=== PATIENT | female | born 1965 | race Caucasian/White ===

== ENCOUNTER 2019-08-02 10:41 | Emergency (ER) | payer SELFPAY ==
[2019-08-02 10:44] VITALS: BP 102/70; PULSE 103; TEMP 36.6; O2SAT 93; BMI 18.3
--- NOTE | 2019-08-02 10:54 | ED_ITS ---
Entered by Nurys Faye, acting as scribe for Alexandra Carmichael DO HPI - Weakness General: Chief complaint: Weakness Stated complaint: HYPOTENSION Time Seen by Provider: 08/02/19 10:54 Source: patient Mode of arrival: EMS Limitations: no limitations History of Present Illness: HPI Narrative: 54 yo Female presents to ED with complaint of weakness and hypotension. Pt states that she hasn't been feeling well for about 3 days. Pt states that when she went to get into the car to go to a meeting a work, her legs started shaking and her weakness increased. Pt states that when she worked last night she felt weak and off balance. Pt states that she has had chills and nausea. Pt states that she is diabetic but hasn't taken her Metformin and glipizide in about a month or so. Pt states that she fell today going into work because of her weakness. MD Complaint: generalized weakness Onset (ago): day(s) Duration: progressively worsening Location: LLE and RLE Migration: none Severity scale (1-10): 8 Quality: aching and other (chronic) Relieving factors: none Exacerbating factors: movement Context: recent illness Associated symptoms: Reports chills and nausea; Denies chest pain, fever(s), headache(s) or vomiting Review of Systems General: Reports: 10 or more systems reviewed and unremarkable except in HPI and below Const: Reports: chills; Denies: fever or fatigue ENMT: Denies: throat pain Card: Denies: chest pain or swelling of feet/ankles Resp: Denies: shortness of breath or productive cough GI: Reports: nausea; Denies: abdominal pain, vomiting, diarrhea, constipation or blood in stool : Denies: difficulty urinating Musc: Denies: back pain or extremity swelling Skin/Breast: Denies: rash Neuro: Reports: weakness in extremities and dizziness; Denies: headache or numbness in extremities PFS ED PFSH: Medical History Diabetes Social History Smoking and tobacco status: current every day smoker cigarettes Packs smoked per day: 1 Physical Exam Const: COMMON NORMALS: no apparent distress and oriented x3 GENERAL APPEARANCE: cooperative; not in distress HENMT: COMMON NORMALS: normocephalic HEAD & SCALP: normal to inspection and normocephalic MOUTH: oral and palatal mucosa normal and lip normal THROAT: posterior oropharynx normal and tonsils normal Neck/C-Spine: COMMON NORMALS: full ROM, no lymphadenopathy, supple and no meningeal signs GENERAL: Yes normal visual inspection and Yes trachea midline Chest: COMMONS NORMALS: inspection of chest normal Resp: COMMON NORMALS: normal respiratory effort and clear to auscultation bilaterally EFFORT & INSPECTION: Yes able to speak in complete sentences and No respiratory distress AUSCULTATION: clear to auscultation bilaterally, no rales, no rhonchi, no wheezes and diminished lung sounds bilateral Cardio: COMMON NORMALS: regular rate, regular rhythm, S1 normal heart sound, S2 normal heart sound and no murmurs RATE: regular rate RHYTHM: regular rhythm HEART SOUNDS: S1 normal and S2 normal PERIPHERAL PULSES: radial pulses present and dorsalis pedis pulses present GI: COMMON NORMALS: normal to inspection, nondistended, normoactive bowel sounds, soft to palpation and non-tender INSPECTION: Yes normal to inspection AUSCULTATION: Yes normoactive bowel sounds PALPATION: Yes soft, No tender, No guarding and No rigid RECTAL EXAM: deferred : COMMON NORMALS: Yes no CVA tenderness BLADDER/KIDNEY EXAM: Yes no CVA tenderness Back/Pelvis: COMMON NORMALS: no CVA tenderness Extremity: COMMON NORMALS: normal to inspection, full ROM, normal capillary refill, no calf tenderness and no pedal edema Neuro: COMMON NORMALS: oriented x3, CN's II-XII intact bilaterally, moves all extremities and no focal motor deficits MENINGEAL SIGNS: Yes no meningeal signs Skin: COMMON NORMALS: no rashes or lesions noted GENERAL SKIN EXAM: no rashes or lesions noted Course ED course: Pt has had hypotension and multiple falls, this may be from uti as she is positive for nitrates and has 0-4 wbc in urine, I will treat her with rocephin. Vital Signs: Vital signs: Vital Signs Temperature 97.9 F 08/02/19 10:44 Pulse Rate 75 08/02/19 14:19 Respiratory Rate 16 08/02/19 14:19 Blood Pressure 122/76 08/02/19 14:19 Pulse Oximetry 97 08/02/19 14:19 MDM - Weakness MDM Narrative: Medical decision making narrative: Pt has a UTI which may be the ause of her hypotension and falling with weakness, I am waiting for her serum ketones and her 2 hour troponin as her 1st was elevated to 16, will reassess glucose and bp after fluids. 12:40PM, pts serum ketones negative, waiting for trop. Ct head is negative 1353, pts trop is 11 and she has a flat delta with no chest pain so I will send her home with no further eval of her heart, her bp is now 122/70 after 2 Liters iv fluids. Her accu check is better at 186, I will send her home with diabetic diet instructions and abx for her uti. She will need to drink plenty of fluids and monitor her sugars carefully. I will refill her diabetic meds if needed 1407: pt states she is on metformin and glipizide or glyburide and doesnt know dosages, she gets them from the [facility], we have the pills with no labels so will try to identify them and I will prescribe them, she will need to monitor sugars carefully. Lab Data: Attestation: I reviewed the patient's lab results. Labs: Lab Results 08/02/19 08/02/19 08/02/19 Range/Units 10:29 10:29 10:29 WBC 8.0 (4.0-10.0) 10^3/ uL RBC 5.54 H (4.1-5.3) 10^6/u L Hgb 16.9 H (11.5-15.3) g/dL Hct 50.4 H (37.0-47.0) % MCV 91.0 (81-99) fL MCH 30.5 (28.0-34.0) pg MCHC 33.5 (30.0-36.0) g/dL RDW 11.7 L (12.1-15.1) % Plt Count 309 (130-400) 10^3/c mm MPV 11.0 H (7.4-10.4) fL Neut % (Auto) 61.5 % Lymph % (Auto) 25.4 % Avery % (Auto) 12.2 % Eos % (Auto) 0.0 % Baso % (Auto) 0.6 % Neut # (Auto) 4.9 (1.8-7.7) 10^3/u L Lymph # (Auto) 2.0 (0.8-4.8) 10^3/u L Avery # (Auto) 1.0 H (0.2-0.9) 10^3/u L Eos # (Auto) 0.0 (0.0-0.8) 10^3/u L Baso # (Auto) 0.1 (0.0-0.1) 10^3/u L Nucleated RBC % (a uto) 0 % Nucleated RBCs # 0.0 /100WBC Sodium 135 L (136-145) mmol/L Potassium 3.7 (3.5-5.1) mmol/L Chloride 93 L (98-107) mmol/L Carbon Dioxide 28 (22-29) mmol/L Anion Gap 17.7 (5-19) BUN 14 (6-20) mg/dL Creatinine 0.7 (0.5-0.9) mg/dL GFR Calculation 86.9 L (90-130) mL/min Glucose 307 H (65-115) mg/dL POC Glucose (70-110) mg/dL Calcium 9.8 (8.5-10.5) mg/dL Total Bilirubin 0.5 (0.15-1.2) mg/dL AST 15 (0-32) U/L ALT 11 (0-33) U/L Alkaline Phosphata se 118 H (35-105) IU/L Troponin T Baselin e 16 H (0-10) ng/mL Troponin T 120 Min [place] (0-10) ng/mL Delta Troponin T (0-10) ABS# Total Protein 8.3 (6.6-8.7) g/dL Albumin 4.3 (3.5-5.2) g/dL Globulin 4.0 (1.3-4.6) g/dL Urine Color (Yellow) Urine Appearance (CLEAR) Urine pH (5-7) Ur Specific Gravit y (1.005-1.030) Urine Protein (Negative) Urine Glucose (UA) (Normal) Urine Ketones (Negative) Urine Blood (Negative) Urine Nitrate (Negative) Urine Bilirubin (NEGATIVE) Urine Urobilinogen (Negative) mg/dL Ur Leukocyte Jody ase (Negative) Urine RBC (0-2) /hpf Urine WBC (0-5) /hpf Ur Squamous Epith Cells (0-5) Urine Bacteria (NONE) Urine Yeast Ethyl Alcohol < 10 (0-10) mg/dL Serum Ketones (Negative) 08/02/19 08/02/19 08/02/19 Range/Units 10:29 11:40 12:28 WBC (4.0-10.0) 10^3/ uL RBC (4.1-5.3) 10^6/u L Hgb (11.5-15.3) g/dL Hct (37.0-47.0) % MCV (81-99) fL MCH (28.0-34.0) pg MCHC (30.0-36.0) g/dL RDW (12.1-15.1) % Plt Count (130-400) 10^3/c mm MPV (7.4-10.4) fL Neut % (Auto) % Lymph % (Auto) % Avery % (Auto) % Eos % (Auto) % Baso % (Auto) % Neut # (Auto) (1.8-7.7) 10^3/u L Lymph # (Auto) (0.8-4.8) 10^3/u L Avery # (Auto) (0.2-0.9) 10^3/u L Eos # (Auto) (0.0-0.8) 10^3/u L Baso # (Auto) (0.0-0.1) 10^3/u L Nucleated RBC % (a uto) % Nucleated RBCs # /100WBC Sodium (136-145) mmol/L Potassium (3.5-5.1) mmol/L Chloride (98-107) mmol/L Carbon Dioxide (22-29) mmol/L Anion Gap (5-19) BUN (6-20) mg/dL Creatinine (0.5-0.9) mg/dL GFR Calculation (90-130) mL/min Glucose (65-115) mg/dL POC Glucose 335 (70-110) mg/dL Calcium (8.5-10.5) mg/dL Total Bilirubin (0.15-1.2) mg/dL AST (0-32) U/L ALT (0-33) U/L Alkaline Phosphata se (35-105) IU/L Troponin T Baselin e (0-10) ng/mL Troponin T 120 Min [place]oux (0-10) ng/mL Delta Troponin T (0-10) ABS# Total Protein (6.6-8.7) g/dL Albumin (3.5-5.2) g/dL Globulin (1.3-4.6) g/dL Urine Color Yellow (Yellow) Urine Appearance Sl hazy (CLEAR) Urine pH 5 (5-7) Ur Specific Gravit y 1.015 (1.005-1.030) Urine Protein Trace (Negative) Urine Glucose (UA) 4+ H (Normal) Urine Ketones Negative (Negative) Urine Blood Neg (Negative) Urine Nitrate Positive H (Negative) Urine Bilirubin Neg (NEGATIVE) Urine Urobilinogen Norm (Negative) mg/dL Ur Leukocyte Jody ase Negative (Negative) Urine RBC None (0-2) /hpf Urine WBC 0-4 H (0-5) /hpf Ur Squamous Epith Cells 5-10 H (0-5) Urine Bacteria 4+ H (NONE) Urine Yeast 1+ H Ethyl Alcohol (0-10) mg/dL Serum Ketones Negative (Negative) 08/02/19 08/02/19 Range/Units 13:22 13:53 WBC (4.0-10.0) 10^3/ uL RBC (4.1-5.3) 10^6/u L Hgb (11.5-15.3) g/dL Hct (37.0-47.0) % MCV (81-99) fL MCH (28.0-34.0) pg MCHC (30.0-36.0) g/dL RDW (12.1-15.1) % Plt Count (130-400) 10^3/c mm MPV (7.4-10.4) fL Neut % (Auto) % Lymph % (Auto) % Avery % (Auto) % Eos % (Auto) % Baso % (Auto) % Neut # (Auto) (1.8-7.7) 10^3/u L Lymph # (Auto) (0.8-4.8) 10^3/u L Avery # (Auto) (0.2-0.9) 10^3/u L Eos # (Auto) (0.0-0.8) 10^3/u L Baso # (Auto) (0.0-0.1) 10^3/u L Nucleated RBC % (a uto) % Nucleated RBCs # /100WBC Sodium (136-145) mmol/L Potassium (3.5-5.1) mmol/L Chloride (98-107) mmol/L Carbon Dioxide (22-29) mmol/L Anion Gap (5-19) BUN (6-20) mg/dL Creatinine (0.5-0.9) mg/dL GFR Calculation (90-130) mL/min Glucose (65-115) mg/dL POC Glucose 186 (70-110) mg/dL Calcium (8.5-10.5) mg/dL Total Bilirubin (0.15-1.2) mg/dL AST (0-32) U/L ALT (0-33) U/L Alkaline Phosphata se (35-105) IU/L Troponin T Baselin e (0-10) ng/mL Troponin T 120 Min [place] 11.79 H (0-10) ng/mL Delta Troponin T -4.21 L (0-10) ABS# Total Protein (6.6-8.7) g/dL Albumin (3.5-5.2) g/dL Globulin (1.3-4.6) g/dL Urine Color (Yellow) Urine Appearance (CLEAR) Urine pH (5-7) Ur Specific Gravit y (1.005-1.030) Urine Protein (Negative) Urine Glucose (UA) (Normal) Urine Ketones (Negative) Urine Blood (Negative) Urine Nitrate (Negative) Urine Bilirubin (NEGATIVE) Urine Urobilinogen (Negative) mg/dL Ur Leukocyte Jody ase (Negative) Urine RBC (0-2) /hpf Urine WBC (0-5) /hpf Ur Squamous Epith Cells (0-5) Urine Bacteria (NONE) Urine Yeast Ethyl Alcohol (0-10) mg/dL Serum Ketones (Negative) Imaging Data^: CXR: Attestation: I personally reviewed and interpreted this imaging study as follows: Radiologist's impression: [address] [address] XRay Report Signed Patient: Brittney Lozano #: [id number] : 1965Acct#:[id number] Age/Sex: 54 / FADM Date: 08/02/19 Loc: ERRoom/Bed: Attending Dr: Ordering Provider/Ordering MD: Alexandra Carmichael DO Date of Service: 08/02/19 Procedure(s): XR chest 1V portable 64580 Accession Number(s): [id number] Report Number: [id number] WS: [id number] XR chest 1V portable 75218 REASON FOR EXAM: pneumonia FINDINGS: Comparisons were made to July 12, 2014. The lung ivy are well aerated. No pneumonia, pleural effusion, pulmonary edema, or mass effect. The hilum and apices are normal. No osseous abnormalities. There is arteriosclerotic changes seen in the arch of the aorta. XR/XR chest 1V portable 55061 IMPRESSION: Arteriosclerotic changes of the arch of the aorta. No evidence of active cardiopulmonary disease. Dictated By:Ozzie Kirkpatrick DO Signed By:Ozzie Kirkpatrick DOSigned Date/Time:08/02/19 1136 DD/ 1135 CT Head: Radiologist's impression: [address] [address] [address] Scan Report Signed Patient: Brittney Lozano #: [id number] : 1965Acct#:[id number] Age/Sex: 54 / FADM Date: 08/02/19 Loc: ERRoom/Bed: Attending Dr: Ordering Provider/Ordering MD: Alexandra Carmichael DO Date of Service: 08/02/19 Procedure(s): CT head wo con* [id number] Accession Number(s): [id number] Report Number: [id number] WS: [id number] CT HEAD NONCONTRAST HISTORY: dizziness TECHNIQUE: Contiguous axial imaging performed through the brain in 2.5 mm imaging. Bone and soft tissue windows. Sagittal and coronal reformats reviewed. All CT scans at [facility] use at least one of these dose optimization techniques: automated exposure control; mA and/or kV adjustment per patient size (includes targeted exams where dose is matched to clinical indication); or iterative reconstruction. DLP: 797.14 mGy.cm COMPARISON: None available. No acute intracranial hemorrhage, midline shift or mass effect. Mild atrophy and mild chronic microvascular ischemic disease. No prior infarcts. No inferior displacement of the cerebellar tonsils. Ventricles: Normal size with no hydrocephalus. Visualize clivus and pituitary gland are negative. Paranasal sinuses: Mild ethmoid air cell disease. No air-fluid levels. Mastoid air cells: Well pneumatized. Calvarium and scalp: Skull is intact with no soft tissue edema or swelling. CT/CT head wo con* [id number] IMPRESSION: 1. No acute intracranial hemorrhage or edema. 2. Mild atrophy and chronic small vessel ischemic disease. Dictated By:Mirtha Whiting DO Signed By:Mirtha Whiting DOSigned Date/Time:08/02/19 1232 DD/ 1230 EKG Data^: EKG 1: Attestation: I personally reviewed and interpreted this EKG as follows: EKG interpretation time: 11:34 Prior EKG tracings: not available for review Computer generated interpretation: nsr rate 87, normal st segments' Discharge Plan Discharge Patient Disposition: Home, Self-Care Clinical Impression: Dehydration, Weakness UTI (urinary tract infection) Qualifiers: Urinary tract infection type: acute pyelonephritis Qualified Code(s): N10 - Acute pyelonephritis Diabetes Qualifiers: Diabetes mellitus complication detail: with other kidney complication Condition: Stable Prescriptions: New metformin 500 mg tablet 500 mg PO BID Qty: 60 RF: 0 glipizide 10 mg tablet extended release 24hr 10 mg PO DAILY Qty: 30 RF: 0 simvastatin 20 mg tablet 20 mg PO DAILY Qty: 30 RF: 0 cefdinir 300 mg capsule 300 mg PO BID 5 Days Qty: 10 RF: 0 No Action glipizide 10 mg Tablet Extended Release 24hr See Rx Instructions .ROUTE .COMPLEX RF: 0 simvastatin 20 mg Tablet See Rx Instructions .ROUTE .COMPLEX RF: 0 metformin 500 mg Tablet Extended Release 24hr See Rx Instructions .ROUTE .COMPLEX RF: 0 Discharge Orders: Discharge Order (Routine); Ordered 08/02/19 Ordered By: Alexandra Carmichael Referrals: Leonard Perez MD [Family Provider] - 1-3 days (in the next 1-2 days) Discharge Diet: Diabetic Discharge Activity: Resume usual activity Patient Instructions: Diabetes and Diet, Urinary Tract Infection in Women (ED) Activity Restrictions/Additional Instructions: You are to check your sugars carefully 3 times daily and take all meds as prescribed. Drink plenty of water. You are to return if anything worsens, not better or any problems. Discharge Date/Time: 08/02/19 14:25 Coding Level of Care Code ED Labor Expediter for Chg Fwd Exam Comprehensive The documentation recorded by the Yunier grossman Carmen, accurately reflects th e service I personally performed and the decisions made by , Alexandra Carmichael, Aug 02, 2019 10:41
--- NOTE | 2019-08-02 10:54 | PC.NURSE ---
Per EMS pts blood glucose 354
--- NOTE | 2019-08-02 11:04 | XR_ITS ---
WS: [id number] XR chest 1V portable [id number] REASON FOR EXAM: pneumonia FINDINGS: Comparisons were made to July 12, 2014. The lung ivy are well aerated. No pneumonia, pleural effusion, pulmonary edema, or mass effect. The hilum and apices are normal. No osseous abnormalities. There is arteriosclerotic changes seen in the arch of the aorta. XR/XR chest 1V portable [id number] IMPRESSION: Arteriosclerotic changes of the arch of the aorta. No evidence of active cardiopulmonary disease.
--- NOTE | 2019-08-02 11:05 | ECG_ITS ---
Measurements Intervals [place] Rate: 87 P: 78 [place]: 149 QRS: 75 QRSD: 102 T: 81 QT: 371 QTc: 447 SINUS RHYTHM Compared to ECG 05/30/2014 23:12:56 Sinus tachycardia no longer present Electronically Signed On 08-02-2019 13:18:14 [employer] by Meri Kidd M.D. [id number]
[2019-08-02 11:07] VITALS: O2SAT 96
--- NOTE | 2019-08-02 11:08 | CT_ITS ---
WS: [id number] CT HEAD NONCONTRAST HISTORY: dizziness TECHNIQUE: Contiguous axial imaging performed through the brain in 2.5 mm imaging. Bone and soft tiss ue windows. Sagittal and coronal reformats reviewed. All CT scans at [facility] use at ast one of these dose optimization techniques: automated exposure control; mA and/or kV adjustment pe r patient size (includes targeted exams where dose is matched to clinical indication); or iterative r econstruction. DLP: 797.14 mGy.cm COMPARISON: None available. No acute intracranial hemorrhage, midline shift or mass effect. Mild atrophy and mild chronic microvascular ischemic disease. No prior infarcts. No inferior displace ment of the cerebellar tonsils. Ventricles: Normal size with no hydrocephalus. Visualize clivus and pituitary gland are negative. Paranasal sinuses: Mild ethmoid air cell disease. No air-fluid levels. Mastoid air cells: Well pneumatized. Calvarium and scalp: Skull is intact with no soft tissue edema or swelling. CT/CT head wo con* [id number] IMPRESSION: 1. No acute intracranial hemorrhage or edema. 2. Mild atrophy and chronic small vessel ischemic disease.
[2019-08-02] MEDS: sodium chloride 0.9% 1,000 ML 999 ML IV ×2 (11:11→12:57)
[2019-08-02 11:25] LABS: Basophils # 0.1 10^3/uL (0.0-0.1); Basophils % 0.6 %; Hematocrit 50.4 % (37.0-47.0); Hemoglobin 16.9 g/dL (11.5-15.3); Lymphocytes % 25.4 %; Mean Corpuscular HGB Conc 33.5 g/dL (30.0-36.0); Mean Corpuscular Hemoglobin 30.5 pg (28.0-34.0); Monocytes % 12.2 %; Neutrophils # 4.9 10^3/uL (1.8-7.7); Neutrophils % 61.5 %; Nucleated Red Blood Cells % 0 %; Platelet Count 309 10^3/cmm (130-400); Red Blood Count 5.54 10^6/uL (4.1-5.3); Red Cell Distribution Width 11.7 % (12.1-15.1)
[2019-08-02 11:32] LABS: Alanine Aminotransferase 11 U/L (0-33); Albumin Level 4.3 g/dL (3.5-5.2); Alkaline Phosphatase 118 IU/L (35-105); Anion Gap 17.7 (5-19); Aspartate Amino Transferase 15 U/L (0-32); Blood Urea Nitrogen 14 mg/dL (6-20); Calcium 9.8 mg/dL (8.5-10.5); Carbon Dioxide 28 mmol/L (22-29); Chloride 93 mmol/L (98-107); Creatinine Clr Calc Pharmacy 69.1014; Glomerular Filtration Rate 86.9 mL/min (90-130); Glucose 307 mg/dL (65-115); Potassium 3.7 mmol/L (3.5-5.1); Sodium 135 mmol/L (136-145); Total Bilirubin 0.5 mg/dL (0.15-1.2); Total Protein 8.3 g/dL (6.6-8.7)
[2019-08-02 11:34] LABS: Troponin(5th) Baseline 16 ng/mL (0-10)
[2019-08-02] MEDS: ipratropium-albuterol 3 mL Neb INHALATION (11:35)
[2019-08-02 11:36] LABS: Alcohol Level < 10 mg/dL (0-10)
[2019-08-02 11:38] VITALS: PULSE 95; RESP 20; O2SAT 95
[2019-08-02 11:40] VITALS: PULSE 97
[2019-08-02 11:55] LABS: Add Urine Microscopic? YES; Bilirubin Urine Neg (NEGATIVE); Blood Urine Neg (Negative); Glucose Urine UA 4+ (Normal); Ketones Urine Negative (Negative); Leukocyte Esterase Urine Negative (Negative); Nitrate Urine Positive (Negative); Protein Urine Trace (Negative); Specific Gravity, Urine 1.015 (1.005-1.030); Urine Appearance SL Hazy (CLEAR); Urine Color Yellow (Yellow); Urobilinogen Urine Norm (Negative); pH Urine 5 (5-7)
[2019-08-02 11:58] LABS: Add Urine Culture? Yes; Bacteria Urine 4+; WBC Urine 0-4 /hpf (0-5)
[2019-08-02 12:13] LABS: Ketone (Acetest) Serum Negative (Negative)
[2019-08-02] MEDS: cefTRIAXone 1,000 MG in sodium chloride 0.9% (plus) 50 ML 100 MG IV (12:28)
[2019-08-02 12:31] LABS: Glucose Point of Care 335 mg/dL (70-110)
[2019-08-02] MEDS: insulin regular-human 100 units/1 mL 10 UNIT IVP (13:17)
[2019-08-02 13:42] LABS: Troponin 5 2HR 11.79 ng/mL (0-10)
[2019-08-02 13:50] LABS: Troponin 5 2HR Delta -4.21 ABS# (0-10)
[2019-08-02 13:55] LABS: Glucose Point of Care 186 mg/dL (70-110)
[2019-08-02 14:19] VITALS: BP 122/76; PULSE 75; RESP 16; O2SAT 97
== END 2019-08-02 14:25 | disposition home or self-care (01) ==
PROVIDERS: Emergency Provider Emergency Medicine; Family Provider Family Medicine
DX: N39.0 Urinary tract infection, site not specified (principal); E86.0 Dehydration; R53.1 Weakness; E11.9 Type 2 diabetes mellitus without complications; F17.210 Nicotine dependence, cigarettes, uncomplicated; Z79.84 Long term (current) use of oral hypoglycemic drugs
CPT/HCPCS: 36415; 36416; 70450; 71045; 80053; 80307; 81001; 82009; 82962; 84484; 85025; 87040; 87077; 87086; 87186; 93005; 94640; 96361; 96365; 96374; 96375; 99283; 99284; J0696; J1815; J7030

== ENCOUNTER 2019-09-13 12:09 | Emergency (ER) | payer SELFPAY ==
[2019-09-13] VITALS (32 sets, daily range): BP systolic 122–167; BP diastolic 76–92; PULSE 106–121; RESP 16–20; TEMP 36.7; O2SAT 95–98; BMI 19.2
--- NOTE | 2019-09-13 12:23 | W.ED.SOB ---
HPI - SOB/Dyspnea General: Chief Complaint: General Medical Stated Complaint: sob Time Seen by Provider: 09/13/19 12:23 History of Present Illness: HPI Narrative: Pt states her sister came to see her and she has a lesion that is similar. Pt states she has a lesion on her right middle finger and her whole hand is now swollen. She cant bend finger. there is foul smelling drainage and distal finger is turning purpple. She states she has been doctoring it herself but putting it in epsom salts and putting a salve on it and it is getting worse, She states she also feels short of breath. She is a diabetic MD elicited complaint: shortness of breath and cough Onset (ago): week(s) Context: recent illness Timing: constant Severity: severe Known history of: diabetes (noncompliant with meds) Associated symptoms: Reports fever(s), lightheadedness, myalgias and rash (streakig up right arm to axilla); Deny abdominal pain, nausea or vomiting Treatment prior to arrival: other (epsom salts) Review of Systems General: Reports: 10 or more systems reviewed and unremarkable except in HPI and below Const: Reports: fever ENMT: Denies: throat pain Card: Reports: lightheadedness Resp: Reports: shortness of breath; Denies: productive cough GI: Denies: abdominal pain, nausea, vomiting, diarrhea, constipation or blood in stool : Denies: difficulty urinating Musc: Denies: back pain Skin/Breast: Reports: rash, redness, skin tenderness, skin swelling, sores, new lesion and non-healing lesion Neuro: Denies: headache, numbness in extremities or weakness in extremities Psych: Reports: anxiety PFSH ED PFSH: Social History Smoking and tobacco status: current every day smoker cigarettes Packs smoked per day: 1 Physical Exam Const: COMMON NORMALS: no apparent distress and oriented x3; negative for well nourished GENERAL APPEARANCE: disheveled NUTRITIONAL APPEARANCE: underweight ORIENTATION/CONSCIOUSNESS: Yes awake HENMT: MOUTH: other (slightly dry mucus mem) Neck/C-Spine: COMMON NORMALS: full ROM, no lymphadenopathy and no meningeal signs Resp: COMMON NORMALS: clear to auscultation bilaterally EFFORT & INSPECTION: Yes able to speak in complete sentences, Yes symmetric chest movement, No respiratory distress and No audible wheezes AUSCULTATION: clear to auscultation bilaterally, no rales, no rhonchi and no wheezes Cardio: COMMON NORMALS: regular rate, no murmurs and peripheral pulses 2+ throughout RATE: regular rate PERIPHERAL PULSES: pulses 2+ throughout GI: COMMON NORMALS: normal to inspection, nondistended, normoactive bowel sounds INSPECTION: Yes normal to inspection AUSCULTATION: Yes normoactive bowel sounds Extremity: RIGHT UPPER EXTREMITY: Yes hand & digits (3rd finger wound with signs of gangrene surrounding and distal, fluctuance,) Right hand and digits: Yes inspection (tedner with erythema of dorsal hand and swelling), Yes ROM exam (decreased rom of finger) and Yes other (lymphangitis up to axilla) Neuro: COMMON NORMALS: oriented x3 MENINGEAL SIGNS: Yes no meningeal signs Course Vital Signs: Vital signs: Vital Signs Temperature 98.0 F 09/13/19 12:28 Pulse Rate 117 H 09/13/19 12:28 Respiratory Rate 18 09/13/19 13:56 Blood Pressure 122/76 09/13/19 12:28 Pulse Oximetry 98 09/13/19 12:28 MDM - SOB/Dyspnea MDM Narrative: Medical decision making narrative: Pt will need surgical debridement and possible amputation. Dr Banerjee is out of town, Dr Garcia is unavailable, I am calling ortho Dr Vega now. She is not in DKA however her sugars are out of control over 400. ph is 7.39. 1450 Dr Vega states the pt needs to be transferred to a hand surgeon and she requests [facility]. Pt cannot bend her finger. it has foul odor . Dr Hurst hand surgery at [facility] states he will be happy to consult on the pt, she is to stay npo. Transfer line is seeing if they can get a hospitalist to admit. Lab Data: Attestation: I reviewed the patient's lab results. Labs: Lab Results 09/13/19 09/13/19 09/13/19 Range/Units 04:07 12:50 12:50 WBC 27.1 H (4.0-10.0) 10^3/ uL RBC 4.71 (4.1-5.3) 10^6/u L Hgb 14.5 (11.5-15.3) g/dL Hct 45.1 (37.0-47.0) % MCV 95.8 (81-99) fL MCH 30.8 (28.0-34.0) pg MCHC 32.2 (30.0-36.0) g/dL RDW 11.5 L (12.1-15.1) % Plt Count 445 H (130-400) 10^3/c mm MPV 10.0 (7.4-10.4) fL Neut % (Auto) 84.9 % Lymph % (Auto) 7.5 % Bonner % (Auto) 5.9 % Eos % (Auto) 0.0 % Baso % (Auto) 0.4 % Neut # (Auto) 23.0 H (1.8-7.7) 10^3/u L Lymph # (Auto) 2.0 (0.8-4.8) 10^3/u L Bonner # (Auto) 1.6 H (0.2-0.9) 10^3/u L Eos # (Auto) 0.0 (0.0-0.8) 10^3/u L Baso # (Auto) 0.1 (0.0-0.1) 10^3/u L Nucleated RBC % (a uto) 0 % Nucleated RBCs # 0.0 /100WBC Specimen Type Arterial Sample Site Radial, left ABG pH 7.40 (7.35-7.45) ABG pCO2 42.8 (35-45) mmHg ABG pO2 65.3 L (80.0-100.0) mmH g ABG HCO3 26.2 H (22-26) mmol/L ABG Base Excess 1.0 (-2.0-2.0) mmol/ L Awais Test Pos Hematocrit 40.1 (37-47) % O2 Delivery Device Room air International Guest Coordinator ID broma Sodium 131 L (136-145) mmol/L Potassium 3.8 (3.5-5.1) mmol/L Chloride 89 L (98-107) mmol/L Carbon Dioxide 25 (22-29) mmol/L Anion Gap 20.8 H (5-19) BUN 20 (6-20) mg/dL Creatinine 0.6 (0.5-0.9) mg/dL GFR Calculation 103.8 (90-130) mL/min Glucose 502 H* (65-115) mg/dL POC Glucose (70-110) mg/dL Calculated Osmolal ity 291 (285-295) mOsm/k g Lactate (0.5-2.2) mmol/L Calcium 9.2 (8.5-10.5) mg/dL Total Bilirubin 0.4 (0.15-1.2) mg/dL AST 12 (0-32) U/L ALT 11 (0-33) U/L Alkaline Phosphata se 129 H (35-105) IU/L Total Protein 7.5 (6.6-8.7) g/dL Albumin 3.1 L (3.5-5.2) g/dL Globulin 4.4 (1.3-4.6) g/dL Serum Ketones (Negative) 09/13/19 09/13/19 09/13/19 Range/Units 12:50 12:50 14:10 WBC (4.0-10.0) 10^3/ uL RBC (4.1-5.3) 10^6/u L Hgb (11.5-15.3) g/dL Hct (37.0-47.0) % MCV (81-99) fL MCH (28.0-34.0) pg MCHC (30.0-36.0) g/dL RDW (12.1-15.1) % Plt Count (130-400) 10^3/c mm MPV (7.4-10.4) fL Neut % (Auto) % Lymph % (Auto) % Bonner % (Auto) % Eos % (Auto) % Baso % (Auto) % Neut # (Auto) (1.8-7.7) 10^3/u L Lymph # (Auto) (0.8-4.8) 10^3/u L Bonner # (Auto) (0.2-0.9) 10^3/u L Eos # (Auto) (0.0-0.8) 10^3/u L Baso # (Auto) (0.0-0.1) 10^3/u L Nucleated RBC % (a uto) % Nucleated RBCs # /100WBC Specimen Type Sample Site ABG pH (7.35-7.45) ABG pCO2 (35-45) mmHg ABG pO2 (80.0-100.0) mmH g ABG HCO3 (22-26) mmol/L ABG Base Excess (-2.0-2.0) mmol/ L Awais Test Hematocrit (37-47) % O2 Delivery Device International Guest Coordinator ID Sodium (136-145) mmol/L Potassium (3.5-5.1) mmol/L Chloride (98-107) mmol/L Carbon Dioxide (22-29) mmol/L Anion Gap (5-19) BUN (6-20) mg/dL Creatinine (0.5-0.9) mg/dL GFR Calculation (90-130) mL/min Glucose (65-115) mg/dL POC Glucose 443 (70-110) mg/dL Calculated Osmolal ity (285-295) mOsm/k g Lactate 2.5 H (0.5-2.2) mmol/L Calcium (8.5-10.5) mg/dL Total Bilirubin (0.15-1.2) mg/dL AST (0-32) U/L ALT (0-33) U/L Alkaline Phosphata se (35-105) IU/L Total Protein (6.6-8.7) g/dL Albumin (3.5-5.2) g/dL Globulin (1.3-4.6) g/dL Serum Ketones Negative (Negative) Imaging Data^: CXR: Radiologist's impression: XRay Report Signed Patient: Brittney Lozano #: [id number] : 1965Acct#:[id number] Age/Sex: 54 / FADM Date: 09/13/19 Loc: ERRoom/Bed: Attending Dr: Ordering Provider/Ordering MD: Alexandra Carmichael DO Date of Service: 09/13/19 Procedure(s): XR chest 1V portable [id number] Accession Number(s): [id number] Report Number: [id number] WS: [id number] PORTABLE CHEST HISTORY: pneumonia COMPARISON: 08/02/2019 Lungs are clear and well expanded. No pleural effusion or pneumothorax. Cardiac size: Normal. Mediastinum/Aorta: Normal mediastinum. No osseous abnormality seen. XR/XR chest 1V portable [id number] IMPRESSION: Unremarkable portable chest. Other Imaging: Radiologist's impression: CT Scan Report Signed Patient: Brittney Lozano #: [id number] : 1965Acct#:[id number] Age/Sex: 54 / FADM Date: 09/13/19 Loc: ERRoom/Bed: Attending Dr: Ordering Provider/Ordering MD: Alexandra Carmichael DO Date of Service: 09/13/19 Procedure(s): CT hand RT w con [id number] Accession Number(s): [id number] Report Number: [id number] WS: [id number] CT RIGHT HAND WITH CONTRAST HISTORY: infection/gangrene Technique: All CT scans at [facility] use at least one of these dose optimization techniques: automated exposure control; mA and/or kV adjustment per patient size (includes targeted exams where dose is matched to clinical indication); or iterative reconstruction. DLP: 604.17 mGy.cm COMPARISON: None available. Contrast: Omnipaque 300; 95 mL IV. No destructive bone process or fracture. There is artifact from the patient's jewelry that she was unable to remove. There is mild diffuse soft tissue edema. No focal collection. No air in the soft tissues. CT/CT hand RT w con [id number] IMPRESSION: Mild diffuse soft tissue edema over the hand. No osteomyelitis or focal collection. Dictated By:Mirtha Whiting DO Signed By:Mirtha Whiting DOSigned Date/Time:09/13/19 1335 Discharge Plan Discharge Patient Disposition: Xfer Short-Term Hosp Clinical Impression: Wound infection, Diabetes, Cellulitis, Acute lymphangitis Condition: Stable Prescriptions: No Action metformin 500 mg tablet 500 mg PO BID Qty: 60 RF: 0 glipizide 10 mg tablet extended release 24hr 10 mg PO DAILY Qty: 30 RF: 0 simvastatin 20 mg tablet 20 mg PO DAILY Qty: 30 RF: 0 Referrals: Leonard Perez MD [Primary Care Provider] - Coding Level of Care Code ED Bin Tripper Operator for Chg Fwd Exam Detailed
--- NOTE | 2019-09-13 12:34 | CT_ITS ---
WS: [id number] CT RIGHT HAND WITH CONTRAST HISTORY: infection/gangrene Technique: All CT scans at [facility] use at least one of these dose optimization techniq ues: automated exposure control; mA and/or kV adjustment per patient size (includes targeted exams wh ere dose is matched to clinical indication); or iterative reconstruction. DLP: 604.17 mGy.cm COMPARISON: None available. Contrast: Omnipaque 300; 95 mL IV. No destructive bone process or fracture. There is artifact from the patient's jewelry that she was un able to remove. There is mild diffuse soft tissue edema. No focal collection. No air in the soft tiss ues. CT/CT hand RT w con [id number] IMPRESSION: Mild diffuse soft tissue edema over the hand. No osteomyelitis or focal collection.
--- NOTE | 2019-09-13 12:47 | XR_ITS ---
WS: [id number] PORTABLE CHEST HISTORY: pneumonia COMPARISON: 08/02/2019 Lungs are clear and well expanded. No pleural effusion or pneumothorax. Cardiac size: Normal. Mediastinum/Aorta: Normal mediastinum. No osseous abnormality seen. XR/XR chest 1V portable [id number] IMPRESSION: Unremarkable portable chest.
[2019-09-13 13:05] LABS: Basophils # 0.1 10^3/uL (0.0-0.1); Basophils % 0.4 %; Hematocrit 45.1 % (37.0-47.0); Hemoglobin 14.5 g/dL (11.5-15.3); Lymphocytes % 7.5 %; Mean Corpuscular HGB Conc 32.2 g/dL (30.0-36.0); Mean Corpuscular Hemoglobin 30.8 pg (28.0-34.0); Mean Corpuscular Volume 95.8 fL (81-99); Monocytes # 1.6 10^3/uL (0.2-0.9); Monocytes % 5.9 %; Neutrophils % 84.9 %; Nucleated Red Blood Cells % 0 %; Platelet Count 445 10^3/cmm (130-400); Red Blood Count 4.71 10^6/uL (4.1-5.3); Red Cell Distribution Width 11.5 % (12.1-15.1); White Blood Count 27.1 10^3/uL (4.0-10.0)
[2019-09-13] MEDS: iohexol 300 mg/mL 100 mL Btl IV (13:17)
[2019-09-13 13:20] LABS: Lactate (Lactic Acid level) 2.5 mmol/L (0.5-2.2)
[2019-09-13] MEDS: piperacillin-tazobactam 3.375 GM in sodium chloride 0.9% (plus) 50 ML IV (13:52)
[2019-09-13 13:54] LABS: Alanine Aminotransferase 11 U/L (0-33); Albumin Level 3.1 g/dL (3.5-5.2); Alkaline Phosphatase 129 IU/L (35-105); Anion Gap 20.8 (5-19); Aspartate Amino Transferase 12 U/L (0-32); Blood Urea Nitrogen 20 mg/dL (6-20); Calcium 9.2 mg/dL (8.5-10.5); Carbon Dioxide 25 mmol/L (22-29); Chloride 89 mmol/L (98-107); Globulin 4.4 g/dL (1.3-4.6); Glomerular Filtration Rate 103.8 mL/min (90-130); Osmolality Calculated 291 mOsm/kg (285-295); Potassium 3.8 mmol/L (3.5-5.1); Sodium 131 mmol/L (136-145); Total Bilirubin 0.4 mg/dL (0.15-1.2); Total Protein 7.5 g/dL (6.6-8.7)
[2019-09-13 13:55] LABS: Glucose 502 mg/dL (65-115)
[2019-09-13] MEDS: morphine 4 mg/mL SDV 1 mL IVP (13:56)
[2019-09-13] MEDS: ondansetron 2 mg/ML SDV 2 mL 4 MG IVP (13:57)
[2019-09-13] MEDS: sodium chloride 0.9% 1,000 ML 999 ML IV ×2 (13:57→15:37)
[2019-09-13] MEDS: tetanus-dipt-pertussis 0.5 mL SDV IM (13:58)
[2019-09-13] MEDS: insulin regular-human 100 units/1 mL 10 UNIT IVP (14:15)
[2019-09-13 14:19] LABS: Glucose Point of Care 443 mg/dL (70-110)
[2019-09-13 14:20] LABS: ABG PCO2 42.8 mmHg (35-45); Arterial Blood Gas Hematocrit 40.1 % (37-47); Blood Gas Allen Test Pos; Blood Gas Sample Site Radial, left; Blood Gas Sample Type Arterial; HCO3 ABG 26.2 mmol/L (22-26); Oxygen Device ROOM AIR; PO2 ABG 65.3 mmHg (80.0-100.0)
[2019-09-13 14:42] LABS: Ketone (Acetest) Serum Negative (Negative)
[2019-09-13] MEDS: vancomycin 1,000 MG in sodium chloride 0.9% 250 ML 250 MG IV (15:34)
--- NOTE | 2019-09-13 16:46 | PC.NURSE ---
Report called to Winsome ETIENNE at [facility]
--- NOTE | 2019-09-13 17:08 | PC.NURSE ---
Pt. to be transfered to [facility]. Verbalizes understanding of plan of care. Pt. without complaint. Without distress.
== END 2019-09-13 21:30 | disposition short-term general hospital (02) ==
PROVIDERS: Emergency Provider Emergency Medicine; Family Provider Family Medicine; PCP Family Medicine
DX: E11.622 Type 2 diabetes mellitus with other skin ulcer (principal); L03.011 Cellulitis of right finger; L03.021 Acute lymphangitis of right finger; F17.210 Nicotine dependence, cigarettes, uncomplicated
CPT/HCPCS: 12345; 36415; 36416; 36600; 71045; 73201; 80053; 82009; 82803; 82962; 83605; 85025; 87040; 90471; 90715; 96365; 96368; 96375; 99284; J1815; J2270; J2405; J2543; J3370; J7030; J7050; Q9967

== ENCOUNTER 2019-11-24 17:47 | Outpatient (CLI) | payer SELFPAY ==
[2019-11-24 19:36] LABS: Basophils # 0.1 10^3/uL (0.0-0.1); Basophils % 0.7 %; Eosinophils # 0.1 10^3/uL (0.0-0.8); Eosinophils % 1.5 %; Hematocrit 45.5 % (37.0-47.0); Hemoglobin 15.5 g/dL (11.5-15.3); Lymphocytes # 2.9 10^3/uL (0.8-4.8); Lymphocytes % 31.8 %; Mean Corpuscular HGB Conc 34.1 g/dL (30.0-36.0); Mean Platelet Volume 11.1 fL (7.4-10.4); Monocytes # 0.4 10^3/uL (0.2-0.9); Monocytes % 4.7 %; Neutrophils # 5.6 10^3/uL (1.8-7.7); Nucleated Red Blood Cells % 0 %; Platelet Count 301 10^3/cmm (130-400); Red Blood Count 4.84 10^6/uL (4.1-5.3); Red Cell Distribution Width 12.2 % (12.1-15.1); White Blood Count 9.2 10^3/uL (4.0-10.0)
[2019-11-24 20:18] LABS: Estmated Average Glucose 186; Hemoglobin A1C 8.1 % (4.0-6.0)
[2019-11-24 20:24] LABS: Alanine Aminotransferase 12 U/L (0-33); Albumin Level 4.4 g/dL (3.5-5.2); Alkaline Phosphatase 109 IU/L (35-105); Anion Gap 17.1 (5-19); Aspartate Amino Transferase 12 U/L (0-32); Blood Urea Nitrogen 17 mg/dL (6-20); Calcium 9.7 mg/dL (8.5-10.5); Carbon Dioxide 27 mmol/L (22-29); Chloride 99 mmol/L (98-107); Chol HDL Ratio 3.96 mg/dL (0.0-4.40); Cholesterol 186 mg/dL (0-200); Globulin 2.4 g/dL (1.3-4.6); Glomerular Filtration Rate 128.1 mL/min (90-130); Glucose 223 mg/dL (65-115); HDL Cholesterol 47 mg/dL (60-100); LDL Cholesterol Calculated 112 mg/dL (50-129); LDL HDL Ratio 2.38 RATIO (0.00-3.22); Osmolality Calculated 291 mOsm/kg (285-295); Potassium 4.1 mmol/L (3.5-5.1); Sodium 139 mmol/L (136-145); Thyroid Stimulating Hormone 0.54 uIU/mL (0.27-4.20); Total Bilirubin 0.3 mg/dL (0.15-1.2); Total Protein 6.8 g/dL (6.6-8.7); Triglycerides 136 mg/dL (0-150)
== END 2019-11-24 17:48 | disposition home or self-care (01) ==
LOC: LAB 17:48
PROVIDERS: PCP Family Medicine; Visit Provider General Practice
DX: E11.9 Type 2 diabetes mellitus without complications (principal)
CPT/HCPCS: 80053; 80061; 83036; 84443; 85025

== ENCOUNTER 2021-04-30 13:11 | Inpatient (IN) | payer SELFPAY ==
[2021-04-30] VITALS (21 sets, daily range): BP systolic 104–146; BP diastolic 60–109; PULSE 86–149; RESP 17–52; TEMP 36.7–37.1; O2SAT 89–99; BMI 18.3
[2021-04-30 13:41] LABS: Glucose Point of Care 477 mg/dL (70-110)
--- NOTE | 2021-04-30 13:50 | ECG_ITS ---
[facility] Test Date: 2021-04-30 Pat Name: Skyla Lozano Department: Room: Gender: Female Research Aide: : 1965 Requested By: Brooklyn Mobley Order Number: [id number] Parth MD: Meri Kidd M.D. Measurements Intervals [place] Rate: 113 P: 75 KS: 161 QRS: 67 QRSD: 122 T: 68 QT: 365 QTc: 502 Interpretive Statements SINUS TACHYCARDIA LATERAL MYOCARDIAL INFARCTION , PROBABLY RECENT [40+ ms Q WAVE AND/OR ST/T ABNORMALITY IN I/aVL/V5/V6] PROBABLE INFERIOR MYOCARDIAL INFARCTION , OF INDETERMINATE AGE [35 ms Q WAVE IN II/aVF] Compared to ECG 08/02/2019 11:34:41 Myocardial infarct finding now present Sinus rhythm no longer present Electronically Signed On 05-01-2021 10:00:19 HIV/AIDS CARE NURSE by Meri Kidd M.D. [email or web address]
--- NOTE | 2021-04-30 13:50 | XRR_ITS ---
PROCEDURE INFORMATION: Exam: XR Chest Exam date and time: 04/30/2021 1:50 PM Age: 56 years old Clinical indication: Cough and shortness of breath; Other: Not specified; Patient HX: History--sob, chest pain, coughing today TECHNIQUE: Imaging protocol: XR of the chest. Views: 1 view. COMPARISON: CR XR chest 1V portable [id number] 09/13/2019 1:11 PM FINDINGS: Lungs: There is ill-defined airspace disease in the right upper lobe compatible with pneumonia given the history. Pleural spaces: No pleural effusion or pneumothorax. Heart/Mediastinum: The cardiac silhouette is not enlarged. The mediastinal contours are normal. Vasculature: The aorta is atherosclerotic. Bones/joints: No acute osseous abnormality. XR/XR chest 1V portable [id number] IMPRESSION: Right upper lobe pneumonia. Radiation Dose CTDIVOL = (mGy): DLP = (mGy-cm)
--- NOTE | 2021-04-30 13:51 | CT_ITS ---
WS: [id number] CT HEAD TECHNIQUE: Noncontrast CT of the head obtained from the skullbase to the vertex. CLINICAL INFORMATION: ams COMPARISON: CT August 02, 2019 DLP: 840.[address] scans at [facility] use at least one of these dose optimization techniques: automated e xposure control; mA and/or kV adjustment per patient size (includes targeted exams where dose is matc hed to clinical indication); or iterative reconstruction. FINDINGS: No evidence of intracranial hemorrhage or mass effect. Ventricular system and basal cisterns are jaramillo nt. Mild small vessel changes with mild parenchymal volume loss. No evidence of chronic ischemia left lateral basal ganglia unchanged. Cavernous carotid calcification. No extra-axial fluid collections. No evidence of mass or mass effect. Mild mucosal thickening ethmoid air cells..Normal visualized soft tissues. CT/CT head wo con* [id number] IMPRESSION: 1. No evidence of intracranial hemorrhage or mass effect. 2. Mild small vessel changes with mild parenchymal volume loss. 3. Evidence of chronic ischemia in the left lateral basal ganglia unchanged fr om previous. 4. No acute intracranial findings.
--- NOTE | 2021-04-30 13:51 | CT_ITS ---
WS: [id number] CT CERVICAL TRAUMA TECHNIQUE: Noncontrast CT of the cervical spine with coronal and sagittal reformatted images. CLINICAL INFORMATION: neck pain COMPARISON: None. DLP: 238.[address] scans at [facility] use at least one of these dose optimization techniques: automated e xposure control; mA and/or kV adjustment per patient size (includes targeted exams where dose is matc hed to clinical indication); or iterative reconstruction. FINDINGS: Straightening with slight reversal the normal cervical lordosis. Slight anterolisthesis C4 on C5. Dis c space narrowing worse at C5-C6 and C6-C7 with endplate degenerative changes. Slight. Normal cranioc ervical junction. Normal C1-C2 articulation. Dens is normal in appearance. Normal occipital condyles. No high-grade spinal canal narrowing. Normal C1 ring. No evidence of acute fracture or dislocation. Normal prevertebral soft tissues. Mastoids air cells are well aerated. Partially visualized prominent fibrosis in the lung apices with cystic change. This can be followed up with chest CT on an elective basis. No recent chest CT for com parison.. CT/CT cervical spin wo con* [id number] IMPRESSION: 1. No evidence of acute fracture or dislocation. 2. Straightening with reversal of the normal cervical lordosis with moderate s pondylitic changes. 3. Disc space narrowing worse at C5-C6 and C6-C7. 4. No high-grade central canal stenosis.
[2021-04-30] MEDS: sodium chloride 0.9% 1,000 ML 999 ML IV ×3 (14:33→18:25)
[2021-04-30 14:34] LABS: ABG PCO2 38.1 mmHg (35-45); ABG PH Result 7.31 (7.35-7.45); Alveolar-Arterial Oxygen Gradi 4.7 mmHg (5-10); Arterial Blood Gas Hematocrit 43.6 % (37-47); Base Excess ABG -6.6 mmol/L (-2.0-2.0); Blood Gas Allen Test Pos; Blood Gas Operator Identificat SH; Blood Gas Sample Site Radial, right; Blood Gas Sample Type Arterial; Carboxyhemoglobin 0.2 %THgb (0.4-20.1); HCO3 ABG 19.1 mmol/L (22-26); Ionized Calcium Level - ABG 1.2 mmol/L (1.1-1.4); Methemoglobin 0.8 % (0.4-1.5); Oxygen Device ROOM AIR; Oxygen Saturation ABG 90.9; PO2 ABG 66.5 mmHg (80.0-100.0); Potassium Level - ABG 4.1 mmol/L (3.5-5.0); Total Hemoglobin 14.2 g/dL (12-16)
[2021-04-30 15:09] LABS: Hematocrit 43.8 % (37.0-47.0); Hemoglobin 14.1 g/dL (11.5-15.3); Mean Corpuscular HGB Conc 32.2 g/dL (30.0-36.0); Mean Corpuscular Hemoglobin 30.3 pg (28.0-34.0); Mean Corpuscular Volume 94.2 fl (81-99); Platelet Count 346 10^3/cmm (130-400); Red Blood Count 4.65 10^6/uL (4.1-5.3); Red Cell Distribution Width 12.1 % (12.1-15.1); White Blood Count 24.5 10^3/uL (4.0-10.0)
--- NOTE | 2021-04-30 15:15 | ED_ITS ---
HPI - General Adult General: Chief complaint: Altered Mental Status Stated complaint: ams hyperglycemia Time Seen by Provider: 04/30/21 13:37 History of Present Illness: HPI narrative: Patient is a 56-year-old female with a history of type 2 diabetes on Metformin and glipizide presenting to the emergency room with concerns for altered mental status, and chest pain. Patient was found confused at home when EMS was called patient was found to have a glucose of over 500. Patient is AAO x2, GCS 14. Patient reports of right-sided chest pain. Patient also reports neck pain. Patient denies any associated shortness of breath, nausea/vomiting, diarrhea, and urinary symptoms. She has upper abdominal pain. Onset: unknown Duration:ongoing Location:home Severity:moderate/severe Review of Systems Narrative: Constitutional: No fever, no chills. HEENT: No vision changes CV: +chest pain, no palpitations PULM: no cough, no dyspnea. GI: No abdominal pain, no N/V/D. : No dysuria MSKEL: No muscle pain SKIN: No new rashes, no lesions. NEURO: No headache, no focal weakness. +ams/confusion HEME: No visible bruises PSYCH: Normal mood PFSH ED PFSH: Medical History (Updated 04/30/21 @ 18:06 by Ry Harris MD) Diabetes Insulin dependent type 2 diabetes mellitus Surgical History (Updated 04/30/21 @ 18:04 by Ry Harris MD) No pertinent past surgical history Family History (Updated 04/30/21 @ 18:04 by Ry Harris MD) Mother Cancer Father CAD (coronary artery disease) Social History (Updated 04/30/21 @ 18:05 by Ry Harris MD) Smoking and tobacco status: current every day smoker cigarettes Packs smoked per day: 1 Alcohol intake: current Alcohol intake frequency: few times a month Substance/Drug Use: never Physical Exam Narrative: EXAM NARRATIVE: Head: Atraumatic Eyes: PERRL, conjunctiva without injection ENT: Mucous membrane Dry NECK: Supple, ROM intact, +posterior midline tenderness to palpation, no meningismus LUNGS: +coarse breath sounds b/l CV: Sinus tachycardia ABDOMEN: Soft, nontender in all quadrants EXTREMITY: Normal ROM SKIN: No rash or erythema NEURO: Awake and alert x 2, no focal motor deficits, +GCS of 13-14 (confusion), moving extremities PSYCH: Normal mood and affect Course Vital Signs: Vital signs: Vital Signs Temperature 98.1 F 04/30/21 20:29 Pulse Rate 86 04/30/21 20:29 Respiratory Rate 20 H 04/30/21 20:29 Blood Pressure 126/60 04/30/21 20:29 Pulse Oximetry 98 04/30/21 20:29 MDM - General Adult MDM Narrative: Medical decision making narrative: Patient is a 56-year-old female with a history of type 2 diabetes presenting to the emergency room in altered mental status with concerns of hypoglycemia. On arrival, patient is AO x2, GCS 13-14. Patient peers to be dry exam and mildly tachycardic. Patient has a pH of 7.31, serum ketone positive, anion gap of 24. Patient is noted to have right-sided pneumonia on chest x-ray. CT brain and CT neck negative for any acute fractures or brain bleed. Patient is given ceftriaxone azithromycin in the emergency room. S/p 2L of NS. Currently on insulin drip. Initial lactic acid of 3, pending repeat. She will be admitted to the hospital for management altered status, hyperglycemia, possible early DKA, and pneumonia. Lab Data: Labs: Lab Results 04/30/21 04/30/21 04/30/21 13:38 14:21 14:48 WBC 24.5 10^3/uL H 10 ^3/uL (4.0-10.0) RBC 4.65 10^6/uL 10^6 /uL (4.1-5.3) Hgb 14.1 g/dL g/dL (11.5-15.3) Hct 43.8 % % (37.0-47.0) MCV 94.2 fl fl (81-99) MCH 30.3 pg pg (28.0-34.0) MCHC 32.2 g/dL g/dL (30.0-36.0) RDW 12.1 % % (12.1-15.1) Plt Count 346 10^3/cmm 10^3 /cmm (130-400) MPV 11.0 fL H fL (7.4-10.4) Lymph % (Auto) Not Reportable [place] % (Auto) Not Reportable Lymph # (Auto) Not Reportable [place] # (Auto) Not Reportable Total Counted 100 (0-100) Atypical Lymphs % 0.0 % % (0-5) Absolute Neutrophi ls 21.3 10^3/cmm H 1 0^3/cmm (1.4-6.5) Segmented Neutroph ils 69 % % Abs Segm Neuts (Ma n) 16.9 10/cmm H 10/ cmm (1.6-7.1) Band Neutrophils 18.0 % % Abs Band Neuts (Ma n) 4.4 10^3/cmm H 10 ^3/cmm (0.0-1.2) Absolute Lymphocyt es 0.7 10^3/cmm L 10 ^3/cmm (1.2-3.4) Lymphocytes (Manua l) 3 % % Monocytes (Manual) 4.0 % % Absolute Monocytes 1.0 10^3/cmm H 10 ^3/cmm (0.1-0.6) Eosinophils (Manua l) 0 % % Absolute Eosinophi ls 0.0 10^3/cmm 10^3 /cmm (0.0-0.7) Basophils (Manual) 0.0 % % Absolute Basophils 0.0 10^3/cmm 10^3 /cmm (0.0-0.2) Metamyelocytes 6.0 % % Platelet Estimate Normal (Normal) PT INR APTT Specimen Type Arterial Sample Site Radial, right ABG pH 7.31 L (7.35-7.45) ABG pCO2 38.1 mmHg mmHg (35-45) ABG pO2 66.5 mmHg L mmHg (80.0-100.0) ABG HCO3 19.1 mmol/L L mmo l/L (22-26) ABG O2 Saturation 90.9 ABG Base Excess -6.6 mmol/L L mmo l/L (-2.0-2.0) Awais Test Pos A-a O2 Gradient 4.7 mmHg L mmHg (5-10) Hematocrit 43.6 % % (37-47) Hgb O2 Saturation 90.0 % L % (95-100) Carboxyhemoglobin 0.2 %THgb L %THgb (0.4-20.1) Methemoglobin 0.8 % % (0.4-1.5) Total Hemoglobin 14.2 g/dL g/dL (12-16) Sodium 134.0 mmol/L mmol /L (131-143) Potassium 4.1 mmol/L mmol/L (3.5-5.0) Glucose 517.0 mg/dL H mg/ dL (70-115) Ionized Calcium 1.2 mmol/L mmol/L (1.1-1.4) O2 Delivery Device Room air FiO2 21.0 % % Nurse Practitioner Physicians Assistant ID Sh Chloride Carbon Dioxide Anion Gap BUN Creatinine GFR Calculation POC Glucose 477 mg/dL H mg/dL (70-110) Estimat Average Gl ucose Hemoglobin A1c Calculated Osmolal ity Lactate Calcium Total Bilirubin AST ALT Alkaline Phosphata se Troponin T Baselin e Troponin T 120 Min [place] Troponin T Total Protein Albumin Globulin Lipase Urine Color Urine Appearance Urine pH Ur Specific Gravit y Urine Protein Urine Glucose (UA) Urine Ketones Urine Blood Urine Nitrate Urine Bilirubin Urine Urobilinogen Ur Leukocyte Jody ase Urine RBC Urine WBC Ur Squamous Epith Cells Amorphous Sediment Urine Bacteria Urine Mucus Serum Ketones 04/30/21 04/30/21 04/30/21 14:48 14:48 14:48 WBC RBC Hgb Hct MCV MCH MCHC RDW Plt Count MPV Lymph % (Auto) [place] % (Auto) Lymph # (Auto) [place] # (Auto) Total Counted Atypical Lymphs % Absolute Neutrophi ls Segmented Neutroph ils Abs Segm Neuts (Ma n) Band Neutrophils Abs Band Neuts (Ma n) Absolute Lymphocyt es Lymphocytes (Manua l) Monocytes (Manual) Absolute Monocytes Eosinophils (Manua l) Absolute Eosinophi ls Basophils (Manual) Absolute Basophils Metamyelocytes Platelet Estimate PT 16.90 SECONDS H S ECONDS (12.1-14.9) INR 1.33 H (0.8-1.2) APTT 34.1 SECONDS SECO NDS (23.9-36.7) Specimen Type Sample Site ABG pH ABG pCO2 ABG pO2 ABG HCO3 ABG O2 Saturation ABG Base Excess Awais Test A-a O2 Gradient Hematocrit Hgb O2 Saturation Carboxyhemoglobin Methemoglobin Total Hemoglobin Sodium 136 mmol/L mmol/L (136-145) Potassium 4.5 mmol/L mmol/L (3.5-5.1) Glucose 470 mg/dL H mg/dL (65-115) Ionized Calcium O2 Delivery Device FiO2 Nurse Practitioner Physicians Assistant ID Chloride 98 mmol/L mmol/L (98-107) Carbon Dioxide 18 mmol/L L mmol/ L (22-29) Anion Gap 24.5 H (5-19) BUN 43 mg/dL H mg/dL (6-20) Creatinine 1.0 mg/dL H mg/dL (0.5-0.9) GFR Calculation 57.1 mL/min L mL/ min (90-130) POC Glucose Estimat Average Gl ucose Hemoglobin A1c Calculated Osmolal ity 313 mOsm/kg H mOs m/kg (285-295) Lactate Calcium 8.5 mg/dL mg/dL (8.5-10.5) Total Bilirubin 1.0 mg/dL mg/dL (0.15-1.2) AST 14 U/L U/L (0-32) ALT 8 U/L U/L (0-33) Alkaline Phosphata se 131 IU/L H IU/L (35-105) Troponin T Baselin e 17 ng/L H ng/L (0-10) Troponin T 120 Min [place] Troponin T Total Protein 6.8 g/dL g/dL (6.6-8.7) Albumin 3.3 g/dL L g/dL (3.5-5.2) Globulin 3.5 g/dL g/dL (1.3-4.6) Lipase 6 U/L L U/L (13-60) Urine Color Urine Appearance Urine pH Ur Specific Gravit y Urine Protein Urine Glucose (UA) Urine Ketones Urine Blood Urine Nitrate Urine Bilirubin Urine Urobilinogen Ur Leukocyte Jody ase Urine RBC Urine WBC Ur Squamous Epith Cells Amorphous Sediment Urine Bacteria Urine Mucus Serum Ketones 04/30/21 04/30/21 04/30/21 14:48 14:48 14:52 WBC RBC Hgb Hct MCV MCH MCHC RDW Plt Count MPV Lymph % (Auto) [place] % (Auto) Lymph # (Auto) [place] # (Auto) Total Counted Atypical Lymphs % Absolute Neutrophi ls Segmented Neutroph ils Abs Segm Neuts (Ma n) Band Neutrophils Abs Band Neuts (Ma n) Absolute Lymphocyt es Lymphocytes (Manua l) Monocytes (Manual) Absolute Monocytes Eosinophils (Manua l) Absolute Eosinophi ls Basophils (Manual) Absolute Basophils Metamyelocytes Platelet Estimate PT INR APTT Specimen Type Sample Site ABG pH ABG pCO2 ABG pO2 ABG HCO3 ABG O2 Saturation ABG Base Excess Awais Test A-a O2 Gradient Hematocrit Hgb O2 Saturation Carboxyhemoglobin Methemoglobin Total Hemoglobin Sodium Potassium Glucose Ionized Calcium O2 Delivery Device FiO2 Nurse Practitioner Physicians Assistant ID Chloride Carbon Dioxide Anion Gap BUN Creatinine GFR Calculation POC Glucose Estimat Average Gl ucose 229 Hemoglobin A1c 9.6 % H % (4.0-6.0) Calculated Osmolal ity Lactate 3.0 mmol/L H mmol /L (0.5-2.2) Calcium Total Bilirubin AST ALT Alkaline Phosphata se Troponin T Baselin e Troponin T 120 Min [place] Troponin T Total Protein Albumin Globulin Lipase Urine Color Urine Appearance Urine pH Ur Specific Gravit y Urine Protein Urine Glucose (UA) Urine Ketones Urine Blood Urine Nitrate Urine Bilirubin Urine Urobilinogen Ur Leukocyte Jody ase Urine RBC Urine WBC Ur Squamous Epith Cells Amorphous Sediment Urine Bacteria Urine Mucus Serum Ketones Positive H (Negative) 04/30/21 04/30/21 04/30/21 15:20 16:30 16:44 WBC RBC Hgb Hct MCV MCH MCHC RDW Plt Count MPV Lymph % (Auto) [place] % (Auto) Lymph # (Auto) [place] # (Auto) Total Counted Atypical Lymphs % Absolute Neutrophi ls Segmented Neutroph ils Abs Segm Neuts (Ma n) Band Neutrophils Abs Band Neuts (Ma n) Absolute Lymphocyt es Lymphocytes (Manua l) Monocytes (Manual) Absolute Monocytes Eosinophils (Manua l) Absolute Eosinophi ls Basophils (Manual) Absolute Basophils Metamyelocytes Platelet Estimate PT INR APTT Specimen Type Sample Site ABG pH ABG pCO2 ABG pO2 ABG HCO3 ABG O2 Saturation ABG Base Excess Awais Test A-a O2 Gradient Hematocrit Hgb O2 Saturation Carboxyhemoglobin Methemoglobin Total Hemoglobin Sodium Potassium Glucose Ionized Calcium O2 Delivery Device FiO2 Nurse Practitioner Physicians Assistant ID Chloride Carbon Dioxide Anion Gap BUN Creatinine GFR Calculation POC Glucose 474 mg/dL H mg/dL (70-110) Estimat Average Gl ucose Hemoglobin A1c Calculated Osmolal ity Lactate Calcium Total Bilirubin AST ALT Alkaline Phosphata se Troponin T Baselin e Troponin T 120 Min [place] 14.15 ng/L H ng/L (0-10) [place] Troponin T -2.85 ABS# L ABS# (0-10) Total Protein Albumin Globulin Lipase Urine Color Yellow (Yellow) Urine Appearance Hazy A (CLEAR) Urine pH 5 (5-7) Ur Specific Gravit y 1.020 (1.005-1.030) Urine Protein 1+ H (Negative) Urine Glucose (UA) 4+ H (Normal) Urine Ketones 2+ H (Negative) Urine Blood 2+ H (Negative) Urine Nitrate Negative (Negative) Urine Bilirubin 1+ H (Negative) Urine Urobilinogen 1 mg/dL H mg/dL (Negative) Ur Leukocyte Jody ase Negative (Negative) Urine RBC 0-4 /hpf H /hpf (0-2) Urine WBC None /hpf /hpf (0-5) Ur Squamous Epith Cells 0-4 /hpf H /hpf (0-5) Amorphous Sediment Not Reportable Urine Bacteria 2+ /hpf H /hpf (NONE) Urine Mucus Trace /hpf /hpf Serum Ketones Imaging Data^: Other Imaging: Radiologist's impression: [facility] [address] [id number] Scan ReportSigned Patient: Brittney Lozano #: [id number]: 1965Acct#:[id number]/Sex: 56 / FADM Date: 04/30/21Loc: ERRoom/Bed:Attending Dr: Ordering Provider/Ordering MD: Brooklyn Mobley MD Date of Service: 04/30/21 Procedure(s): CT head wo con* [id number] Accession Number(s): [id number] Report Number: [id number] WS: [id number] CT HEAD TECHNIQUE: Noncontrast CT of the head obtained from the skullbase to the vertex. CLINICAL INFORMATION: ams COMPARISON: CT August 02, 2019 DLP: 840.[address] [facility] use at least one of these dose optimization techniques: automated exposure control; mA and/or kV adjustment per patient size (includes targeted exams where dose is matched to clinical indication); or iterative reconstruction. FINDINGS: No evidence of intracranial hemorrhage or mass effect. Ventricular system and basal cisterns are patent. Mild small vessel changes with mild parenchymal volume loss. No evidence of chronic ischemia left lateral basal ganglia unchanged. Cavernous carotid calcification. No extra-axial fluid collections. No evidence of mass or mass effect. Mild mucosal thickening ethmoid air cells..Normal visualized soft tissues. CT/CT head wo con* [id number] IMPRESSION: 1. No evidence of intracranial hemorrhage or mass effect. 2. Mild small vessel changes with mild parenchymal volume loss. 3. Evidence of chronic ischemia in the left lateral basal ganglia unchanged from previous. 4. No acute intracranial findings. Dictated By:Andrei Root MDSigned By:Andrei Root MDSigned Date/Time:04/30/21 1440 [facility] [place], [place] [address] Scan ReportSigned Patient: Alexys Lozanoit #: [id number]: 1965Acct#:[id number]/Sex: 56 / FADM Date: 04/30/21Loc: ERRoom/Bed:Attending Dr: Ordering Provider/Ordering MD: Brooklyn Mobley MD Date of Service: 04/30/21 Procedure(s): CT cervical spin wo con* [id number] Accession Number(s): [id number] Report Number: [id number] WS: [id number] CT CERVICAL TRAUMA TECHNIQUE: Noncontrast CT of the cervical spine with coronal and sagittal ref ormatted images. CLINICAL INFORMATION: neck pain COMPARISON: None. DLP: 238.[address] [facility] use at least one of these dose optimization techniques: automated exposure control; mA and/or kV adjustment per patient size (includes targeted exams where dose is matched to clinical indication); or iterative reconstruction. FINDINGS: Straightening with slight reversal the normal cervical lordosis. Slight anterolisthesis C4 on C5. Disc space narrowing worse at C5-C6 and C6-C7 with endplate degenerative changes. Slight. Normal craniocervical junction. Normal C1-C2 articulation. Dens is normal in appearance. Normal occipital condyles. No high-grade spinal canal narrowing. Normal C1 ring. No evidence of acute fracture or dislocation. Normal prevertebral soft tissues. Mastoids air cells are well aerated. Partially visualized prominent fibrosis in the lung apices with cystic change. This can be followed up with chest CT on an elective basis. No recent chest CT for comparison.. CT/CT cervical spin wo con* [id number] IMPRESSION: 1. No evidence of acute fracture or dislocation. 2. Straightening with reversal of the normal cervical lordosis with moderate spondylitic changes. 3. Disc space narrowing worse at C5-C6 and C6-C7. 4. No high-grade central canal stenosis. Dictated By:Andrei Root MDSigned By:Andrei Root MDSigned Date/Time:04/30/21 1449DD/ [address] [address]ANuv ReportSigned Patient: Brittney Lozano #: [id number]: 1965Acct#:[id number] Age/Sex: 56 / FADM Date: 04/30/21Loc: ERRoom/Bed:Attending Dr: Ordering Provider/Ordering MD: Brooklyn Mobley MD Date of Service: 04/30/21 Procedure(s): XR chest 1V portable [id number] Accession Number(s): [id number] Report Number: [id number] PROCEDURE INFORMATION: Exam: XR Chest Exam date and time: 04/30/2021 1:50 PM Age: 56 years old Clinical indication: Cough and shortness of breath; Other: Not specified; Patient HX: History--sob, chest pain, coughing today TECHNIQUE: Imaging protocol: XR of the chest. Views: 1 view. COMPARISON: CR XR chest 1V portable [id number] 09/13/2019 1:11 PM FINDINGS: Lungs: There is ill-defined airspace disease in the right upper lobe compatible with pneumonia given the history. Pleural spaces: No pleural effusion or pneumothorax. Heart/Mediastinum: The cardiac silhouette is not enlarged. The mediastinal contours are normal. Vasculature: The aorta is atherosclerotic. Bones/joints: No acute osseous abnormality. XR/XR chest 1V portable [id number] IMPRESSION: Right upper lobe pneumonia. Radiation Dose CTDIVOL = (mGy): DLP = (mGy-cm) Dictated By:Gladys Edmondson By:Gladys Edmondson Date/Time:04/30/21 1454DD/ 1350 Discharge Plan Discharge Patient Disposition: Admitted As Inpatient Admit Provider: Ry Harris Clinical Impression: DKA (diabetic ketoacidosis), Altered mental status, Pneumonia Condition: Stable Coding Level of Care Code ED Document Control Associate for Eric Jama
[2021-04-30 15:19] LABS: INR 1.33 (0.8-1.2)
[2021-04-30 15:20] LABS: Partial Thromboplastin Time 34.1 SECONDS (23.9-36.7)
[2021-04-30] MEDS: cefTRIAXone 1,000 MG in sodium chloride 0.9% (plus) 50 ML 100 MG IV (15:40)
[2021-04-30 15:43] LABS: Urine Appearance Hazy (CLEAR); Urine Color Yellow (Yellow)
[2021-04-30 15:44] LABS: Glucose Urine UA 4+ (Normal); Ketones Urine 2+ (Negative); Protein Urine 1+ (Negative); pH Urine 5 (5-7)
[2021-04-30 15:45] LABS: Add Urine Microscopic? YES; Bilirubin Urine 1+ (Negative); Blood Urine 2+ (Negative); Leukocyte Esterase Urine Negative (Negative); Nitrate Urine Negative (Negative); Urobilinogen Urine 1 mg/dL (Negative)
[2021-04-30 15:48] LABS: Ketone (Acetest) Serum Positive (Negative)
[2021-04-30 15:50] LABS: Alanine Aminotransferase 8 U/L (0-33); Albumin Level 3.3 g/dL (3.5-5.2); Alkaline Phosphatase 131 IU/L (35-105); Anion Gap 24.5 (5-19); Aspartate Amino Transferase 14 U/L (0-32); Blood Urea Nitrogen 43 mg/dL (6-20); Calcium 8.5 mg/dL (8.5-10.5); Carbon Dioxide 18 mmol/L (22-29); Chloride 98 mmol/L (98-107); Globulin 3.5 g/dL (1.3-4.6); Glomerular Filtration Rate 57.1 mL/min (90-130); Glucose 470 mg/dL (65-115); Lipase 6 U/L (13-60); Osmolality Calculated 313 mOsm/kg (285-295); Potassium 4.5 mmol/L (3.5-5.1); Sodium 136 mmol/L (136-145); Total Protein 6.8 g/dL (6.6-8.7)
--- NOTE | 2021-04-30 15:50 | ECG_ITS ---
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 Measurements Intervals [place] Rate: 106 P: 78 WI: 153 QRS: 81 QRSD: 98 T: 75 QT: 334 QTc: 445 Interpretive Statements SINUS TACHYCARDIA POSSIBLE LEFT ATRIAL ENLARGEMENT [-0.1mV P-WAVE IN V1/V2] Compared to ECG 04/30/2021 14:47:26 Myocardial infarct finding no longer present Electronically Signed On 04-30-2021 17:59:18 OFFICE REP by Meri Kidd M.D. [id number]
[2021-04-30 15:51] LABS: Troponin(5th) Baseline 17 ng/L (0-10)
[2021-04-30 15:55] LABS: Add Urine Culture? Yes; Bacteria Urine 2+ /hpf; Mucus Urine TRACE /hpf; RBC Urine 0-4 /hpf (0-2); Squamous Epithelial Cell Urine 0-4 /hpf (0-5)
[2021-04-30 16:12] LABS: Absolute Neutrophil 21.3 10^3/cmm (1.4-6.5); Absolute Segmented Neutrophil 16.9 10/cmm (1.6-7.1); Band Neutrophils Absolute 4.4 10^3/cmm (0.0-1.2); Eosinophils 0 %; Lymphocytes 3 %; Lymphocytes Absolute 0.7 10^3/cmm (1.2-3.4); Platelet Estimate Normal (Normal); Segmented Neutrophils 69 %; Slide Review Slide Review Perform; Total Cells Counted 100 (0-100)
[2021-04-30] MEDS: azithromycin 500 MG in sodium chloride 0.9% 250 ML 250 MG IV (16:25)
--- NOTE | 2021-04-30 16:42 | PC.PHAR ---
pt states her daughter helps her with her meds-called pts daughter [phone] number not in service-pt states she uses [facility] they state they dont fill medication for the pt-antoni wp and tio daniels filled meds for the pt-graciela wp states they last filled in 2017 for glyburide-ozh last filled 07/2019 glipizide 10mg,metformin 500mg bid and simvastatin 20mg daily-no meds pull up on ext med history
--- NOTE | 2021-04-30 16:45 | PC.NURSE ---
Pt blood glucose 474
[2021-04-30 16:49] LABS: Glucose Point of Care 474 mg/dL (70-110)
[2021-04-30] MEDS: insulin regular-human 250 UNIT in sodium chloride 0.9% 250 ML 12.4 UNIT IV (17:05)
--- NOTE | 2021-04-30 17:58 | PM.HP ---
Providers/Chief Complaint Primary Care Provider: Leonard Perez MD Chief Complaint: ams hyperglycemia History of Present Illness Skyla Lozano is a 56 year old female with a past medical history of type 2 diabetes mellitus, on insulin, who has not been taking the medication for the last 2 weeks as she could not afford the medication, she not sure how much insulin she takes at home, she is not sure if she takes a insulin sliding scale versus long-acting, who presents [facility] due to increased confusion, fatigue, weakness, nausea, and she was worried she had elevated blood sugars. She is also complaining of chest pain, right-sided, with epigastric pain, chest pain was nonradiating, no lightheadedness, dizziness, no nausea, no vomiting, no diaphoresis. No CAD history. No history of strokes. Denies a history of pancreatitis, denies alcohol use, denies drug use. No history of COVID-19 pneumonia, has received 1 Covid shot, has not received flu shot. EMS arrival blood sugar greater than 500, here in the emergency room her blood sugar was 470, pH 7.31, anion gap 24.5, ketones positive, she was placed on insulin drip, white blood cell count over 24,000, chest x-ray showing right upper lobe pneumonia, hospitalist team was called for admission. During my examination, patient was alert to person, to place, to time, she gets most questions appropriate, but her responses are delayed, she does become forgetful, but with reorientation daily she gets most questions appropriately. Denies a history of dementia, no fevers, no headache, no facial droop, slurring of her words, no focal neurologic deficits, CT head was negative for acute stroke. She is able to unlock her phone, and I was able to speak to her son over the phone, her son is not sure why she was not taking her insulin, but patient lives with her son. Review of Systems Const: Reports: fatigue; Denies: fever(s), chills or malaise Eyes: Denies: change in vision or blurry vision ENMT: Denies: nasal congestion Card: Reports: chest pain; Denies: palpitations, irregular heart rhythm, edema, lightheadedness or dyspnea on exertion Resp: Denies: dyspnea, productive cough, non-productive cough or wheezing GI: Reports: abdominal pain and nausea; Denies: vomiting, hematemesis, diarrhea, constipation, hematochezia or melena : Denies: flank pain, dysuria or urinary frequency Musc: Denies: neck pain or back pain Skin/Breast: Denies: rash Neuro: Reports: dizziness; Denies: headache(s) or vertigo Psych: Denies: anxiety or depression Endo: Denies: polyuria or polydipsia Medications/Allergies Home Medications Medication Instructions Recorded Confirmed Last Taken Type Unable to Assess 04/30/21 04/30/21 Unknown History Allergies Allergy/AdvReac Type Severity Reaction Status Date / Time No Known Allergies Allergy Verified 09/13/19 12:32 PFSH Acute PFSH: Medical History (Updated 04/30/21 @ 18:06 by Ry Harris MD) Diabetes Insulin dependent type 2 diabetes mellitus Surgical History (Updated 04/30/21 @ 18:04 by Ry Harris MD) No pertinent past surgical history Family History (Updated 04/30/21 @ 18:04 by Ry Harris MD) Mother Cancer Father CAD (coronary artery disease) Social History (Updated 04/30/21 @ 18:05 by Ry Harris MD) Smoking and tobacco status: current every day smoker cigarettes Packs smoked per day: 1 Alcohol intake: current Alcohol intake frequency: few times a month Substance/Drug Use: never Vitals/I&O/Wt Last Vital Signs Temp 98.5 F 04/30/21 14:19 Pulse 108 H 04/30/21 16:26 Resp 29 H 04/30/21 16:26 BP 134/74 04/30/21 16:26 Pulse Ox 93 04/30/21 16:26 04/30/21 04/30/21 04/30/21 06:59 14:59 22:59 Intake Total 1050 / 1050 Balance 1050 / 1050 Weight last 48 hrs Weight 45.359 kg Physical Exam Const: COMMON NORMALS: no acute distress and patient oriented x3 HENMT: COMMON NORMALS: normocephalic HEAD & SCALP: normocephalic Eye: COMMON NORMALS: Equal, round and reactive pupils present GENERAL EYE: appearance normal, both eyes and all related structures PUPIL: Yes Equal, round and reactive pupils present Neck/C-Spine: COMMON NORMALS: full ROM and no lymphadenopathy THYROID: Thyroid normal Lymph: LYMPHATIC: no lymphadenopathy noted Resp: COMMON NORMALS: normal respiratory effort, No retractions, No use of accessory muscles and clear to auscultation bilaterally AUSCULTATION: clear to auscultation bilaterally Cardio: COMMON NORMALS: regular rate, regular rhythm, S1 normal heart sound present and S2 normal heart sound present RATE: regular rate RHYTHM: regular rhythm HEART SOUNDS: S1 normal heart sound present and S2 normal heart sound present GI: COMMON NORMALS: Normal to inspection, nondistended, normoactive bowel sounds present, Soft to palpation, non-tender and No hepatosplenomegaly present Extremity: COMMON NORMALS: normal to inspection, full ROM and no pedal edema Neuro: COMMON NORMALS: patient oriented x3, CN's II-XII intact bilaterally, moves all extremities and no focal motor deficits Psych: COMMON NORMALS: mental status grossly normal, Normal thought process present and cooperative THOUGHT PROCESS: Normal thought process present Data : 04/30/21 14:48 04/30/21 14:48 Micro: Microbiology 04/30/21 14:52 Blood Culture - Preliminary Blood SPECIMEN COLLECTED 04/30/21 14:48 Blood Culture - Preliminary Blood SPECIMEN COLLECTED A&P Assessment and plan (1) DKA (diabetic ketoacidosis): -Continue insulin drip -Normal saline with 40 KCl -BMP, mag, Phos every 4 hours -Stop insulin drip if potassium less than 3.5, replace potassium -Monitor blood sugars as per protocol -If blood sugar less than 200, will change IV fluids to D5 normal saline with 40 KCl -Once gap is closed, will switch over to subcu and long-acting insulin, and start on a clear liquid diet Status: Acute (2) Altered mental status: Secondary to diabetic ketoacidosis, pneumonia, however she does get most questions appropriately with redirection and Status: Acute (3) Pneumonia: Likely right upper lobe pneumonia, likely aspiration, will do Covid PCR, urine bacterial antigens, blood cultures, rapid flu, started on vancomycin, Zosyn Status: Acute (4) Dehydration: IV fluids as above Status: Acute (5) Chest pain: -Initial troponin I 7, EKG no acute ST-T wave changes -Serial EKGs, serial troponins, telemetry monitoring -Continue aspirin, statin, monitor for chest pain -Cardiac echocardiogram Status: Acute Attestations Medical Necessity Statement*: Patient requires hospitalization, inpatient, greater than 2 midnights, for diabetic ketoacidosis, chest pain, pneumonia, altered mental status Coding Level of Care Code Acute Budget Assistant for [facility] Fwd Diagnoses DKA (diabetic ketoacidosis) E11.10 Altered mental status R41.82 Pneumonia J18.9 Dehydration E86.0 Chest pain R07.9
[2021-04-30 18:05] LABS: Troponin 5 2HR 14.15 ng/L (0-10); Troponin 5 2HR Delta -2.85 ABS# (0-10)
[2021-04-30 18:39] LABS: Glucose Point of Care 341 mg/dL (70-110)
--- NOTE | 2021-04-30 18:48 | PC.NURSE ---
Pt blood glucose is 341. Provider said to titrate down to 6.4 units/hour.
--- NOTE | 2021-04-30 19:50 | ECG_ITS ---
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 Measurements Intervals [place] Rate: 148 P: 81 WV: 136 QRS: 79 QRSD: 89 T: 79 QT: 260 QTc: 409 Interpretive Statements SINUS TACHYCARDIA, POSSIBLE ATRIAL FLUTTER ABNORMAL RHYTHM ECG Compared to ECG 04/30/2021 16:05:01 No significant changes Electronically Signed On 05-01-2021 23:50:24 CRM ADMINISTRATOR by Neo Patel M.D. [id number]
[2021-04-30 20:14] LABS: Glucose Point of Care 245 mg/dL (70-110)
--- NOTE | 2021-04-30 21:00 | PC.NURSE ---
PO medication PO medications not administered due to patient's lack of responsiveness and inability to swallow medications.
[2021-04-30 21:25] LABS: Glucose Point of Care 127 mg/dL (70-110)
[2021-04-30] MEDS: enoxaparin 40 mg/0.4 mL Syringe SUBCUT (21:32)
[2021-04-30] MEDS: famotidine 20 mg/2 mL INJ IVP (21:32)
[2021-04-30 21:56] LABS: Blood Urea Nitrogen 33 mg/dL (6-20); Carbon Dioxide 13 mmol/L (22-29); Chloride 104 mmol/L (98-107); Glucose 139 mg/dL (65-115); Magnesium 1.8 mg/dL (1.7-2.3); Osmolality Calculated 284 mOsm/kg (285-295); Phosphorus 1.7 mg/dL (2.5-4.5); Sodium 132 mmol/L (136-145)
[2021-04-30 22:01] LABS: Anion Gap 19.5 (5-19); Potassium 4.5 mmol/L (3.5-5.1)
[2021-04-30 22:03] LABS: Procalcitonin 54.56 ng/mL (0-0.5)
[2021-04-30 22:07] LABS: Troponin 5 6HR 13.74 ng/L (0-10); Troponin 5 6HR Delta -3.26 ng/L (0-12)
[2021-04-30 22:18] LABS: C Reactive Protein 446.5 mg/L (0.0-4.9)
--- NOTE | 2021-04-30 22:28 | PC.PHAR ---
Pharmacokinetic dosing service Date: 04/30/21 Time: 2229 Objective: Patient: Skyla Lozano Floor: ICU-12 Age: 56 yo Serum creatinine: 0.6 mg/dL Height: 62.0 Inches Weight (kg): 45.359 Diagnosis: Relevant medical/social history: Cultures and sensitivities: Other labs: Assessment: IBW (kg): 50.10 Dosing wt(kg): 45.359 Estimated Creatinine clearance (ml/min): 74.1 CRCL method: Cockcroft and Gault using ibw(default). Drug selected: Vancomycin Loading dose (mg): 0 Vd (liters): 40.8 (factor used: 0.9 L/kg) Efrain (hr-1): 0.066 Half life (hrs): 10.50 Recommended dose: 750 mg Interval: 12 hrs Infusion time (hrs): 1.5 Predicted peak (mcg/mL): 32.0 Predicted trough (mcg/mL): 16.00 Total body weight is being used for vancomycin dosing. Renal function is stable [ ] /unstable [ ] Recommendations: Give Vancomycin 750 mg q 12 hrs with an expected Cpeak of 32.0 mcg/ml and an expected Ctrough of 16.00 mcg/ml Renal dosing of other antibiotics (review renal dosing of other medications and list guidelines here): Thank you for the consult, will continue to follow. Signature: Charleen Salguero [facility]
[2021-04-30 22:32] LABS: Glucose Point of Care 139 mg/dL (70-110)
[2021-04-30 22:37] LABS: Chol HDL Ratio 3.14 mg/dL (0.0-4.40); Cholesterol 132 mg/dL (0-200); HDL Cholesterol 42 mg/dL (60-100); LDL Cholesterol Calculated 71 mg/dL (50-129); LDL HDL Ratio 1.69 RATIO (0.00-3.22); Thyroid Stimulating Hormone 0.22 uIU/mL (0.27-4.20); Triglycerides 96 mg/dL (0-150)
[2021-04-30 22:40] LABS: Estmated Average Glucose 229; Hemoglobin A1C 9.6 % (4.0-6.0)
[2021-04-30] MEDS: vancomycin 750 MG in sodium chloride 0.9% 250 ML 250 MG IV (23:09)
[2021-04-30] MEDS: dextrose 5%-ns + KCl 20 20 MEQ/1,000 ML BAG 125 MEQ IV (23:10)
--- NOTE | 2021-04-30 23:15 | PC.NURSE ---
Physician Communication Order received from Dr. Montgomery to run D5 NS with 20 mEq KCL @ 125 ml/hr and to cancel the order for NS with 40 meq KCL. Orders carried out per JUL.
[2021-04-30 23:42] LABS: Glucose Point of Care 123 mg/dL (70-110)
[2021-05-01] VITALS (50 sets, daily range): BP systolic 85–141; BP diastolic 56–87; PULSE 68–140; RESP 8–29; TEMP 36.1–38.9; O2SAT 90–99; BMI 17.2
[2021-05-01 00:36] LABS: Glucose Point of Care 156 mg/dL (70-110)
[2021-05-01] MEDS: piperacillin-tazobactam 3.375 GM in sodium chloride 0.9% (plus) 50 ML IV ×3 (01:30→17:14)
[2021-05-01 01:56] LABS: Glucose Point of Care 145 mg/dL (70-110)
[2021-05-01 02:38] LABS: Glucose Point of Care 138 mg/dL (70-110)
[2021-05-01 02:47] LABS: Hematocrit 40.9 % (37.0-47.0); Hemoglobin 13.5 g/dL (11.5-15.3); Mean Corpuscular Hemoglobin 30.4 pg (28.0-34.0); Mean Corpuscular Volume 92.1 fl (81-99); Mean Platelet Volume 11.9 fL (7.4-10.4); Platelet Count 184 10^3/cmm (130-400); Red Blood Count 4.44 10^6/uL (4.1-5.3); Red Cell Distribution Width 11.9 % (12.1-15.1); White Blood Count 9.4 10^3/uL (4.0-10.0)
[2021-05-01 03:13] LABS: Alanine Aminotransferase 10 U/L (0-33); Albumin Level 2.3 g/dL (3.5-5.2); Alkaline Phosphatase 75 IU/L (35-105); Aspartate Amino Transferase 34 U/L (0-32); Blood Urea Nitrogen 24 mg/dL (6-20); Calcium 7.5 mg/dL (8.5-10.5); Carbon Dioxide 18 mmol/L (22-29); Chloride 106 mmol/L (98-107); Creatinine Clr Calc Pharmacy 94.4657; Globulin 2.8 g/dL (1.3-4.6); Glomerular Filtration Rate 127.2 mL/min (90-130); Glucose 133 mg/dL (65-115); Magnesium 1.7 mg/dL (1.7-2.3); Osmolality Calculated 286 mOsm/kg (285-295); Phosphorus 1.4 mg/dL (2.5-4.5); Sodium 135 mmol/L (136-145); Total Bilirubin 0.4 mg/dL (0.15-1.2); Total Protein 5.1 g/dL (6.6-8.7)
[2021-05-01 03:14] LABS: Anion Gap 14.8 (5-19); Potassium 3.8 mmol/L (3.5-5.1)
[2021-05-01 03:37] LABS: Slide Review Slide Review Perform
--- NOTE | 2021-05-01 04:00 | PC.NURSE ---
Temperature Patient axillary temperature 102.1F. Ice packs placed on patient's groin and underarms. Dr. Montgomery notified, order received for one time IV acetaminophen. Order carried out per JUL. temperature taken a couple hours later 97F.
[2021-05-01] MEDS: acetaminophen 1,000 MG/100 ML PIGGYBACK 400 MG IV (04:06)
[2021-05-01 04:51] LABS: Glucose Point of Care 156 mg/dL (70-110)
[2021-05-01 04:51] LABS: Glucose Point of Care 185 mg/dL (70-110)
[2021-05-01 06:53] LABS: Glucose Point of Care 220 mg/dL (70-110)
[2021-05-01 08:17] LABS: Glucose Point of Care 125 mg/dL (70-110)
--- NOTE | 2021-05-01 08:30 | PC.NURSE ---
Patient is A&Ox4 this morning. She has requested pain medication for generalized body aches and pains.
[2021-05-01] MEDS: famotidine 20 mg/2 mL INJ IVP ×2 (09:18→20:12)
[2021-05-01] MEDS: aspirin 81 mg EC Tablet PO (09:18)
[2021-05-01] MEDS: dextrose 5%-ns + KCl 20 20 MEQ/1,000 ML BAG 125 MEQ IV ×2 (09:19→19:28)
[2021-05-01] MEDS: insulin glargine 100 units/1 mL 15 UNIT SUBCUT (09:19)
[2021-05-01 09:46] LABS: Glucose Point of Care 119 mg/dL (70-110)
[2021-05-01 09:46] LABS: Glucose Point of Care 175 mg/dL (70-110)
--- NOTE | 2021-05-01 10:27 | PC.NURSE ---
Lantus given and insulin drip shut off shortly after.
--- NOTE | 2021-05-01 10:31 | PC.CHAP ---
Pastoral Care Encounter/Spiritual Assessment Type of Contact [] Declined clay preparation supervisor visit [] Patient/Family/Request visit [] Outpatient visit [] Follow-up visit [] Physician referral [] Code/Alert [x] Routine visit [] Staff referral [] Actively dying [] Patient sleeping [] Family support [] [] Out of room [] Palliative care [] [] Receiving care in room [] Pre-surgical visit [] Trauma [] Long length of stay [x] ICU visit [] Other: Relational/Emotional Strength [] Patient feels connected with others/family/visitors/staff [] Distress [] Loneliness/isolation [] Abandonment Spirituality of Patient [] Person of Adrienne [] Attends Gnosticist of their Adrienne [] Believes in Prayer [] Reads Bible or Samaritan materials [] There are Spiritual issues to be addressed Supervisor Education Interventions [x] Prayer [] Active listening [] Non-anxious presence [] Spiritual/emotional support [] Crisis/trauma care [] Spiritual counseling [] Bereavement support [] Provided bereavement packet [] Provided Bible/devotional materials [] Provided toy/stuffed animal, coloring book to patient or family member [] Provided Communion [] Anointing/[place] [] Salvation [x] Completed spiritual assessment [] Other: Impact on Illness or Injury [] Angry [] Fearful [] Anxious [] Often cries [] Exhaustion [] Unable to work [] Unable to attend anglican [] Unable to walk/stand [] Unable to read [] Unable to drive [] Unable to eat/drink [] Unable to sleep [] Unable to be with family [] Patient intubated [] Other: Summary Time spent with patient
[2021-05-01 11:28] LABS: Glucose Point of Care 136 mg/dL (70-110)
[2021-05-01 11:51] LABS: Magnesium 1.9 mg/dL (1.7-2.3)
[2021-05-01 12:16] LABS: Influenza A by IFA Negative (Negative); Influenza B by IFA Negative (Negative)
[2021-05-01] MEDS: vancomycin 750 MG in sodium chloride 0.9% 250 ML 250 MG IV ×2 (12:29→22:17)
[2021-05-01 14:18] LABS: Coronavirus Test Green County Not Detected
--- NOTE | 2021-05-01 14:36 | CTR_ITS ---
PROCEDURE INFORMATION: Exam: CTA Chest With Contrast Exam date and time: 05/01/2021 2:36 PM Age: 56 years old Clinical indication: Other: UTI; Shortness of breath; Additional info: SOB, UTI, AMS TECHNIQUE: Imaging protocol: Computed tomographic angiography of the chest with contrast. 3D rendering (Not supervised by radiologist): MIP and/or 3D reconstructed images were created by the technologist. Radiation optimization: All CT scans at this facility use at least one of these dose optimization techniques: automated exposure control; mA and/or kV adjustment per patient size (includes targeted exams where dose is matched to clinical indication); or iterative reconstruction. Contrast material: OMNI 350; Contrast volume: 75 ml; Contrast route: INTRAVENOUS (IV); COMPARISON: CTA Chest-Pulmonary Emb [id number] 05/31/2014 2:01 AM RADIATION DOSE METRICS: Total DLP (mGy-cm): 1022.85 FINDINGS: Pulmonary arteries: Normal. No pulmonary emboli. Aorta: Unremarkable. No aortic aneurysm. No aortic dissection. Lungs: Emphysema. Patchy dense airspace opacities in both upper lobes and superior segment of the right lower lobe. Multiple peripheral nodular consolidations are scattered throughout both lungs, the largest in the superior segment of the left lower lobe measuring 2.2 cm. Passive atelectasis in both lower lobes. Pleural spaces: Medium right and small left simple layering pleural effusions. Heart: Small pericardial effusion. Lymph nodes: Prominent mediastinal and hilar lymph nodes are most likely reactive. Bones/joints: Unremarkable. No acute fracture. Soft tissues: Unremarkable. IMPRESSION: 1. No evidence for pulmonary embolus. 2. Numerous peripheral nodular consolidations in both lungs most likely represent septic emboli. Close CT follow-up to document resolution recommended. A neoplastic process such as metastatic disease is considered much less likely but not entirely excluded. 3. Bilateral upper lobe and right lower lobe pneumonia. 4. Bilateral simple appearing pleural effusions. PROCEDURE INFORMATION: Exam: CT Abdomen And Pelvis With Contrast Exam date and time: 05/01/2021 2:36 PM Age: 56 years old Clinical indication: Other: UTI; Shortness of breath; Additional info: SOB, UTI, AMS TECHNIQUE: Imaging protocol: Computed tomography of the abdomen and pelvis with contrast. Radiation optimization: All CT scans at this facility use at least one of these dose optimization techniques: automated exposure control; mA and/or kV adjustment per patient size (includes targeted exams where dose is matched to clinical indication); or iterative reconstruction. Contrast material: OMNI 350; Contrast volume: 75 ml; Contrast route: INTRAVENOUS (IV); COMPARISON: CTA Chest-Pulmonary Emb [id number] 05/31/2014 2:01 AM RADIATION DOSE METRICS: Total DLP (mGy-cm): 1022.85 FINDINGS: Liver: Focal fatty infiltration in the left liver lobe. Liver is otherwise unremarkable. Gallbladder and bile ducts: Calcified stones in the gallbladder. Mild wall enhancement of the gallbladder without definite wall thickening. Mild dilatation of the extrahepatic bile ducts, with the common bile duct measuring up to 9 mm. Possible 4 mm filling defect in the distal common bile duct near the ampulla. Pancreas: Normal. No ductal dilation. Spleen: Normal. No splenomegaly. Adrenal glands: Normal. No mass. Kidneys and ureters: Mild bilateral perinephric stranding. The renal enhancement pattern appears normal. No calculus or hydronephrosis. Stomach and bowel: Unremarkable. No obstruction. No mucosal thickening. Appendix: The appendix is visualized and is normal. Intraperitoneal space: Mild pelvic ascites. No free air. Vasculature: Atherosclerotic calcifications. No aneurysm. Lymph nodes: Unremarkable. No enlarged lymph nodes. Urinary bladder: Main catheter in a decompressed urinary bladder. Reproductive: The uterus and ovaries are unremarkable. Bones/joints: Unremarkable. No acute fracture. Soft tissues: Small amount of soft tissue gas in the mid right abdominus rectus muscle. CT/CT angio chest w abd pel w con IMPRESSION: 1. Mild dilatation of the bile ducts with a possible 4 mm filling defect in the distal common bile duct. Follow-up with MRCP is recommended. 2. Cholelithiasis. 3. Small amount of gas in the right abdominus rectus muscle. This may relate to recent medication injection or procedure. Soft tissue infection, including necrotizing infection cannot be entirely excluded. Clinical correlation recommended. Radiation Dose CTDIVOL = (mGy): DLP = 1022.85~1022.85 (mGy-cm)
[2021-05-01 15:57] LABS: Magnesium 1.9 mg/dL (1.7-2.3); Phosphorus 1.8 mg/dL (2.5-4.5)
[2021-05-01 16:46] LABS: Glucose Point of Care 219 mg/dL (70-110)
[2021-05-01] MEDS: insulin lispro 100 unit/1 mL SUBCUT ×2 (17:14→20:26)
--- NOTE | 2021-05-01 17:18 | PM.PN ---
Subjective Subjective: Interval history: Patient was seen this morning, she is alert to person to place, not to time, she knows that she is in the hospital because of pneumonia, she tells me, she does follow commands, continues to be confused, was febrile overnight, tachycardic, her anion gap has closed, she remains on room air, Vitals/I&O/Wt Last Vital Signs Temp 100.5 F H 05/01/21 10:30 Pulse 115 H 05/01/21 16:30 Resp 24 H 05/01/21 16:30 BP 122/74 05/01/21 16:30 Pulse Ox 95 05/01/21 16:30 05/01/21 05/01/21 05/01/21 06:59 14:59 22:59 Intake Total 408.703 / 2762.782 1005.90 / 1005.90 Output Total 100 / 100 Balance 308.703 / 2662.782 1005.90 / 1005.90 Weight last 48 hrs Weight 42.592 kg Weight 45.359 kg Physical Exam Const: EXAM LIMITATIONS: altered mental status ORIENTATION/CONSCIOUSNESS: Yes awake, Yes oriented to person and Yes oriented to place; not oriented to time Resp: COMMON NORMALS: normal respiratory effort, No retractions, No use of accessory muscles and clear to auscultation bilaterally AUSCULTATION: clear to auscultation bilaterally Cardio: COMMON NORMALS: regular rate, regular rhythm, S1 normal heart sound present and S2 normal heart sound present RATE: regular rate RHYTHM: regular rhythm HEART SOUNDS: S1 normal heart sound present and S2 normal heart sound present GI: COMMON NORMALS: Normal to inspection, nondistended, normoactive bowel sounds present, Soft to palpation and non-tender PALPATION: Yes Soft to palpation Extremity: COMMON NORMALS: no pedal edema Neuro: SENSORIUM/ORIENTATION: Yes oriented to person, Yes oriented to place and No oriented to time Urinary Catheter Management^: Main: Cath Placed During This Visit: yes Reason for Continuing Indwelling Catheter: Accurate Measurement of Urinary Output in Critically Ill Patients Urinary Catheter Date of Insertion: 05/01/21 Urinary Catheter Time of Insertion: 02:45 Data : 05/01/21 02:27 05/01/21 02:27 Micro: Microbiology 04/30/21 14:48 Blood Culture - Preliminary Blood 04/30/21 14:52 Blood Culture - Preliminary Blood 04/30/21 19:43 MRSA Culture - Final Nose 05/01/21 03:10 Bacterial Antigens - Final Urine,Clean Catch 05/01/21 05:50 Blood Culture - Preliminary Blood SPECIMEN COLLECTED 05/01/21 05:50 Blood Culture - Preliminary Blood SPECIMEN COLLECTED A&P Assessment and plan (1) DKA (diabetic ketoacidosis): -Anion gap has closed -A1c 9.6 -Continue Lantus, high-dose sliding scale -Recheck CMP -Could continue IV fluids as she has poor oral intake -Monitor blood sugars as per protocol t Status: Acute (2) Altered mental status: Secondary to diabetic ketoacidosis, pneumonia, Status: Acute (3) Pneumonia: Likely right upper lobe pneumonia, pro-Kali 54.56, CRP 446.5, likely aspiration, Covid PCR pending, urine bacterial antigens, blood cultures, rapid flu negative, started on vancomycin, Zosyn, as she continues to be confused will do CT chest abdomen pelvis Status: Acute (4) Dehydration: IV fluids as above Status: Acute (5) Chest pain: -Initial troponin I 7, EKG no acute ST-T wave changes -Serial EKGs, serial troponins, telemetry monitoring -Continue aspirin, statin, monitor for chest pain -Cardiac echocardiogram Status: Acute Attestations Medical Necessity Statement*: Patient requires hospitalization for DKA, altered mental status, pneumonia, Coding Level of Care Code 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
[2021-05-01] MEDS: iohexol 350 mg/mL 100 mL Btl IV (17:56)
[2021-05-01 18:08] LABS: Alanine Aminotransferase 15 U/L (0-33); Alkaline Phosphatase 70 IU/L (35-105); Anion Gap 16.2 (5-19); Aspartate Amino Transferase 31 U/L (0-32); Blood Urea Nitrogen 15 mg/dL (6-20); Calcium 7.6 mg/dL (8.5-10.5); Carbon Dioxide 19 mmol/L (22-29); Chloride 110 mmol/L (98-107); Globulin 3.3 g/dL (1.3-4.6); Glomerular Filtration Rate 164.5 mL/min (90-130); Glucose 220 mg/dL (65-115); Osmolality Calculated 300 mOsm/kg (285-295); Potassium 4.2 mmol/L (3.5-5.1); Sodium 141 mmol/L (136-145); Total Bilirubin 0.4 mg/dL (0.15-1.2); Total Protein 5.3 g/dL (6.6-8.7)
[2021-05-01 18:20] LABS: Ferritin 1108 ng/mL (15-150)
--- NOTE | 2021-05-01 18:50 | CTR_ITS ---
PROCEDURE INFORMATION: Exam: CT Head Without Contrast Exam date and time: 05/01/2021 6:50 PM Age: 56 years old Clinical indication: Altered mental status/memory loss; Additional info: Septic emboli to lung, AMS TECHNIQUE: Imaging protocol: Computed tomography of the head without contrast. Radiation optimization: All CT scans at this facility use at least one of these dose optimization techniques: automated exposure control; mA and/or kV adjustment per patient size (includes targeted exams where dose is matched to clinical indication); or iterative reconstruction. COMPARISON: CT head wo con* [id number] 04/30/2021 2:07 PM RADIATION DOSE METRICS: Total DLP (mGy-cm): 632.64 FINDINGS: Brain: There is moderate cerebral atrophy. There is mild diffuse heterogeneity of the white matter attenuation, consistent with chronic white matter ischemic changes. No intracranial mass. No intracranial hemorrhage. No mass effect on the brain. No midline shift of the brain. Gould matter and white matter interfaces are preserved. Cerebral ventricles: No ventriculomegaly. Paranasal sinuses: Visualized sinuses are unremarkable. No fluid levels. Mastoid air cells: Visualized mastoid air cells are well aerated. Bones/joints: Unremarkable. No acute fracture. Soft tissues: Unremarkable. CT/CT head wo con* [id number] IMPRESSION: Negative for acute intracranial abnormality. Radiation Dose CTDIVOL = (mGy): DLP = 632.64 (mGy-cm)
--- NOTE | 2021-05-01 19:35 | PC.NURSE ---
Visitor Upon assessment of patient, visitor at bedside. Visitor states he is patient's son. Visitor states intent to visit patient in future.
[2021-05-01] MEDS: atorvastatin 40 mg Tablet PO (20:13)
[2021-05-01] MEDS: enoxaparin 40 mg/0.4 mL Syringe SUBCUT (20:13)
[2021-05-01 20:24] LABS: Glucose Point of Care 186 mg/dL (70-110)
--- NOTE | 2021-05-01 21:09 | USCV_ITS ---
Skyla Lozano Age: 56 Gender: F : 1965 Exam Date: 05/01/2021 08:49 Ordering Phys: Ry Harris MD Technologist: TORSTEN [place] [facility] [place]ication: CHEST PAIN BP: 108 / 80 HR: 107 Rhythm: Sinus Technical Quality: Adequate MEASUREMENTS (Male / Female) Normal Values 2D ECHO LV Diastolic Diameter PLAX 3.6 cm 4.2 - 5.9 / 3.9 - 5.3 cm LV Systolic Diameter PLAX 2.6 cm IVS Diastolic Thickness 0.9 cm 0.6 - 1.0 / 0.6 - 0.9 cm IVS Systolic Thickness 0.9 cm LVPW Diastolic Thickness 0.8 cm 0.6 - 1.0 / 0.6 - 0.9 cm LVPW Systolic Thickness 1.0 cm LVOT Diameter 2.0 cm LV Ejection Fraction 2D Teich 51.3 % LV Ejection Fraction MOD 2C 61.4 % LV Ejection Fraction 2C AL 60.8 % LA Diameter 3.1 cm LA Width 3.4 cm LA Height 3.0 cm RA Width 3.5 cm RA Height 3.7 cm Aorta at Sinotubular Diameter 2.6 cm M-MODE RV Diastolic Diameter MM 2.0 cm Aortic Annulus Diameter 3.6 cm LA Ao Ratio MM 1.0 MV E Point Septal Separation 0.4 cm DOPPLER AV Peak Velocity 152.0 cm/s LVOT Peak Velocity 101.0 cm/s AV Area Cont Eq vti 2.3 cm squared AV Area Cont Eq pk 2.2 cm squared MV Area PHT 5.0 cm squared Mitral E to A Ratio 0.7 MV E' Velocity 31.5 cm/s Mitral E to MV E' Ratio 6.5 Mitral E to LV E' Lateral Ratio 7.0 Mitral E to LV E' Septal Ratio 6.2 TR Peak Velocity 255.7 cm/s TR Peak Gradient 26.1 mmHg TV Peak E Velocity 88.0 cm/s Right Atrial Pressure 3.0 mmHg Pulmonary Artery Systolic Pressu 29.1 mmHg FINDINGS Left Ventricle Normal left ventricular size, systolic function and wall thickness, with no regional wall motion abnormalities. Left ventricular ejection fraction is estimated at 65 %. Normal diastolic function. Right Ventricle Normal right ventricular size and systolic function. Right ventricular systolic pressure 32 mmHg. Right Atrium Normal right atrial size. Right atrial pressure estimated at 3 mmHg. Left Atrium Mildly increased left atrial size. Mitral Valve Mildly thickened mitral valve. No mitral valve stenosis. Trace mitral valve regurgitation. Aortic Valve No aortic valve stenosis. No aortic valve regurgitation. Tricuspid Valve Structurally normal tricuspid valve. Trace to mild tricuspid valve regurgitation. Pulmonic Valve Pulmonic valve not well visualized. No pulmonary valve stenosis. No significant pulmonary valve regurgitation. Pericardium No pericardial effusion. Aorta Aorta not well visualized. Normal-sized inferior vena cava with greater than 50% respiratory variation. CONCLUSIONS 1. Normal left ventricular size, systolic function and wall thickness, with no regional wall motion abnormalities. Left ventricular ejection fraction is estimated at 65 %. Normal diastolic function. 2. Normal right ventricular size and systolic function. 3. Pulmonary artery pressure estimated at 32 mmHg. 4. Trace to mild tricuspid valve regurgitation. 5. No prior similar studies to compare. Meri Kidd MD (Electronically Signed) Final Date: 01 May 2021 13:09 S
[2021-05-01 21:46] LABS: Magnesium 1.7 mg/dL (1.7-2.3); Phosphorus 1.1 mg/dL (2.5-4.5)
[2021-05-01 21:56] LABS: Vancomycin Trough 5.4 ug/mL (10-15)
--- NOTE | 2021-05-01 22:31 | PC.NURSE ---
Vanc Trough Patient vancomycin trough 5.4. Pharmacist notified and affirmation received to administer vancomycin dose per JUL.
--- NOTE | 2021-05-01 23:07 | PC.NURSE ---
Rapid COVID test cancelled Sendout COVID test resulted negative. Dr. Montgomery notified and order received to cancel the rapid COVID test already ordered.
[2021-05-02] VITALS (38 sets, daily range): BP systolic 77–129; BP diastolic 46–72; PULSE 75–120; RESP 14–30; TEMP 36.6–37.1; O2SAT 90–100; BMI 18.5
--- NOTE | 2021-05-02 00:40 | PC.NURSE ---
CT Patient transferred to/from bed to wheelchair and CT table with moderate assistance. Patient tolerated activity well, monitoring of vitals to, from, and during CT scan. All vitals stable.
[2021-05-02] MEDS: piperacillin-tazobactam 3.375 GM in sodium chloride 0.9% (plus) 50 ML IV ×3 (01:14→17:55)
[2021-05-02 01:23] LABS: Glucose Point of Care 143 mg/dL (70-110)
[2021-05-02 02:45] LABS: Anion Gap 13.7 (5-19); Blood Urea Nitrogen 11 mg/dL (6-20); Calcium 7.4 mg/dL (8.5-10.5); Carbon Dioxide 19 mmol/L (22-29); Chloride 109 mmol/L (98-107); Glomerular Filtration Rate 164.5 mL/min (90-130); Glucose 132 mg/dL (65-115); Magnesium 1.6 mg/dL (1.7-2.3); Osmolality Calculated 287 mOsm/kg (285-295); Phosphorus 1.3 mg/dL (2.5-4.5); Potassium 3.7 mmol/L (3.5-5.1); Sodium 138 mmol/L (136-145)
[2021-05-02 03:48] LABS: Glucose Point of Care 166 mg/dL (70-110)
--- NOTE | 2021-05-02 03:52 | PC.NURSE ---
Physician Communication Dr. Montgomery contacted to ensure maintenance fluid to remain D5 NS with 20 meq KCL @ 125 ml/hr while on insulin sliding scale and NPO for KT; Order received to continue with fluid. Order also received for phosphorous lab draw to be drawn with morning labs and not at 0600 due to difficulty of drawing blood from patient. Orders carried out as indicated.
[2021-05-02 05:12] LABS: Blood Gas Allen Test Pos; Blood Gas Operator Identificat JB; Blood Gas Sample Site Radial, right; Blood Gas Sample Type Arterial; Oxygen Device ROOM AIR
[2021-05-02 05:13] LABS: ABG PCO2 31.5 mmHg (35-45); ABG PH Result 7.46 (7.35-7.45); Base Excess ABG -0.4 mmol/L (-2.0-2.0); HCO3 ABG 22.5 mmol/L (22-26); PO2 ABG 55.4 mmHg (80.0-100.0)
[2021-05-02 06:02] LABS: INR 1.15 (0.8-1.2)
[2021-05-02 06:13] LABS: D Dimer 4.56 ug/mIFEU (0-0.59)
[2021-05-02] MEDS: vancomycin 750 MG in sodium chloride 0.9% 250 ML 250 MG IV ×3 (06:15→23:26)
[2021-05-02] MEDS: dextrose 5%-ns + KCl 20 20 MEQ/1,000 ML BAG 125 MEQ IV ×3 (06:16→22:46)
[2021-05-02 06:55] LABS: Alanine Aminotransferase 15 U/L (0-33); Albumin Level 2.1 g/dL (3.5-5.2); Alkaline Phosphatase 168 IU/L (35-105); Anion Gap 11.6 (5-19); Aspartate Amino Transferase 26 U/L (0-32); Blood Urea Nitrogen 10 mg/dL (6-20); Calcium 7.5 mg/dL (8.5-10.5); Carbon Dioxide 22 mmol/L (22-29); Chloride 109 mmol/L (98-107); Globulin 3.3 g/dL (1.3-4.6); Glomerular Filtration Rate 164.5 mL/min (90-130); Glucose 179 mg/dL (65-115); Magnesium 1.8 mg/dL (1.7-2.3); Osmolality Calculated 292 mOsm/kg (285-295); Phosphorus 1.6 mg/dL (2.5-4.5); Potassium 3.6 mmol/L (3.5-5.1); Sodium 139 mmol/L (136-145); Total Bilirubin 0.4 mg/dL (0.15-1.2); Total Protein 5.4 g/dL (6.6-8.7)
--- NOTE | 2021-05-02 07:00 | XR_ITS ---
WS: [id number] Portable AP semiupright chest, 05/02/2021 Clinical Data: sob Comparison: Portable chest, 04/30/2021. Findings: Diffuse bilateral pulmonary opacities have increased dramatically compared to the prior [facility] x-ray. The densest opacity is in the left upper lobe. The heart is normal. No nodules, masses or e ffusions are seen. There are monitor leads on the chest wall. XR/XR chest 1V portable [id number] Impression: Marked increase in bilateral pulmonary opacities which may represent worsening pneumonia.
[2021-05-02 07:07] LABS: NT Pro B Type Natriuretic Pept 1191 pg/mL (0-125); Procalcitonin 52.11 ng/mL (0-0.5)
[2021-05-02 07:18] LABS: Creatine Phosphokinase 268 U/L (26-192); Magnesium 1.8 mg/dL (1.7-2.3)
[2021-05-02 07:19] LABS: C Reactive Protein 396.9 mg/L (0.0-4.9)
[2021-05-02 07:23] LABS: Lactate (Lactic Acid level) 1.4 mmol/L (0.5-2.2)
[2021-05-02 07:33] LABS: Ferritin 1117 ng/mL (15-150)
[2021-05-02 07:35] LABS: Hematocrit 38.4 % (37.0-47.0); Hemoglobin 12.5 g/dL (11.5-15.3); Mean Corpuscular HGB Conc 32.6 g/dL (30.0-36.0); Mean Corpuscular Hemoglobin 30.4 pg (28.0-34.0); Mean Corpuscular Volume 93.4 fl (81-99); Mean Platelet Volume 11.2 fL (7.4-10.4); Platelet Count 283 10^3/cmm (130-400); Red Blood Count 4.11 10^6/uL (4.1-5.3); Red Cell Distribution Width 12.2 % (12.1-15.1); White Blood Count 13.5 10^3/uL (4.0-10.0)
[2021-05-02 07:44] LABS: Slide Review Slide Review Perform
[2021-05-02 07:45] LABS: Absolute Segmented Neutrophil 6.9 10/cmm (1.6-7.1); Lymphocytes 9 %; Monocytes Absolute 0.4 10^3/cmm (0.1-0.6); Segmented Neutrophils 51 %; Total Cells Counted 100 (0-100)
[2021-05-02 07:46] LABS: Absolute Neutrophil 11.9 10^3/cmm (1.4-6.5); Burr Cells 1+; Eosinophils 0 %; Lymphocytes Absolute 1.2 10^3/cmm (1.2-3.4); Platelet Estimate Normal (Normal); Poikilocytosis 1+
[2021-05-02 07:59] LABS: Glucose Point of Care 214 mg/dL (70-110)
[2021-05-02] MEDS: aspirin 81 mg EC Tablet PO (08:10)
[2021-05-02] MEDS: insulin lispro 100 unit/1 mL SUBCUT ×2 (08:10→11:51)
[2021-05-02] MEDS: famotidine 20 mg/2 mL INJ IVP ×2 (08:12→21:20)
[2021-05-02] MEDS: insulin glargine 100 units/1 mL 15 UNIT SUBCUT (08:14)
[2021-05-02] MEDS: magnesium sulfate premix 2 GM/50 ML PIGGYBACK IV (08:56)
--- NOTE | 2021-05-02 09:25 | P.CONIM_ITS ---
Providers/Reason For Consult Consulting Physician/Specialty*: Dr. Kidd, cardiology Reason for Consult*: KT to rule out infective endocarditis with Gram-positive cocci bacteremia, concern for septic emboli in both lungs Attending Physician: Ry Harris MD Primary Care Provider: Leonard Perez MD History of Present Illness History of Present Illness Skyla Lozano is a 56 year old female with past medical history of insulin- dependent type 2 diabetes mellitus, noncompliance to insulin due to affordability was admitted on 30 April with complaints of chest pain and back pain, tiredness, fatigue, nausea and confusion. She is not a great historian and at the time of evaluation she is she mentions that she does not feel well overall. She was admitted for DKA and started on insulin drip. She was also diagnosed with bilateral pneumonia and was started on broad-spectrum a ntibiotics. She is +5 L since admission. WBC on admission of 24.5 which is 13.5 today. Hemoglobin A1c 9.6. Phosphorus 1.7. COVID-19 PCR and influenza A and B antigen negative. Negative. Baseline troponin T 17 at 2 hours 14 and at 6-hour 14. NT proBNP today 1191. CT chest showing numerous peripheral nodules consolidation in both lungs most likely represent septic emboli along with bilateral upper lobe and right lower lobe pneumonia and bilateral pleural effusion. Blood cultures from April 03 gram-positive cocci in clusters. I have been asked to evaluate the patient for KT to rule out endocarditis. Review of Systems Const: Reports: fatigue; Denies: fever(s), chills or malaise Eyes: Denies: change in vision or blurry vision ENMT: Denies: nasal congestion Card: Reports: chest pain; Denies: palpitations, irregular heart rhythm, edema, lightheadedness or dyspnea on exertion Resp: Denies: dyspnea, productive cough, non-productive cough or wheezing GI: Reports: abdominal pain and nausea; Denies: vomiting, hematemesis, diarrhea, constipation, hematochezia or melena : Denies: flank pain, dysuria or urinary frequency Musc: Denies: neck pain or back pain Skin/Breast: Denies: rash Neuro: Reports: dizziness; Denies: headache(s) or vertigo Psych: Denies: anxiety or depression Endo: Denies: polyuria or polydipsia Meds/Allergies Home Medications and Allergies Home Medications Medication Instructions Recorded Confirmed Last Taken Type Unable to Assess 04/30/21 04/30/21 Unknown History Allergies Allergy/AdvReac Type Severity Reaction Status Date / Time No Known Allergies Allergy Verified 09/13/19 12:32 Current Medications Current Medications Generic Name Dose Route Start Last Admin Trade Name Mandoq PRN Reason Stop Dose Admin Aspirin 81 mg 04/30/21 21:09 05/02/21 08:10 Aspirin 81 Mg Ec Tablet PO 81 mg DAILY STEPHANIE Administration Atorvastatin Calcium 40 mg 04/30/21 21:09 05/01/21 20:13 Atorvastatin 40 Mg Tablet PO 40 mg BEDTIME STEPHANIE Administration Enoxaparin Sodium 40 mg 04/30/21 21:09 05/01/21 20:13 Enoxaparin 40 Mg/0.4 Ml Syringe SUBCUT 40 mg Q24H STEPHANIE Administration Famotidine 20 mg 04/30/21 21:09 05/02/21 08:12 Famotidine 20 Mg/2 Ml Inj IVP 20 mg Q12H STEPHANIE Administration Insulin Human Regular 250 unit 252.5 mls @ 0 mls/hr 04/30/21 16:15 05/01/21 10:00 / Sodium Chloride IV 0 mls/hr .Q0M STEPHANIE Titration Protocol Per Protocol Piperacillin Sod/Tazobactam 50 mls @ 12.5 mls/hr 05/01/21 01:00 05/02/21 08:10 Sod 3.375 gm/ Sodium Chloride IV 12.5 mls/hr Q8H STEPHANIE Administration Protocol Potassium Chloride/Dextrose/Sod Cl 20 meq in 1,000 mls @ 125 mls/hr 04/30/21 22:30 05/02/21 06:16 Dextrose 5%-Ns + Kcl 20 IV 125 mls/hr .Q8H STEPHANIE Administration Vancomycin HCl 750 mg/ Sodium 250 mls @ 250 mls/hr 05/02/21 07:00 05/02/21 07:35 Chloride IV Infused Q8H STEPHANIE Infusion Potassium Phosphate 40 meq/ 109.0909 mls @ 27.25 mls/hr 05/02/21 07:59 05/02/21 08:55 Sodium Chloride IV 05/02/21 11:59 27.25 mls/hr ONCE ONE Administration Insulin Glargine 15 unit 05/01/21 09:00 05/02/21 08:14 Insulin Glargine 100 Units/1 Ml SUBCUT 15 unit Q24H STEPHANIE Administration Insulin Human Lispro 0 unit 05/01/21 12:00 05/02/21 08:10 Insulin Lispro 100 Unit/1 Ml SUBCUT 8 unit WM&BEDTIME STEPHANIE Administration Protocol PFSH Acute PFSH: Medical History Diabetes Insulin dependent type 2 diabetes mellitus Surgical History No pertinent past surgical history Family History Mother Cancer Father CAD (coronary artery disease) Social History Smoking and tobacco status: current every day smoker cigarettes Packs smoked per day: 1 Alcohol intake: current Alcohol intake frequency: few times a month Substance/Drug Use: never Vitals/I&O/Wt Last Vital Signs Temp 98.4 F 05/02/21 08:00 Pulse 110 H 05/02/21 08:00 Resp 25 H 05/02/21 08:00 BP 99/57 05/02/21 08:00 Pulse Ox 93 05/02/21 08:00 05/01/21 05/02/21 05/02/21 22:59 06:59 14:59 Intake Total 1470 / 2525.90 1300 / 3825.90 250 / 250 Output Total 650 / 650 650 / 1300 Balance 820 / 1875.90 650 / 2525.90 250 / 250 Weight last 48 hrs Weight 101 lb 6.4 oz Weight 93 lb 14.4 oz Weight 100 lb Physical Exam Narrative: EXAM NARRATIVE: GENERAL: Frail appearing woman laying in bed in no acute distress , drowsy but arousable and answering all questions HEENT: No pallor or icterus. NECK: No JVD, No carotid bruit. CARDIOVASCULAR SYSTEM: S1-S2 regular. No S3 or S4 present. No murmur rubs or gallops. RESPIRATORY SYSTEM: Bilateral coarse rales+ ABDOMEN: Soft, nontender and nondistended. Normal bowel sounds present. EXTREMITIES: No cyanosis or clubbing. [No edema]. CONTROL SYSTEMS DRAFTING OFFICER: Patient is alert oriented ?3. No focal neurological deficits. Urinary Catheter Management^: Main: Cath Placed During This Visit: yes Reason for Continuing Indwelling Catheter: Accurate Measurement of Urinary Output in Critically Ill Patients Urinary Catheter Date of Insertion: 05/01/21 Urinary Catheter Time of Insertion: 02:45 Data Micro: Micro: Microbiology 05/01/21 05:50 Blood Culture - Pr eliminary Blood NEGATIVE TO MIRELA E 05/01/21 05:50 Blood Culture - Pr eliminary Blood NEGATIVE TO MIRELA E 04/30/21 14:48 Blood Culture - Pr eliminary Blood 04/30/21 14:52 Blood Culture - Pr eliminary Blood 04/30/21 19:43 MRSA Culture - Fin al Nose 05/01/21 03:10 Bacterial Antigens - Final Urine,Clean Catch Other Data: Other data: CT chest abdomen and pelvis 01 May 2021 IMPRESSION: 1. No evidence for pulmonary embolus. 2. Numerous peripheral nodular consolidations in both lungs most likely represent septic emboli. Close CT follow-up to document resolution recommended. A neoplastic process such as metastatic disease is considered much less likely but not entirely excluded. 3. Bilateral upper lobe and right lower lobe pneumonia. 4. Bilateral simple appearing pleural effusions. IMPRESSION: 1. Mild dilatation of the bile ducts with a possible 4 mm filling defect in the distal common bile duct. Follow-up with MRCP is recommended. 2. Cholelithiasis. 3. Small amount of gas in the right abdominus rectus muscle. This may relate to recent medication injection or procedure. Soft tissue infection, including necrotizing infection cannot be entirely excluded. Clinical correlation recommended. Transthoracic echocardiogram 01 May 2021 CONCLUSIONS 1. Normal left ventricular size, systolic function and wall thickness, with no regional wall motion abnormalities. Left ventricular ejection fraction is estimated at 65 %. Normal diastolic function. 2. Normal right ventricular size and systolic function. 3. Pulmonary artery pressure estimated at 32 mmHg. 4. Trace to mild tricuspid valve regurgitation. 5. No prior similar studies to compare. EKG on arrival sinus rhythm normal axis with normal EKG. A&P Assessment and plan (1) Gram positive sepsis: Gram-positive cocci bacteremia with concern of bilateral septic emboli in lungs. -Staph aureus identified -Patient will benefit from transesophageal echocardiogram. -Risks and benefits were discussed with the patients. Possible complications were reviewed with the patient as well. -Decision was made to proceed with KT later today. Status: Acute (2) Pneumonia: Bilateral -management as per primary Status: Acute Additional A&P Information DKA :off insulin drip Uncontrolled insulin-dependent diabetes mellitus Dyslipidemia Altered mental status Thank you for allowing me to participate in patient's care. Please feel free to call with questions or concerns Consult Attestations Time Spent in Patient Care: 16 - 35 minutes (>than 50% of time spent in counselling and/or direct pt care on unit) . Coding Level of Care Code Acute Phonograph Mechanic for Eric Fwd Diagnoses Gram positive sepsis A41.89 Pneumonia J18.9
--- NOTE | 2021-05-02 09:38 | PC.CHAP ---
Pastoral Care Encounter/Spiritual Assessment Type of Contact [] Declined boss dyer visit [] Patient/Family/Request visit [] Outpatient visit [] Follow-up visit [] Physician referral [] Code/Alert [x] Routine visit [] Staff referral [] Actively dying [] Patient sleeping [] Family support [] [] Out of room [] Palliative care [] [x] Receiving care in room [] Pre-surgical visit [] Trauma [] Long length of stay [x] ICU visit [] Other: Relational/Emotional Strength [] Patient feels connected with others/family/visitors/staff [] Distress [] Loneliness/isolation [] Abandonment Spirituality of Patient [] Person of Adrienne [] Attends Religion of their Adrienne [] Believes in Prayer [] Reads Bible or Buddhist materials [] There are Spiritual issues to be addressed Roofing Subcontractor Interventions [x] Prayer [x] Active listening [x] Non-anxious presence [x] Spiritual/emotional support [] Crisis/trauma care [] Spiritual counseling [] Bereavement support [] Provided bereavement packet [] Provided Bible/devotional materials [] Provided toy/stuffed animal, coloring book to patient or family member [] Provided Communion [] Anointing/[place] [] Salvation [x] Completed spiritual assessment [] Other: Impact on Illness or Injury [] Angry [] Fearful [] Anxious [] Often cries [] Exhaustion [] Unable to work [] Unable to attend latter-day [] Unable to walk/stand [] Unable to read [] Unable to drive [] Unable to eat/drink [] Unable to sleep [] Unable to be with family [] Patient intubated [] Other: Summary patient preparing for procedure .. some fear.. prayed for peace and knowledge of trusting her sergeants and staff Time spent with patient 5 min
[2021-05-02 10:01] LABS: Magnesium 2.3 mg/dL (1.7-2.3)
--- NOTE | 2021-05-02 10:16 | P.ANESASSM_ITS ---
Pre-Anesthetic Assessment Pre-Anesthetic Assessment: Height/Weight: Height 1.57 m Weight 45.994 kg Temp Pulse Resp BP Pulse Ox 98.4 F 110 H 25 H 99/57 93 05/02/21 08:00 05/02/21 08:00 05/02/21 08:00 05/02/21 08:00 05/02/21 08:00 Preop Diagnosis: Sepsis with bacteremia in setting of DKA on admissionl, ? endocarditis Familial anesthetic complications: Denies Was Beta Angelina taken within 24 hours: N/A Was Clonidine taken within 24 hours: N/A Last Intake: 00:00 Social: Social History: Tobacco Exam: Pre-Anes Outpt Exam: alert, oriented x 3, clear to auscultation bilaterally and regular rate & rhythm Airway: Submandibular: WNL Cervical ROM: WNL (Limited) MP: 2 Dentition: False History/ROS: No significant history except as noted Pulmonary: Comments: Denies hx of COPD, daily smoker. CT Report Read by Dr. Velazquez IMPRESSION: 1. No evidence for pulmonary embolus. 2. Numerous peripheral nodular consolidations in both lungs most likely represent septic emboli. Close CT follow-up to document resolution recommended. A neoplastic process such as metastatic disease is considered much less likely but not entirely excluded. 3. Bilateral upper lobe and right lower lobe pneumonia. 4. Bilateral simple appearing pleural effusions. CV/HEM: Comments: Sepsis on admission, off pressors on room air. Denies hx of cardiac disease.Elevated troponin on admission. Echo Report CONCLUSIONS 1. Normal left ventricular size, systolic function and wall thickness, with no regional wall motion abnormalities. Left ventricular ejection fraction is estimated at 65 %. Normal diastolic function. 2. Normal right ventricular size and systolic function. 3. Pulmonary artery pressure estimated at 32 mmHg. 4. Trace to mild tricuspid valve regurgitation. 5. No prior similar studies to compare. : : None reported Hepatic: Hepatic: None reported GI: Comments: Patient denies hx of liver disease Metabolic: Metabolic: DM Comments: Uncontrolled DM Musc/skel: Musc/skel: None reported Neuropsych: Neuropsych: None reported Anesthetic Plan: ASA status: 4 Anesthesia: Anesthesia Evaluation, General and MAC Risk of > 500 ml blood loss (7ml/kg in children): No Meds/Allergies Current Medications: Current Medications Generic Name Dose Route Start Last Admin Trade Name Freq PRN Reason Stop Dose Admin Aspirin 81 mg 04/30/21 21:09 05/02/21 08:10 Aspirin 81 Mg Ec Tablet PO 81 mg DAILY STEPHANIE Administration Atorvastatin Calci um 40 mg 04/30/21 21:09 05/01/21 20:13 Atorvastatin 40 Mg Tablet PO 40 mg BEDTIME STEPHANIE Administration Enoxaparin Sodium 40 mg 04/30/21 21:09 05/01/21 20:13 Enoxaparin 40 Mg /0.4 Ml Syringe SUBCUT 40 mg Q24H STEPHANIE Administration Famotidine 20 mg 04/30/21 21:09 05/02/21 08:12 Famotidine 20 Mg /2 Ml Inj IVP 20 mg Q12H STEPHANIE Administration Insulin Human Regu lar 250 unit 252.5 mls @ 0 mls /hr 04/30/21 16:15 05/01/21 10:00 / Sodium Chlorid e IV 0 mls/hr .Q0M STEPHANIE Titration Protocol Per Protocol Piperacillin Sod/T azobactam 50 mls @ 12.5 mls /hr 05/01/21 01:00 05/02/21 08:10 Sod 3.375 gm/ So dium Chloride IV 12.5 mls/hr Q8H STEPHANIE Administration Protocol Potassium Chloride /Dextrose/Sod Cl 20 meq in 1,000 m ls @ 125 mls/hr 04/30/21 22:30 05/02/21 06:16 Dextrose 5%-Ns + Kcl 20 IV 125 mls/hr .Q8H STEPHANIE Administration Vancomycin HCl 750 mg/ Sodium 250 mls @ 250 mls /hr 05/02/21 07:00 05/02/21 07:35 Chloride IV Infused Q8H STEPHANIE Infusion Potassium Phosphat e 40 meq/ 109.0909 mls @ 27 .25 mls/hr 05/02/21 07:59 05/02/21 08:55 Sodium Chloride IV 05/02/21 11:59 27.25 mls/hr ONCE ONE Administration Insulin Human Lisp ro 0 unit 05/01/21 12:00 05/02/21 08:10 Insulin Lispro 1 00 Unit/1 Ml SUBCUT 8 unit WM&BEDTIME STEPHANIE Administration Protocol PFSH Anesthesia 2 PFSH: Medical History Diabetes Insulin dependent type 2 diabetes mellitus Surgical History No pertinent past surgical history Family History Mother Cancer Father CAD (coronary artery disease) Social History Smoking and tobacco status: current every day smoker cigarettes Packs smoked per day: 1 Alcohol intake: current Alcohol intake frequency: few times a month Substance/Drug Use: never Data Anesthesia CBC & Chem 7: 05/02/21 04:36 05/02/21 04:36 Other Labs: Laboratory Results - last 48 hr 04/30/21 04/30/21 04/30/21 11:15 13:38 14:21 WBC RBC Hgb Hct MCV MCH MCHC RDW Plt Count MPV Lymph % (Auto) [place] % (Auto) Lymph # (Auto) [place] # (Auto) Total Counted Atypical Lymphs % Absolute Neutrophils Segmented Neutrophils Abs Segm Neuts (Man) Band Neutrophils Abs Band Neuts (Man) Absolute Lymphocytes Lymphocytes (Manual) Monocytes (Manual) Absolute Monocytes Eosinophils (Manual) Absolute Eosinophils Basophils (Manual) Absolute Basophils Metamyelocytes Platelet Estimate Poikilocytosis [place] Cells PT INR APTT D-Dimer Specimen Type Arterial Sample Site Radial, right ABG pH 7.31 L ABG pCO2 38.1 ABG pO2 66.5 L ABG HCO3 19.1 L ABG O2 Saturation 90.9 ABG Base Excess -6.6 L Awais Test Pos A-a O2 Gradient 4.7 L Hematocrit 43.6 Hgb O2 Saturation 90.0 L Carboxyhemoglobin 0.2 L Methemoglobin 0.8 Total Hemoglobin 14.2 Sodium 134.0 Potassium 4.1 Glucose 517.0 H Ionized Calcium 1.2 O2 Delivery Device Room air FiO2 21.0 Md Allergy Immunology ID Sh Chloride Carbon Dioxide Anion Gap BUN Creatinine GFR Calculation POC Glucose 477 H Estimat Average Glucose Hemoglobin A1c Calculated Osmolality Lactate Calcium Phosphorus Magnesium Ferritin Total Bilirubin AST ALT Alkaline Phosphatase Creatine Kinase Troponin T Baseline Troponin T 120 Minute Delta Troponin T Troponin T Hi Sens 6Hr Troponin T Hi Sens 6Hr Delta C-Reactive Protein NT-Pro-B Natriuret Pep Total Protein Albumin Globulin Triglycerides Cholesterol LDL Cholesterol, Calc HDL Cholesterol LDL/HDL Ratio Cholesterol/HDL Ratio Lipase Procalcitonin TSH Urine Color Urine Appearance Urine pH Ur Specific [place] Urine Protein Urine Glucose (UA) Urine Ketones Urine Blood Urine Nitrate Urine Bilirubin Urine Urobilinogen Ur Leukocyte Esterase Urine RBC Urine WBC Ur Squamous Epith Cells Amorphous Sediment Urine Bacteria Urine Mucus Vancomycin Trough Serum Ketones Nasal/Oral COVID-19 PCR Influenza Type A Ag Negative Influenza Type B Ag Negative 04/30/21 04/30/21 04/30/21 14:48 14:48 14:48 WBC 24.5 H RBC 4.65 Hgb 14.1 Hct 43.8 MCV 94.2 MCH 30.3 MCHC 32.2 RDW 12.1 Plt Count 346 MPV 11.0 H Lymph % (Auto) Not Reportable [place] % (Auto) Not Reportable Lymph # (Auto) Not Reportable [place] # (Auto) Not Reportable Total Counted 100 Atypical Lymphs % 0.0 Absolute Neutrophils 21.3 H Segmented Neutrophils 69 Abs Segm Neuts (Man) 16.9 H Band Neutrophils 18.0 Abs Band Neuts (Man) 4.4 H Absolute Lymphocytes 0.7 L Lymphocytes (Manual) 3 Monocytes (Manual) 4.0 Absolute Monocytes 1.0 H Eosinophils (Manual) 0 Absolute Eosinophils 0.0 Basophils (Manual) 0.0 Absolute Basophils 0.0 Metamyelocytes 6.0 Platelet Estimate Normal Poikilocytosis [place] Cells PT 16.90 H INR 1.33 H APTT 34.1 D-Dimer Specimen Type Sample Site ABG pH ABG pCO2 ABG pO2 ABG HCO3 ABG O2 Saturation ABG Base Excess [place] Test A-a O2 Gradient Hematocrit Hgb O2 Saturation Carboxyhemoglobin Methemoglobin Total Hemoglobin Sodium 136 Potassium 4.5 Glucose 470 H Ionized Calcium O2 Delivery Device FiO2 Md Allergy Immunology ID Chloride 98 Carbon Dioxide 18 L Anion Gap 24.5 H BUN 43 H Creatinine 1.0 H GFR Calculation 57.1 L POC Glucose Estimat Average Glucose Hemoglobin A1c Calculated Osmolality 313 H Lactate Calcium 8.5 Phosphorus Magnesium Ferritin Total Bilirubin 1.0 AST 14 ALT 8 Alkaline Phosphatase 131 H Creatine Kinase Troponin T Baseline Troponin T 120 Minute Delta Troponin T Troponin T Hi Sens 6Hr Troponin T Hi Sens 6Hr Delta C-Reactive Protein NT-Pro-B Natriuret Pep Total Protein 6.8 Albumin 3.3 L Globulin 3.5 Triglycerides Cholesterol LDL Cholesterol, Calc HDL Cholesterol LDL/HDL Ratio Cholesterol/HDL Ratio Lipase 6 L Procalcitonin TSH Urine Color Urine Appearance Urine pH Ur Specific [place] Urine Protein Urine Glucose (UA) Urine Ketones Urine Blood Urine Nitrate Urine Bilirubin Urine Urobilinogen Ur Leukocyte Esterase Urine RBC Urine WBC Ur Squamous Epith Cells Amorphous Sediment Urine Bacteria Urine Mucus Vancomycin Trough Serum Ketones Nasal/Oral COVID-19 PCR Influenza Type A Ag Influenza Type B Ag 04/30/21 04/30/21 04/30/21 14:48 14:48 14:48 WBC RBC Hgb Hct MCV MCH MCHC RDW Plt Count MPV Lymph % (Auto) [place] % (Auto) Lymph # (Auto) [place] # (Auto) Total Counted Atypical Lymphs % Absolute Neutrophils Segmented Neutrophils Abs Segm Neuts (Man) Band Neutrophils Abs Band Neuts (Man) Absolute Lymphocytes Lymphocytes (Manual) Monocytes (Manual) Absolute Monocytes Eosinophils (Manual) Absolute Eosinophils Basophils (Manual) Absolute Basophils Metamyelocytes Platelet Estimate Poikilocytosis Angela Cells PT INR APTT D-Dimer Specimen Type Sample Site ABG pH ABG pCO2 ABG pO2 ABG HCO3 ABG O2 Saturation ABG Base Excess [place] Test A-a O2 Gradient Hematocrit Hgb O2 Saturation Carboxyhemoglobin Methemoglobin Total Hemoglobin Sodium Potassium Glucose Ionized Calcium O2 Delivery Device FiO2 Md Allergy Immunology ID Chloride Carbon Dioxide Anion Gap BUN Creatinine GFR Calculation POC Glucose Estimat Average Glucose 229 Hemoglobin A1c 9.6 H Calculated Osmolality Lactate Calcium Phosphorus Magnesium Ferritin Total Bilirubin AST ALT Alkaline Phosphatase Creatine Kinase Troponin T Baseline 17 H Troponin T 120 Minute Delta Troponin T Troponin T Hi Sens 6Hr Troponin T Hi Sens 6Hr Delta C-Reactive Protein NT-Pro-B Natriuret Pep Total Protein Albumin Globulin Triglycerides Cholesterol LDL Cholesterol, Calc HDL Cholesterol LDL/HDL Ratio Cholesterol/HDL Ratio Lipase Procalcitonin TSH Urine Color Urine Appearance Urine pH Ur Specific [place] Urine Protein Urine Glucose (UA) Urine Ketones Urine Blood Urine Nitrate Urine Bilirubin Urine Urobilinogen Ur Leukocyte Esterase Urine RBC Urine WBC Ur Squamous Epith Cells Amorphous Sediment Urine Bacteria Urine Mucus Vancomycin Trough Serum Ketones Positive H Nasal/Oral COVID-19 PCR Influenza Type A Ag Influenza Type B Ag 04/30/21 04/30/21 04/30/21 14:52 15:20 16:30 WBC RBC Hgb Hct MCV MCH MCHC RDW Plt Count MPV Lymph % (Auto) [place] % (Auto) Lymph # (Auto) [place] # (Auto) Total Counted Atypical Lymphs % Absolute Neutrophils Segmented Neutrophils Abs Segm Neuts (Man) Band Neutrophils Abs Band Neuts (Man) Absolute Lymphocytes Lymphocytes (Manual) Monocytes (Manual) Absolute Monocytes Eosinophils (Manual) Absolute Eosinophils Basophils (Manual) Absolute Basophils Metamyelocytes Platelet Estimate Poikilocytosis [place] Cells PT INR APTT D-Dimer Specimen Type Sample Site ABG pH ABG pCO2 ABG pO2 ABG HCO3 ABG O2 Saturation ABG Base Excess [place] Test A-a O2 Gradient Hematocrit Hgb O2 Saturation Carboxyhemoglobin Methemoglobin Total Hemoglobin Sodium Potassium Glucose Ionized Calcium O2 Delivery Device FiO2 Md Allergy Immunology ID Chloride Carbon Dioxide Anion Gap BUN Creatinine GFR Calculation POC Glucose Estimat Average Glucose Hemoglobin A1c Calculated Osmolality Lactate 3.0 H Calcium Phosphorus Magnesium Ferritin Total Bilirubin AST ALT Alkaline Phosphatase Creatine Kinase Troponin T Baseline Troponin T 120 Minute 14.15 H Delta Troponin T -2.85 L Troponin T Hi Sens 6Hr Troponin T Hi Sens 6Hr Delta C-Reactive Protein NT-Pro-B Natriuret Pep Total Protein Albumin Globulin Triglycerides Cholesterol LDL Cholesterol, Calc HDL Cholesterol LDL/HDL Ratio Cholesterol/HDL Ratio Lipase Procalcitonin TSH Urine Color Yellow Urine Appearance Hazy A Urine pH 5 Ur Specific [place] 1.020 Urine Protein 1+ H Urine Glucose (UA) 4+ H Urine Ketones 2+ H Urine Blood 2+ H Urine Nitrate Negative Urine Bilirubin 1+ H Urine Urobilinogen 1 H Ur Leukocyte Esterase Negative Urine RBC 0-4 H Urine WBC None Ur Squamous Epith Cells 0-4 H Amorphous Sediment Not Reportable Urine Bacteria 2+ H Urine Mucus Trace Vancomycin Trough Serum Ketones Nasal/Oral COVID-19 PCR Influenza Type A Ag Influenza Type B Ag 04/30/21 04/30/21 04/30/21 16:44 18:33 20:11 WBC RBC Hgb Hct MCV MCH MCHC RDW Plt Count MPV Lymph % (Auto) [place] % (Auto) Lymph # (Auto) [place] # (Auto) Total Counted Atypical Lymphs % Absolute Neutrophils Segmented Neutrophils Abs Segm Neuts (Man) Band Neutrophils Abs Band Neuts (Man) Absolute Lymphocytes Lymphocytes (Manual) Monocytes (Manual) Absolute Monocytes Eosinophils (Manual) Absolute Eosinophils Basophils (Manual) Absolute Basophils Metamyelocytes Platelet Estimate Poikilocytosis [place] Cells PT INR APTT D-Dimer Specimen Type Sample Site ABG pH ABG pCO2 ABG pO2 ABG HCO3 ABG O2 Saturation ABG Base Excess [place] Test A-a O2 Gradient Hematocrit Hgb O2 Saturation Carboxyhemoglobin Methemoglobin Total Hemoglobin Sodium Potassium Glucose Ionized Calcium O2 Delivery Device FiO2 Md Allergy Immunology ID Chloride Carbon Dioxide Anion Gap BUN Creatinine GFR Calculation POC Glucose 474 H 341 H 245 H Estimat Average Glucose Hemoglobin A1c Calculated Osmolality Lactate Calcium Phosphorus Magnesium Ferritin Total Bilirubin AST ALT Alkaline Phosphatase Creatine Kinase Troponin T Baseline Troponin T 120 Minute Delta Troponin T Troponin T Hi Sens 6Hr Troponin T Hi Sens 6Hr Delta C-Reactive Protein NT-Pro-B Natriuret Pep Total Protein Albumin Globulin Triglycerides Cholesterol LDL Cholesterol, Calc HDL Cholesterol LDL/HDL Ratio Cholesterol/HDL Ratio Lipase Procalcitonin TSH Urine Color Urine Appearance Urine pH Ur Specific [place] Urine Protein Urine Glucose (UA) Urine Ketones Urine Blood Urine Nitrate Urine Bilirubin Urine Urobilinogen Ur Leukocyte Esterase Urine RBC Urine WBC Ur Squamous Epith Cells Amorphous Sediment Urine Bacteria Urine Mucus Vancomycin Trough Serum Ketones Nasal/Oral COVID-19 PCR Influenza Type A Ag Influenza Type B Ag 04/30/21 04/30/21 04/30/21 21:15 21:23 21:23 WBC RBC Hgb Hct MCV MCH MCHC RDW Plt Count MPV Lymph % (Auto) [place] % (Auto) Lymph # (Auto) [place] # (Auto) Total Counted Atypical Lymphs % Absolute Neutrophils Segmented Neutrophils Abs Segm Neuts (Man) Band Neutrophils Abs Band Neuts (Man) Absolute Lymphocytes Lymphocytes (Manual) Monocytes (Manual) Absolute Monocytes Eosinophils (Manual) Absolute Eosinophils Basophils (Manual) Absolute Basophils Metamyelocytes Platelet Estimate Poikilocytosis [place] Cells PT INR APTT D-Dimer Specimen Type Sample Site ABG pH ABG pCO2 ABG pO2 ABG HCO3 ABG O2 Saturation ABG Base Excess [place] Test A-a O2 Gradient Hematocrit Hgb O2 Saturation Carboxyhemoglobin Methemoglobin Total Hemoglobin Sodium 132 L Potassium 4.5 Glucose 139 H Ionized Calcium O2 Delivery Device FiO2 Md Allergy Immunology ID Chloride 104 Carbon Dioxide 13 L Anion Gap 19.5 H BUN 33 H Creatinine 0.6 GFR Calculation 103.0 POC Glucose 127 H Estimat Average Glucose Hemoglobin A1c Calculated Osmolality 284 L Lactate Calcium 8.0 L Phosphorus 1.7 L Magnesium 1.8 Ferritin Total Bilirubin AST ALT Alkaline Phosphatase Creatine Kinase Troponin T Baseline Troponin T 120 Minute Delta Troponin T Troponin T Hi Sens 6Hr 13.74 H Troponin T Hi Sens 6Hr Delta -3.26 L C-Reactive Protein 446.5 H NT-Pro-B Natriuret Pep Total Protein Albumin Globulin Triglycerides Cholesterol LDL Cholesterol, Calc HDL Cholesterol LDL/HDL Ratio Cholesterol/HDL Ratio Lipase Procalcitonin 54.56 H TSH Urine Color Urine Appearance Urine pH Ur Specific [place] Urine Protein Urine Glucose (UA) Urine Ketones Urine Blood Urine Nitrate Urine Bilirubin Urine Urobilinogen Ur Leukocyte Esterase Urine RBC Urine WBC Ur Squamous Epith Cells Amorphous Sediment Urine Bacteria Urine Mucus Vancomycin Trough Serum Ketones Nasal/Oral COVID-19 PCR Influenza Type A Ag Influenza Type B Ag 04/30/21 04/30/21 04/30/21 21:23 22:26 23:38 WBC RBC Hgb Hct MCV MCH MCHC RDW Plt Count MPV Lymph % (Auto) [place] % (Auto) Lymph # (Auto) [place] # (Auto) Total Counted Atypical Lymphs % Absolute Neutrophils Segmented Neutrophils Abs Segm Neuts (Man) Band Neutrophils Abs Band Neuts (Man) Absolute Lymphocytes Lymphocytes (Manual) Monocytes (Manual) Absolute Monocytes Eosinophils (Manual) Absolute Eosinophils Basophils (Manual) Absolute Basophils Metamyelocytes Platelet Estimate Poikilocytosis [place] Cells PT INR APTT D-Dimer Specimen Type Sample Site ABG pH ABG pCO2 ABG pO2 ABG HCO3 ABG O2 Saturation ABG Base Excess [place] Test A-a O2 Gradient Hematocrit Hgb O2 Saturation Carboxyhemoglobin Methemoglobin Total Hemoglobin Sodium Potassium Glucose Ionized Calcium O2 Delivery Device FiO2 Md Allergy Immunology ID Chloride Carbon Dioxide Anion Gap BUN Creatinine GFR Calculation POC Glucose 139 H 123 H Estimat Average Glucose Hemoglobin A1c Calculated Osmolality Lactate Calcium Phosphorus Magnesium Ferritin Total Bilirubin AST ALT Alkaline Phosphatase Creatine Kinase Troponin T Baseline Troponin T 120 Minute Delta Troponin T Troponin T Hi Sens 6Hr Troponin T Hi Sens 6Hr Delta C-Reactive Protein NT-Pro-B Natriuret Pep Total Protein Albumin Globulin Triglycerides 96 Cholesterol 132 LDL Cholesterol, Calc 71 HDL Cholesterol 42 L LDL/HDL Ratio 1.69 Cholesterol/HDL Ratio 3.14 Lipase Procalcitonin TSH 0.22 L Urine Color Urine Appearance Urine pH Ur Specific [place] Urine Protein Urine Glucose (UA) Urine Ketones Urine Blood Urine Nitrate Urine Bilirubin Urine Urobilinogen Ur Leukocyte Esterase Urine RBC Urine WBC Ur Squamous Epith Cells Amorphous Sediment Urine Bacteria Urine Mucus Vancomycin Trough Serum Ketones Nasal/Oral COVID-19 PCR Influenza Type A Ag Influenza Type B Ag 05/01/21 05/01/21 05/01/21 00:32 01:32 02:27 WBC RBC Hgb Hct MCV MCH MCHC RDW Plt Count MPV Lymph % (Auto) [place] % (Auto) Lymph # (Auto) [place] # (Auto) Total Counted Atypical Lymphs % Absolute Neutrophils Segmented Neutrophils Abs Segm Neuts (Man) Band Neutrophils Abs Band Neuts (Man) Absolute Lymphocytes Lymphocytes (Manual) Monocytes (Manual) Absolute Monocytes Eosinophils (Manual) Absolute Eosinophils Basophils (Manual) Absolute Basophils Metamyelocytes Platelet Estimate Poikilocytosis [place] Cells PT INR APTT D-Dimer Specimen Type Sample Site ABG pH ABG pCO2 ABG pO2 ABG HCO3 ABG O2 Saturation ABG Base Excess [place] Test A-a O2 Gradient Hematocrit Hgb O2 Saturation Carboxyhemoglobin Methemoglobin Total Hemoglobin Sodium 135 L Potassium 3.8 Glucose 133 H Ionized Calcium O2 Delivery Device FiO2 Md Allergy Immunology ID Chloride 106 Carbon Dioxide 18 L Anion Gap 14.8 BUN 24 H Creatinine 0.5 GFR Calculation 127.2 POC Glucose 156 H 145 H Estimat Average Glucose Hemoglobin A1c Calculated Osmolality 286 Lactate Calcium 7.5 L Phosphorus 1.4 L Magnesium 1.7 Ferritin Total Bilirubin 0.4 AST 34 H ALT 10 Alkaline Phosphatase 75 Creatine Kinase Troponin T Baseline Troponin T 120 Minute Delta Troponin T Troponin T Hi Sens 6Hr Troponin T Hi Sens 6Hr Delta C-Reactive Protein NT-Pro-B Natriuret Pep Total Protein 5.1 L D Albumin 2.3 L Globulin 2.8 Triglycerides Cholesterol LDL Cholesterol, Calc HDL Cholesterol LDL/HDL Ratio Cholesterol/HDL Ratio Lipase Procalcitonin TSH Urine Color Urine Appearance Urine pH Ur Specific [place] Urine Protein Urine Glucose (UA) Urine Ketones Urine Blood Urine Nitrate Urine Bilirubin Urine Urobilinogen Ur Leukocyte Esterase Urine RBC Urine WBC Ur Squamous Epith Cells Amorphous Sediment Urine Bacteria Urine Mucus Vancomycin Trough Serum Ketones Nasal/Oral COVID-19 PCR Influenza Type A Ag Influenza Type B Ag 05/01/21 05/01/21 05/01/21 02:27 02:27 02:34 WBC 9.4 RBC 4.44 Hgb 13.5 Hct 40.9 MCV 92.1 MCH 30.4 MCHC 33.0 RDW 11.9 L Plt Count 184 D MPV 11.9 H Lymph % (Auto) Not Reportable [place] % (Auto) Not Reportable Lymph # (Auto) Not Reportable [place] # (Auto) Not Reportable Total Counted Atypical Lymphs % Absolute Neutrophils Segmented Neutrophils Abs Segm Neuts (Man) Band Neutrophils Abs Band Neuts (Man) Absolute Lymphocytes Lymphocytes (Manual) Monocytes (Manual) Absolute Monocytes Eosinophils (Manual) Absolute Eosinophils Basophils (Manual) Absolute Basophils Metamyelocytes Platelet Estimate Poikilocytosis Angela Cells PT INR APTT D-Dimer Specimen Type Sample Site ABG pH ABG pCO2 ABG pO2 ABG HCO3 ABG O2 Saturation ABG Base Excess [place] Test A-a O2 Gradient Hematocrit Hgb O2 Saturation Carboxyhemoglobin Methemoglobin Total Hemoglobin Sodium Cancelled Potassium Cancelled Glucose Cancelled Ionized Calcium O2 Delivery Device FiO2 Md Allergy Immunology ID Chloride Cancelled Carbon Dioxide Cancelled Anion Gap Cancelled BUN Cancelled Creatinine Cancelled GFR Calculation Cancelled POC Glucose 138 H Estimat Average Glucose Hemoglobin A1c Calculated Osmolality Cancelled Lactate Calcium Cancelled Phosphorus Magnesium Ferritin Total Bilirubin Cancelled AST Cancelled ALT Cancelled Alkaline Phosphatase Cancelled Creatine Kinase Troponin T Baseline Troponin T 120 Minute Delta Troponin T Troponin T Hi Sens 6Hr Troponin T Hi Sens 6Hr Delta C-Reactive Protein NT-Pro-B Natriuret Pep Total Protein Cancelled Albumin Cancelled Globulin Cancelled Triglycerides Cholesterol LDL Cholesterol, Calc HDL Cholesterol LDL/HDL Ratio Cholesterol/HDL Ratio Lipase Procalcitonin TSH Urine Color Urine Appearance Urine pH Ur Specific [place] Urine Protein Urine Glucose (UA) Urine Ketones Urine Blood Urine Nitrate Urine Bilirubin Urine Urobilinogen Ur Leukocyte Esterase Urine RBC Urine WBC Ur Squamous Epith Cells Amorphous Sediment Urine Bacteria Urine Mucus Vancomycin Trough Serum Ketones Nasal/Oral COVID-19 PCR Influenza Type A Ag Influenza Type B Ag 05/01/21 05/01/21 05/01/21 03:35 04:46 05:05 WBC RBC Hgb Hct MCV MCH MCHC RDW Plt Count MPV Lymph % (Auto) [place] % (Auto) Lymph # (Auto) [place] # (Auto) Total Counted Atypical Lymphs % Absolute Neutrophils Segmented Neutrophils Abs Segm Neuts (Man) Band Neutrophils Abs Band Neuts (Man) Absolute Lymphocytes Lymphocytes (Manual) Monocytes (Manual) Absolute Monocytes Eosinophils (Manual) Absolute Eosinophils Basophils (Manual) Absolute Basophils Metamyelocytes Platelet Estimate Poikilocytosis [place] Cells PT INR APTT D-Dimer Specimen Type Sample Site ABG pH ABG pCO2 ABG pO2 ABG HCO3 ABG O2 Saturation ABG Base Excess [place] Test A-a O2 Gradient Hematocrit Hgb O2 Saturation Carboxyhemoglobin Methemoglobin Total Hemoglobin Sodium Potassium Glucose Ionized Calcium O2 Delivery Device FiO2 Md Allergy Immunology ID Chloride Carbon Dioxide Anion Gap BUN Creatinine GFR Calculation POC Glucose 156 H 185 H Estimat Average Glucose Hemoglobin A1c Calculated Osmolality Lactate Calcium Phosphorus Magnesium Ferritin Total Bilirubin AST ALT Alkaline Phosphatase Creatine Kinase Troponin T Baseline Troponin T 120 Minute Delta Troponin T Troponin T Hi Sens 6Hr Troponin T Hi Sens 6Hr Delta C-Reactive Protein NT-Pro-B Natriuret Pep Total Protein Albumin Globulin Triglycerides Cholesterol LDL Cholesterol, Calc HDL Cholesterol LDL/HDL Ratio Cholesterol/HDL Ratio Lipase Procalcitonin TSH Urine Color Urine Appearance Urine pH Ur Specific [place] Urine Protein Urine Glucose (UA) Urine Ketones Urine Blood Urine Nitrate Urine Bilirubin Urine Urobilinogen Ur Leukocyte Esterase Urine RBC Urine WBC Ur Squamous Epith Cells Amorphous Sediment Urine Bacteria Urine Mucus Vancomycin Trough Serum Ketones Nasal/Oral COVID-19 PCR Not detected Influenza Type A Ag Influenza Type B Ag 05/01/21 05/01/21 05/01/21 05:53 06:50 08:14 WBC RBC Hgb Hct MCV MCH MCHC RDW Plt Count MPV Lymph % (Auto) [place] % (Auto) Lymph # (Auto) [place] # (Auto) Total Counted Atypical Lymphs % Absolute Neutrophils Segmented Neutrophils Abs Segm Neuts (Man) Band Neutrophils Abs Band Neuts (Man) Absolute Lymphocytes Lymphocytes (Manual) Monocytes (Manual) Absolute Monocytes Eosinophils (Manual) Absolute Eosinophils Basophils (Manual) Absolute Basophils Metamyelocytes Platelet Estimate Poikilocytosis [place] Cells PT INR APTT D-Dimer Specimen Type Sample Site ABG pH ABG pCO2 ABG pO2 ABG HCO3 ABG O2 Saturation ABG Base Excess [place] Test A-a O2 Gradient Hematocrit Hgb O2 Saturation Carboxyhemoglobin Methemoglobin Total Hemoglobin Sodium Potassium Glucose Ionized Calcium O2 Delivery Device FiO2 Md Allergy Immunology ID Chloride Carbon Dioxide Anion Gap BUN Creatinine GFR Calculation POC Glucose 175 H 220 H 125 H Estimat Average Glucose Hemoglobin A1c Calculated Osmolality Lactate Calcium Phosphorus Magnesium Ferritin Total Bilirubin AST ALT Alkaline Phosphatase Creatine Kinase Troponin T Baseline Troponin T 120 Minute Delta Troponin T Troponin T Hi Sens 6Hr Troponin T Hi Sens 6Hr Delta C-Reactive Protein NT-Pro-B Natriuret Pep Total Protein Albumin Globulin Triglycerides Cholesterol LDL Cholesterol, Calc HDL Cholesterol LDL/HDL Ratio Cholesterol/HDL Ratio Lipase Procalcitonin TSH Urine Color Urine Appearance Urine pH Ur Specific [place] Urine Protein Urine Glucose (UA) Urine Ketones Urine Blood Urine Nitrate Urine Bilirubin Urine Urobilinogen Ur Leukocyte Esterase Urine RBC Urine WBC Ur Squamous Epith Cells Amorphous Sediment Urine Bacteria Urine Mucus Vancomycin Trough Serum Ketones Nasal/Oral COVID-19 PCR Influenza Type A Ag Influenza Type B Ag 05/01/21 05/01/21 05/01/21 09:33 10:48 11:24 WBC RBC Hgb Hct MCV MCH MCHC RDW Plt Count MPV Lymph % (Auto) [place] % (Auto) Lymph # (Auto) [place] # (Auto) Total Counted Atypical Lymphs % Absolute Neutrophils Segmented Neutrophils Abs Segm Neuts (Man) Band Neutrophils Abs Band Neuts (Man) Absolute Lymphocytes Lymphocytes (Manual) Monocytes (Manual) Absolute Monocytes Eosinophils (Manual) Absolute Eosinophils Basophils (Manual) Absolute Basophils Metamyelocytes Platelet Estimate Poikilocytosis [place] Cells PT INR APTT D-Dimer Specimen Type Sample Site ABG pH ABG pCO2 ABG pO2 ABG HCO3 ABG O2 Saturation ABG Base Excess Awais Test A-a O2 Gradient Hematocrit Hgb O2 Saturation Carboxyhemoglobin Methemoglobin Total Hemoglobin Sodium Potassium Glucose Ionized Calcium O2 Delivery Device FiO2 Md Allergy Immunology ID Chloride Carbon Dioxide Anion Gap BUN Creatinine GFR Calculation POC Glucose 119 H 136 H Estimat Average Glucose Hemoglobin A1c Calculated Osmolality Lactate Calcium Phosphorus 2.0 L Magnesium 1.9 Ferritin Total Bilirubin AST ALT Alkaline Phosphatase Creatine Kinase Troponin T Baseline Troponin T 120 Minute Delta Troponin T Troponin T Hi Sens 6Hr Troponin T Hi Sens 6Hr Delta C-Reactive Protein NT-Pro-B Natriuret Pep Total Protein Albumin Globulin Triglycerides Cholesterol LDL Cholesterol, Calc HDL Cholesterol LDL/HDL Ratio Cholesterol/HDL Ratio Lipase Procalcitonin TSH Urine Color Urine Appearance Urine pH Ur Specific [place] Urine Protein Urine Glucose (UA) Urine Ketones Urine Blood Urine Nitrate Urine Bilirubin Urine Urobilinogen Ur Leukocyte Esterase Urine RBC Urine WBC Ur Squamous Epith Cells Amorphous Sediment Urine Bacteria Urine Mucus Vancomycin Trough Serum Ketones Nasal/Oral COVID-19 PCR Influenza Type A Ag Influenza Type B Ag 05/01/21 05/01/21 05/01/21 15:11 16:44 17:40 WBC RBC Hgb Hct MCV MCH MCHC RDW Plt Count MPV Lymph % (Auto) [place] % (Auto) Lymph # (Auto) [place] # (Auto) Total Counted Atypical Lymphs % Absolute Neutrophils Segmented Neutrophils Abs Segm Neuts (Man) Band Neutrophils Abs Band Neuts (Man) Absolute Lymphocytes Lymphocytes (Manual) Monocytes (Manual) Absolute Monocytes Eosinophils (Manual) Absolute Eosinophils Basophils (Manual) Absolute Basophils Metamyelocytes Platelet Estimate Poikilocytosis Angela Cells PT INR APTT D-Dimer Specimen Type Sample Site ABG pH ABG pCO2 ABG pO2 ABG HCO3 ABG O2 Saturation ABG Base Excess Awais Test A-a O2 Gradient Hematocrit Hgb O2 Saturation Carboxyhemoglobin Methemoglobin Total Hemoglobin Sodium 141 Potassium 4.2 Glucose 220 H Ionized Calcium O2 Delivery Device FiO2 Md Allergy Immunology ID Chloride 110 H Carbon Dioxide 19 L Anion Gap 16.2 BUN 15 Creatinine 0.4 L GFR Calculation 164.5 H POC Glucose 219 H Estimat Average Glucose Hemoglobin A1c Calculated Osmolality 300 H Lactate Calcium 7.6 L Phosphorus 1.8 L Magnesium 1.9 Ferritin 1108 H Total Bilirubin 0.4 AST 31 ALT 15 Alkaline Phosphatase 70 Creatine Kinase Troponin T Baseline Troponin T 120 Minute Delta Troponin T Troponin T Hi Sens 6Hr Troponin T Hi Sens 6Hr Delta C-Reactive Protein NT-Pro-B Natriuret Pep Total Protein 5.3 L Albumin 2.0 L Globulin 3.3 Triglycerides Cholesterol LDL Cholesterol, Calc HDL Cholesterol LDL/HDL Ratio Cholesterol/HDL Ratio Lipase Procalcitonin TSH Urine Color Urine Appearance Urine pH Ur Specific [place] Urine Protein Urine Glucose (UA) Urine Ketones Urine Blood Urine Nitrate Urine Bilirubin Urine Urobilinogen Ur Leukocyte Esterase Urine RBC Urine WBC Ur Squamous Epith Cells Amorphous Sediment Urine Bacteria Urine Mucus Vancomycin Trough Serum Ketones Nasal/Oral COVID-19 PCR Influenza Type A Ag Influenza Type B Ag 05/01/21 05/01/21 05/01/21 20:11 21:08 21:08 WBC RBC Hgb Hct MCV MCH MCHC RDW Plt Count MPV Lymph % (Auto) [place] % (Auto) Lymph # (Auto) [place] # (Auto) Total Counted Atypical Lymphs % Absolute Neutrophils Segmented Neutrophils Abs Segm Neuts (Man) Band Neutrophils Abs Band Neuts (Man) Absolute Lymphocytes Lymphocytes (Manual) Monocytes (Manual) Absolute Monocytes Eosinophils (Manual) Absolute Eosinophils Basophils (Manual) Absolute Basophils Metamyelocytes Platelet Estimate Poikilocytosis Angela Cells PT INR APTT D-Dimer Specimen Type Sample Site ABG pH ABG pCO2 ABG pO2 ABG HCO3 ABG O2 Saturation ABG Base Excess Awais Test A-a O2 Gradient Hematocrit Hgb O2 Saturation Carboxyhemoglobin Methemoglobin Total Hemoglobin Sodium Potassium Glucose Ionized Calcium O2 Delivery Device FiO2 Md Allergy Immunology ID Chloride Carbon Dioxide Anion Gap BUN Creatinine GFR Calculation POC Glucose 186 H Estimat Average Glucose Hemoglobin A1c Calculated Osmolality Lactate Calcium Phosphorus 1.1 L Magnesium 1.7 Ferritin Total Bilirubin AST ALT Alkaline Phosphatase Creatine Kinase Troponin T Baseline Troponin T 120 Minute Delta Troponin T Troponin T Hi Sens 6Hr Troponin T Hi Sens 6Hr Delta C-Reactive Protein NT-Pro-B Natriuret Pep Total Protein Albumin Globulin Triglycerides Cholesterol LDL Cholesterol, Calc HDL Cholesterol LDL/HDL Ratio Cholesterol/HDL Ratio Lipase Procalcitonin TSH Urine Color Urine Appearance Urine pH Ur Specific [place] Urine Protein Urine Glucose (UA) Urine Ketones Urine Blood Urine Nitrate Urine Bilirubin Urine Urobilinogen Ur Leukocyte Esterase Urine RBC Urine WBC Ur Squamous Epith Cells Amorphous Sediment Urine Bacteria Urine Mucus Vancomycin Trough 5.4 L Serum Ketones Nasal/Oral COVID-19 PCR Influenza Type A Ag Influenza Type B Ag 05/02/21 05/02/21 05/02/21 01:12 02:15 03:45 WBC RBC Hgb Hct MCV MCH MCHC RDW Plt Count MPV Lymph % (Auto) [place] % (Auto) Lymph # (Auto) [place] # (Auto) Total Counted Atypical Lymphs % Absolute Neutrophils Segmented Neutrophils Abs Segm Neuts (Man) Band Neutrophils Abs Band Neuts (Man) Absolute Lymphocytes Lymphocytes (Manual) Monocytes (Manual) Absolute Monocytes Eosinophils (Manual) Absolute Eosinophils Basophils (Manual) Absolute Basophils Metamyelocytes Platelet Estimate Poikilocytosis Angela Cells PT INR APTT D-Dimer Specimen Type Sample Site ABG pH ABG pCO2 ABG pO2 ABG HCO3 ABG O2 Saturation ABG Base Excess [place]ais Test A-a O2 Gradient Hematocrit Hgb O2 Saturation Carboxyhemoglobin Methemoglobin Total Hemoglobin Sodium 138 Potassium 3.7 Glucose 132 H Ionized Calcium O2 Delivery Device FiO2 Md Allergy Immunology ID Chloride 109 H Carbon Dioxide 19 L Anion Gap 13.7 BUN 11 Creatinine 0.4 L GFR Calculation 164.5 H POC Glucose 143 H 166 H Estimat Average Glucose Hemoglobin A1c Calculated Osmolality 287 Lactate Calcium 7.4 L Phosphorus 1.3 L Magnesium 1.6 L Ferritin Total Bilirubin AST ALT Alkaline Phosphatase Creatine Kinase Troponin T Baseline Troponin T 120 Minute Delta Troponin T Troponin T Hi Sens 6Hr Troponin T Hi Sens 6Hr Delta C-Reactive Protein NT-Pro-B Natriuret Pep Total Protein Albumin Globulin Triglycerides Cholesterol LDL Cholesterol, Calc HDL Cholesterol LDL/HDL Ratio Cholesterol/HDL Ratio Lipase Procalcitonin TSH Urine Color Urine Appearance Urine pH Ur Specific [place] Urine Protein Urine Glucose (UA) Urine Ketones Urine Blood Urine Nitrate Urine Bilirubin Urine Urobilinogen Ur Leukocyte Esterase Urine RBC Urine WBC Ur Squamous Epith Cells Amorphous Sediment Urine Bacteria Urine Mucus Vancomycin Trough Serum Ketones Nasal/Oral COVID-19 PCR Influenza Type A Ag Influenza Type B Ag 05/02/21 05/02/21 05/02/21 04:36 04:36 04:36 WBC 13.5 H RBC 4.11 Hgb 12.5 Hct 38.4 MCV 93.4 MCH 30.4 MCHC 32.6 RDW 12.2 Plt Count 283 D MPV 11.2 H Lymph % (Auto) [place] % (Auto) Lymph # (Auto) [place] # (Auto) Total Counted 100 Atypical Lymphs % 0.0 Absolute Neutrophils 11.9 H Segmented Neutrophils 51 Abs Segm Neuts (Man) 6.9 Band Neutrophils 37.0 Abs Band Neuts (Man) 5.0 H Absolute Lymphocytes 1.2 Lymphocytes (Manual) 9 Monocytes (Manual) 3.0 Absolute Monocytes 0.4 Eosinophils (Manual) 0 Absolute Eosinophils 0.0 Basophils (Manual) 0.0 Absolute Basophils 0.0 Metamyelocytes Platelet Estimate Normal Poikilocytosis 1+ H Angela Cells 1+ H PT INR APTT D-Dimer Specimen Type Sample Site ABG pH ABG pCO2 ABG pO2 ABG HCO3 ABG O2 Saturation ABG Base Excess [place] Test A-a O2 Gradient Hematocrit Hgb O2 Saturation Carboxyhemoglobin Methemoglobin Total Hemoglobin Sodium 139 Potassium 3.6 Glucose 179 H Ionized Calcium O2 Delivery Device FiO2 Md Allergy Immunology ID Chloride 109 H Carbon Dioxide 22 Anion Gap 11.6 BUN 10 Creatinine 0.4 L GFR Calculation 164.5 H POC Glucose Estimat Average Glucose Hemoglobin A1c Calculated Osmolality 292 Lactate Calcium 7.5 L Phosphorus 1.6 L Magnesium 1.8 1.8 Ferritin 1117 H Total Bilirubin 0.4 AST 26 ALT 15 Alkaline Phosphatase 168 H Creatine Kinase 268 H Troponin T Baseline Troponin T 120 Minute Delta Troponin T Troponin T Hi Sens 6Hr Troponin T Hi Sens 6Hr Delta C-Reactive Protein 396.9 H NT-Pro-B Natriuret Pep 1191 H Total Protein 5.4 L Albumin 2.1 L Globulin 3.3 Triglycerides Cholesterol LDL Cholesterol, Calc HDL Cholesterol LDL/HDL Ratio Cholesterol/HDL Ratio Lipase Procalcitonin 52.11 H TSH Urine Color Urine Appearance Urine pH Ur Specific [place] Urine Protein Urine Glucose (UA) Urine Ketones Urine Blood Urine Nitrate Urine Bilirubin Urine Urobilinogen Ur Leukocyte Esterase Urine RBC Urine WBC Ur Squamous Epith Cells Amorphous Sediment Urine Bacteria Urine Mucus Vancomycin Trough Serum Ketones Nasal/Oral COVID-19 PCR Influenza Type A Ag Influenza Type B Ag 05/02/21 05/02/21 05/02/21 04:36 04:36 04:45 WBC RBC Hgb Hct MCV MCH MCHC RDW Plt Count MPV Lymph % (Auto) [place] % (Auto) Lymph # (Auto) [place] # (Auto) Total Counted Atypical Lymphs % Absolute Neutrophils Segmented Neutrophils Abs Segm Neuts (Man) Band Neutrophils Abs Band Neuts (Man) Absolute Lymphocytes Lymphocytes (Manual) Monocytes (Manual) Absolute Monocytes Eosinophils (Manual) Absolute Eosinophils Basophils (Manual) Absolute Basophils Metamyelocytes Platelet Estimate Poikilocytosis Angela Cells PT 15.00 H INR 1.15 APTT D-Dimer 4.56 H Specimen Type Arterial Sample Site Radial, right ABG pH 7.46 H ABG pCO2 31.5 L ABG pO2 55.4 L ABG HCO3 22.5 ABG O2 Saturation ABG Base Excess -0.4 Awais Test Pos A-a O2 Gradient Hematocrit 43.0 Hgb O2 Saturation Carboxyhemoglobin Methemoglobin Total Hemoglobin Sodium Potassium Glucose Ionized Calcium O2 Delivery Device Room air FiO2 21.0 Md Allergy Immunology ID Jadiel Chloride Carbon Dioxide Anion Gap BUN Creatinine GFR Calculation POC Glucose Estimat Average Glucose Hemoglobin A1c Calculated Osmolality Lactate 1.4 Calcium Phosphorus Magnesium Ferritin Total Bilirubin AST ALT Alkaline Phosphatase Creatine Kinase Troponin T Baseline Troponin T 120 Minute Delta Troponin T Troponin T Hi Sens 6Hr Troponin T Hi Sens 6Hr Delta C-Reactive Protein NT-Pro-B Natriuret Pep Total Protein Albumin Globulin Triglycerides Cholesterol LDL Cholesterol, Calc HDL Cholesterol LDL/HDL Ratio Cholesterol/HDL Ratio Lipase Procalcitonin TSH Urine Color Urine Appearance Urine pH Ur Specific [place] Urine Protein Urine Glucose (UA) Urine Ketones Urine Blood Urine Nitrate Urine Bilirubin Urine Urobilinogen Ur Leukocyte Esterase Urine RBC Urine WBC Ur Squamous Epith Cells Amorphous Sediment Urine Bacteria Urine Mucus Vancomycin Trough Serum Ketones Nasal/Oral COVID-19 PCR Influenza Type A Ag Influenza Type B Ag 05/02/21 05/02/21 07:54 09:30 WBC RBC Hgb Hct MCV MCH MCHC RDW Plt Count MPV Lymph % (Auto) [place] % (Auto) Lymph # (Auto) [place] # (Auto) Total Counted Atypical Lymphs % Absolute Neutrophils Segmented Neutrophils Abs Segm Neuts (Man) Band Neutrophils Abs Band Neuts (Man) Absolute Lymphocytes Lymphocytes (Manual) Monocytes (Manual) Absolute Monocytes Eosinophils (Manual) Absolute Eosinophils Basophils (Manual) Absolute Basophils Metamyelocytes Platelet Estimate Poikilocytosis Angela Cells PT INR APTT D-Dimer Specimen Type Sample Site ABG pH ABG pCO2 ABG pO2 ABG HCO3 ABG O2 Saturation ABG Base Excess [place]ais Test A-a O2 Gradient Hematocrit Hgb O2 Saturation Carboxyhemoglobin Methemoglobin Total Hemoglobin Sodium Potassium Glucose Ionized Calcium O2 Delivery Device FiO2 Md Allergy Immunology ID Chloride Carbon Dioxide Anion Gap BUN Creatinine GFR Calculation POC Glucose 214 H Estimat Average Glucose Hemoglobin A1c Calculated Osmolality Lactate Calcium Phosphorus Magnesium 2.3 Ferritin Total Bilirubin AST ALT Alkaline Phosphatase Creatine Kinase Troponin T Baseline Troponin T 120 Minute Delta Troponin T Troponin T Hi Sens 6Hr Troponin T Hi Sens 6Hr Delta C-Reactive Protein NT-Pro-B Natriuret Pep Total Protein Albumin Globulin Triglycerides Cholesterol LDL Cholesterol, Calc HDL Cholesterol LDL/HDL Ratio Cholesterol/HDL Ratio Lipase Procalcitonin TSH Urine Color Urine Appearance Urine pH Ur Specific [place] Urine Protein Urine Glucose (UA) Urine Ketones Urine Blood Urine Nitrate Urine Bilirubin Urine Urobilinogen Ur Leukocyte Esterase Urine RBC Urine WBC Ur Squamous Epith Cells Amorphous Sediment Urine Bacteria Urine Mucus Vancomycin Trough Serum Ketones Nasal/Oral COVID-19 PCR Influenza Type A Ag Influenza Type B Ag Micro: Microbiology 05/01/21 05:50 Blood Culture - Preliminary Blood NEGATIVE TO DATE 05/01/21 05:50 Blood Culture - Preliminary Blood NEGATIVE TO DATE 04/30/21 14:48 Blood Culture - Preliminary Blood 04/30/21 14:52 Blood Culture - Preliminary Blood 04/30/21 19:43 MRSA Culture - Final Nose 05/01/21 03:10 Bacterial Antigens - Final Urine,Clean Catch Cardiac Studies: Echocardiogram 05/01/21
[2021-05-02 11:47] LABS: Glucose Point of Care 277 mg/dL (70-110)
[2021-05-02] MEDS: FUROsemide 10 mg/mL SDV 4mL 40 MG IVP (11:51)
[2021-05-02] MEDS: levofloxacin-dextrose 5 % 750 MG/150 ML PREMIX 100 MG IV (11:52)
--- NOTE | 2021-05-02 12:00 | USCV_ITS ---
Skyla Lozano Age: 56 Gender: F : 1965 Exam Date: 05/02/2021 11:44 Ordering Phys: Meri Kidd MD ([email or web address]) Technologist: Exam [place] [facility] [place]: Staph aureus bacteremia, possible pulmonary septic emboli, rule out infective endocarditis BP: 100 / 64 HR: 98 Rhythm: Sinus Technical Quality: Good MEASUREMENTS (Male / Female) Normal Values Medications Patient given IV sedation by anesthesia service, for details please refer to the anesthesia report. Complications Intubation easy, attempts x1. No blood in proposed procedure. Patient tolerated procedure well. Proc. Components The patient was brought to the KT examination room in a fasting state after obtaining an informed consent. The patient tolerated the procedure well and there were no complications. FINDINGS Left Ventricle Normal left ventricular size, systolic function and mildly increased wall thickness, with no regional wall motion abnormalities. Left ventricular ejection fraction is estimated at 65 %. Right Ventricle Normal right ventricular size and systolic function. Right Atrium Normal right atrial size. Left Atrium Normal left atrial size. LA Appendage Normal left atrial appendage. Normal flow velocities in the left atrial appendage. No thrombus visualized in the left atrial appendage. IA Septum Normal interatrial septum. No patent foramen ovale or atrial septal defect. Mitral Valve Structurally normal mitral valve. No mitral valve stenosis. Trace-mild mitral valve regurgitation. Aortic Valve Structurally normal trileaflet aortic valve. No aortic valve stenosis. No aortic valve regurgitation. Tricuspid Valve Structurally normal tricuspid valve. Trace to mild tricuspid valve regurgitation. Pulmonic Valve Structurally normal pulmonic valve. Trace pulmonary valve regurgitation. Pericardium No pericardial effusion. Aorta Normal size aortic root and proximal ascending aorta. Grade 3 atheroma noted in proximal descending aorta. No evidence of aortic dilation aneurysm or dissection. CONCLUSIONS 1. Normal left ventricular size, systolic function and mildly increased wall thickness, with no regional wall motion abnormalities. Left ventricular ejection fraction is estimated at 65 %. 2. Trace to mild mitral and tricuspid valve regurgitation. 3. No evidence of infective endocarditis based on the study. Meri Kidd MD (Electronically Signed) Final Date: 03 May 2021 14:04 S
--- NOTE | 2021-05-02 12:25 | PC.NURSE ---
dr torres at beside with anesthesia and ultrasound for KT
--- NOTE | 2021-05-02 12:55 | P.PCN_ITS ---
Procedure Note: Date of procedure: 05/02/21 Pre-procedure diagnosis: Staph aureus sepsis, concern for septic emboli to lungs Post-procedure diagnosis: same Other Information: KT Procedure note Indication: R/o infective endocarditis Sedation: Propofol by anesthesia Procedure was explained to the patient in detail and informed consent was obtained. Timeout was called. After achieving adequate sedation, the probe was inserted on first attempt. No blood on the probe post procedure. Prelim report: Normal left ventricle size and systolic function. No left atrial or left atrial appendage mass or thrombus visualized. No ASD or PFO identified. No evidence of vegetation. full report to follow. Patient tolerated the procedure well and will continued to be monitored in ICU. 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
[2021-05-02 14:33] LABS: HIV 1 & 2 Antibody Non-Reactive (Non-Reactiv); HIV 1 & 2 Antigen Non-Reactive (Non-Reactiv)
[2021-05-02 14:36] LABS: Hepatitis A Antibody IgM Non-Reactive (Nonreactive); Hepatitis B Core IgM Non-Reactive (Nonreactive); Hepatitis B Surface Antigen Non-Reactive (Nonreactive); Hepatitis C Virus Antibody Non-Reactive (Nonreactive)
[2021-05-02 14:39] LABS: Rapid Plasma Reagin Syphilis Nonreactive (Nonreactive)
[2021-05-02] MEDS: morphine 4 mg/mL SDV 1 mL 1 MG IVP ×2 (15:08→19:50)
--- NOTE | 2021-05-02 17:03 | P.PN_ITS ---
Vitals/I&O/Wt Last Vital Signs Temp 97.8 F 05/02/21 14:00 Pulse 100 05/02/21 16:00 Resp 14 05/02/21 16:00 BP 97/60 05/02/21 16:00 Pulse Ox 96 05/02/21 16:00 05/02/21 05/02/21 05/02/21 06:59 14:59 22:59 Intake Total 1300 / 3825.90 1609.0909 / 1609.0909 Output Total 650 / 1300 Balance 650 / 2525.90 1609.0909 / 1609.0909 Weight last 48 hrs Weight 45.994 kg Weight 42.592 kg Physical Exam Const: COMMON NORMALS: no acute distress and patient oriented x3 Neck/C-Spine: COMMON NORMALS: no JVD Resp: COMMON NORMALS: normal respiratory effort, No retractions and No use of accessory muscles AUSCULTATION: crackles Cardio: COMMON NORMALS: no JVD, regular rate, regular rhythm, S1 normal heart sound present and S2 normal heart sound present RATE: regular rate RHYTHM: regular rhythm HEART SOUNDS: S1 normal heart sound present and S2 normal heart sound present GI: COMMON NORMALS: Normal to inspection, nondistended, normoactive bowel sounds present, Soft to palpation and non-tender PALPATION: Yes Soft to palpation Extremity: COMMON NORMALS: no pedal edema Neuro: COMMON NORMALS: patient oriented x3 Psych: COMMON NORMALS: mental status grossly normal Urinary Catheter Management^: Main: Cath Placed During This Visit: yes Reason for Continuing Indwelling Catheter: Accurate Measurement of Urinary Output in Critically Ill Patients Urinary Catheter Date of Insertion: 05/01/21 Urinary Catheter Time of Insertion: 02:45 Data : 05/02/21 04:36 05/02/21 04:36 Micro: Microbiology 04/30/21 14:52 Blood Culture - Preliminary Blood Staphylococcus aureus 04/30/21 14:48 Blood Culture - Preliminary Blood Staphylococcus aureus 04/30/21 15:20 Urine Culture - Preliminary Urine,Clean Catch Staphylococcus aureus 05/01/21 05:50 Blood Culture - Preliminary Blood NEGATIVE TO DATE 05/01/21 05:50 Blood Culture - Preliminary Blood NEGATIVE TO DATE 04/30/21 19:43 MRSA Culture - Final Nose A&P Assessment and plan (1) DKA (diabetic ketoacidosis): -Anion gap has closed -A1c 9.6 -Increase Lantus to 15 units twice daily, high-dose sliding scale -Recheck CMP -Stop IV fluids normal -Monitor blood sugars as per protocol t Status: Acute (2) Altered mental status: Secondary to diabetic ketoacidosis, pneumonia, Status: Acute (3) Pneumonia: Bilateral upper lobe pneumonia, right lower lobe pneumonia, pro-Kali 54.56, CRP 446.5, likely aspiration, Covid PCR negative urine bacterial antigens, blood cultures, rapid flu negative, continue vancomycin and Zosyn, follow respiratory status Status: Acute (4) Dehydration: IV fluids as above Status: Acute (5) Chest pain: -Initial troponin I 7, EKG no acute ST-T wave changes -Serial EKGs, serial troponins, telemetry monitoring -Continue aspirin, statin, monitor for chest pain -Cardiac echocardiogram 1. Normal left ventricular size, systolic function and wall thickness, with no regional wall motion abnormalities. Left ventricular ejection fraction is estimated at 65 %. Normal diastolic function. 2. Normal right ventricular size and systolic function. 3. Pulmonary artery pressure estimated at 32 mmHg. 4. Trace to mild tricuspid valve regurgitation. 5. No prior similar studies to compare. 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
[2021-05-02 17:41] LABS: Glucose Point of Care 64 mg/dL (70-110)
[2021-05-02] MEDS: enoxaparin 40 mg/0.4 mL Syringe SUBCUT (21:20)
[2021-05-02] MEDS: atorvastatin 40 mg Tablet PO (21:20)
[2021-05-02 21:32] LABS: Glucose Point of Care 113 mg/dL (70-110)
[2021-05-02] MEDS: insulin glargine 100 units/1 mL 12 UNIT SUBCUT (22:02)
[2021-05-03] VITALS (43 sets, daily range): BP systolic 85–119; BP diastolic 52–78; PULSE 87–117; RESP 15–27; TEMP 36.4–37.9; O2SAT 70–96; BMI 18.9
[2021-05-03] MEDS: morphine 4 mg/mL SDV 1 mL 1 MG IVP ×4 (00:27→15:00)
[2021-05-03] MEDS: piperacillin-tazobactam 3.375 GM in sodium chloride 0.9% (plus) 50 ML IV ×3 (01:03→16:14)
--- NOTE | 2021-05-03 02:30 | PC.NURSE ---
Temperature Patient's temperature 100.3F at 0230. Blankets removed and fan turned on. At 0400 patient's temperature 99.3F. All other vitals stable.
[2021-05-03 04:45] LABS: Blood Gas Allen Test Pos; Blood Gas Sample Site Brachial, right; Blood Gas Sample Type Arterial
[2021-05-03 04:47] LABS: ABG PCO2 36.9 mmHg (35-45); ABG PH Result 7.46 (7.35-7.45); Arterial Blood Gas Hematocrit 24.8 % (37-47); Base Excess ABG 2.1 mmol/L (-2.0-2.0); Blood Gas Operator Identificat Anonymous; PO2 ABG 44.8 mmHg (80.0-100.0)
[2021-05-03 05:06] LABS: Basophils # 0.1 10^3/uL (0.0-0.1); Basophils % 0.7 %; Eosinophils % 0.1 %; Hematocrit 34.8 % (37.0-47.0); Hemoglobin 11.3 g/dL (11.5-15.3); Lymphocytes # 0.9 10^3/uL (0.8-4.8); Mean Corpuscular HGB Conc 32.5 g/dL (30.0-36.0); Mean Corpuscular Hemoglobin 30.4 pg (28.0-34.0); Mean Corpuscular Volume 93.5 fl (81-99); Mean Platelet Volume 10.9 fL (7.4-10.4); Monocytes # 0.4 10^3/uL (0.2-0.9); Monocytes % 3.2 %; Neutrophils # 9.64 10^3/uL (1.8-7.7); Neutrophils % 87.1 %; Nucleated Red Blood Cells % 0 %; Platelet Count 276 10^3/cmm (130-400); Red Blood Count 3.72 10^6/uL (4.1-5.3); Red Cell Distribution Width 12.7 % (12.1-15.1); White Blood Count 11.1 10^3/uL (4.0-10.0)
[2021-05-03 05:19] LABS: INR 1.04 (0.8-1.2)
[2021-05-03 05:24] LABS: Alanine Aminotransferase 196 U/L (0-33); Albumin Level 1.8 g/dL (3.5-5.2); Alkaline Phosphatase 419 IU/L (35-105); Anion Gap 9.5 (5-19); Aspartate Amino Transferase 585 U/L (0-32); Blood Urea Nitrogen 7 mg/dL (6-20); C Reactive Protein 203.3 mg/L (0.0-4.9); Calcium 7.1 mg/dL (8.5-10.5); Carbon Dioxide 27 mmol/L (22-29); Chloride 106 mmol/L (98-107); Globulin 3.1 g/dL (1.3-4.6); Glomerular Filtration Rate 164.5 mL/min (90-130); Glucose 110 mg/dL (65-115); Magnesium 1.7 mg/dL (1.7-2.3); Osmolality Calculated 287 mOsm/kg (285-295); Phosphorus 1.9 mg/dL (2.5-4.5); Potassium 3.5 mmol/L (3.5-5.1); Sodium 139 mmol/L (136-145); Total Bilirubin 0.6 mg/dL (0.15-1.2); Total Protein 4.9 g/dL (6.6-8.7)
[2021-05-03 05:27] LABS: Lactate (Lactic Acid level) 1.5 mmol/L (0.5-2.2)
[2021-05-03 05:29] LABS: D Dimer 4.82 ug/mIFEU (0-0.59)
[2021-05-03 05:32] LABS: NT Pro B Type Natriuretic Pept 487 pg/mL (0-125); Procalcitonin 19.07 ng/mL (0-0.5)
[2021-05-03 05:43] LABS: Creatine Phosphokinase 213 U/L (26-192)
[2021-05-03 06:33] LABS: Vancomycin Trough 10.4 ug/mL (10-15)
[2021-05-03 06:47] LABS: Ferritin 9402 ng/mL (15-150)
[2021-05-03] MEDS: vancomycin 750 MG in sodium chloride 0.9% 250 ML 250 MG IV ×3 (06:56→23:06)
[2021-05-03] MEDS: dextrose 5%-ns + KCl 20 20 MEQ/1,000 ML BAG 125 MEQ IV (06:57)
--- NOTE | 2021-05-03 06:59 | PC.NURSE ---
O2 2LNC applied to patient after patient saturation was 84%. O2 sats now mid 90s. All vs stable.
[2021-05-03 07:00] LABS: Glucose Point of Care 117 mg/dL (70-110)
--- NOTE | 2021-05-03 07:14 | PC.NURSE ---
Report received, assessment completed. VSS. Pt AAOx4. Makes all needs known. O2@2LNC in use, crackles noted B bases. Main cath in place draining freely to BSD. Blood sugar WNL this AM. No other needs noted. Will monitor.
[2021-05-03 07:26] LABS: Slide Review Slide Review Perform
[2021-05-03] MEDS: famotidine 20 mg/2 mL INJ IVP ×2 (07:59→20:33)
[2021-05-03] MEDS: aspirin 81 mg EC Tablet PO (07:59)
[2021-05-03] MEDS: insulin glargine 100 units/1 mL 12 UNIT SUBCUT (07:59)
--- NOTE | 2021-05-03 07:59 | US_ITS ---
WS: [id number] ULTRASOUND ABDOMEN LIMITED CLINICAL INFORMATION: ruq pain COMPARISON: CT May 01, 2021 FINDINGS: Liver Size: Normal. Craniocaudal length: 14.4 cm. Echogenicity: Coarse Surface nodularity: None. Mass (size and location): None. Bile ducts Intrahepatic ducts: Normal. Common bile duct diameter: 0.8 cm. Gallbladder Cholelithiasis Gallstones: Present Gallbladder sludge: None. Gallbladder wall thickening: Present Pericholecystic fluid: Present Pancreas Normal as visualized. Right kidney: Normal. Hydronephrosis: None. Size: 11.4 cm x 5.6 cm x 4.8 cm. Abdominal aorta and IVC Visualized portions are normal. Small right pleural effusion. Trace perihepatic ascites. US/US abdomen limited [id number] IMPRESSION: 1. Diffuse fatty infiltration liver. 2. No hydronephrosis in right kidney. 3. Cholelithiasis. Small amount of pericholecystic fluid. Mild gallbladder wal l thickening. Findings suspicious for cholecystitis. 4. Dilated common bile duct measuring 8.3 mm. This could be further evaluated with MRCP to assess for choledocholithiasis.
[2021-05-03] MEDS: magnesium sulfate premix 4 GM/100 ML PREMIX IV (09:03)
[2021-05-03] MEDS: FUROsemide 10 mg/mL SDV 4mL 40 MG IVP (09:04)
--- NOTE | 2021-05-03 10:15 | MR_ITS ---
WS: [id number] MRI/MRCP OF THE ABDOMEN WITHOUT GADOLINIUM ENHANCEMENT TECHNIQUE: Thin and thick slab MRCP, Axial T2, Coronal MRCP, Axial Dual Echo, and Axial 2-D Fiesta imaging was obtained. Coronal 2-D Fiesta imaging. CLINICAL INFORMATION: elevated lft COMPARISON: Recent CT abdomen pelvis and ultrasound. FINDINGS: Images moderately degraded by patient motion. Diffuse fatty infiltration the liver. Cholelithiasis with surrounding pericholecystic fluid and gallb ladder wall thickening suspicious for cholecystitis. Gallbladder is contracted today. Tiny calculus i n the distal common bile duct near the major duodenal papilla. Calculus measures approximately 3.2 mm . No other visualized bile duct calculi. Dilatation common bile duct measuring 11 mm. Mild intrahepat ic biliary ductal dilatation. Bilateral pleural effusions with bibasilar atelectasis. Small pericardial effusion. Normal pancreatic duct. MR/MR MRCP [id number] Impression: 1. Cholelithiasis with gallbladder wall thickening and pericholecystic fluid s uspicious for acute cholecystitis. Gallbladder is contracted. 2. Small calculus in the distal common bile duct near the major papilla via me asuring 3.2 mm. 3. Dilated common bile measuring 11 mm. 4. Small bilateral pleural effusions.
--- NOTE | 2021-05-03 11:36 | PC.NURSE ---
1015 Pt to MRI with this nurse and EMS. Tolerated well. 1125 Pt back to unit. connected to monitors, O2@4LNC. Main bag changed due to leak in bag. Pt using shower cap and wipes to clean self. No issues noted.
[2021-05-03] MEDS: levofloxacin-dextrose 5 % 750 MG/150 ML PREMIX 100 MG IV (11:44)
[2021-05-03 11:57] LABS: Glucose Point of Care 137 mg/dL (70-110)
[2021-05-03 16:26] LABS: Glucose Point of Care 123 mg/dL (70-110)
--- NOTE | 2021-05-03 17:58 | PC.NURSE ---
Shift Note Frequent safety and comfort rounds continue. Orders and/or nursing care completed as indicated. Patient monitored for response to intervention and treatment(s). Education provided includes treatment plan, medications, transfer to [facility], and possible need for outpatient IV abt. Pt verbalizes understanding. VSS. O2@4LNC. Main draining freely. No other issues noted. Awaiting clean room on [facility] for tx. Will continue to monitor.
--- NOTE | 2021-05-03 18:02 | PM.PN ---
Subjective Subjective: Interval history: Patient was seen this morning, she denies any abdominal pain, no nausea, no vomiting, no dizziness, no chest pain, no palpitations Vitals/I&O/Wt Last Vital Signs Temp 99.1 F 05/03/21 16:00 Pulse 90 05/03/21 17:30 Resp 23 H 05/03/21 17:30 BP 111/60 05/03/21 17:30 Pulse Ox 91 05/03/21 17:30 05/03/21 05/03/21 05/03/21 06:59 14:59 22:59 Intake Total 1300 / 5059.0909 1491.1739 / 1491.1739 970 / 2461.1739 Output Total 1050 / 4160 1400 / 1400 600 / 2000 Balance 250 / 899.0909 91.1739 / 91.1739 370 / 461.1739 Weight last 48 hrs Weight 46.992 kg Weight 46.992 kg Weight 45.994 kg Physical Exam Const: COMMON NORMALS: no acute distress and patient oriented x3 Resp: COMMON NORMALS: normal respiratory effort, No retractions, No use of accessory muscles and clear to auscultation bilaterally AUSCULTATION: clear to auscultation bilaterally Cardio: COMMON NORMALS: regular rate, regular rhythm, S1 normal heart sound present and S2 normal heart sound present RATE: regular rate RHYTHM: regular rhythm HEART SOUNDS: S1 normal heart sound present and S2 normal heart sound present GI: COMMON NORMALS: Normal to inspection, nondistended, normoactive bowel sounds present, Soft to palpation and non-tender PALPATION: Yes Soft to palpation Extremity: COMMON NORMALS: no pedal edema Neuro: COMMON NORMALS: patient oriented x3 Psych: COMMON NORMALS: mental status grossly normal Urinary Catheter Management^: Main: Cath Placed During This Visit: yes Reason for Continuing Indwelling Catheter: Accurate Measurement of Urinary Output in Critically Ill Patients Urinary Catheter Date of Insertion: 05/01/21 Urinary Catheter Time of Insertion: 02:45 Data : 05/03/21 04:24 05/03/21 04:24 Micro: Microbiology 04/30/21 14:48 Blood Culture - Preliminary Blood Methicillin Resis Staph Aureus 04/30/21 15:20 Urine Culture - Final Urine,Clean Catch Methicillin Resis Staph Aureus 04/30/21 14:52 Blood Culture - Preliminary Blood Methicillin Resis Staph Aureus A&P Assessment and plan (1) DKA (diabetic ketoacidosis): -Anion gap has closed -A1c 9.6 -Increase Lantus to 12 units twice daily, high-dose sliding scale -Stop IV fluids normal -Monitor blood sugars as per protocol -We will moved to general medical floors t Status: Acute (2) Altered mental status: Resolved Secondary to diabetic ketoacidosis, pneumonia, Status: Acute (3) Pneumonia: Bilateral upper lobe pneumonia, right lower lobe pneumonia likely a component of aspiration, with MRSA bacteremia, MRSA UTI Covid PCR negative urine bacterial antigens, blood cultures, rapid flu negative, continue vancomycin and Zosyn, follow respiratory status Status: Acute (4) Dehydration: Resolved Status: Acute (5) Chest pain: -Initial troponin I 7, EKG no acute ST-T wave changes -Serial EKGs, serial troponins, telemetry monitoring -Continue aspirin, statin, monitor for chest pain -Cardiac echocardiogram 1. Normal left ventricular size, systolic function and wall thickness, with no regional wall motion abnormalities. Left ventricular ejection fraction is estimated at 65 %. Normal diastolic function. 2. Normal right ventricular size and systolic function. 3. Pulmonary artery pressure estimated at 32 mmHg. 4. Trace to mild tricuspid valve regurgitation. 5. No prior similar studies to compare. Status: Acute (6) Septic pulmonary embolism: -On broad-spectrum antibiotic therapy, transesophageal echocardiogram negative for endocarditis, likely associated with pneumoniw Status: Acute (7) MRSA bacteremia: -MRSA bacteremia, MRSA UTI -Repeat blood culture so far -Likely secondary to pneumonia, septic emboli -Repeat blood cultures negative so far -Remains afebrile -Monitor white blood cell count, monitor inflammatory markers -Continue vancomycin, likely will require vancomycin for 2 weeks -We will discuss with infectious disease -We will moved to general medical floors Status: Acute Additional A&P Information -Elevated LFTs, elevated alk phos, CT angio showed mild dilatation of bile ducts, with 4 mm filling defect, cholelithiasis. For now we will do an MRCP, continue Zosyn as above Attestations Medical Necessity Statement*: Patient requires hospitalization for septic emboli, pneumonia, MRSA bacteremia, critical care time spent over 1 hour Coding Level of Care Code Acute Professor Of Religion for [facility] Diagnoses DKA (diabetic ketoacidosis) E11.10 Altered mental status R41.82 Pneumonia J18.9 Dehydration E86.0 Chest pain R07.9 Septic pulmonary embolism I26.90 MRSA bacteremia R78.81; B95.62
[2021-05-03] MEDS: enoxaparin 40 mg/0.4 mL Syringe SUBCUT (20:33)
[2021-05-03] MEDS: atorvastatin 40 mg Tablet PO (20:34)
[2021-05-03 20:44] LABS: Glucose Point of Care 58 mg/dL (70-110)
[2021-05-03 21:06] LABS: Glucose Point of Care 66 mg/dL (70-110)
[2021-05-04] VITALS: BP 94/56; PULSE 94; RESP 18; TEMP 36.6; O2SAT 91
[2021-05-04] MEDS: piperacillin-tazobactam 3.375 GM in sodium chloride 0.9% (plus) 50 ML IV ×3 (01:30→17:24)
[2021-05-04 04:00] VITALS: BP 98/54; PULSE 92; RESP 17; TEMP 36.5; O2SAT 91
[2021-05-04 04:52] LABS: Glucose Point of Care 84 mg/dL (70-110)
[2021-05-04 05:28] VITALS: BMI 18.9
[2021-05-04] MEDS: vancomycin 750 MG in sodium chloride 0.9% 250 ML 250 MG IV ×3 (06:24→23:57)
[2021-05-04 06:27] LABS: Basophils # 0.1 10^3/uL (0.0-0.1); Basophils % 0.6 %; Eosinophils % 0.1 %; Hematocrit 31.2 % (37.0-47.0); Lymphocytes # 0.9 10^3/uL (0.8-4.8); Lymphocytes % 8.4 %; Mean Corpuscular HGB Conc 32.1 g/dL (30.0-36.0); Mean Corpuscular Hemoglobin 29.8 pg (28.0-34.0); Mean Corpuscular Volume 92.9 fl (81-99); Mean Platelet Volume 11.8 fL (7.4-10.4); Monocytes # 0.7 10^3/uL (0.2-0.9); Monocytes % 6.2 %; Neutrophils % 83.8 %; Nucleated Red Blood Cells % 0 %; Platelet Count 217 10^3/cmm (130-400); Red Blood Count 3.36 10^6/uL (4.1-5.3); Red Cell Distribution Width 13.2 % (12.1-15.1); White Blood Count 10.9 10^3/uL (4.0-10.0)
[2021-05-04 06:34] LABS: Glucose Point of Care 89 mg/dL (70-110)
[2021-05-04 06:45] LABS: INR 1.01 (0.8-1.2)
[2021-05-04 07:00] LABS: Albumin Level 1.4 g/dL (3.5-5.2); Alkaline Phosphatase 585 IU/L (35-105); Blood Urea Nitrogen 6 mg/dL (6-20); C Reactive Protein 200.5 mg/L (0.0-4.9); Calcium 6.6 mg/dL (8.5-10.5); Carbon Dioxide 25 mmol/L (22-29); Chloride 101 mmol/L (98-107); Globulin 3.3 g/dL (1.3-4.6); Glucose 66 mg/dL (65-115); Magnesium 2.1 mg/dL (1.7-2.3); Osmolality Calculated 276 mOsm/kg (285-295); Phosphorus 2.9 mg/dL (2.5-4.5); Sodium 135 mmol/L (136-145); Total Bilirubin 0.5 mg/dL (0.15-1.2); Total Protein 4.7 g/dL (6.6-8.7)
[2021-05-04 07:04] LABS: Alanine Aminotransferase 123 U/L (0-33); Anion Gap 12.9 (5-19); Aspartate Amino Transferase 231 U/L (0-32); Potassium 3.9 mmol/L (3.5-5.1)
[2021-05-04 07:15] VITALS: BP 97/55; PULSE 110; RESP 18; TEMP 36.8; O2SAT 90
[2021-05-04 07:59] LABS: NT Pro B Type Natriuretic Pept 517 pg/mL (0-125); Procalcitonin 8.06 ng/mL (0-0.5)
[2021-05-04] MEDS: aspirin 81 mg EC Tablet PO (09:21)
[2021-05-04] MEDS: insulin glargine 100 units/1 mL 12 UNIT SUBCUT (09:22)
[2021-05-04] MEDS: famotidine 20 mg/2 mL INJ IVP ×2 (09:59→21:21)
[2021-05-04 11:10] LABS: Glucose Point of Care 119 mg/dL (70-110)
[2021-05-04 12:00] VITALS: BP 110/64; PULSE 101; RESP 18; TEMP 36.8; O2SAT 93
[2021-05-04 12:19] LABS: 25 Hydroxy Vitamin D 21 ng/mL (30-100)
--- NOTE | 2021-05-04 15:06 | PM.PN ---
Subjective Subjective: Interval history: Patient was seen this morning, currently on nasal cannula, denies any fevers, no chills, no nausea, no vomiting, no chest pain, palpitations, has had low blood sugars throughout the night, denies poor appetite, no abdominal pain Vitals/I&O/Wt Last Vital Signs Temp 98.2 F 05/04/21 12:00 Pulse 101 H 05/04/21 12:00 Resp 18 05/04/21 12:00 BP 110/64 05/04/21 12:00 Pulse Ox 93 05/04/21 12:00 05/04/21 05/04/21 05/04/21 06:59 14:59 22:59 Intake Total 1300 / 4751.1739 490 / 490 Balance 1300 / 2151.1739 490 / 490 Weight last 48 hrs Weight 46.992 kg Weight 46.992 kg Weight 46.992 kg Physical Exam Const: COMMON NORMALS: no acute distress and patient oriented x3 Resp: COMMON NORMALS: normal respiratory effort, No retractions, No use of accessory muscles and clear to auscultation bilaterally AUSCULTATION: clear to auscultation bilaterally Cardio: COMMON NORMALS: regular rate, regular rhythm, S1 normal heart sound present and S2 normal heart sound present RATE: regular rate RHYTHM: regular rhythm HEART SOUNDS: S1 normal heart sound present and S2 normal heart sound present GI: COMMON NORMALS: Normal to inspection, nondistended, normoactive bowel sounds present, Soft to palpation and non-tender PALPATION: Yes Soft to palpation Extremity: COMMON NORMALS: no calf tenderness Neuro: COMMON NORMALS: patient oriented x3 Psych: COMMON NORMALS: mental status grossly normal Urinary Catheter Management^: Main: Cath Placed During This Visit: yes Reason for Continuing Indwelling Catheter: Accurate Measurement of Urinary Output in Critically Ill Patients Urinary Catheter Date of Insertion: 05/01/21 Urinary Catheter Time of Insertion: 02:45 Data : 05/04/21 05:46 05/04/21 05:46 A&P Assessment and plan (1) Acute cholecystitis: MRCP shows 1. Cholelithiasis with gallbladder wall thickening and pericholecystic fluid suspicious for acute cholecystitis. Gallbladder is contracted. 2. Small calculus in the distal common bile duct near the major papilla via measuring 3.2 mm. 3. Dilated common bile measuring 11 mm. 4. Small bilateral pleural effusions. -Likely acute cholecystitis -Continue Zosyn -No abdominal pain complaints, continue Zosyn, will require cholecystectomy at some point as outpatient Status: Acute (2) DKA (diabetic ketoacidosis): -Anion gap has closed -A1c 9.6 -Change to Lantus 8 units twice daily, low-dose sliding scale -Stop IV fluids normal -Monitor blood sugars as per protocol -We will moved to general medical floors t Status: Acute (3) Altered mental status: Resolved Secondary to diabetic ketoacidosis, pneumonia, Status: Acute (4) Pneumonia: Bilateral upper lobe pneumonia, right lower lobe pneumonia likely a component of aspiration, with MRSA bacteremia, MRSA UTI Covid PCR negative urine bacterial antigens, blood cultures, rapid flu negative, continue vancomycin and Zosyn, follow respiratory status Status: Acute (5) Dehydration: Resolved Status: Acute (6) Chest pain: -Initial troponin I 7, EKG no acute ST-T wave changes -Serial EKGs, serial troponins, telemetry monitoring -Continue aspirin, statin, monitor for chest pain -Cardiac echocardiogram 1. Normal left ventricular size, systolic function and wall thickness, with no regional wall motion abnormalities. Left ventricular ejection fraction is estimated at 65 %. Normal diastolic function. 2. Normal right ventricular size and systolic function. 3. Pulmonary artery pressure estimated at 32 mmHg. 4. Trace to mild tricuspid valve regurgitation. 5. No prior similar studies to compare. Status: Acute (7) Septic pulmonary embolism: -On broad-spectrum antibiotic therapy, transesophageal echocardiogram negative for endocarditis, likely associated with pneumoniw Status: Acute (8) MRSA bacteremia: -MRSA bacteremia, MRSA UTI -Repeat blood culture so far -Likely secondary to pneumonia, septic emboli -Repeat blood cultures negative so far -Remains afebrile -Monitor white blood cell count, monitor inflammatory markers -Continue vancomycin, likely will require vancomycin for 2 weeks -We will discuss with infectious disease Status: Acute Additional A&P Information -Hypocalcemia, ionized calcium, PTH, vitamin D Attestations Medical Necessity Statement*: Pneumonia, cholecystitis, MRSA bacteremia, septic emboli Coding Level of Care Code Acute Elevator Starter for [facility] Diagnoses Acute cholecystitis K81.0 DKA (diabetic ketoacidosis) E11.10 Altered mental status R41.82 Pneumonia J18.9 Dehydration E86.0 Chest pain R07.9 Septic pulmonary embolism I26.90 MRSA bacteremia R78.81; B95.62
[2021-05-04 15:16] LABS: Parathyroid Hormone 114.3 pg/mL (15-65)
[2021-05-04] MEDS: cholecalciferol (vitamin D3) 1,000 unit Tablet 1000 UNIT PO (15:50)
[2021-05-04 16:25] LABS: Anion Gap 13.5 (5-19); Blood Urea Nitrogen 10 mg/dL (6-20); Calcium 6.8 mg/dL (8.5-10.5); Carbon Dioxide 28 mmol/L (22-29); Chloride 101 mmol/L (98-107); Glomerular Filtration Rate 64.5 mL/min (90-130); Glucose 69 mg/dL (65-115); Osmolality Calculated 285 mOsm/kg (285-295); Potassium 3.5 mmol/L (3.5-5.1); Sodium 139 mmol/L (136-145)
[2021-05-04 16:51] VITALS: BP 177/88; PULSE 91; RESP 18; TEMP 36.8; O2SAT 89
[2021-05-04 17:40] LABS: Glucose Point of Care 63 mg/dL (70-110)
[2021-05-04 19:46] VITALS: BP 111/80; PULSE 92; RESP 16; TEMP 36.8; O2SAT 90
[2021-05-04 20:09] LABS: Glucose Point of Care 123 mg/dL (70-110)
[2021-05-04] MEDS: enoxaparin 40 mg/0.4 mL Syringe SUBCUT (21:50)
[2021-05-04] MEDS: atorvastatin 40 mg Tablet PO (21:50)
[2021-05-04] MEDS: insulin glargine 100 units/1 mL 8 UNIT SUBCUT (21:52)
[2021-05-05] VITALS: BP 122/61; PULSE 67; RESP 16; TEMP 36.5; O2SAT 95
[2021-05-05] MEDS: piperacillin-tazobactam 3.375 GM in sodium chloride 0.9% (plus) 50 ML IV ×3 (01:02→16:52)
[2021-05-05 04:00] VITALS: BP 118/66; PULSE 71; RESP 17; TEMP 36.8; O2SAT 92
[2021-05-05 05:05] LABS: Basophils % 0.3 %; Eosinophils % 0.3 %; Hematocrit 30.4 % (37.0-47.0); Hemoglobin 9.9 g/dL (11.5-15.3); Lymphocytes # 0.9 10^3/uL (0.8-4.8); Lymphocytes % 7.4 %; Mean Corpuscular HGB Conc 32.6 g/dL (30.0-36.0); Mean Corpuscular Hemoglobin 30.5 pg (28.0-34.0); Mean Corpuscular Volume 93.5 fl (81-99); Mean Platelet Volume 10.6 fL (7.4-10.4); Monocytes # 0.9 10^3/uL (0.2-0.9); Neutrophils # 9.61 10^3/uL (1.8-7.7); Neutrophils % 82.8 %; Nucleated Red Blood Cells % 0 %; Platelet Count 287 10^3/cmm (130-400); Red Blood Count 3.25 10^6/uL (4.1-5.3); Red Cell Distribution Width 13.2 % (12.1-15.1); White Blood Count 11.6 10^3/uL (4.0-10.0)
[2021-05-05 05:35] LABS: NT Pro B Type Natriuretic Pept 848 pg/mL (0-125); Procalcitonin 5.21 ng/mL (0-0.5)
[2021-05-05 05:46] LABS: Alanine Aminotransferase 82 U/L (0-33); Albumin Level 1.8 g/dL (3.5-5.2); Alkaline Phosphatase 659 IU/L (35-105); Anion Gap 16.6 (5-19); Aspartate Amino Transferase 126 U/L (0-32); Blood Urea Nitrogen 14 mg/dL (6-20); C Reactive Protein 232.5 mg/L (0.0-4.9); Calcium 6.9 mg/dL (8.5-10.5); Carbon Dioxide 24 mmol/L (22-29); Chloride 105 mmol/L (98-107); Globulin 2.9 g/dL (1.3-4.6); Glomerular Filtration Rate 46.3 mL/min (90-130); Glucose 126 mg/dL (65-115); Osmolality Calculated 296 mOsm/kg (285-295); Phosphorus 3.5 mg/dL (2.5-4.5); Potassium 3.6 mmol/L (3.5-5.1); Sodium 142 mmol/L (136-145); Total Bilirubin 0.2 mg/dL (0.15-1.2); Total Protein 4.7 g/dL (6.6-8.7)
[2021-05-05] MEDS: vancomycin 750 MG in sodium chloride 0.9% 250 ML 250 MG IV (06:10)
[2021-05-05 07:29] LABS: Glucose Point of Care 105 mg/dL (70-110)
[2021-05-05 08:03] VITALS: BP 109/57; PULSE 93; RESP 16; TEMP 36.7; O2SAT 88
[2021-05-05] MEDS: famotidine 20 mg/2 mL INJ IVP ×2 (09:01→22:54)
[2021-05-05] MEDS: cholecalciferol (vitamin D3) 1,000 unit Tablet 1000 UNIT PO (09:09)
[2021-05-05] MEDS: aspirin 81 mg EC Tablet PO (09:09)
[2021-05-05] MEDS: acetaminophen 325 mg Tablet 650 MG PO ×2 (09:09→17:09)
[2021-05-05] MEDS: insulin glargine 100 units/1 mL 8 UNIT SUBCUT ×2 (09:10→21:49)
[2021-05-05] MEDS: calcitriol 0.25 mcg Capsule PO (09:56)
[2021-05-05] MEDS: calcium carbonate 500 mg Chew Tablet 1000 MG PO ×3 (09:56→23:32)
[2021-05-05 10:14] LABS: Lipase 132 U/L (13-60)
[2021-05-05 11:13] VITALS: BP 110/64; PULSE 83; RESP 16; TEMP 36.7; O2SAT 85
[2021-05-05 12:02] LABS: Glucose Point of Care 97 mg/dL (70-110)
--- NOTE | 2021-05-05 12:47 | PM.PN ---
Subjective Subjective: Interval history: Patient was seen this morning, no nausea, no vomiting, no abdominal pain, no diarrhea, no lightheadedness, no dizziness Vitals/I&O/Wt Last Vital Signs Temp 98.1 F 05/05/21 11:13 Pulse 83 05/05/21 11:13 Resp 16 05/05/21 11:13 BP 110/64 05/05/21 11:13 Pulse Ox 85 L 05/05/21 11:13 05/04/21 05/05/21 05/05/21 22:59 06:59 14:59 Intake Total 850 / 1390 350 / 1740 370 / 370 Output Total 1550 / 1550 1400 / 2950 750 / 750 Balance -700 / -160 -1050 / -1210 -380 / -380 Weight last 48 hrs Weight 49.714 kg Weight 46.992 kg Physical Exam Const: COMMON NORMALS: no acute distress and patient oriented x3 Resp: COMMON NORMALS: normal respiratory effort, No retractions, No use of accessory muscles and clear to auscultation bilaterally AUSCULTATION: clear to auscultation bilaterally Cardio: COMMON NORMALS: regular rate, regular rhythm, S1 normal heart sound present and S2 normal heart sound present RATE: regular rate RHYTHM: regular rhythm HEART SOUNDS: S1 normal heart sound present and S2 normal heart sound present GI: COMMON NORMALS: Normal to inspection, nondistended, normoactive bowel sounds present, Soft to palpation and non-tender PALPATION: Yes Soft to palpation Extremity: COMMON NORMALS: no pedal edema Neuro: COMMON NORMALS: patient oriented x3 Psych: COMMON NORMALS: mental status grossly normal Urinary Catheter Management^: Main: Cath Placed During This Visit: yes Reason for Continuing Indwelling Catheter: Accurate Measurement of Urinary Output in Critically Ill Patients Urinary Catheter Date of Insertion: 05/01/21 Urinary Catheter Time of Insertion: 02:45 Data : 05/05/21 04:00 05/05/21 04:00 Micro: Microbiology 04/30/21 14:48 Blood Culture - Final Blood Methicillin Resis Staph Aureus 04/30/21 14:52 Blood Culture - Final Blood Methicillin Resis Staph Aureus A&P Assessment and plan (1) Acute cholecystitis: MRCP shows 1. Cholelithiasis with gallbladder wall thickening and pericholecystic fluid suspicious for acute cholecystitis. Gallbladder is contracted. 2. Small calculus in the distal common bile duct near the major papilla via measuring 3.2 mm. 3. Dilated common bile measuring 11 mm. 4. Small bilateral pleural effusions. -Likely acute cholecystitis -Continue Zosyn -No abdominal pain complaints, continue Zosyn, will require cholecystectomy at some point as outpatient an ERCP at the same time Status: Acute (2) DKA (diabetic ketoacidosis): -Anion gap has closed -A1c 9.6 -Change to Lantus 8 units twice daily, low-dose sliding scale -Stop IV fluids normal -Monitor blood sugars as per protocol -We will moved to general medical floors t Status: Acute (3) Altered mental status: Resolved Secondary to diabetic ketoacidosis, pneumonia, Status: Acute (4) Pneumonia: Bilateral upper lobe pneumonia, right lower lobe pneumonia likely a component of aspiration, with MRSA bacteremia, MRSA UTI Covid PCR negative urine bacterial antigens, blood cultures, rapid flu negative, continue vancomycin and Zosyn, follow respiratory status Status: Acute (5) Dehydration: Resolved Status: Acute (6) Chest pain: -Initial troponin I 7, EKG no acute ST-T wave changes -Serial EKGs, serial troponins, telemetry monitoring -Continue aspirin, statin, monitor for chest pain -Cardiac echocardiogram 1. Normal left ventricular size, systolic function and wall thickness, with no regional wall motion abnormalities. Left ventricular ejection fraction is estimated at 65 %. Normal diastolic function. 2. Normal right ventricular size and systolic function. 3. Pulmonary artery pressure estimated at 32 mmHg. 4. Trace to mild tricuspid valve regurgitation. 5. No prior similar studies to compare. Status: Acute (7) Septic pulmonary embolism: -On broad-spectrum antibiotic therapy, transesophageal echocardiogram negative for endocarditis, likely associated with pneumonia, cholecystitis Status: Acute (8) MRSA bacteremia: -MRSA bacteremia, MRSA UTI -Repeat blood culture so far -Likely secondary to pneumonia, septic emboli -Repeat blood cultures negative so far -Remains afebrile -Monitor white blood cell count, monitor inflammatory markers -Continue vancomycin, likely will require vancomycin for 2 weeks versus Zyvox Status: Acute (9) Common bile duct calculi: -MRCP shows small calculus in the distal common bile duct near the major ampulla measuring 3.2 mm, dilated common bile duct measuring 11 mm, mild intrahepatic biliary dilatation -No nausea, no vomiting, no abdominal pain, no fevers -LFTs have decreased AST 136, ALT 82 -Alkaline phosphatase increased at 659 -CRP 232, ferritin 9400, lipase 132 -No alarm symptoms of acute ascending cholangitis, does have acute cholecystitis, will continue to manage with antibiotics, will need a follow-up as outpatient with GI for consideration of ERCP -However if she does have symptoms progressing to acute cholecystitis, elevated LFTs, abdominal pain complaints will need to transfer Status: Acute Additional A&P Information -Hypocalcemia, ionized calcium, PTH, vitamin D Attestations Medical Necessity Statement*: Patient requires hospitalization for pneumonia, septic emboli, cholecystitis, since a distal CBD stone, DKA Coding Level of Care Code Acute Lead Cytogenetic Technologist for [facility] Fwd Diagnoses Acute cholecystitis K81.0 DKA (diabetic ketoacidosis) E11.10 Altered mental status R41.82 Pneumonia J18.9 Dehydration E86.0 Chest pain R07.9 Septic pulmonary embolism I26.90 MRSA bacteremia R78.81; B95.62 Common bile duct calculi K80.50
[2021-05-05] MEDS: potassium chloride ER 20 mEq Tablet 40 MEQ PO (13:48)
[2021-05-05] MEDS: FUROsemide 10 mg/mL SDV 4mL 40 MG IVP (14:03)
[2021-05-05 14:30] LABS: Ionized Calcium 1.1 mmol/L (1.1-1.4)
[2021-05-05 14:58] LABS: Vancomycin Trough 25.6 ug/mL (10-15)
[2021-05-05 16:00] VITALS: BP 121/55; PULSE 79; RESP 18; TEMP 36.7; O2SAT 93
--- NOTE | 2021-05-05 17:30 | PC.NURSE ---
blood sugar was 66 OJ given per protocol and Dr. Harris notified.
[2021-05-05 17:41] LABS: Glucose Point of Care 74 mg/dL (70-110)
[2021-05-05 20:00] VITALS: BP 105/65; PULSE 83; RESP 16; TEMP 36.6; O2SAT 90
[2021-05-05 20:33] LABS: Glucose Point of Care 168 mg/dL (70-110)
[2021-05-05] MEDS: atorvastatin 40 mg Tablet PO (21:45)
[2021-05-05] MEDS: insulin lispro 100 unit/1 mL SUBCUT (21:50)
[2021-05-05] MEDS: enoxaparin 40 mg/0.4 mL Syringe SUBCUT (21:50)
[2021-05-06] VITALS (7 sets, daily range): BP systolic 109–134; BP diastolic 64–75; PULSE 89–105; RESP 17–18; TEMP 36.9–37.9; O2SAT 88–94
[2021-05-06] MEDS: piperacillin-tazobactam 3.375 GM in sodium chloride 0.9% (plus) 50 ML IV ×3 (00:14→18:23)
[2021-05-06 03:09] LABS: Basophils # 0.1 10^3/uL (0.0-0.1); Basophils % 0.4 %; Eosinophils # 0.1 10^3/uL (0.0-0.8); Eosinophils % 0.4 %; Hematocrit 34.1 % (37.0-47.0); Hemoglobin 11.1 g/dL (11.5-15.3); Lymphocytes # 0.9 10^3/uL (0.8-4.8); Lymphocytes % 7.7 %; Mean Corpuscular HGB Conc 32.6 g/dL (30.0-36.0); Mean Corpuscular Volume 92.2 fl (81-99); Mean Platelet Volume 10.3 fL (7.4-10.4); Monocytes # 0.8 10^3/uL (0.2-0.9); Monocytes % 6.5 %; Neutrophils # 9.78 10^3/uL (1.8-7.7); Neutrophils % 84.2 %; Nucleated Red Blood Cells % 0 %; Platelet Count 395 10^3/cmm (130-400); Red Cell Distribution Width 13.3 % (12.1-15.1); White Blood Count 11.6 10^3/uL (4.0-10.0)
[2021-05-06 03:45] LABS: NT Pro B Type Natriuretic Pept 1574 pg/mL (0-125); Procalcitonin 3.14 ng/mL (0-0.5)
[2021-05-06 03:56] LABS: Alanine Aminotransferase 68 U/L (0-33); Alkaline Phosphatase 656 IU/L (35-105); Blood Urea Nitrogen 16 mg/dL (6-20); C Reactive Protein 224.3 mg/L (0.0-4.9); Calcium 7.5 mg/dL (8.5-10.5); Carbon Dioxide 26 mmol/L (22-29); Chloride 103 mmol/L (98-107); Globulin 3.5 g/dL (1.3-4.6); Glomerular Filtration Rate 42.2 mL/min (90-130); Glucose 98 mg/dL (65-115); Lipase 156 U/L (13-60); Magnesium 1.9 mg/dL (1.7-2.3); Osmolality Calculated 297 mOsm/kg (285-295); Phosphorus 2.7 mg/dL (2.5-4.5); Sodium 143 mmol/L (136-145); Total Bilirubin 0.2 mg/dL (0.15-1.2); Total Protein 5.5 g/dL (6.6-8.7)
[2021-05-06 04:00] LABS: Anion Gap 17.9 (5-19); Aspartate Amino Transferase 86 U/L (0-32); Potassium 3.9 mmol/L (3.5-5.1)
[2021-05-06] MEDS: calcium carbonate 500 mg Chew Tablet 1000 MG PO ×4 (04:21→22:21)
--- NOTE | 2021-05-06 06:00 | XR_ITS ---
WS: [id number] Exam: XR chest 1V portable [id number] Date/Time of Exam: 05/06/2021 6:38 AM Reason For Exam: coarse lung sounds Comparison 05/02/2021. Again noted are patchy consolidated infiltrates in both lungs. There is new infiltrate in the left lo wer lobe. No pneumothorax. Dense areas of consolidation in the bilateral upper lobes. Heart size is n ormal. The mediastinum is not widened. Trace right pleural effusion. Bony structures are intact. XR/XR chest 1V portable [id number] IMPRESSION: 1. Patchy bilateral consolidating infiltrates as indicated above. There is new consolidating infiltrate in the left lower lobe since prior study. Trace right pleural effusion.
[2021-05-06 06:42] LABS: Glucose Point of Care 77 mg/dL (70-110)
[2021-05-06 08:24] LABS: Glucose Point of Care 66 mg/dL (70-110)
[2021-05-06] MEDS: vancomycin 750 MG in sodium chloride 0.9% 250 ML 250 MG IV (08:40)
[2021-05-06] MEDS: famotidine 20 mg/2 mL INJ IVP ×2 (08:40→21:17)
[2021-05-06] MEDS: aspirin 81 mg EC Tablet PO (08:41)
[2021-05-06] MEDS: cholecalciferol (vitamin D3) 1,000 unit Tablet 1000 UNIT PO (08:41)
[2021-05-06] MEDS: calcitriol 0.25 mcg Capsule PO (08:46)
[2021-05-06 11:09] LABS: Glucose Point of Care 169 mg/dL (70-110)
[2021-05-06] MEDS: insulin glargine 100 units/1 mL 8 UNIT SUBCUT (12:28)
[2021-05-06] MEDS: insulin lispro 100 unit/1 mL SUBCUT (12:29)
[2021-05-06 17:47] LABS: Glucose Point of Care 76 mg/dL (70-110)
--- NOTE | 2021-05-06 20:25 | PM.PN ---
Subjective Subjective: Interval history: Patient was seen and examined this morning, deny any chest pain, sob, nausea, vomiting. Noted T Max: 100.3 Medications: Reviewed: Yes Vitals/I&O/Wt Last Vital Signs Temp 98.7 F 05/06/21 16:00 Pulse 98 05/06/21 16:00 Resp 18 05/06/21 16:00 BP 133/70 05/06/21 16:00 Pulse Ox 92 05/06/21 16:00 05/06/21 05/06/21 05/06/21 06:59 14:59 22:59 Intake Total 50 / 880 50 / 50 250 / 300 Output Total 2250 / 4700 2950 / 2950 Balance -2200 / -3820 50 / 50 -2700 / -2650 Weight last 48 hrs Weight 47.99 kg Weight 49.714 kg Physical Exam Const: COMMON NORMALS: patient oriented x3 HENMT: COMMON NORMALS: normocephalic and atraumatic HEAD & SCALP: normocephalic and atraumatic Resp: COMMON NORMALS: clear to auscultation bilaterally EFFORT & INSPECTION: Yes symmetric chest movement AUSCULTATION: clear to auscultation bilaterally Cardio: COMMON NORMALS: regular rate, regular rhythm, S1 normal heart sound present, S2 normal heart sound present, No gallops present (Cardio), No murmurs present (Cardio), No rub (Cardio) and Peripheral pulses 2+ throughout RATE: regular rate RHYTHM: regular rhythm HEART SOUNDS: S1 normal heart sound present and S2 normal heart sound present PERIPHERAL PULSES: Peripheral pulses 2+ throughout GI: COMMON NORMALS: Normal to inspection, nondistended, normoactive bowel sounds present, Soft to palpation, non-tender, No hepatosplenomegaly present and no masses AUSCULTATION: Yes normoactive bowel sounds PALPATION: Yes Soft to palpation and Yes No hepatosplenomegaly present RECTAL EXAM: deferred Extremity: COMMON NORMALS: no clubbing, cyanosis or edema and no pedal edema Neuro: COMMON NORMALS: patient oriented x3 Urinary Catheter Management^: Main: Cath Placed During This Visit: yes Reason for Continuing Indwelling Catheter: Accurate Measurement of Urinary Output in Critically Ill Patients Urinary Catheter Date of Insertion: 05/01/21 Urinary Catheter Time of Insertion: 02:45 Data : 05/06/21 02:20 05/06/21 02:20 Micro: Microbiology 05/01/21 05:50 Blood Culture - Final Blood NO GROWTH AFTER 5 DAYS 05/01/21 05:50 Blood Culture - Preliminary Blood A&P Assessment and plan (1) Acute cholecystitis: MRCP shows 1. Cholelithiasis with gallbladder wall thickening and pericholecystic fluid suspicious for acute cholecystitis. Gallbladder is contracted. 2. Small calculus in the distal common bile duct near the major papilla via measuring 3.2 mm. 3. Dilated common bile measuring 11 mm. 4. Small bilateral pleural effusions. -Likely acute cholecystitis -Continue Zosyn -No abdominal pain complaints, continue Zosyn, will require cholecystectomy at some point as outpatient an ERCP at the same time Status: Acute (2) DKA (diabetic ketoacidosis): -Anion gap has closed -A1c 9.6 -Change to Lantus 8 units twice daily, low-dose sliding scale -Stop IV fluids normal -Monitor blood sugars as per protocol -We will moved to general medical floors t Status: Acute (3) Altered mental status: Resolved Secondary to diabetic ketoacidosis, pneumonia, Status: Acute (4) Pneumonia: Bilateral upper lobe pneumonia, right lower lobe pneumonia likely a component of aspiration, with MRSA bacteremia, MRSA UTI Covid PCR negative urine bacterial antigens, blood cultures, rapid flu negative, continue vancomycin and Zosyn, follow respiratory status Status: Acute (5) Dehydration: Resolved Status: Acute (6) Chest pain: -Initial troponin I 7, EKG no acute ST-T wave changes -Serial EKGs, serial troponins, telemetry monitoring -Continue aspirin, statin, monitor for chest pain -Cardiac echocardiogram 1. Normal left ventricular size, systolic function and wall thickness, with no regional wall motion abnormalities. Left ventricular ejection fraction is estimated at 65 %. Normal diastolic function. 2. Normal right ventricular size and systolic function. 3. Pulmonary artery pressure estimated at 32 mmHg. 4. Trace to mild tricuspid valve regurgitation. 5. No prior similar studies to compare. Status: Acute (7) Septic pulmonary embolism: -On broad-spectrum antibiotic therapy, transesophageal echocardiogram negative for endocarditis, likely associated with pneumonia, cholecystitis Status: Acute (8) MRSA bacteremia: -MRSA bacteremia, MRSA UTI -Repeat blood culture so far -Likely secondary to pneumonia, septic emboli -Repeat blood cultures negative so far -Remains afebrile -Monitor white blood cell count, monitor inflammatory markers -Continue vancomycin, likely will require vancomycin for 2 weeks versus Zyvox Status: Acute (9) Common bile duct calculi: -MRCP shows small calculus in the distal common bile duct near the major ampulla measuring 3.2 mm, dilated common bile duct measuring 11 mm, mild intrahepatic biliary dilatation -No nausea, no vomiting, no abdominal pain, no fevers -LFTs have decreased AST 136, ALT 82 -Alkaline phosphatase increased at 659 -CRP 232, ferritin 9400, lipase 132 -No alarm symptoms of acute ascending cholangitis, does have acute cholecystitis, will continue to manage with antibiotics, will need a follow-up as outpatient with GI for consideration of ERCP -However if she does have symptoms progressing to acute cholecystitis, elevated LFTs, abdominal pain complaints will need to transfer Status: Acute Additional A&P Information -Hypocalcemia, ionized calcium, PTH, vitamin D Attestations Medical Necessity Statement*: Patient needs to be in hospial for the management of PNA need for continued I.V Abxs Coding Level of Care Code Acute Freight Shipping Agent for [facility] Fwd Diagnoses Acute cholecystitis K81.0 DKA (diabetic ketoacidosis) E11.10 Altered mental status R41.82 Pneumonia J18.9 Dehydration E86.0 Chest pain R07.9 Septic pulmonary embolism I26.90 MRSA bacteremia R78.81; B95.62 Common bile duct calculi K80.50
[2021-05-06] MEDS: enoxaparin 40 mg/0.4 mL Syringe SUBCUT (20:52)
[2021-05-06] MEDS: atorvastatin 40 mg Tablet PO (20:53)
[2021-05-06 21:04] LABS: Glucose Point of Care 90 mg/dL (70-110)
[2021-05-06] MEDS: insulin glargine 100 units/1 mL 5 UNIT SUBCUT (22:18)
[2021-05-07] VITALS: BP 122/70; PULSE 115; RESP 17; TEMP 37.2; O2SAT 83
[2021-05-07] MEDS: piperacillin-tazobactam 3.375 GM in sodium chloride 0.9% (plus) 50 ML IV ×3 (01:23→16:08)
[2021-05-07 04:00] VITALS: BP 120/79; PULSE 102; RESP 18; TEMP 37.7; O2SAT 90
[2021-05-07 06:20] LABS: Basophils % 0.3 %; Eosinophils % 0.3 %; Hematocrit 35.7 % (37.0-47.0); Hemoglobin 11.6 g/dL (11.5-15.3); Lymphocytes # 1.2 10^3/uL (0.8-4.8); Lymphocytes % 9.7 %; Mean Corpuscular HGB Conc 32.5 g/dL (30.0-36.0); Mean Corpuscular Volume 92.2 fl (81-99); Mean Platelet Volume 9.8 fL (7.4-10.4); Monocytes # 0.9 10^3/uL (0.2-0.9); Monocytes % 6.6 %; Neutrophils # 10.51 10^3/uL (1.8-7.7); Nucleated Red Blood Cells % 0 %; Platelet Count 533 10^3/cmm (130-400); Red Blood Count 3.87 10^6/uL (4.1-5.3); Red Cell Distribution Width 13.5 % (12.1-15.1); White Blood Count 12.8 10^3/uL (4.0-10.0)
[2021-05-07 06:32] LABS: Glucose Point of Care 101 mg/dL (70-110)
[2021-05-07 06:34] LABS: Alanine Aminotransferase 46 U/L (0-33); Albumin Level 2.2 g/dL (3.5-5.2); Alkaline Phosphatase 520 IU/L (35-105); Anion Gap 17.6 (5-19); Aspartate Amino Transferase 41 U/L (0-32); Blood Urea Nitrogen 20 mg/dL (6-20); C Reactive Protein 173.1 mg/L (0.0-4.9); Calcium 7.9 mg/dL (8.5-10.5); Carbon Dioxide 27 mmol/L (22-29); Chloride 101 mmol/L (98-107); Globulin 3.6 g/dL (1.3-4.6); Glomerular Filtration Rate 42.2 mL/min (90-130); Glucose 118 mg/dL (65-115); Magnesium 1.7 mg/dL (1.7-2.3); Osmolality Calculated 298 mOsm/kg (285-295); Phosphorus 2.7 mg/dL (2.5-4.5); Potassium 3.6 mmol/L (3.5-5.1); Sodium 142 mmol/L (136-145); Total Bilirubin 0.3 mg/dL (0.15-1.2); Total Protein 5.8 g/dL (6.6-8.7)
[2021-05-07 06:50] LABS: NT Pro B Type Natriuretic Pept 2267 pg/mL (0-125); Procalcitonin 2.15 ng/mL (0-0.5)
[2021-05-07 07:03] LABS: Lipase 132 U/L (13-60)
[2021-05-07 08:00] VITALS: BP 126/75; PULSE 111; RESP 20; TEMP 36.9; O2SAT 91
[2021-05-07] MEDS: famotidine 20 mg/2 mL INJ IVP ×2 (08:46→21:56)
[2021-05-07] MEDS: vancomycin 750 MG in sodium chloride 0.9% 250 ML 250 MG IV (08:46)
[2021-05-07] MEDS: cholecalciferol (vitamin D3) 1,000 unit Tablet 1000 UNIT PO (08:46)
[2021-05-07] MEDS: aspirin 81 mg EC Tablet PO (08:46)
[2021-05-07] MEDS: LORazepam 1 mg Tablet PO (08:46)
[2021-05-07] MEDS: calcitriol 0.25 mcg Capsule PO (08:52)
[2021-05-07] MEDS: calcium carbonate 500 mg Chew Tablet 1000 MG PO ×2 (08:52→16:08)
[2021-05-07] MEDS: insulin glargine 100 units/1 mL 5 UNIT SUBCUT (08:53)
[2021-05-07 11:20] LABS: Glucose Point of Care 162 mg/dL (70-110)
[2021-05-07 12:00] VITALS: BP 108/68; PULSE 95; RESP 18; TEMP 36.6; O2SAT 90
--- NOTE | 2021-05-07 14:52 | CTR_ITS ---
PROCEDURE INFORMATION: Exam: CT Thoracic Spine Without Contrast Exam date and time: 05/07/2021 2:52 PM Age: 56 years old Clinical indication: Pain in thoracic spine; Additional info: R/O osteomyelitis, persistent bactremia TECHNIQUE: Imaging protocol: Computed tomography images of the thoracic spine without contrast. Radiation optimization: All CT scans at this facility use at least one of these dose optimization techniques: automated exposure control; mA and/or kV adjustment per patient size (includes targeted exams where dose is matched to clinical indication); or iterative reconstruction. COMPARISON: MR MRCP [id number] 05/03/2021 10:36 AM RADIATION DOSE METRICS: Total DLP (mGy-cm): 671.75 FINDINGS: Vertebrae: No anterior wedging deformity. No acute lucent fracture lines visualized.No destructive osseous lesions are identified. Alignment is normal. Severe spondylitic changes are seen at the C6-C7 level. Discs/Spinal canal/Neural foramina: There is no central canal or neural foraminal stenosis demonstrated by CT. Lungs: Bilateral pulmonary infiltrates and pleural effusions are again noted. CT/CT thoracic spin wo con* [id number] IMPRESSION: No acute thoracic spinal injury or destructive osseous lesions identified.
--- NOTE | 2021-05-07 14:53 | CTR_ITS ---
PROCEDURE INFORMATION: Exam: CT Lumbar Spine Without Contrast Exam date and time: 05/07/2021 2:53 PM Age: 56 years old Clinical indication: Low back pain; Additional info: R/O osteomyelitis, persistent bactremia TECHNIQUE: Imaging protocol: Computed tomography images of the lumbar spine without contrast. Radiation optimization: All CT scans at this facility use at least one of these dose optimization techniques: automated exposure control; mA and/or kV adjustment per patient size (includes targeted exams where dose is matched to clinical indication); or iterative reconstruction. COMPARISON: CT thoracic spin wo con* [id number] 05/07/2021 3:12 PM RADIATION DOSE METRICS: Total DLP (mGy-cm): 877.77 FINDINGS: Vertebrae: No anterior wedging deformity. No acute lucent fracture lines visualized.No destructive osseous lesions are identified. Degenerative changes are seen at the sacroiliac joints bilaterally. Discs/Spinal canal/Neural foramina: Diffuse disc bulge at L4-L5 causes moderate central canal stenosis, with bilateral lateral recess stenosis. No severe central canal or neural foraminal stenosis is demonstrated by CT. Sacrum/coccyx: There are no findings of discitis-osteomyelitis or septic arthritis at the sacroiliac joints. CT/CT lumbar spine wo con* [id number] IMPRESSION: 1. No findings of discitis-osteomyelitis. 2. Moderate central stenosis at L4-L5 due to diffuse disc bulge.
[2021-05-07 15:55] VITALS: BP 140/80; PULSE 94; RESP 20; TEMP 36.7; O2SAT 90
[2021-05-07 17:11] LABS: Glucose Point of Care 272 mg/dL (70-110)
[2021-05-07 19:52] VITALS: BP 136/78; PULSE 94; RESP 16; TEMP 36.9; O2SAT 92
--- NOTE | 2021-05-07 20:45 | P.PN_ITS ---
Subjective Subjective: Interval history: Patient was seen and examined this morning, she was confused and agitated last night requiring frequent reorientation. When I saw her today in the morning, she was still confused. Has remained afebrile. Repeat blood culture is growing staph aureus 1 out of 3 bottles. Medications: Reviewed: Yes Vitals/I&O/Wt Last Vital Signs Temp 98.4 F 05/07/21 19:52 Pulse 94 05/07/21 19:52 Resp 16 05/07/21 19:52 BP 136/78 05/07/21 19:52 Pulse Ox 92 05/07/21 19:52 05/07/21 05/07/21 05/07/21 06:59 14:59 22:59 Intake Total 50 / 640 290 / 290 300 / 590 Output Total 550 / 3500 400 / 400 Balance -500 / -2860 -110 / -110 300 / 190 Weight last 48 hrs Weight 49.941 kg Weight 47.99 kg Physical Exam Const: COMMON NORMALS: patient oriented x3 HENMT: COMMON NORMALS: normocephalic and atraumatic HEAD & SCALP: normocephalic and atraumatic Resp: COMMON NORMALS: clear to auscultation bilaterally EFFORT & INSPECTION: Yes symmetric chest movement AUSCULTATION: clear to auscultation bilaterally Cardio: COMMON NORMALS: regular rate, regular rhythm, S1 normal heart sound present, S2 normal heart sound present, No gallops present (Cardio), No murmurs present (Cardio), No rub (Cardio) and Peripheral pulses 2+ throughout RATE: regular rate RHYTHM: regular rhythm HEART SOUNDS: S1 normal heart sound present and S2 normal heart sound present PERIPHERAL PULSES: Peripheral pulses 2+ throughout GI: COMMON NORMALS: Normal to inspection, nondistended, normoactive bowel sounds present, Soft to palpation, non-tender, No hepatosplenomegaly present and no masses AUSCULTATION: Yes normoactive bowel sounds PALPATION: Yes Soft to palpation and Yes No hepatosplenomegaly present RECTAL EXAM: deferred Extremity: COMMON NORMALS: no clubbing, cyanosis or edema and no pedal edema Neuro: COMMON NORMALS: patient oriented x3 Urinary Catheter Management^: Main: Cath Placed During This Visit: yes Reason for Continuing Indwelling Catheter: Accurate Measurement of Urinary Output in Critically Ill Patients Urinary Catheter Date of Insertion: 05/01/21 Urinary Catheter Time of Insertion: 02:45 Data : 05/07/21 05:30 05/07/21 05:30 Micro: Microbiology 05/07/21 16:24 Blood Culture - Preliminary Blood SPECIMEN COLLECTED 05/07/21 16:08 Blood Culture - Preliminary Blood SPECIMEN COLLECTED 05/01/21 05:50 Blood Culture - Preliminary Blood Staphylococcus aureus A&P Assessment and plan (1) Acute cholecystitis: MRCP shows 1. Cholelithiasis with gallbladder wall thickening and pericholecystic fluid suspicious for acute cholecystitis. Gallbladder is contracted. 2. Small calculus in the distal common bile duct near the major papilla via measuring 3.2 mm. 3. Dilated common bile measuring 11 mm. 4. Small bilateral pleural effusions. -Likely acute cholecystitis -Continue Zosyn -No abdominal pain complaints, continue Zosyn, will require cholecystectomy at some point as outpatient an ERCP at the same time Status: Acute (2) DKA (diabetic ketoacidosis): -Anion gap has closed -A1c 9.6 -Change to Lantus 8 units twice daily, low-dose sliding scale -Stop IV fluids normal -Monitor blood sugars as per protocol -We will moved to general medical floors t Status: Acute (3) Altered mental status: Resolved Secondary to diabetic ketoacidosis, pneumonia, Status: Acute (4) Pneumonia: Bilateral upper lobe pneumonia, right lower lobe pneumonia likely a component of aspiration, with MRSA bacteremia, MRSA UTI Covid PCR negative urine bacterial antigens, blood cultures, rapid flu negative, continue vancomycin and Zosyn, follow respiratory status Status: Acute (5) Dehydration: Resolved Status: Acute (6) Chest pain: -Initial troponin I 7, EKG no acute ST-T wave changes -Serial EKGs, serial troponins, telemetry monitoring -Continue aspirin, statin, monitor for chest pain -Cardiac echocardiogram 1. Normal left ventricular size, systolic function and wall thickness, with no regional wall motion abnormalities. Left ventricular ejection fraction is estimated at 65 %. Normal diastolic function. 2. Normal right ventricular size and systolic function. 3. Pulmonary artery pressure estimated at 32 mmHg. 4. Trace to mild tricuspid valve regurgitation. 5. No prior similar studies to compare. Status: Acute (7) Septic pulmonary embolism: -On broad-spectrum antibiotic therapy, transesophageal echocardiogram negative for endocarditis, likely associated with pneumonia, cholecystitis Status: Acute (8) MRSA bacteremia: -MRSA bacteremia, MRSA UTI CT of the spine: Has failed to show any changes consistent with discitis or osteomyelitis -Repeat blood culture has shown staph aureus in 1 out of 3 bottles -Likely secondary to pneumonia, septic emboli -Repeat blood cultures negative so far -Remains afebrile -Monitor white blood cell count, monitor inflammatory markers -Continue vancomycin, will require vancomycin for 2 weeks from date of first negative blood culture. -Continue Zyvox Status: Acute (9) Common bile duct calculi: -MRCP shows small calculus in the distal common bile duct near the major ampulla measuring 3.2 mm, dilated common bile duct measuring 11 mm, mild intrahe patic biliary dilatation -No nausea, no vomiting, no abdominal pain, no fevers -LFTs have decreased AST 136, ALT 82 -Alkaline phosphatase increased at 659 -CRP 232, ferritin 9400, lipase 132 -No alarm symptoms of acute ascending cholangitis, does have acute cholecystitis, will continue to manage with antibiotics, will need a follow-up as outpatient with GI for consideration of ERCP -However if she does have symptoms progressing to acute cholecystitis, elevated LFTs, abdominal pain complaints will need to transfer Status: Acute Additional A&P Information -Hypocalcemia, ionized calcium, PTH, vitamin D Attestations Medical Necessity Statement*: Patient needs to be in hospital for management of above defined problems. Coding Level of Care Code Acute Refined Syrup Operator for [facility] Fwd Diagnoses Acute cholecystitis K81.0 DKA (diabetic ketoacidosis) E11.10 Altered mental status R41.82 Pneumonia J18.9 Dehydration E86.0 Chest pain R07.9 Septic pulmonary embolism I26.90 MRSA bacteremia R78.81; B95.62 Common bile duct calculi K80.50
[2021-05-07] MEDS: atorvastatin 40 mg Tablet PO (21:21)
[2021-05-07] MEDS: enoxaparin 40 mg/0.4 mL Syringe SUBCUT (21:21)
[2021-05-07] MEDS: insulin lispro 100 unit/1 mL SUBCUT (21:21)
[2021-05-08] VITALS (7 sets, daily range): BP systolic 100–130; BP diastolic 57–81; PULSE 84–99; RESP 16–20; TEMP 36.5–37.1; O2SAT 90–96
[2021-05-08] MEDS: piperacillin-tazobactam 3.375 GM in sodium chloride 0.9% (plus) 50 ML IV ×3 (00:50→18:26)
[2021-05-08 06:34] LABS: Lipase 126 U/L (13-60)
[2021-05-08 07:18] LABS: Glucose Point of Care 292 mg/dL (70-110)
[2021-05-08 07:18] LABS: Glucose Point of Care 122 mg/dL (70-110)
[2021-05-08] MEDS: vancomycin 750 MG in sodium chloride 0.9% 250 ML 250 MG IV (09:30)
[2021-05-08] MEDS: calcitriol 0.25 mcg Capsule PO (09:31)
[2021-05-08] MEDS: LORazepam 1 mg Tablet PO ×2 (09:31→17:13)
[2021-05-08] MEDS: calcium carbonate 500 mg Chew Tablet 1000 MG PO ×3 (09:31→22:26)
[2021-05-08] MEDS: ondansetron 2 mg/ML SDV 2 mL 4 MG IVP (09:31)
[2021-05-08] MEDS: aspirin 81 mg EC Tablet PO (09:31)
[2021-05-08] MEDS: cholecalciferol (vitamin D3) 1,000 unit Tablet 1000 UNIT PO (09:31)
[2021-05-08] MEDS: famotidine 20 mg/2 mL INJ IVP ×2 (09:31→20:17)
[2021-05-08 11:34] LABS: Glucose Point of Care 250 mg/dL (70-110)
[2021-05-08] MEDS: insulin lispro 100 unit/1 mL SUBCUT (11:44)
[2021-05-08 17:25] LABS: Glucose Point of Care 125 mg/dL (70-110)
[2021-05-08] MEDS: enoxaparin 40 mg/0.4 mL Syringe SUBCUT (20:17)
[2021-05-08] MEDS: atorvastatin 40 mg Tablet PO (20:17)
--- NOTE | 2021-05-08 20:23 | P.PN_ITS ---
Subjective Subjective: Interval history: Patient was seen and examined this morning,she was AO*3,she says that she wants to go home. Says that she is felling well.Has remained afebrile. her other vitals and labs have been reviewed. Medications: Reviewed: Yes Vitals/I&O/Wt Last Vital Signs Temp 98.8 F 05/08/21 20:00 Pulse 88 05/08/21 20:00 Resp 17 05/08/21 20:00 BP 105/57 05/08/21 20:00 Pulse Ox 90 05/08/21 20:00 05/08/21 05/08/21 05/08/21 06:59 14:59 22:59 Intake Total 530 / 1600 670 / 670 50 / 720 Balance 530 / 1200 670 / 670 50 / 720 Weight last 48 hrs Weight 44.951 kg Weight 49.941 kg Physical Exam Const: COMMON NORMALS: patient oriented x3 HENMT: COMMON NORMALS: normocephalic and atraumatic HEAD & SCALP: normocephalic and atraumatic Resp: COMMON NORMALS: clear to auscultation bilaterally EFFORT & INSPECTION: Yes symmetric chest movement AUSCULTATION: clear to auscultation bilaterally Cardio: COMMON NORMALS: regular rate, regular rhythm, S1 normal heart sound present, S2 normal heart sound present, No gallops present (Cardio), No murmurs present (Cardio), No rub (Cardio) and Peripheral pulses 2+ throughout RATE: regular rate RHYTHM: regular rhythm HEART SOUNDS: S1 normal heart sound present and S2 normal heart sound present PERIPHERAL PULSES: Peripheral pulses 2+ throughout GI: COMMON NORMALS: Normal to inspection, nondistended, normoactive bowel sounds present, Soft to palpation, non-tender, No hepatosplenomegaly present and no masses AUSCULTATION: Yes normoactive bowel sounds PALPATION: Yes Soft to palpation and Yes No hepatosplenomegaly present RECTAL EXAM: deferred Extremity: COMMON NORMALS: no clubbing, cyanosis or edema and no pedal edema Neuro: COMMON NORMALS: patient oriented x3 Urinary Catheter Management^: Main: Cath Placed During This Visit: yes Reason for Continuing Indwelling Catheter: Accurate Measurement of Urinary Output in Critically Ill Patients Urinary Catheter Date of Insertion: 05/01/21 Urinary Catheter Time of Insertion: 02:45 Data : 05/07/21 05:30 05/07/21 05:30 Micro: Microbiology 05/01/21 05:50 Blood Culture - Preliminary Blood Methicillin Resis Staph Aureus 05/07/21 16:24 Blood Culture - Preliminary Blood NEGATIVE TO DATE 05/07/21 16:08 Blood Culture - Preliminary Blood NEGATIVE TO DATE A&P Assessment and plan (1) Acute cholecystitis: MRCP shows 1. Cholelithiasis with gallbladder wall thickening and pericholecystic fluid suspicious for acute cholecystitis. Gallbladder is contracted. 2. Small calculus in the distal common bile duct near the major papilla via measuring 3.2 mm. 3. Dilated common bile measuring 11 mm. 4. Small bilateral pleural effusions. -Likely acute cholecystitis -Continue Zosyn -No abdominal pain complaints, continue Zosyn, will require cholecystectomy at some point as outpatient an ERCP at the same time Status: Acute (2) DKA (diabetic ketoacidosis): -Anion gap has closed -A1c 9.6 -Change to Lantus 8 units twice daily, low-dose sliding scale -Stop IV fluids normal -Monitor blood sugars as per protocol -We will moved to general medical floors t Status: Acute (3) Altered mental status: Resolved Secondary to diabetic ketoacidosis, pneumonia, Status: Acute (4) Pneumonia: Bilateral upper lobe pneumonia, right lower lobe pneumonia likely a component of aspiration, with MRSA bacteremia, MRSA UTI Covid PCR negative urine bacterial antigens, blood cultures, rapid flu negative, continue vancomycin and Zosyn, follow respiratory status Status: Acute (5) Dehydration: Resolved Status: Acute (6) Chest pain: -Initial troponin I 7, EKG no acute ST-T wave changes -Serial EKGs, serial troponins, telemetry monitoring -Continue aspirin, statin, monitor for chest pain -Cardiac echocardiogram 1. Normal left ventricular size, systolic function and wall thickness, with no regional wall motion abnormalities. Left ventricular ejection fraction is estimated at 65 %. Normal diastolic function. 2. Normal right ventricular size and systolic function. 3. Pulmonary artery pressure estimated at 32 mmHg. 4. Trace to mild tricuspid valve regurgitation. 5. No prior similar studies to compare. Status: Acute (7) Septic pulmonary embolism: -On broad-spectrum antibiotic therapy, transesophageal echocardiogram negative for endocarditis, likely associated with pneumonia, cholecystitis Status: Acute (8) MRSA bacteremia: -MRSA bacteremia, MRSA UTI CT of the spine: Has failed to show any changes consistent with discitis or osteomyelitis -Repeat blood culture has shown MRSA in 1 out of 3 bottles ( 05/01 ) -Likely secondary to pneumonia, septic emboli -Repeat blood cultures negative so far (05/07) -Remains afebrile -Monitor white blood cell count, monitor inflammatory markers -Continue vancomycin, will require vancomycin for 2 weeks from date of first negative blood culture. -Continue Zyvox Status: Acute (9) Common bile duct calculi: -MRCP shows small calculus in the distal common bile duct near the major ampulla measuring 3.2 mm, dilated common bile duct measuring 11 mm, mild intrahepatic biliary dilatation -No nausea, no vomiting, no abdominal pain, no fevers -LFTs have decreased AST 136, ALT 82 -Alkaline phosphatase increased at 659 -CRP 232, ferritin 9400, lipase 132 -No alarm symptoms of acute ascending cholangitis, does have acute cholecystitis, will continue to manage with antibiotics, will need a follow-up as outpatient with GI for consideration of ERCP -However if she does have symptoms progressing to acute cholecystitis, elevated LFTs, abdominal pain complaints will need to transfer Status: Acute Additional A&P Information -Hypocalcemia, ionized calcium, PTH, vitamin D Attestations Medical Necessity Statement*: Patient needs to be in hospital for the management of sepsis and persistent Bacteremia. Coding Level of Care Code Acute Supplier Manager for [facility] Fw Diagnoses Acute cholecystitis K81.0 DKA (diabetic ketoacidosis) E11.10 Altered mental status R41.82 Pneumonia J18.9 Dehydration E86.0 Chest pain R07.9 Septic pulmonary embolism I26.90 MRSA bacteremia R78.81; B95.62 Common bile duct calculi K80.50
[2021-05-08 21:13] LABS: Glucose Point of Care 131 mg/dL (70-110)
[2021-05-09] MEDS: piperacillin-tazobactam 3.375 GM in sodium chloride 0.9% (plus) 50 ML IV ×3 (02:56→18:23)
[2021-05-09 04:00] VITALS: BP 95/60; PULSE 78; RESP 16; TEMP 36.9; O2SAT 91
[2021-05-09] MEDS: calcium carbonate 500 mg Chew Tablet 1000 MG PO ×4 (06:08→22:28)
[2021-05-09 06:33] LABS: Glucose Point of Care 112 mg/dL (70-110)
[2021-05-09 06:47] LABS: Basophils # 0.1 10^3/uL (0.0-0.1); Basophils % 0.4 %; Eosinophils # 0.1 10^3/uL (0.0-0.8); Eosinophils % 0.4 %; Hematocrit 32.2 % (37.0-47.0); Hemoglobin 10.4 g/dL (11.5-15.3); Lymphocytes # 1.5 10^3/uL (0.8-4.8); Mean Corpuscular HGB Conc 32.3 g/dL (30.0-36.0); Mean Corpuscular Hemoglobin 30.5 pg (28.0-34.0); Mean Corpuscular Volume 94.4 fl (81-99); Mean Platelet Volume 9.3 fL (7.4-10.4); Monocytes % 5.4 %; Neutrophils # 15.59 10^3/uL (1.8-7.7); Neutrophils % 85.1 %; Nucleated Red Blood Cells % 0 %; Platelet Count 604 10^3/cmm (130-400); Red Blood Count 3.41 10^6/uL (4.1-5.3); Red Cell Distribution Width 13.3 % (12.1-15.1); White Blood Count 18.3 10^3/uL (4.0-10.0)
[2021-05-09 06:54] LABS: Alanine Aminotransferase 21 U/L (0-33); Alkaline Phosphatase 283 IU/L (35-105); Anion Gap 17.6 (5-19); Aspartate Amino Transferase 15 U/L (0-32); Blood Urea Nitrogen 19 mg/dL (6-20); Calcium 7.5 mg/dL (8.5-10.5); Carbon Dioxide 27 mmol/L (22-29); Chloride 101 mmol/L (98-107); Globulin 3.9 g/dL (1.3-4.6); Glomerular Filtration Rate 46.3 mL/min (90-130); Glucose 103 mg/dL (65-115); Osmolality Calculated 297 mOsm/kg (285-295); Potassium 3.6 mmol/L (3.5-5.1); Sodium 142 mmol/L (136-145); Total Bilirubin 0.4 mg/dL (0.15-1.2); Total Protein 5.9 g/dL (6.6-8.7)
[2021-05-09 07:02] LABS: Vancomycin Trough 15.7 ug/mL (10-15)
[2021-05-09 07:09] VITALS: BP 123/76; PULSE 96; RESP 17; TEMP 37.2; O2SAT 92
[2021-05-09] MEDS: calcitriol 0.25 mcg Capsule PO (08:49)
[2021-05-09] MEDS: aspirin 81 mg EC Tablet PO (08:49)
[2021-05-09] MEDS: vancomycin 750 MG in sodium chloride 0.9% 250 ML 250 MG IV (08:49)
[2021-05-09] MEDS: cholecalciferol (vitamin D3) 1,000 unit Tablet 1000 UNIT PO (08:49)
[2021-05-09] MEDS: famotidine 20 mg/2 mL INJ IVP ×2 (08:51→20:34)
[2021-05-09 10:57] VITALS: BP 116/69; PULSE 96; RESP 17; TEMP 36.9; O2SAT 90
[2021-05-09 12:13] LABS: Glucose Point of Care 265 mg/dL (70-110)
[2021-05-09] MEDS: insulin lispro 100 unit/1 mL SUBCUT ×3 (13:48→22:28)
[2021-05-09 15:00] VITALS: BP 104/64; PULSE 85; RESP 17; TEMP 36.8; O2SAT 92
--- NOTE | 2021-05-09 15:07 | PM.PN ---
Subjective Subjective: Interval history: Patient was seen and examined this morning,no acute events overnight.He vitals and labs have been reviewed. Medications: Reviewed: Yes Vitals/I&O/Wt Last Vital Signs Temp 98.3 F 05/09/21 15:00 Pulse 85 05/09/21 15:00 Resp 17 05/09/21 15:00 BP 104/64 05/09/21 15:00 Pulse Ox 92 05/09/21 15:00 05/09/21 05/09/21 05/09/21 06:59 14:59 22:59 Intake Total 100 / 970 900 / 900 Balance 100 / 970 900 / 900 Weight last 48 hrs Weight 44.452 kg Weight 44.951 kg Physical Exam Const: COMMON NORMALS: patient oriented x3 HENMT: COMMON NORMALS: normocephalic and atraumatic HEAD & SCALP: normocephalic and atraumatic Resp: COMMON NORMALS: clear to auscultation bilaterally EFFORT & INSPECTION: Yes symmetric chest movement AUSCULTATION: clear to auscultation bilaterally Cardio: COMMON NORMALS: regular rate, regular rhythm, S1 normal heart sound present, S2 normal heart sound present, No gallops present (Cardio), No murmurs present (Cardio), No rub (Cardio) and Peripheral pulses 2+ throughout RATE: regular rate RHYTHM: regular rhythm HEART SOUNDS: S1 normal heart sound present and S2 normal heart sound present PERIPHERAL PULSES: Peripheral pulses 2+ throughout GI: COMMON NORMALS: Normal to inspection, nondistended, normoactive bowel sounds present, Soft to palpation, non-tender, No hepatosplenomegaly present and no masses AUSCULTATION: Yes normoactive bowel sounds PALPATION: Yes Soft to palpation and Yes No hepatosplenomegaly present RECTAL EXAM: deferred Extremity: COMMON NORMALS: no clubbing, cyanosis or edema and no pedal edema Neuro: COMMON NORMALS: patient oriented x3 Urinary Catheter Management^: Main: Cath Placed During This Visit: yes Reason for Continuing Indwelling Catheter: Accurate Measurement of Urinary Output in Critically Ill Patients Urinary Catheter Date of Insertion: 05/01/21 Urinary Catheter Time of Insertion: 02:45 Data : 05/09/21 06:27 05/09/21 06:27 Micro: Microbiology 05/01/21 05:50 Blood Culture - Final Blood Methicillin Resis Staph Aureus 05/07/21 16:24 Blood Culture - Preliminary Blood NEGATIVE TO DATE 05/07/21 16:08 Blood Culture - Preliminary Blood NEGATIVE TO DATE A&P Assessment and plan (1) Acute cholecystitis: MRCP shows 1. Cholelithiasis with gallbladder wall thickening and pericholecystic fluid suspicious for acute cholecystitis. Gallbladder is contracted. 2. Small calculus in the distal common bile duct near the major papilla via measuring 3.2 mm. 3. Dilated common bile measuring 11 mm. 4. Small bilateral pleural effusions. -Likely acute cholecystitis -Continue Zosyn -No abdominal pain complaints, continue Zosyn, will require cholecystectomy at some point as outpatient an ERCP at the same time Status: Acute (2) DKA (diabetic ketoacidosis): -Anion gap has closed -A1c 9.6 -Change to Lantus 8 units twice daily, low-dose sliding scale -Stop IV fluids normal -Monitor blood sugars as per protocol -We will moved to general medical floors t Status: Acute (3) Altered mental status: Resolved Secondary to diabetic ketoacidosis, pneumonia, Status: Acute (4) Pneumonia: Bilateral upper lobe pneumonia, right lower lobe pneumonia likely a component of aspiration, with MRSA bacteremia, MRSA UTI Covid PCR negative urine bacterial antigens, blood cultures, rapid flu negative, continue vancomycin and Zosyn, follow respiratory status Status: Acute (5) Dehydration: Resolved Status: Acute (6) Chest pain: -Initial troponin I 7, EKG no acute ST-T wave changes -Serial EKGs, serial troponins, telemetry monitoring -Continue aspirin, statin, monitor for chest pain -Cardiac echocardiogram 1. Normal left ventricular size, systolic function and wall thickness, with no regional wall motion abnormalities. Left ventricular ejection fraction is estimated at 65 %. Normal diastolic function. 2. Normal right ventricular size and systolic function. 3. Pulmonary artery pressure estimated at 32 mmHg. 4. Trace to mild tricuspid valve regurgitation. 5. No prior similar studies to compare. Status: Acute (7) Septic pulmonary embolism: -On broad-spectrum antibiotic therapy, transesophageal echocardiogram negative for endocarditis, likely associated with pneumonia, cholecystitis Status: Acute (8) MRSA bacteremia: -MRSA bacteremia, MRSA UTI CT of the spine: Has failed to show any changes consistent with discitis or osteomyelitis -Repeat blood culture has shown MRSA in 1 out of 3 bottles ( 05/01 ) -Likely secondary to pneumonia, septic emboli -Repeat blood cultures negative so far (05/07) -Remains afebrile -Monitor white blood cell count, monitor inflammatory markers -Continue vancomycin, will require vancomycin for 2 weeks from date of first negative blood culture. -Continue Zyvox Status: Acute (9) Common bile duct calculi: -MRCP shows small calculus in the distal common bile duct near the major ampulla measuring 3.2 mm, dilated common bile duct measuring 11 mm, mild intrahepatic biliary dilatation -No nausea, no vomiting, no abdominal pain, no fevers -LFTs have decreased AST 136, ALT 82 -Alkaline phosphatase increased at 659 -CRP 232, ferritin 9400, lipase 132 -No alarm symptoms of acute ascending cholangitis, does have acute cholecystitis, will continue to manage with antibiotics, will need a follow-up as outpatient with GI for consideration of ERCP -However if she does have symptoms progressing to acute cholecystitis, elevated LFTs, abdominal pain complaints will need to transfer Status: Acute Additional A&P Information -Hypocalcemia, ionized calcium, PTH, vitamin D Attestations Medical Necessity Statement*: Patient needs to be in hospital for the continued need for I.V Abxs. Coding Level of Care Code Acute Machine Puller And Laster for [facility] Fwd Diagnoses Acute cholecystitis K81.0 DKA (diabetic ketoacidosis) E11.10 Altered mental status R41.82 Pneumonia J18.9 Dehydration E86.0 Chest pain R07.9 Septic pulmonary embolism I26.90 MRSA bacteremia R78.81; B95.62 Common bile duct calculi K80.50
[2021-05-09] MEDS: acetaminophen 325 mg Tablet 650 MG PO (15:08)
[2021-05-09 17:20] LABS: Glucose Point of Care 301 mg/dL (70-110)
[2021-05-09 19:19] VITALS: BP 117/65; PULSE 81; RESP 22; TEMP 36.7; O2SAT 98
[2021-05-09] MEDS: atorvastatin 40 mg Tablet PO (20:34)
[2021-05-09] MEDS: enoxaparin 40 mg/0.4 mL Syringe SUBCUT (20:35)
[2021-05-10] VITALS (7 sets, daily range): BP systolic 108–127; BP diastolic 66–75; PULSE 91–103; RESP 16–21; TEMP 36.8–38.1; O2SAT 91–95
[2021-05-10] MEDS: piperacillin-tazobactam 3.375 GM in sodium chloride 0.9% (plus) 50 ML IV ×2 (02:55→11:13)
[2021-05-10 03:49] LABS: Basophils % 0.2 %; Eosinophils # 0.1 10^3/uL (0.0-0.8); Eosinophils % 0.5 %; Hematocrit 32.2 % (37.0-47.0); Hemoglobin 10.3 g/dL (11.5-15.3); Lymphocytes # 1.3 10^3/uL (0.8-4.8); Lymphocytes % 7.8 %; Mean Corpuscular Hemoglobin 29.8 pg (28.0-34.0); Mean Corpuscular Volume 93.1 fl (81-99); Mean Platelet Volume 9.3 fL (7.4-10.4); Monocytes # 0.8 10^3/uL (0.2-0.9); Monocytes % 4.3 %; Neutrophils # 14.92 10^3/uL (1.8-7.7); Neutrophils % 86.4 %; Nucleated Red Blood Cells % 0 %; Platelet Count 625 10^3/cmm (130-400); Red Blood Count 3.46 10^6/uL (4.1-5.3); Red Cell Distribution Width 13.1 % (12.1-15.1); White Blood Count 17.3 10^3/uL (4.0-10.0)
[2021-05-10 04:15] LABS: Alanine Aminotransferase 16 U/L (0-33); Albumin Level 1.9 g/dL (3.5-5.2); Alkaline Phosphatase 265 IU/L (35-105); Anion Gap 9.9 (5-19); Aspartate Amino Transferase 12 U/L (0-32); Blood Urea Nitrogen 23 mg/dL (6-20); Calcium 7.5 mg/dL (8.5-10.5); Carbon Dioxide 32 mmol/L (22-29); Chloride 103 mmol/L (98-107); Globulin 4.1 g/dL (1.3-4.6); Glomerular Filtration Rate 42.2 mL/min (90-130); Glucose 199 mg/dL (65-115); Osmolality Calculated 301 mOsm/kg (285-295); Potassium 3.9 mmol/L (3.5-5.1); Sodium 141 mmol/L (136-145); Total Bilirubin 0.3 mg/dL (0.15-1.2)
[2021-05-10] MEDS: calcium carbonate 500 mg Chew Tablet 1000 MG PO ×4 (05:57→22:22)
[2021-05-10 08:53] LABS: Glucose Point of Care 200 mg/dL (70-110)
[2021-05-10] MEDS: insulin lispro 100 unit/1 mL SUBCUT ×4 (09:31→21:25)
[2021-05-10] MEDS: vancomycin 750 MG in sodium chloride 0.9% 250 ML 250 MG IV (09:32)
[2021-05-10] MEDS: cholecalciferol (vitamin D3) 1,000 unit Tablet 1000 UNIT PO (09:33)
[2021-05-10] MEDS: calcitriol 0.25 mcg Capsule PO (09:33)
[2021-05-10] MEDS: aspirin 81 mg EC Tablet PO (09:33)
[2021-05-10] MEDS: famotidine 20 mg/2 mL INJ IVP ×2 (10:59→21:13)
[2021-05-10 11:35] LABS: Glucose Point of Care 192 mg/dL (70-110)
--- NOTE | 2021-05-10 12:37 | XR_ITS ---
WS: [id number] PORTABLE CHEST HISTORY: PICC LINE INSERT COMPARISON: 05/06/2021 Right-sided PICC line in good position with tip in the distal SVC. Dense bilateral irregular areas of consolidation.. Dense consolidation at the LEFT apex has progresse d. Small bilateral pleural effusions. The RIGHT pleural effusion probably has increased slightly in s ize. Cardiac size: Normal. Mediastinum/Aorta: Normal mediastinum. No osseous abnormality seen. XR/XR chest 1V portable [id number] IMPRESSION: 1. Satisfactory placement right-sided PICC line. 2. Dense areas of bilateral consolidation. Neoplastic versus pneumonia. Recomm end follow-up imaging after treatment.
--- NOTE | 2021-05-10 12:38 | SUR.PREOP ---
TIME OUT FOR PICC LINE INSERTION .
--- NOTE | 2021-05-10 14:37 | PC.CHAP ---
Pastoral Care Encounter/Spiritual Assessment Type of Contact [] Declined education teacher visit [] Patient/Family/Request visit [] Outpatient visit [xx] Follow-up visit [] Physician referral [] Code/Alert [] Routine visit [] Staff referral [] Actively dying [] Patient sleeping [] Family support [] [xx] Out of room [] Palliative care [] [] Receiving care in room [] Pre-surgical visit [] Trauma [xx] Long length of stay [] ICU visit [] Other: Relational/Emotional Strength [] Patient feels connected with others/family/visitors/staff [] Distress [] Loneliness/isolation [] Abandonment Spirituality of Patient [] Person of Adrienne [] Attends [facility] of their Adrienne [] Believes in Prayer [] Reads Bible or Druze materials [] There are Spiritual issues to be addressed Chain Machine Operator Interventions [] Prayer [] Active listening [] Non-anxious presence [] Spiritual/emotional support [] Crisis/trauma care [] Spiritual counseling [] Bereavement support [] Provided bereavement packet [] Provided Bible/devotional materials [] Provided toy/stuffed animal, coloring book to patient or family member [] Provided Communion [] Anointing/[place] [] Salvation [] Completed spiritual assessment [] Other: Impact on Illness or Injury [] Angry [] Fearful [] Anxious [] Often cries [] Exhaustion [] Unable to work [] Unable to attend jew [] Unable to walk/stand [] Unable to read [] Unable to drive [] Unable to eat/drink [] Unable to sleep [] Unable to be with family [] Patient intubated [] Other: Summary Patient was out of room. Try follow up later. Time spent with patient
--- NOTE | 2021-05-10 15:12 | P.PN_ITS ---
Subjective Subjective: Interval history: Patient was seen and examined this morning,says she fells good is alert,awake and oriented. Noted T-max overnight: 100.5. Medications: Reviewed: Yes Vitals/I&O/Wt Last Vital Signs Temp 98.2 F 05/10/21 11:53 Pulse 102 H 05/10/21 11:53 Resp 16 05/10/21 11:53 BP 108/66 05/10/21 11:53 Pulse Ox 94 05/10/21 11:53 05/10/21 05/10/21 05/10/21 06:59 14:59 22:59 Intake Total 240 / 1959 530 / 530 Balance 240 1959 530 / 530 Weight last 48 hrs Weight 48.58 kg Weight 44.452 kg Physical Exam Const: COMMON NORMALS: patient oriented x3 HENMT: COMMON NORMALS: normocephalic and atraumatic HEAD & SCALP: normocephalic and atraumatic Resp: COMMON NORMALS: clear to auscultation bilaterally EFFORT & IN SPECTION: Yes symmetric chest movement AUSCULTATION: clear to auscultation bilaterally Cardio: COMMON NORMALS: regular rate, regular rhythm, S1 normal heart sound present, S2 normal heart sound present, No gallops present (Cardio), No murmurs present (Cardio), No rub (Cardio) and Peripheral pulses 2+ throughout RATE: regular rate RHYTHM: regular rhythm HEART SOUNDS: S1 normal heart sound present and S2 normal heart sound present PERIPHERAL PULSES: Peripheral pulses 2+ throughout GI: COMMON NORMALS: Normal to inspection, nondistended, normoactive bowel sounds present, Soft to palpation, non-tender, No hepatosplenomegaly present and no masses AUSCULTATION: Yes normoactive bowel sounds PALPATION: Yes Soft to palpation and Yes No hepatosplenomegaly present RECTAL EXAM: deferred Extremity: COMMON NORMALS: no clubbing, cyanosis or edema and no pedal edema Neuro: COMMON NORMALS: patient oriented x3 Urinary Catheter Management^: Main: Cath Placed During This Visit: yes Reason for Continuing Indwelling Catheter: Accurate Measurement of Urinary Output in Critically Ill Patients Urinary Catheter Date of Insertion: 05/01/21 Urinary Catheter Time of Insertion: 02:45 Data : 05/10/21 03:05 05/10/21 03:05 A&P Assessment and plan (1) Acute cholecystitis: MRCP shows 1. Cholelithiasis with gallbladder wall thickening and pericholecystic fluid suspicious for acute cholecystitis. Gallbladder is contracted. 2. Small calculus in the distal common bile duct near the major papilla via measuring 3.2 mm. 3. Dilated common bile measuring 11 mm. 4. Small bilateral pleural effusions. -Likely acute cholecystitis -Continue Zosyn -No abdominal pain complaints, continue Zosyn, will require cholecystectomy at some point as outpatient an ERCP at the same time Status: Acute (2) DKA (diabetic ketoacidosis): -Anion gap has closed -A1c 9.6 -Change to Lantus 8 units twice daily, low-dose sliding scale -Stop IV fluids normal -Monitor blood sugars as per protocol -We will moved to general medical floors t Status: Acute (3) Altered mental status: Resolved Secondary to diabetic ketoacidosis, pneumonia, Status: Acute (4) Pneumonia: Bilateral upper lobe pneumonia, right lower lobe pneumonia likely a component of aspiration, with MRSA bacteremia, MRSA UTI Covid PCR negative urine bacterial antigens, blood cultures, rapid flu negative, continue vancomycin and Zosyn, follow respiratory status Status: Acute (5) Dehydration: Resolved Status: Acute (6) Chest pain: -Initial troponin I 7, EKG no acute ST-T wave changes -Serial EKGs, serial troponins, telemetry monitoring -Continue aspirin, statin, monitor for chest pain -Cardiac echocardiogram 1. Normal left ventricular size, systolic function and wall thickness, with no regional wall motion abnormalities. Left ventricular ejection fraction is estimated at 65 %. Normal diastolic function. 2. Normal right ventricular size and systolic function. 3. Pulmonary artery pressure estimated at 32 mmHg. 4. Trace to mild tricuspid valve regurgitation. 5. No prior similar studies to compare. Status: Acute (7) Septic pulmonary embolism: -On broad-spectrum antibiotic therapy, transesophageal echocardiogram negative for endocarditis, likely associated with pneumonia, cholecystitis Status: Acute (8) MRSA bacteremia: -MRSA bacteremia, MRSA UTI CT of the spine: Has failed to show any changes consistent with discitis or osteomyelitis -Repeat blood culture has shown MRSA in 1 out of 3 bottles ( 05/01 ) -Likely secondary to pneumonia, septic emboli -Repeat blood cultures negative so far (05/07) -Remains afebrile -Monitor white blood cell count, monitor inflammatory markers -Continue vancomycin, will require vancomycin for 2 weeks from date of first negative blood culture. -Initially on Zosyn has been discontinued. Status: Acute (9) Common bile duct calculi: -MRCP shows small calculus in the distal common bile duct near the major ampulla measuring 3.2 mm, dilated common bile duct measuring 11 mm, mild intrahepatic biliary dilatation -No nausea, no vomiting, no abdominal pain, no fevers -LFTs have decreased AST 136, ALT 82 -Alkaline phosphatase increased at 659 -CRP 232, ferritin 9400, lipase 132 -No alarm symptoms of acute ascending cholangitis, does have acute cholecystitis, will continue to manage with antibiotics, will need a follow-up as outpatient with GI for consideration of ERCP -However if she does have symptoms progressing to acute cholecystitis, elevated LFTs, abdominal pain complaints will need to transfer Status: Acute Additional A&P Information -Hypocalcemia, ionized calcium, PTH, vitamin D Attestations Medical Necessity Statement*: Patient is still in hospital for management of MRSA bacteremia,MRSA UTI. 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
[2021-05-10 17:16] LABS: Glucose Point of Care 348 mg/dL (70-110)
[2021-05-10] MEDS: enoxaparin 40 mg/0.4 mL Syringe SUBCUT (21:14)
[2021-05-10] MEDS: atorvastatin 40 mg Tablet PO (21:14)
[2021-05-10 21:31] LABS: Glucose Point of Care 202 mg/dL (70-110)
[2021-05-10 21:31] LABS: Glucose Point of Care 187 mg/dL (70-110)
[2021-05-10 21:32] LABS: Glucose Point of Care 231 mg/dL (70-110)
[2021-05-11] VITALS: BP 125/77; PULSE 73; RESP 16; TEMP 36.4; O2SAT 90
[2021-05-11 04:00] VITALS: BP 120/72; PULSE 70; RESP 16; TEMP 36.5; O2SAT 91
[2021-05-11] MEDS: calcium carbonate 500 mg Chew Tablet 1000 MG PO ×2 (04:35→12:43)
[2021-05-11 05:57] LABS: Basophils # 0.1 10^3/uL (0.0-0.1); Basophils % 0.4 %; Eosinophils # 0.1 10^3/uL (0.0-0.8); Eosinophils % 0.4 %; Hemoglobin 9.2 g/dL (11.5-15.3); Lymphocytes # 1.8 10^3/uL (0.8-4.8); Lymphocytes % 9.5 %; Mean Corpuscular HGB Conc 31.7 g/dL (30.0-36.0); Mean Corpuscular Hemoglobin 29.7 pg (28.0-34.0); Mean Corpuscular Volume 93.5 fl (81-99); Mean Platelet Volume 9.8 fL (7.4-10.4); Monocytes # 0.9 10^3/uL (0.2-0.9); Monocytes % 4.7 %; Neutrophils # 15.88 10^3/uL (1.8-7.7); Neutrophils % 84.4 %; Nucleated Red Blood Cells % 0 %; Platelet Count 593 10^3/cmm (130-400); Red Cell Distribution Width 13.2 % (12.1-15.1); White Blood Count 18.8 10^3/uL (4.0-10.0)
[2021-05-11 06:12] LABS: Alanine Aminotransferase 12 U/L (0-33); Albumin Level 1.7 g/dL (3.5-5.2); Alkaline Phosphatase 177 IU/L (35-105); Blood Urea Nitrogen 19 mg/dL (6-20); Calcium 7.3 mg/dL (8.5-10.5); Carbon Dioxide 30 mmol/L (22-29); Chloride 100 mmol/L (98-107); Glomerular Filtration Rate 51.2 mL/min (90-130); Glucose 167 mg/dL (65-115); Osmolality Calculated 290 mOsm/kg (285-295); Sodium 137 mmol/L (136-145); Total Bilirubin 0.3 mg/dL (0.15-1.2); Total Protein 5.7 g/dL (6.6-8.7)
[2021-05-11 06:13] LABS: Anion Gap 11.3 (5-19); Potassium 4.3 mmol/L (3.5-5.1)
[2021-05-11 06:14] LABS: Aspartate Amino Transferase 14 U/L (0-32)
[2021-05-11 08:00] VITALS: BP 133/85; PULSE 99; RESP 18; TEMP 37; O2SAT 92
[2021-05-11] MEDS: cholecalciferol (vitamin D3) 1,000 unit Tablet 1000 UNIT PO (08:13)
[2021-05-11] MEDS: insulin lispro 100 unit/1 mL SUBCUT ×2 (08:13→12:42)
[2021-05-11] MEDS: calcitriol 0.25 mcg Capsule PO (08:13)
[2021-05-11] MEDS: famotidine 20 mg/2 mL INJ IVP (08:13)
[2021-05-11] MEDS: aspirin 81 mg EC Tablet PO (08:13)
[2021-05-11] MEDS: vancomycin 750 MG in sodium chloride 0.9% 250 ML 250 MG IV (08:13)
--- NOTE | 2021-05-11 09:32 | PM.DCS ---
Discharge Providers Date of Admission: 04/30/21 16:45 Date of Discharge: May 11, 2021 Attending Provider at Admission: Ry Harris MD Attending Provider at Discharge: Ralph Chan MD Primary Care Provider: Leonard Perez MD Diagnoses at Discharge Discharge Diagnosis (1) Acute cholecystitis: Status: Acute (2) DKA (diabetic ketoacidosis): Status: Acute (3) Altered mental status: Status: Acute (4) Pneumonia: Status: Acute (5) Dehydration: Status: Acute (6) Chest pain: Status: Acute (7) Septic pulmonary embolism: Status: Acute (8) MRSA bacteremia: Status: Acute (9) Common bile duct calculi: Status: Acute Reason for Visit [facility] Hospital Course Hospital Course 56 year old female with a past medical history of type 2 diabetes mellitus, on insulin, who has not been taking the medication for the last 2 weeks as she could not afford the medication, she not sure how much insulin she takes at home, she is not sure if she takes a insulin sliding scale versus long-acting, who presents [facility] due to increased confusion, fatigue, weakness, nausea, and she was worried she had elevated blood sugars. She is also complaining of chest pain, right-sided, with epigastric pain, chest pain was nonradiating, no lightheadedness, dizziness, no nausea, no vomiting, no diaphoresis. No CAD history. No history of strokes. Denies a history of pancreatitis, denies alcohol use, denies drug use. No history of COVID-19 pneumonia, has received 1 Covid shot, has not received flu shot. EMS arrival blood sugar greater than 500, here in the emergency room her blood sugar was 470, pH 7.31, anion gap 24.5, ketones positive, she was placed on insulin drip, white blood cell count over 24,000, chest x-ray showing right upper lobe pneumonia.During the hospital stay she was managed for DKA, Pneumonia,MRSA bacteremia, MRSA UTI, Ac metabolic encephalopathy, septic pulmonary embolism, Acute cholecystitis. patient was kept on broad spectrum abxs namely vancomyciin and zosyn and was discharged on vancomycin for 2 weeks after negative blood culture picc line was placed, she will get outpatient I.V abxs in our G.I Lab and pharmacy will dose and monitor vancomycin.She had extensive imaging studies during the hospital stay which included,C.T head without contrast , C,T Chest abdomen and pelvis, C.T Spine ( CTL ) , U/S Abdomen, MRCP, 2D Echo, KT.KT Faied to show any I/E. Patient was discharged in stable condition to home she will follow her pcp,surgery,pulmonary medicine as outpatient. She responded well to above medical management and was discharged in stable condition to home.She will do repaet C.T chest without contrast in 2 weeks as a follow up for septic emboli and to r/o any possible underlying malignancy. MRCP shows 1. Cholelithiasis with gallbladder wall thickening and pericholecystic fluid suspicious for acute cholecystitis. Gallbladder is contracted. 2. Small calculus in the distal common bile duct near the major papilla via measuring 3.2 mm. 3. Dilated common bile measuring 11 mm. 4. Small bilateral pleural effusions. -Likely acute cholecystitis US abdomen: 1. Diffuse fatty infiltration liver. 2. No hydronephrosis in right kidney. 3. Cholelithiasis. Small amount of pericholecystic fluid. Mild gallbladder wall thickening. Findings suspicious for cholecystitis. 4. Dilated common bile duct measuring 8.3 mm. This could be further evaluated with MRCP to assess for choledocholithiasis. C.T Chest abdomen and Pelvis : 1. No evidence for pulmonary embolus. 2. Numerous peripheral nodular consolidations in both lungs most likely represent septic emboli. Close CT follow-up to document resolution recommended. A neoplastic process such as metastatic disease is considered much less likely but not entirely excluded. 3. Bilateral upper lobe and right lower lobe pneumonia. 4. Bilateral simple appearing pleural effusions. 1. Mild dilatation of the bile ducts with a possible 4 mm filling defect in the distal common bile duct. Follow-up with MRCP is recommended. 2. Cholelithiasis. C.T Spine : Not suggestive of osteo or discitis. 2D echo: 1. Normal left ventricular size, systolic function and wall thickness, with no regional wall motion abnormalities. Left ventricular ejection fraction is estimated at 65 %. Normal diastolic function. 2. Normal right ventricular size and systolic function. 3. Pulmonary artery pressure estimated at 32 mmHg. 4. Trace to mild tricuspid valve regurgitation. 5. No prior similar studies to compare. KT : 1. Normal left ventricular size, systolic function and mildly increased wall thickness, with no regional wall motion abnormalities. Left ventricular ejection fraction is estimated at 65 %. 2. Trace to mild mitral and tricuspid valve regurgitation. 3. No evidence of infective endocarditis based on the study. Physical Exam Const: COMMON NORMALS: patient oriented x3 HENMT: COMMON NORMALS: normocephalic and atraumatic HEAD & SCALP: normocephalic and atraumatic Resp: COMMON NORMALS: clear to auscultation bilaterally EFFORT & INSPECTION: Yes symmetric chest movement AUSCULTATION: clear to auscultation bilaterally Cardio: COMMON NORMALS: regular rate, regular rhythm, S1 normal heart sound present, S2 normal heart sound present, No gallops present (Cardio), No murmurs present (Cardio), No rub (Cardio) and Peripheral pulses 2+ throughout RATE: regular rate RHYTHM: regular rhythm HEART SOUNDS: S1 normal heart sound present and S2 normal heart sound present PERIPHERAL PULSES: Peripheral pulses 2+ throughout GI: COMMON NORMALS: Normal to inspection, nondistended, normoactive bowel sounds present, Soft to palpation, non-tender, No hepatosplenomegaly present and no masses AUSCULTATION: Yes normoactive bowel sounds PALPATION: Yes Soft to palpation and Yes No hepatosplenomegaly present RECTAL EXAM: deferred Extremity: COMMON NORMALS: no clubbing, cyanosis or edema and no pedal edema Neuro: COMMON NORMALS: patient oriented x3 Urinary Catheter Management^: Main: Cath Placed During This Visit: yes Reason for Continuing Indwelling Catheter: Accurate Measurement of Urinary Output in Critically Ill Patients Urinary Catheter Date of Insertion: 05/01/21 Urinary Catheter Time of Insertion: 02:45 Discharge Data Data Completed and Pending: Completed Studies During Hospitalization Category Date Time Status CT angio chest w abd pel w con Rout ine Cat Scan 05/01/21 14:[address] cervical spin wo con* [id number] Urge nt Cat Scan 04/30/21 13:[address] head wo con* 7 0450 Routine Cat Scan 05/01/21 18:[address] head wo con* 7 0450 Urgent Cat Scan 04/30/21 13:[address] lumbar spine w o con* [id number] Routi ne Cat Scan 05/07/21 14:[address] thoracic spin wo con* [id number] Rout ine Cat Scan 05/07/21 14:52 Completed CXRP [XR chest 1V portable [id number]] R outine Exams 05/10/21 12:37 Completed XR chest 1V zach ble [id number] Routine Exams 05/02/21 07:00 Completed XR chest 1V zach ble [id number] Routine Exams 05/06/21 06:00 Completed XR chest 1V zach ble [id number] Urgent Exams 04/30/21 13:50 Completed MR MRCP [id number] Aranza lombardo MRI 05/03/21 10:15 Completed CV. echo complete * [id number] Routine Ultrasound 05/01/21 21:09 Completed US abdomen limite d [id number] Routine Ultrasound 05/03/21 07:59 Completed US echo KT [[place] [id number]] Routine Ultrasound 05/02/21 12:00 Completed Pending at discharge Category Date Time Status Blood Culture Aranza lombardo Lab 05/07/21 16:24 Results Sputum Culture an d Gram Stain Stat Lab 04/30/21 17:56 Uncollected Labs from last 24 hours 05/11/21 05/11/21 05/10/21 05:38 05:38 21:15 WBC 18.8 H RBC 3.10 L Hgb 9.2 L Hct 29.0 L MCV 93.5 MCH 29.7 MCHC 31.7 RDW 13.2 Plt Count 593 H MPV 9.8 Neut % (Auto) 84.4 Lymph % (Auto) 9.5 [place] % (Auto) 4.7 Eos % (Auto) 0.4 Baso % (Auto) 0.4 Neut # (Auto) 15.88 H Lymph # (Auto) 1.8 [place] # (Auto) 0.9 Eos # (Auto) 0.1 Baso # (Auto) 0.1 Nucleated RBC % (a uto) 0 Nucleated RBCs # 0.0 Sodium 137 Potassium 4.3 Chloride 100 Carbon Dioxide 30 H Anion Gap 11.3 BUN 19 Creatinine 1.1 H GFR Calculation 51.2 L Glucose 167 H POC Glucose 231 H Calculated Osmolal ity 290 Calcium 7.3 L Total Bilirubin 0.3 AST 14 ALT 12 Alkaline Phosphata se 177 H Total Protein 5.7 L Albumin 1.7 L Globulin 4.0 05/10/21 05/10/21 05/10/21 16:55 11:13 06:25 WBC RBC Hgb Hct MCV MCH MCHC RDW Plt Count MPV Neut % (Auto) Lymph % (Auto) [place] % (Auto) Eos % (Auto) Baso % (Auto) Neut # (Auto) Lymph # (Auto) [place] # (Auto) Eos # (Auto) Baso # (Auto) Nucleated RBC % (a uto) Nucleated RBCs # Sodium Potassium Chloride Carbon Dioxide Anion Gap BUN Creatinine GFR Calculation Glucose POC Glucose 348 H 192 H 187 H Calculated Osmolal ity Calcium Total Bilirubin AST ALT Alkaline Phosphata se Total Protein Albumin Globulin 05/09/21 22:20 WBC RBC Hgb Hct MCV MCH MCHC RDW Plt Count MPV Neut % (Auto) Lymph % (Auto) [place] % (Auto) Eos % (Auto) Baso % (Auto) Neut # (Auto) Lymph # (Auto) [place] # (Auto) Eos # (Auto) Baso # (Auto) Nucleated RBC % (a uto) Nucleated RBCs # Sodium Potassium Chloride Carbon Dioxide Anion Gap BUN Creatinine GFR Calculation Glucose POC Glucose 202 H Calculated Osmolal ity Calcium Total Bilirubin AST ALT Alkaline Phosphata se Total Protein Albumin Globulin Vitals: Last Vital Signs Temp 98.6 F 05/11/21 08:00 Pulse 99 05/11/21 08:00 Resp 18 05/11/21 08:00 BP 133/85 05/11/21 08:00 Pulse Ox 92 05/11/21 08:00 Discharge Plan Discharge Patient Disposition: Home Condition: Stable Prescriptions: New calcium carbonate 200 mg calcium (500 mg) Tablet,Chewable 1,000 mg PO Q6H 30 Days Qty: 600 RF: 3 cholecalciferol (vitamin D3) 25 mcg (1,000 unit) Tablet 1,000 unit PO DAILY 30 Days Qty: 30 RF: 3 metformin 1,000 mg tablet 500 mg PO DAILY 30 Days Qty: 30 RF: 3 glipizide 10 mg tablet 5 mg PO DAILY 30 Days Qty: 30 RF: 3 Discharge Orders: Discharge Order (Routine); Ordered 05/11/21 Ordered By: Ralph Chan Other Ambulatory Orders: CT chest wo con [id number] (Routine) Timeframe: 2 Weeks Facility: [facility] - Location: Radiology [facility] Ordered By: Ralph Chan DME: Oxygen (Order) Location: None Selected Ordered By: Ralph Chan Referrals: Outpatient IV Therapy [Other] - 05/12/21 9:00 am (Come to the hospital @ 0900 on Thursday for your first infusion. Report to the ER and tell them you are here for Outpatient IV Antibiotics with GI Lab.) DatarMilan MD [Physician] - 2 weeks Ladarius Baer MD [Physician] - 1 week Leonard Perez MD [Primary Care Provider] - 2 weeks Ranjith Garcia MD [Physician] - 2 weeks Discharge Diet: Diabetic Discharge Activity: Resume usual activity Patient Instructions: Glipizide (By mouth), Vancomycin (By injection), Metformin (By mouth), Alendronate/Cholecalciferol (By mouth), MRSA (Methicillin-Resistant Staphylococcus Aureus) (DC), Opioid Safety Discharge Attestations Time Spent in Discharge Care*: greater than 30 min Specific Discharge Activities: educating patient, educating and/or supporting family/caregiver, discussing with pcp/other providers, discussing with gearcase assembler/social workers/dc planners, documenting/other paperwork and evaluating patient/reviewing data Status at Discharge: Cognitive status at discharge: cognitively intact, Behavioral status at discharge: cooperative, Functional status at discharge: independent ambulation Overall status at discharge: patient is back to baseline Quality Metrics Clinical Quality Measures During this hospital stay, did patient experience: None Coding Level of Care Code Acute Chg FW DC note Diagnoses Acute cholecystitis K81.0 DKA (diabetic ketoacidosis) E11.10 Altered mental status R41.82 Pneumonia J18.9 Dehydration E86.0 Chest pain R07.9 Septic pulmonary embolism I26.90 MRSA bacteremia R78.81; B95.62 Common bile duct calculi K80.50
[2021-05-11 11:57] VITALS: O2SAT 87; O2SAT 91
[2021-05-11 12:29] LABS: Glucose Point of Care 193 mg/dL (70-110)
[2021-05-11 12:29] LABS: Glucose Point of Care 182 mg/dL (70-110)
--- NOTE | 2021-05-11 13:32 | PC.NURSE ---
PATIENT AND SON VERBALIZED UNDERSTANDING OF DISCHARGE INSTRUCTIONS. DISCUSSED RETURNING TO THE ER TOMORROW TO RECEIVE IV ANTIBIOTICS IN THE GI LAB. ALL THE INFORMATION WAS GIVEN TO THE PATIENT AND SON TO MAKE FOLLOW UP APPOINTMENTS, AND THEY VERBALIZED UNDERSTANDING OF HAVING TO MAKE THE APPOINTMENTS. HOME O2 EVALUATION WAS DONE AND THE PATIENT REQUIRED 2 LITERS OF OXYGEN. PRESIDENT + PUBLISHER ATTEMPTED TO SET UP A PROVIDER FOR HOME OXYGEN, HOWEVER ALL COMPANIES CHECKED WERE TOO EXPENSIVE FOR THE PATIENT TO AFFORD. DR. SANCHEZ NOTIFIED, AND SAID OK LET HER GO . DISCUSSED WITH PATIENT THAT SHE REALLY DOES NEED OXYGEN BUT THE DOCTOR SAID SHE COULD BE DISCHARGED WITHOUT IT, AND DISCUSSED BREATHING TECHNIQUES TO HELP IF SHE BEGINS FEELING SHORT OF BREATH.
[2021-05-11 14:11] VITALS: BP 133/85; PULSE 99; RESP 18; TEMP 37; O2SAT 92
--- NOTE | 2021-05-16 09:57 | PC.SOCIAL ---
pt was in GI lab getting her infusion, check writer went to GI lab and gave pt hand written list of follow up appointment dates and times.
--- NOTE | 2021-06-07 15:14 | PC.SOCIAL ---
Notified by registration/ pt account that CT scan will not be scheduled as ordered outpatient. Patient was notified but per report to this nurse, patient did not return call.
== END 2021-05-11 14:00 | disposition home or self-care (01) | DRG 871 ==
LOC: ER 16:44 → ICU 18:31 → MEDSURG 05-03 20:48
PROVIDERS: Student in an Organized Health Care Education/Training Program; Admitting Provider Family Medicine; Emergency Provider Emergency Medicine; PCP Family Medicine; Visit Provider Internal Medicine
DX: A41.9 Sepsis, unspecified organism (principal); E11.10 Type 2 diabetes mellitus with ketoacidosis without coma; J69.0 Pneumonitis due to inhalation of food and vomit; I26.90 Septic pulmonary embolism without acute cor pulmonale; G93.41 Metabolic encephalopathy; J90 Pleural effusion, not elsewhere classified; N39.0 Urinary tract infection, site not specified; K80.40 Calculus of bile duct with cholecystitis, unspecified, without obstruction; T38.3X6A Underdosing of insulin and oral hypoglycemic [antidiabetic] drugs, initial encounter; Z91.120 Patient's intentional underdosing of medication regimen due to financial hardship; Z79.84 Long term (current) use of oral hypoglycemic drugs; F17.210 Nicotine dependence, cigarettes, uncomplicated; E86.0 Dehydration; B95.62 Methicillin resistant Staphylococcus aureus infection as the cause of diseases classified elsewhere; E78.5 Hyperlipidemia, unspecified
CPT/HCPCS: 36415; 36416; 36569; 36600; 51701; 51702; 70450; 71045; 71275; 72125; 72128; 72131; 74177; 74181; 76705; 80048; 80051; 80053; 80061; 80074; 80202; 81001; 82009; 82306; 82310; 82330; 82550; 82728; 82803; 82805; 82962; 83036; 83605; 83690; 83735; 83880; 83970; 84100; 84145; 84443; 84484; 85007; 85025; 85378; 85610; 85730; 86140; 86403; 86592; 87040; 87077; 87086; 87186; 87205; 87635; 87641; 87804; 87806; 92526; 92610; 93005; 93306; 93312; 93320; 93325; 94664; 96361; 96365; 96367; 96372; 96375; 99285; J0456; J0696; J1650; J1815 ×2; J1940; J1956; J2270; J2405; J2543; J2704; J3010; J3370; J3475; J3490; J7030; J7050; Q9967

== ENCOUNTER 2021-05-25 09:11 | Outpatient (RCR) | payer SELFPAY ==
[2021-05-12] MEDS: vancomycin 750 MG in sodium chloride 0.9% 250 ML 250 MG IV (10:00)
[2021-05-12 10:07] VITALS: BMI 18.3
[2021-05-12 10:11] VITALS: BP 147/73; PULSE 76; RESP 18; TEMP 37.1; O2SAT 89
[2021-05-13 09:45] VITALS: BP 118/74; PULSE 107; RESP 18; TEMP 36.1; O2SAT 93
[2021-05-13] MEDS: vancomycin 750 MG in sodium chloride 0.9% 250 ML 250 MG IV (09:53)
[2021-05-13 10:29] LABS: Vancomycin Trough 13.8 ug/mL (10-15)
--- NOTE | 2021-05-15 08:28 | PC.NURSE ---
Pt did not attend appointment scheduled on 05/14/21. Was not able to reach pt by phone.
[2021-05-15 09:07] VITALS: BP 132/71; PULSE 97; RESP 18; TEMP 35.9; O2SAT 95
[2021-05-15] MEDS: vancomycin 1,000 MG in sodium chloride 0.9% 250 ML 250 MG IV (09:09)
--- NOTE | 2021-05-15 10:36 | PC.NURSE ---
Pharmacy dosing Vancomycin as ordered. Pharmacist notified of pt missing dose 05/14/21. Pt did receive dose for 05/15/21. Vanc trough to be drawn on Thursday05/17/21. Dose to be adjusted for Thursday from trough results.
[2021-05-16] MEDS: vancomycin 1,000 MG in sodium chloride 0.9% 250 ML 250 MG IV (09:22)
[2021-05-16 09:26] VITALS: BP 131/75; PULSE 89; RESP 18; TEMP 36.4; O2SAT 95
[2021-05-17] MEDS: vancomycin 1,000 MG in sodium chloride 0.9% 250 ML 250 MG IV (09:23)
[2021-05-17 09:27] VITALS: BP 118/63; PULSE 86; RESP 18; TEMP 36.4; O2SAT 97
[2021-05-17 10:24] LABS: Vancomycin Trough 21.9 ug/mL (10-15)
--- NOTE | 2021-05-17 11:04 | PC.NURSE ---
Addendum entered by Dee Stubbs RN 05/20/21 11:47: After further review, Vancomycin decreased to 750 mg daily starting 05/18/21. Original Note: Kristopher, pharmacist, notified of Vanc trough 21.9. Vancomycin to remain at 1,000 mg daily. Next Vanc trough to be drawn on 05/20/21 prior to dose at 0900. Dose to be hung and adjusted for 05/21/21 if needed.
[2021-05-18] MEDS: vancomycin 750 MG in sodium chloride 0.9% 250 ML 250 MG IV (08:55)
[2021-05-18 09:04] VITALS: BP 110/64; PULSE 99; RESP 16; TEMP 36.6; O2SAT 93
[2021-05-19] MEDS: vancomycin 750 MG in sodium chloride 0.9% 250 ML 250 MG IV (09:00)
[2021-05-19 09:04] VITALS: BP 131/81; PULSE 87; TEMP 36.6; O2SAT 93
[2021-05-20 09:22] VITALS: BP 138/85; PULSE 95; RESP 16; TEMP 36.3; O2SAT 95
[2021-05-20] MEDS: vancomycin 750 MG in sodium chloride 0.9% 250 ML 250 MG IV (09:37)
[2021-05-20 10:01] LABS: Vancomycin Trough 20.2 ug/mL (10-15)
--- NOTE | 2021-05-21 08:34 | PC.NURSE ---
Informed pharmacist Oscar Perez of pt's 05/20/21 vanc trough of 20.2. Vancomycin dose decreased to 500mg daily through 05/26/21 and no further vanc trough needed, Per Oscar
[2021-05-21 09:08] VITALS: BP 148/82; PULSE 98; RESP 18; TEMP 35.9; O2SAT 97
[2021-05-21] MEDS: vancomycin 500 MG in sodium chloride 0.9% (plus) 100 ML 200 MG IV (09:09)
[2021-05-22] MEDS: vancomycin 500 MG in sodium chloride 0.9% (plus) 100 ML 100 MG IV (09:57)
[2021-05-22 09:58] VITALS: BP 124/74; PULSE 88; RESP 18; TEMP 36.6; O2SAT 98
[2021-05-23 09:06] VITALS: BP 121/91; PULSE 91; RESP 18; TEMP 36.2; O2SAT 93
[2021-05-23] MEDS: vancomycin 500 MG in sodium chloride 0.9% (plus) 100 ML 100 MG IV (09:11)
[2021-05-24 09:00] VITALS: BP 128/95; PULSE 94; RESP 18; TEMP 36.7; O2SAT 98
[2021-05-24] MEDS: vancomycin 500 MG in sodium chloride 0.9% (plus) 100 ML 100 MG IV (09:00)
[2021-05-25 09:00] VITALS: BP 124/76; PULSE 88; RESP 18; TEMP 36.9; O2SAT 97
[2021-05-25] MEDS: vancomycin 500 MG in sodium chloride 0.9% (plus) 100 ML 200 MG IV (09:25)
== END 2021-05-31 23:59 | disposition home or self-care (01) ==
LOC: GILAB 09:11
PROVIDERS: Internal Medicine; PCP Family Medicine; Visit Provider Internal Medicine
DX: R78.81 Bacteremia (principal); B95.62 Methicillin resistant Staphylococcus aureus infection as the cause of diseases classified elsewhere
CPT/HCPCS: 36592; 80202; 96365; J3370; J7050

== ENCOUNTER 2022-05-28 12:11 | Emergency (ER) | payer MEDICAID, SELFPAY ==
[2022-05-28] VITALS (20 sets, daily range): BP systolic 94–119; BP diastolic 50–74; PULSE 79–94; RESP 16–18; TEMP 36.6; O2SAT 85–100; BMI 18.3
--- NOTE | 2022-05-28 12:22 | XRR_ITS ---
PROCEDURE INFORMATION: Exam: XR Chest Exam date and time: 05/28/2022 12:35 PM Age: 57 years old Clinical indication: Cough and dyspnea; Patient HX: History--weakness cough; Additional info: Dyspnea/cough TECHNIQUE: Imaging protocol: Radiologic exam of the chest. Views: 1 view. COMPARISON: CR XR chest 1V portable [id number] 05/10/2021 1:05 PM FINDINGS: Limitations: Study is technically limited due to patient positioning and patient rotation. Lungs: Unremarkable. No consolidation. Pleural spaces: Unremarkable. No pleural effusion. No pneumothorax. Heart/Mediastinum: Unremarkable. No cardiomegaly. Bones/joints: Unremarkable for age. XR/XR chest 1V portable [id number] IMPRESSION: Technically limited but negative chest exam.
[2022-05-28 12:36] LABS: Basophils % 0.7 %; Hematocrit 40.5 % (37.0-47.0); Hemoglobin 13.6 g/dL (11.5-15.3); Lymphocytes # 0.9 10^3/uL (0.8-4.8); Lymphocytes % 13.9 %; Mean Corpuscular HGB Conc 33.6 g/dL (30.0-36.0); Mean Corpuscular Hemoglobin 30.4 pg (28.0-34.0); Mean Corpuscular Volume 90.4 fl (81-99); Mean Platelet Volume 11.2 fL (7.4-10.4); Monocytes # 0.7 10^3/uL (0.2-0.9); Monocytes % 11.3 %; Neutrophils # 4.53 10^3/uL (1.8-7.7); Neutrophils % 73.8 %; Nucleated Red Blood Cells % 0 %; Platelet Count 212 10^3/cmm (130-400); Red Blood Count 4.48 10^6/uL (4.1-5.3); Red Cell Distribution Width 12.3 % (12.1-15.1); White Blood Count 6.1 10^3/uL (4.0-10.0)
--- NOTE | 2022-05-28 12:44 | ECG_ITS ---
[facility] Test Date: 2022-05-28 Pat Name: Skyla Lozano Department: Room: Gender: Female Autotransfusionist: : 1965 Requested By: Harvinder Mccarthy Order Number: [id number] Parth MD: Meri Kidd M.D. Measurements Intervals [place] Rate: 91 P: 72 MT: 147 QRS: 27 QRSD: 104 T: 85 QT: 347 QTc: 427 Interpretive Statements SINUS RHYTHM NONSPECIFIC T-WAVE ABNORMALITY Compared to ECG 04/30/2021 21:31:30 T-wave abnormality now present Electronically Signed On 05-28-2022 12:50:39 JEWEL HOLE [employer]NERER by Meri Kidd M.D. [id number]
--- NOTE | 2022-05-28 12:57 | W.ED.WEAKNES ---
HPI - Weakness General: Chief complaint: Weakness Stated complaint: WEAKNESS/ FLU Time Seen by Provider: 05/28/22 12:20 Source: patient Mode of arrival: ambulatory History of Present Illness: 49-year-old female presents emergency room with complaints of weakness flulike symptoms. Patient tells me she is diabetic also she has COPD. She is supposed to be on oxygen but states she does not use it because she cannot afford to buy it. Similarly she does not treat her diabetes because she states she cannot afford the medications. She tells me she is in is in [place] visiting friends and that she normally lives in [place]. However there are a number of visits in the chart in the last 2 years. She denies chest pain denies abdominal pain denies dysuria urgency or frequency. Patient states she cannot walk or Move her legs. She is very fidgety moving her arms and legs continuously while I am talking to her and during exam. He is able to follow simple commands to raise her legs and arms about the bed on command and maintains them in fixed position. She is able to [id number] bilaterally. She has no focal neurologic deficits. MD Complaint: generalized weakness Onset (ago): unknown Duration: progressively worsening Location: generalized Severity: mild Quality: tingling Relieving factors: none Exacerbating factors: none Associated symptoms: Denies chest pain, chills, confusion, melena, decreased appetite, diaphoresis, dysuria, easy bruising, fever(s), headache(s), myalgias, nausea, rash, short of breath, syncope or vomiting Review of Systems Const: Reports: fatigue and malaise; Denies: fever(s), chills or diaphoresis Card: Denies: chest pain, palpitations, irregular heart rhythm or syncope GI: Denies: abdominal pain, nausea, vomiting, diarrhea or melena : Denies: flank pain, dysuria, urinary frequency or urinary urgency Musc: Denies: neck pain or back pain Skin/Breast: Denies: rash or pruritus Neuro: Denies: headache(s) or confusion Ralph/Lymph: Denies: easy bruising [facility] ED PFSH: Medical History Acute cholecystitis Altered mental status Chest pain Common bile duct calculi Dehydration Diabetes DKA (diabetic ketoacidosis) Gram positive sepsis Insulin dependent type 2 diabetes mellitus MRSA bacteremia Pneumonia Septic pulmonary embolism Surgical History No pertinent past surgical history Family History Mother Cancer Father CAD (coronary artery disease) Social History Smoking and tobacco status: current every day smoker cigarettes Packs smoked per day: 1 Alcohol intake: current Alcohol intake frequency: few times a month Physical Exam Const: GENERAL APPEARANCE: cooperative and comfortable ORIENTATION/CONSCIOUSNESS: Yes awake HENMT: COMMON NORMALS: normocephalic, atraumatic and hearing grossly normal bilaterally HEAD & SCALP: normocephalic and atraumatic Resp: COMMON NORMALS: normal respiratory effort, No retractions, No use of accessory muscles and clear to auscultation bilaterally AUSCULTATION: clear to auscultation bilaterally Cardio: COMMON NORMALS: regular rate, regular rhythm and No murmurs present (Cardio) RATE: regular rate RHYTHM: regular rhythm GI: COMMON NORMALS: Soft to palpation and No hepatosplenomegaly present AUSCULTATION: Yes normoactive bowel sounds PALPATION: Yes Soft to palpation, No Tenderness to palpation present (GI), No Guarding due to palpation present (GI) and Yes No hepatosplenomegaly present Extremity: COMMON NORMALS: normal to inspection, capillary refill normal, no clubbing, cyanosis or edema, no calf tenderness and no pedal edema Skin: COMMON NORMALS: no rashes or lesions noted GENERAL SKIN EXAM: no rashes or lesions noted Course Vital Signs: Vital signs: Vital Signs Temperature 97.9 F 05/28/22 12:27 Pulse Rate 79 05/28/22 21:57 Respiratory Rate 16 05/28/22 21:57 Blood Pressure 104/69 05/28/22 21:57 Pulse Oximetry 96 05/28/22 21:57 Oxygen Delivery Me thod 05/28/22 16:40 Oxygen Flow Rate 2 05/28/22 16:40 MDM - Weakness Medical Decision Making Labs imaging reviewed. UA shows contamination patient is asymptomatic at this time large number of squamous cells and 4+ glucose. Did not initiate antibiotics at this point. Patient tells me she was previously qualified for oxygen we really tested her and she still is qualifying for 2 L/min she does not been using that at home which I think caused her problem she is much better able to ambulate now I think her issue earlier was due to her hypoxia. Made arrangements for her get oxygen through home and we will discharge patient home encouraged her to follow-up with her primary care doctor on her diabetes since she is able. Medical Records I reviewed the patient's medical records. Lab Data I reviewed the patient's lab results. 05/28/22 12:30 05/28/22 12:30 Radiology Impressions Chest X-Ray 05/28/22 12: IMPRESSION: Technically limited but negative chest exam. Head CT 05/28/22 14:26 IMPRESSION: No acute intracranial abnormalities. Laboratory Results WBC 6.1 10^3/uL (4.0-10.0) 05/28/22 12:30 RBC 4.48 10^6/uL (4.1-5.3) 05/28/22 12:30 Hgb 13.6 g/dL (11.5-15.3) 05/28/22 12:30 Hct 40.5 % (37.0-47.0) 05/28/22 12:30 MCV 90.4 fl (81-99) 05/28/22 12:30 MCH 30.4 pg (28.0-34.0) 05/28/22 12:30 MCHC 33.6 g/dL (30.0-36.0) 05/28/22 12:30 RDW 12.3 % (12.1-15.1) 05/28/22 12:30 Plt Count 212 10^3/cmm (130-400) 05/28/22 12:30 MPV 11.2 fL (7.4-10.4) H 05/28/22 12:30 Neut % (Auto) 73.8 % 05/28/22 12:30 Lymph % (Auto) 13.9 % 05/28/22 12:30 [place] % (Auto) 11.3 % 05/28/22 12:30 Eos % (Auto) 0.0 % 05/28/22 12:30 Baso % (Auto) 0.7 % 05/28/22 12:30 Neut # (Auto) 4.53 10^3/uL (1.8-7.7) 05/28/22 12:30 Lymph # (Auto) 0.9 10^3/uL (0.8-4.8) 05/28/22 12:30 [place] # (Auto) 0.7 10^3/uL (0.2-0.9) 05/28/22 12:30 Eos # (Auto) 0.0 10^3/uL (0.0-0.8) 05/28/22 12:30 Baso # (Auto) 0.0 10^3/uL (0.0-0.1) 05/28/22 12:30 Nucleated RBC % (auto) 0 % 05/28/22 12:30 Nucleated RBCs # 0.0 /100WBC 05/28/22 12:30 Specimen Type Arterial 05/28/22 13:03 Sample Site Radial, left 05/28/22 13:03 ABG pH 7.38 (7.35-7.45) 05/28/22 13:03 ABG pCO2 42.1 mmHg (35-45) 05/28/22 13:03 ABG pO2 58.4 mmHg (80.0-100.0) L 05/28/22 13:03 ABG HCO3 24.8 mmol/L (22-26) 05/28/22 13:03 ABG O2 Saturation 91.9 05/28/22 13:03 ABG Base Excess -0.5 mmol/L (-2.0-2.0) 05/28/22 13:03 Awais Test Pos 05/28/22 13:03 A-a O2 Gradient 5.0 mmHg (5-10) 05/28/22 13:03 Hematocrit 41.5 % (37-47) 05/28/22 13:03 Hgb O2 Saturation 89.1 % (95-100) L 05/28/22 13:03 Carboxyhemoglobin 2.3 %THgb (0.4-20.1) 05/28/22 13:03 Methemoglobin 0.8 % (0.4-1.5) 05/28/22 13:03 Total Hemoglobin 13.5 g/dL (12-16) 05/28/22 13:03 Sodium 139.0 mmol/L (131-143) 05/28/22 13:03 Potassium 4.1 mmol/L (3.5-5.0) 05/28/22 13:03 Glucose 425.0 mg/dL (70-115) H 05/28/22 13:03 Ionized Calcium 1.2 mmol/L (1.1-1.4) 05/28/22 13:03 O2 Delivery Device None 05/28/22 13:03 FiO2 21.0 % 05/28/22 13:03 Silver Spray Worker ID [place] 05/28/22 13:03 Sodium 136 mmol/L (136-145) 05/28/22 12:30 Potassium 4.1 mmol/L (3.5-5.1) 05/28/22 12:30 Chloride 102 mmol/L (98-107) 05/28/22 12:30 Carbon Dioxide 22 mmol/L (22-29) 05/28/22 12:30 Anion Gap 16.1 (5-19) 05/28/22 12:30 BUN 28 mg/dL (6-20) H 05/28/22 12:30 Creatinine 1.0 mg/dL (0.5-0.9) H 05/28/22 12:30 GFR Calculation 56.9 mL/min (90-130) L 05/28/22 12:30 Glucose 395 mg/dL (65-115) H 05/28/22 12:30 Calculated Osmolality 304 mOsm/kg (285-295) H 05/28/22 12:30 Calcium 8.4 mg/dL (8.5-10.5) L 05/28/22 12:30 Total Bilirubin 0.4 mg/dL (0.15-1.2) 05/28/22 12:30 AST 8 U/L (0-32) 05/28/22 12:30 ALT < 5 U/L (0-33) 05/28/22 12:30 Alkaline Phosphatase 93 U/L (35-105) 05/28/22 12:30 Total Protein 6.7 g/dL (6.6-8.7) 05/28/22 12:30 Albumin 3.7 g/dL (3.5-5.2) 05/28/22 12:30 Globulin 3.0 g/dL (1.3-4.6) 05/28/22 12:30 Urine Color Dark yellow (Yellow) 05/28/22 14:00 Urine Appearance Clear (CLEAR) 05/28/22 14:00 Urine pH 5 (5-7) 05/28/22 14:00 Ur Specific [place] 1.025 (1.005-1.030) 05/28/22 14:00 Urine Protein 2+ (Negative) H 05/28/22 14:00 Urine Glucose (UA) 4+ (Normal) H 05/28/22 14:00 Urine Ketones 1+ (Negative) H 05/28/22 14:00 Urine Blood 3+ (Negative) H 05/28/22 14:00 Urine Nitrate Negative (Negative) 05/28/22 14:00 Urine Bilirubin Neg (Negative) 05/28/22 14:00 Urine Urobilinogen Norm mg/dL (Negative) 05/28/22 14:00 Ur Leukocyte Esterase Trace (Negative) H 05/28/22 14:00 Urine RBC 5-10 /hpf (0-2) H 05/28/22 14:00 Urine WBC 0-4 /hpf (0-5) H 05/28/22 14:00 Ur Squamous Epith Cells 5-10 /hpf (0-5) H 05/28/22 14:00 Amorphous Sediment Not Reportable 05/28/22 14:00 Urine Bacteria 4+ /hpf (NONE) H 05/28/22 14:00 Urine Opiates Screen Negative ng/mL (Negative) 05/28/22 14:00 Ur Barbiturates Screen Negative ng/mL (Negative) 05/28/22 14:00 Ur Phencyclidine Scrn Negative ng/mL (Negative) 05/28/22 14:00 Ur Amphetamines Screen Negative ng/mL (Negative) 05/28/22 14:00 U Benzodiazepines Scrn Negative ng/mL (Negative) 05/28/22 14:00 Urine Cocaine Screen Negative ng/mL (Negative) 05/28/22 14:00 U Marijuana (THC) Screen Negative ng/mL (Negative) 05/28/22 14:00 Ethyl Alcohol < 10 mg/dL (0-10) 05/28/22 12:30 Serum Ketones Negative (Negative) 05/28/22 12:30 Discharge Plan Discharge Patient Disposition: Home Clinical Impression: COPD (chronic obstructive pulmonary disease), Chronic respiratory failure with hypoxia, on home oxygen therapy, Diabetes Condition: Stable Discharge Orders: Discharge ED (Routine); Ordered 05/28/22 Ordered By: Harvinder Bright Other Ambulatory Orders: DME: Oxygen (Order) Location: None Selected Ordered By: Harvinder Bright Referrals: Leonard Perez MD [Primary Care Provider] - Patient Instructions: Opioid Safety, Pain Management Activity Restrictions/Additional Instructions: You were seen today for weakness. Your exam was normal. When EMS found you are not wearing oxygen after application of oxygen your symptoms improved. He qualified for 2 L by nasal cannula continuously. Believe this is due to COPD. You should wear the oxygen 24 hours a day. Follow-up with your primary care doctor within the next week. Coding Level of Care Code ED Marketing Technology Coordinator for Chg Fwd Exam Detailed
[2022-05-28 13:03] LABS: Alanine Aminotransferase < 5 U/L (0-33); Albumin Level 3.7 g/dL (3.5-5.2); Alkaline Phosphatase 93 U/L (35-105); Anion Gap 16.1 (5-19); Aspartate Amino Transferase 8 U/L (0-32); Blood Urea Nitrogen 28 mg/dL (6-20); Calcium 8.4 mg/dL (8.5-10.5); Carbon Dioxide 22 mmol/L (22-29); Chloride 102 mmol/L (98-107); Glomerular Filtration Rate 56.9 mL/min (90-130); Glucose 395 mg/dL (65-115); Osmolality Calculated 304 mOsm/kg (285-295); Potassium 4.1 mmol/L (3.5-5.1); Sodium 136 mmol/L (136-145); Total Bilirubin 0.4 mg/dL (0.15-1.2); Total Protein 6.7 g/dL (6.6-8.7)
[2022-05-28 13:06] LABS: Ketone (Acetest) Serum Negative (Negative)
[2022-05-28 13:08] LABS: Creatinine Clr Calc Pharmacy 46.6638
[2022-05-28 13:14] LABS: ABG PCO2 42.1 mmHg (35-45); ABG PH Result 7.38 (7.35-7.45); Arterial Blood Gas Hematocrit 41.5 % (37-47); Base Excess ABG -0.5 mmol/L (-2.0-2.0); Blood Gas Allen Test Pos; Blood Gas Operator Identificat WALCI; Blood Gas Sample Site Radial, left; Blood Gas Sample Type Arterial; Carboxyhemoglobin 2.3 %THgb (0.4-20.1); HCO3 ABG 24.8 mmol/L (22-26); HGB O2 Sat 89.1 % (95-100); Ionized Calcium Level - ABG 1.2 mmol/L (1.1-1.4); Methemoglobin 0.8 % (0.4-1.5); Oxygen Saturation ABG 91.9; PO2 ABG 58.4 mmHg (80.0-100.0); Potassium Level - ABG 4.1 mmol/L (3.5-5.0); Total Hemoglobin 13.5 g/dL (12-16)
[2022-05-28 13:18] LABS: Alcohol Level < 10 mg/dL (0-10)
--- NOTE | 2022-05-28 13:57 | PC.PHAR ---
PT STS SHE IS NOT TAKING METFORMIN OR GLIPIZIDE - ANY HOME MEDICATIONS BECAUSE SHE CAN'T AFFORD THEM.
[2022-05-28 14:22] LABS: Amphetamines Screen Urine Negative (Negative); Barbiturates Screen Urine Negative (Negative); Benzodiazepines Screen Urine Negative (Negative); Cocaine Screen Urine Negative (Negative); Opiate Screen Urine Negative (Negative); PCP Screen Urine Negative (Negative); THC Screen Urine Negative (Negative)
[2022-05-28 14:23] LABS: Add Urine Microscopic? YES; Bilirubin Urine Neg (Negative); Blood Urine 3+ (Negative); Glucose Urine UA 4+ (Normal); Ketones Urine 1+ (Negative); Leukocyte Esterase Urine Trace (Negative); Nitrate Urine Negative (Negative); Protein Urine 2+ (Negative); Specific Gravity, Urine 1.025 (1.005-1.030); Urine Appearance Clear (CLEAR); Urine Color Dark Yellow (Yellow); Urobilinogen Urine Norm (Negative); pH Urine 5 (5-7)
[2022-05-28 14:24] LABS: Add Urine Culture? Yes; Bacteria Urine 4+ /hpf; WBC Urine 0-4 /hpf (0-5)
--- NOTE | 2022-05-28 14:26 | CTR_ITS ---
PROCEDURE INFORMATION: Exam: CT Head Without Contrast Exam date and time: 05/28/2022 3:06 PM Age: 57 years old Clinical indication: Altered mental status/memory loss; Additional info: AMS TECHNIQUE: Imaging protocol: Computed tomography of the head without contrast. Radiation optimization: All CT scans at this facility use at least one of these dose optimization techniques: automated exposure control; mA and/or kV adjustment per patient size (includes targeted exams where dose is matched to clinical indication); or iterative reconstruction. COMPARISON: CT head wo con* [id number] 05/02/2021 12:17 AM RADIATION DOSE METRICS: Total DLP (mGy-cm): 2118.98 FINDINGS: Brain: Small old lacunar infarct left basal ganglia, unchanged. Mild chronic white matter microvascular changes, stable. No evidence of an acute infarct. No evidence of intracranial hemorrhage. The cortical sulci are unremarkable for age with evidence of mild cerebral volume loss. Cerebral ventricles: Unremarkable for age. Paranasal sinuses: Visualized sinuses are unremarkable. No fluid levels. Mastoid air cells: Visualized mastoid air cells are well aerated. Bones/joints: Unremarkable. No acute fracture. Soft tissues: Unremarkable. CT/CT head wo con* [id number] IMPRESSION: No acute intracranial abnormalities.
[2022-05-28] MEDS: insulin regular-human 100 units/1 mL 10 UNIT IVP (14:35)
[2022-05-28] MEDS: sodium chloride 0.9% 1,000 ML 999 ML IV (14:35)
== END 2022-05-28 21:59 | disposition home or self-care (01) ==
PROVIDERS: Emergency Provider Family Medicine; PCP Family Medicine
DX: J44.9 Chronic obstructive pulmonary disease, unspecified (principal); J96.11 Chronic respiratory failure with hypoxia; Z99.81 Dependence on supplemental oxygen; E11.9 Type 2 diabetes mellitus without complications; F17.210 Nicotine dependence, cigarettes, uncomplicated
CPT/HCPCS: 36600; 70450; 71045; 80051; 80053; 80306; 80307; 81001; 82009; 82330; 82805; 85025; 87086; 93005; 96361; 96374; 99285; J1815; J7030

== ENCOUNTER 2024-03-11 18:53 | Emergency (ER) | payer MEDICARE, MEDICAID, SELFPAY ==
[2024-03-11 19:01] VITALS: BP 157/71; PULSE 105; RESP 18; TEMP 36.9; O2SAT 96
--- NOTE | 2024-03-11 19:05 | ECG_ITS ---
[facility] [employer] [facility] Test Date: 2024-03-11 Pat Name: Skyla Lozano Department: Room: Gender: Female Cia Agent: : [id number] Requested By: Kalia Pablo Order Number: [id number] Parth MD: Neo Patel M.D. Measurements Intervals [place] Rate: 98 P: 70 CO: 147 QRS: 69 QRSD: 94 T: 94 QT: 323 QTc: 413 Interpretive Statements SINUS RHYTHM WITH SINUS ARRHYTHMIA NONSPECIFIC T-WAVE ABNORMALITY Compared to ECG 05/28/2022 12:44:22 No significant changes Electronically Signed On 03-11-2024 22:32:10 CDT by Neo Patel M.D. [email or web address]
--- NOTE | 2024-03-11 19:48 | XRR_ITS ---
PROCEDURE INFORMATION: Exam: XR Chest Exam date and time: 03/11/2024 9:49 PM Age: 59 years old Clinical indication: Shortness of breath; Patient HX: C/O SOB. History of copd. TECHNIQUE: Imaging protocol: Radiologic exam of the chest. Views: 1 view. COMPARISON: CR XR chest 1V portable [id number] 05/28/2022 12:35 PM FINDINGS: Lungs: The lungs are clear and free of effusions. Pleural spaces: Unremarkable. No pleural effusion. No pneumothorax. Heart/Mediastinum: The heart and mediastinum are unremarkable. Bones/joints: Unremarkable. XR/XR chest 1V portable [id number] IMPRESSION: No change, unremarkable
[2024-03-11 20:55] LABS: Basophils # 0.1 10^3/uL (0.0-0.1); Basophils % 0.8 %; Eosinophils % 0.4 %; Hematocrit 43.7 % (36-47); Lymphocytes # 1.5 10^3/uL (0.8-4.8); Lymphocytes % 19.1 %; Mean Corpuscular HGB Conc 33.9 g/dL (30-55); Mean Corpuscular Hemoglobin 30.2 pg (27-33); Mean Corpuscular Volume 89.2 fl (85-98); Mean Platelet Volume 10.8 fL (7.4-10.4); Monocytes # 0.3 10^3/uL (0.2-0.9); Monocytes % 3.9 %; Neutrophils # 5.82 10^3/uL (1.8-7.7); Neutrophils % 75.5 %; Nucleated Red Blood Cells % 0 %; Platelet Count 333 10^3/cmm (157-399); Red Cell Distribution Width 11.9 % (12.1-15.1)
[2024-03-11 21:07] VITALS: BP 122/85; PULSE 68; RESP 16; O2SAT 93
[2024-03-11 21:17] LABS: Anion Gap 12.1 (5-19); Blood Urea Nitrogen 17 mg/dL (8-23); Calcium 7.9 mg/dL (8.5-10.5); Carbon Dioxide 29 mmol/L (22-29); Chloride 101 mmol/L (98-107); Glomerular Filtration Rate 73.2 mL/min (90-130); Osmolality Calculated 318 mOsm/kg (285-295); Potassium 3.1 mmol/L (3.5-5.1); Sodium 139 mmol/L (136-145)
[2024-03-11 21:26] LABS: Glucose 610 mg/dL (65-115)
[2024-03-11 21:43] LABS: Ketone (Acetest) Serum Negative (Negative)
[2024-03-11 21:52] LABS: Magnesium 1.8 mg/dL (1.7-2.3)
[2024-03-11 22:07] VITALS: BP 168/88; PULSE 75; RESP 18; O2SAT 96
[2024-03-11] MEDS: insulin regular-human 100 units/1 mL 10 UNIT IVP (22:17)
[2024-03-11] MEDS: sodium chloride 0.9% 1,000 ML 999 ML IV (22:18)
--- NOTE | 2024-03-11 22:24 | ED_ITS ---
HPI - SOB/Dyspnea 2 General: Chief Complaint: Shortness of Breath/Dyspnea Stated Complaint: SoB cant walk BP high Time Seen by Provider: 03/11/24 21:50 History of Present Illness: HPI Narrative: Patient presents to the ER with complaints of increased. Patient says she has been meaning to come in and get checked out she saw her kids marcos and they made her come in. Patient said that she has been having some left hip pain when she walks due to a left hip fracture in June. Patient has a history of COPD and type 1 diabetes. Patient says she is also does not take any medicine or any insulin. She says her blood sugar normally runs high in the 150s to 200s. But is off insulin often frequently high on the meter. Related Data Allergies Allergy/AdvReac Type Severity Reaction Status Date / Time No Known Allergies Allergy Verified 03/11/24 19:01 Review of Systems 2 General: Reports: 10 or more systems reviewed and unremarkable except in HPI and below PFSH ED 2 PFSH: Medical History Common bile duct calculi Acute cholecystitis MRSA bacteremia Septic pulmonary embolism Gram positive sepsis Chest pain Dehydration Insulin dependent type 2 diabetes mellitus Pneumonia Altered mental status DKA (diabetic ketoacidosis) Diabetes Surgical History No pertinent past surgical history Family History Mother Cancer Father CAD (coronary artery disease) Social History Smoking and tobacco/nicotine status: current every day tobacco/nicotine user cigarettes Packs smoked per day: 1 Alcohol intake: current Alcohol intake frequency: few times a month Substance/Drug Use: never Physical Exam 2 Const: COMMON NORMALS: no acute distress, average body habitus, patient oriented x3, no limitations, healthy appearing, alert and well nourished HENMT: COMMON NORMALS: normocephalic, atraumatic, hearing grossly normal bilaterally, external ears normal, Normal external nose present and moist oral mucous membranes HEAD & SCALP: normocephalic and atraumatic NOSE: Normal external nose present EXTERNAL EAR: Yes external ears normal Neck/C-Spine: COMMON NORMALS: full ROM, no lymphadenopathy, supple, no meningeal signs, no JVD and Thyroid normal THYROID: Thyroid normal Chest: COMMONS NORMALS: normal inspection of the chest and normal palpation of entire chest wall Resp: COMMON NORMALS: normal respiratory effort, No retractions, No use of accessory muscles and clear to auscultation bilaterally AUSCULTATION: clear to auscultation bilaterally Cardio: COMMON NORMALS: no JVD, regular rate, regular rhythm, S1 normal heart sound present, S2 normal heart sound present, No gallops present (Cardio), No clicks present (Cardio), No murmurs present (Cardio) and No rub (Cardio) R ATE: regular rate RHYTHM: regular rhythm HEART SOUNDS: S1 normal heart sound present and S2 normal heart sound present GI: COMMON NORMALS: Normal to inspection, nondistended, normoactive bowel sounds present, Soft to palpation, non-tender, No hepatosplenomegaly present and no masses PALPATION: Yes Soft to palpation and Yes No hepatosplenomegaly present Neuro: COMMON NORMALS: patient oriented x3 SENSORIUM/ORIENTATION: Yes alert MENINGEAL SIGNS: Yes no meningeal signs Course 2 Vital Signs: Vital signs: Vital Signs Temperature 98.4 F 03/11/24 19:01 Pulse Rate 78 03/11/24 23:07 Respiratory Rate 17 03/11/24 23:07 Blood Pressure 149/82 03/11/24 23:07 Pulse Oximetry 94 03/11/24 23:07 Oxygen Delivery Me thod Room Air 03/11/24 19:01 MDM - SOB/Dyspnea Medical Decision Making Patient lab work done and chest x-ray, initial lab work showed blood sugar 610 and potassium 3.1, patient was given 40 mEq potassium orally and 10 units of IV insulin, this decreased her blood sugar down to about 300,. Patient will be discharged home to follow-up care with her PCP. Medical Records I reviewed the patient's medical records. Lab Data I reviewed the patient's lab results. 03/11/24 20:41 03/11/24 20:41 Labs/Radiology: Radiology Impressions Chest X-Ray 03/11/24 19:48 IMPRESSION: No change, unremarkable Laboratory Results WBC 7.70 10^3/uL (3.29-11.43) 03/11/24 20:41 RBC 4.90 10^6/uL (3.85-5.65) 03/11/24 20:41 Hgb 14.80 g/dL (11.27-16.99) 03/11/24 20:41 Hct 43.7 % (36-47) 03/11/24 20:41 MCV 89.2 fl (85-98) 03/11/24 20:41 MCH 30.2 pg (27-33) 03/11/24 20:41 MCHC 33.9 g/dL (30-55) 03/11/24 20:41 RDW 11.9 % (12.1-15.1) L 03/11/24 20:41 Plt Count 333 10^3/cmm (157-399) 03/11/24 20:41 MPV 10.8 fL (7.4-10.4) H 03/11/24 20:41 Neut % (Auto) 75.5 % 03/11/24 20:41 Lymph % (Auto) 19.1 % 03/11/24 20:41 [place] % (Auto) 3.9 % 03/11/24 20:41 Eos % (Auto) 0.4 % 03/11/24 20:41 Baso % (Auto) 0.8 % 03/11/24 20:41 Neut # (Auto) 5.82 10^3/uL (1.8-7.7) 03/11/24 20:41 Lymph # (Auto) 1.5 10^3/uL (0.8-4.8) 03/11/24 20:41 [place] # (Auto) 0.3 10^3/uL (0.2-0.9) 03/11/24 20:41 Eos # (Auto) 0.0 10^3/uL (0.0-0.8) 03/11/24 20:41 Baso # (Auto) 0.1 10^3/uL (0.0-0.1) 03/11/24 20:41 Nucleated RBC % (auto) 0 % 03/11/24 20:41 Nucleated RBCs # 0.0 /100WBC 03/11/24 20:41 Sodium 139 mmol/L (136-145) 03/11/24 20:41 Potassium 3.1 mmol/L (3.5-5.1) L 03/11/24 20:41 Chloride 101 mmol/L (98-107) 03/11/24 20:41 Carbon Dioxide 29 mmol/L (22-29) 03/11/24 20:41 Anion Gap 12.1 (5-19) 03/11/24 20:41 BUN 17 mg/dL (8-23) 03/11/24 20:41 Creatinine 0.8 mg/dL (0.5-0.9) 03/11/24 20:41 GFR Calculation 73.2 mL/min (90-130) L 03/11/24 20:41 Glucose 610 mg/dL (65-115) H* 03/11/24 20:41 POC Glucose 296 mg/dL (70-110) H 03/11/24 23:47 Calculated Osmolality 318 mOsm/kg (285-295) H 03/11/24 20:41 Calcium 7.9 mg/dL (8.5-10.5) L 03/11/24 20:41 Magnesium 1.8 mg/dL (1.7-2.3) 03/11/24 20:41 NT-Pro-B Natriuret Pep 356 pg/mL (0-125) H 03/11/24 20:41 Urine Color Yellow (Yellow) 03/11/24 23:44 Urine Appearance Clear (CLEAR) 03/11/24 23:44 Urine pH 6.5 (5-7) 03/11/24 23:44 Ur Specific [place] 1.027 (1.005-1.030) 03/11/24 23:44 Urine Protein 3+ (Negative) A 03/11/24 23:44 Urine Glucose (UA) 3+ (Normal) H 03/11/24 23:44 Urine Ketones Negative (Negative) 03/11/24 23:44 Urine Blood 1+ (Negative) A 03/11/24 23:44 Urine Nitrate Negative (Negative) 03/11/24 23:44 Urine Bilirubin Negative (Negative) 03/11/24 23:44 Urine Urobilinogen 1.0 mg/dL (Negative) 03/11/24 23:44 Ur Leukocyte Esterase Negative (Negative) 03/11/24 23:44 Urine RBC 6-10 /hpf (0-2) 03/11/24 23:44 Urine WBC 0-5 /hpf (0-5) 03/11/24 23:44 Ur Squamous Epith Cells 0-5 /hpf (0-5) 03/11/24 23:44 Urine Bacteria None seen /hpf (NONE) 03/11/24 23:44 Hyaline Casts 2.05 /lpf 03/11/24 23:44 Serum Ketones Negative (Negative) 03/11/24 20:41 Coronavirus (PCR) Negative (Negative) 03/11/24 23:20 Influenza A (PCR) Negative (Negative) 03/11/24 23:20 Influenza Type B (PCR) Negative (Negative) 03/11/24 23:20 RSV (PCR) Negative (Negative) 03/11/24 23:20 All radiology interpretation(s) finalized by discharge Discharge Plan Discharge Patient Disposition: Home Clinical Impression: Non-compliance, Shortness of breath Diabetes type 1, uncontrolled Qualifiers: Glycemic state: with hyperglycemia Qualified Code(s): E10.65 - Type 1 diabetes mellitus with hyperglycemia Condition: Stable Discharge Orders: Discharge ED (Routine); Ordered 03/12/24 Ordered By: Kalia Pablo Referrals: Leonard Perez MD [Primary Care Provider] - 1 week Patient Instructions: Diabetic Hyperglycemia (ED) Activity Restrictions/Additional Instructions: Thank you for choosing [facility] for your healthcare needs today. Please realize that you were seen in the emergency department and that we are providing you with an emergency medical screening exam and this may not be a complete and all exclusive of all testing and/or medical workup we may need to determine your element or severity of your illness. It is very important that you follow-up as instructed with your primary care provider or specialist for the additional evaluation and to discuss your medical treatment plan. You may return to the emergency department should you have concerns or if your condition changes or worsens in any way. Coding Level of Care Code ED Can Coverer for Eric Jama
[2024-03-11] MEDS: potassium chloride ER 20 mEq Tablet 40 MEQ PO (22:33)
[2024-03-11 23:07] VITALS: BP 149/82; PULSE 78; RESP 17; O2SAT 94
[2024-03-11 23:14] LABS: NT Pro B Type Natriuretic Pept 356 pg/mL (0-125)
[2024-03-11 23:51] LABS: Glucose Point of Care 296 mg/dL (70-110)
[2024-03-11 23:51] LABS: Bilirubin Urine Negative (Negative); Blood Urine 1+ (Negative); Glucose Urine UA 3+ (Normal); Ketones Urine Negative (Negative); Leukocyte Esterase Urine Negative (Negative); Nitrate Urine Negative (Negative); Protein Urine 3+ (Negative); Specific Gravity, Urine 1.027 (1.005-1.030); Urine Appearance Clear (CLEAR); Urine Color Yellow (Yellow); pH Urine 6.5 (5-7)
[2024-03-11 23:56] LABS: Add Urine Microscopic? YES; Bacteria Urine None Seen /hpf; Hyaline Casts Urine 2.05 /lpf; Squamous Epithelial Cell Urine 0-5 /hpf (0-5); WBC Urine 0-5 /hpf (0-5)
[2024-03-12 00:10] LABS: Covid PCR NEGATIVE (Negative); Influenza A NEGATIVE (Negative); Influenza B NEGATIVE (Negative); Respiratory Syncytial Virus Ce NEGATIVE (Negative)
[2024-03-12 00:30] VITALS: BP 174/97; PULSE 74; RESP 16; O2SAT 93
--- NOTE | 2024-03-12 02:02 | PC.NURSE ---
hotline report made, Pt stated she did not have food or assistance from family with pt care. Pt hair was matted to her head. Pt had maggots, flies and fowl odor from not bathing.
== END 2024-03-12 02:03 | disposition home or self-care (01) ==
PROVIDERS: Emergency Provider Emergency Medicine; PCP Family Medicine
DX: R06.02 Shortness of breath (principal); E10.65 Type 1 diabetes mellitus with hyperglycemia; Z91.148 Patient's other noncompliance with medication regimen for other reason; Z11.52 Encounter for screening for COVID-19; F17.210 Nicotine dependence, cigarettes, uncomplicated
CPT/HCPCS: 0241U; 36415; 36416; 71045; 80048; 81001; 82009; 82962; 83735; 83880; 85025; 93005; 96374; 99285; J1815; J7030

== ENCOUNTER 2024-05-01 20:28 | Inpatient (IN) | payer MEDICARE, MEDICAID, SELFPAY ==
[2024-05-01 20:30] VITALS: BP 125/85; PULSE 93; RESP 14; TEMP 36.6; O2SAT 95; BMI 20.1
--- NOTE | 2024-05-01 20:36 | XRR_ITS ---
PROCEDURE INFORMATION: Exam: XR Chest Exam date and time: 05/01/2024 8:52 PM Age: 59 years old Clinical indication: Patient HX: AMS; Cough TECHNIQUE: Imaging protocol: Radiologic exam of the chest. Views: 1 view. COMPARISON: CR XR chest 1V portable [id number] 03/11/2024 9:49 PM FINDINGS: Lungs: Left lower lobe atelectasis versus minimal infiltrate. Pleural spaces: Unremarkable. No pleural effusion. No pneumothorax. Heart/Mediastinum: Unremarkable. No cardiomegaly. Bones/joints: Unremarkable. XR/XR chest 1V portable [id number] IMPRESSION: Left lower lobe atelectasis versus minimal infiltrate.
--- NOTE | 2024-05-01 20:36 | CTR_ITS ---
PROCEDURE INFORMATION: Exam: CT Head Without Contrast Exam date and time: 05/01/2024 9:00 PM Age: 59 years old Clinical indication: Altered mental status/memory loss; Patient HX: General weakness with confusion; Additional info: AMS TECHNIQUE: Imaging protocol: Computed tomography of the head without contrast. Radiation optimization: All CT scans at this facility use at least one of these dose optimization techniques: automated exposure control; mA and/or kV adjustment per patient size (includes targeted exams where dose is matched to clinical indication); or iterative reconstruction. COMPARISON: CT head wo con* [id number] 05/28/2022 3:06 PM RADIATION DOSE METRICS: Total DLP (mGy-cm): 844.08 FINDINGS: Brain: Moderate diffuse white matter disease likely reflecting chronic microvascular ischemic changes. Cerebral ventricles: No ventriculomegaly. Paranasal sinuses: Visualized sinuses are unremarkable. No fluid levels. Mastoid air cells: Visualized mastoid air cells are well aerated. Bones: Unremarkable. No acute fracture. Soft tissues: Unremarkable. CT/CT head wo con* [id number] IMPRESSION: Negative for intracranial hemorrhage or mass effect.
[2024-05-01 20:45] LABS: Basophils # 0.1 10^3/uL (0.0-0.1); Basophils % 0.4 %; Eosinophils % 0.1 %; Hematocrit 45.2 % (36-47); Lymphocytes % 16.8 %; Mean Corpuscular HGB Conc 34.1 g/dL (30-55); Mean Corpuscular Hemoglobin 29.9 pg (27-33); Mean Corpuscular Volume 87.8 fl (85-98); Mean Platelet Volume 10.8 fL (7.4-10.4); Monocytes # 0.4 10^3/uL (0.2-0.9); Monocytes % 3.8 %; Neutrophils # 9.16 10^3/uL (1.8-7.7); Neutrophils % 78.6 %; Nucleated Red Blood Cells % 0 %; Platelet Count 431 10^3/cmm (157-399); Red Blood Count 5.15 10^6/uL (3.85-5.65); White Blood Count 11.65 10^3/uL (3.29-11.43)
[2024-05-01 20:52] LABS: INR 0.93 (0.8-1.2)
[2024-05-01 20:53] LABS: Partial Thromboplastin Time 30.6 SECONDS (23.9-36.7)
[2024-05-01 20:56] LABS: ABG PH Result 7.37 (7.35-7.45); Arterial Blood Gas Hematocrit 45.4 % (37-47); Base Excess ABG -1.2 mmol/L (-2.0-2.0); Blood Gas Operator Identificat SAM; Blood Gas Sample Site Brachial, right; Blood Gas Sample Type Arterial; Carboxyhemoglobin 1.9 %THgb (0.4-20.1); HCO3 ABG 24.2 mmol/L (22-26); HGB O2 Sat 94.1 % (95-100); Methemoglobin 0.3 % (0.4-1.5); PO2 ABG 79.8 mmHg (80.0-100.0); PO2 FiO2 Ratio Arterial Blood 380; Total Hemoglobin 14.8 g/dL (12-16)
[2024-05-01 20:59] LABS: Lactic Sepsis W/Reflex 2.8 mmol/L (0.5-2.2)
[2024-05-01 21:04] LABS: Ammonia 21 umol/L (11-51)
--- NOTE | 2024-05-01 21:05 | ED_ITS ---
HPI - Altered Mental Status 2 General: Chief Complaint: Altered Mental Status Stated Complaint: weakness and ams Time Seen by Provider: 05/01/24 20:30 History of Present Illness: 59-year-old female presenting with alter ed mental status of unknown duration. She has generalized weakness as well. Apparently she lives with 1 family member, but her son came to get her this afternoon and noticed that she was generally weak, and altered. She is answering some questions appropriately, simple ones, but is not completely oriented. She has no focal weakness, no history of head trauma. Patient herself is a poor historian. No fever present. Patient notes she has been short of breath and has had a cough. Related Data Home Medications Medication Instructions Recorded Confirmed metformin 500 mg tablet 500 mg PO DAILY 05/01/24 05/01/24 Allergies Allergy/AdvReac Type Severity Reaction Status Date / Time No Known Allergies Allergy Verified 05/01/24 20:40 [facility] ED 2 PFSH: Medical History Common bile duct calculi Acute cholecystitis MRSA bacteremia Septic pulmonary embolism Gram positive sepsis Chest pain Dehydration Insulin dependent type 2 diabetes mellitus Pneumonia Altered mental status DKA (diabetic ketoacidosis) Diabetes Surgical History No pertinent past surgical history Family History Mother Cancer Father CAD (coronary artery disease) Social History Smoking and tobacco/nicotine status: current every day tobacco/nicotine user cigarettes Packs smoked per day: 1 Alcohol intake: current Alcohol intake frequency: few times a month Substance/Drug Use: never Physical Exam 2 Const: EXAM LIMITATIONS: altered mental status GENERAL APPEARANCE: c ooperative, disheveled (Mildly) and frail appearing NUTRITIONAL APPEARANCE: t hin ORIENTATION/CONSCIOUSNESS: Yes awake and Yes oriented to person; not oriented to place and not oriented to time HENMT: COMMON NORMALS: normocephalic, atraumatic and Normal external nose present HEAD & SCALP: normocephalic and atraumatic FACE & SINUS: face symmetric NOSE: Normal external nose present and Normal nares present Eye: COMMON NORMALS: Equal, round and reactive pupils present and EOMs intact bilaterally PUPIL: Yes Equal, round and reactive pupils present Neck/C-Spine: GENERAL: Yes trachea midline Resp: COMMON NORMALS: normal respiratory effort, No use of accessory muscles and clear to auscultation bilaterally AUSCULTATION: clear to auscultation bilaterally Cardio: COMMON NORMALS: regular rate and regular rhythm RATE: regular rate RHYTHM: regular rhythm GI: COMMON NORMALS: Normal to inspection, nondistended, normoactive bowel sounds present and non-tender Extremity: COMMON NORMALS: no pedal edema Neuro: [place] COMA SCALE: document GCS findings [place] coma scale eye opening: Spontaneous [place] coma scale verbal response: Confused [place] coma scale motor response: Obey commands [place] coma scale total score: 14 S ENSORIUM/ORIENTATION: Yes oriented to person, No oriented to place and No oriented to time Skin: COMMON NORMALS: no rashes or lesions noted and no wounds GENERAL SKIN EXAM: no rashes or lesions noted Course 2 Vital Signs: Vital signs: Vital Signs Temperature 97.8 F 05/01/24 20:30 Pulse Rate 86 05/01/24 22:56 Respiratory Rate 19 H 05/01/24 22:56 Blood Pressure 160/98 05/01/24 22:56 Pulse Oximetry 95 05/01/24 22:56 Oxygen Delivery Me thod Room Air 05/01/24 23:21 MDM - Altered Mental Status Medical Decision Making Patient with a significant history, including diabetes COPD, and MRSA sepsis in the past. She is afebrile here. Lactic acid is mildly elevated. Her hemoglobin is 15, white blood cell count of 11.3. Other laboratories pending. Potassium is 2.5 and is repleted. She has received a sepsis bolus as well. Chest x-ray shows left lower lobe atelectasis versus minimal infiltrate. She is receiving Levaquin after blood cultures. Head CT is negative. She will be admitted for hyponatremia, hypokalemia, lactic acidosis, and altered mental status. Hospitalist will see the patient Lab Data 05/01/24 20:07 05/01/24 20:07 Radiology Impressions Chest X-Ray 05/01/24 20:36 IMPRESSION: Left lower lobe atelectasis versus minimal infiltrate. Head CT 05/01/24 20:36 IMPRESSION: Negative for intracranial hemorrhage or mass effect. Laboratory Results WBC 11.65 10^3/uL (3.29-11.43) H 05/01/24 20:07 RBC 5.15 10^6/uL (3.85-5.65) 05/01/24 20:07 Hgb 15.40 g/dL (11.27-16.99) 05/01/24 20:07 Hct 45.2 % (36-47) 05/01/24 20:07 MCV 87.8 fl (85-98) 05/01/24 20:07 MCH 29.9 pg (27-33) 05/01/24 20:07 MCHC 34.1 g/dL (30-55) 05/01/24 20:07 RDW 12.0 % (12.1-15.1) L 05/01/24 20:07 Plt Count 431 10^3/cmm (157-399) H 05/01/24 20:07 MPV 10.8 fL (7.4-10.4) H 05/01/24 20:07 Neut % (Auto) 78.6 % 05/01/24 20:07 Lymph % (Auto) 16.8 % 05/01/24 20:07 [place] % (Auto) 3.8 % 05/01/24 20:07 Eos % (Auto) 0.1 % 05/01/24 20:07 Baso % (Auto) 0.4 % 05/01/24 20:07 Neut # (Auto) 9.16 10^3/uL (1.8-7.7) H 05/01/24 20:07 Lymph # (Auto) 2.0 10^3/uL (0.8-4.8) 05/01/24 20:07 [place] # (Auto) 0.4 10^3/uL (0.2-0.9) 05/01/24 20:07 Eos # (Auto) 0.0 10^3/uL (0.0-0.8) 05/01/24 20:07 Baso # (Auto) 0.1 10^3/uL (0.0-0.1) 05/01/24 20:07 Nucleated RBC % (auto) 0 % 05/01/24 20:07 Nucleated RBCs # 0.0 /100WBC 05/01/24 20:07 PT 12.80 SECONDS (12.1-14.9) 05/01/24 20:07 INR 0.93 (0.8-1.2) 05/01/24 20:07 APTT 30.6 SECONDS (23.9-36.7) 05/01/24 20:07 Specimen Type Arterial 05/01/24 20:44 Sample Site Brachial, right 05/01/24 20:44 ABG pH 7.37 (7.35-7.45) 05/01/24 20:44 ABG pCO2 42.0 mmHg (35-45) 05/01/24 20:44 ABG pO2 79.8 mmHg (80.0-100.0) L 05/01/24 20:44 ABG PO2/FiO2 Ratio 380 05/01/24 20:44 ABG HCO3 24.2 mmol/L (22-26) 05/01/24 20:44 ABG Base Excess -1.2 mmol/L (-2.0-2.0) 05/01/24 20:44 Awais Test N/a 05/01/24 20:44 Hematocrit 45.4 % (37-47) 05/01/24 20:44 Hgb O2 Saturation 94.1 % (95-100) L 05/01/24 20:44 Carboxyhemoglobin 1.9 %THgb (0.4-20.1) 05/01/24 20:44 Methemoglobin 0.3 % (0.4-1.5) L 05/01/24 20:44 Total Hemoglobin 14.8 g/dL (12-16) 05/01/24 20:44 O2 Delivery Device None 05/01/24 20:44 FiO2 21.0 % 05/01/24 20:44 Predictive Maintenance Technician ID Baljinder 05/01/24 20:44 Sodium 151 mmol/L (136-145) H 05/01/24 20:07 Potassium 2.5 mmol/L (3.5-5.1) L* 05/01/24 20:07 Chloride 102 mmol/L (98-107) 05/01/24 20:07 Carbon Dioxide 26 mmol/L (22-29) 05/01/24 20:07 Anion Gap 25.5 (5-19) H 05/01/24 20:07 BUN 23 mg/dL (8-23) 05/01/24 20:07 Creatinine 0.9 mg/dL (0.5-0.9) 05/01/24 20:07 GFR Calculation 63.9 mL/min (90-130) L 05/01/24 20:07 Glucose 98 mg/dL (65-115) 05/01/24 20:07 Calculated Osmolality 316 mOsm/kg (285-295) H 05/01/24 20:07 Lactic Acid 2.8 mmol/L (0.5-2.2) H 05/01/24 20:07 Lactic Acid (Sepsis) 1.1 mmol/L (0.5-2.2) 05/01/24 22:18 Calcium 8.9 mg/dL (8.5-10.5) 05/01/24 20:07 Total Bilirubin 0.4 mg/dL (0.15-1.2) 05/01/24 20:07 AST 25 U/L (0-32) 05/01/24 20:07 ALT 11 U/L (0-33) 05/01/24 20:07 Alkaline Phosphatase 115 U/L (35-105) H 05/01/24 20:07 Ammonia 21 umol/L (11-51) 05/01/24 20:07 Creatine Kinase 356 U/L (26-192) H* 05/01/24 20:07 C-Reactive Protein 10.9 mg/L (0.0-4.9) H 05/01/24 20:07 NT-Pro-B Natriuret Pep 432 pg/mL (0-125) H 05/01/24 20:07 Total Protein 6.6 g/dL (6.6-8.7) 05/01/24 20:07 Albumin 3.6 g/dL (3.5-5.2) 05/01/24 20:07 Globulin 3.0 g/dL (1.3-4.6) 05/01/24 20:07 Urine Color Hazel (Yellow) A 05/01/24 21:21 Urine Appearance Clear (CLEAR) 05/01/24 21:21 Urine pH 5.5 (5-7) 05/01/24 21:21 Ur Specific Pillager 1.027 (1.005-1.030) 05/01/24 21:21 Urine Protein 3+ (Negative) A 05/01/24 21:21 Urine Glucose (UA) Trace (Normal) H 05/01/24 21:21 Urine Ketones 2+ (Negative) H 05/01/24 21:21 Urine Blood 1+ (Negative) A 05/01/24 21:21 Urine Nitrate Negative (Negative) 05/01/24 21:21 Urine Bilirubin 2+ (Negative) H 05/01/24 21:21 Urine Urobilinogen 1.0 mg/dL (Negative) 05/01/24 21:21 Ur Leukocyte Esterase Negative (Negative) 05/01/24 21:21 Urine RBC 6-10 /hpf (0-2) 05/01/24 21:21 Urine WBC 0-5 /hpf (0-5) 05/01/24 21:21 Ur Squamous Epith Cells 0-5 /hpf (0-5) 05/01/24 21:21 Amorphous Sediment Not Reportable 05/01/24 21:21 Urine Bacteria None seen /hpf (NONE) 05/01/24 21:21 Hyaline Casts 17.77 /lpf 05/01/24 21:21 Urine Mucus Trace /hpf 05/01/24 21:21 Urine Opiates Screen Negative ng/mL (Negative) 05/01/24 21:21 Ur Barbiturates Screen Negative ng/mL (Negative) 05/01/24 21:21 Ur Phencyclidine Scrn Negative ng/mL (Negative) 05/01/24 21:21 Ur Amphetamines Screen Negative ng/mL (Negative) 05/01/24 21:21 U Benzodiazepines Scrn Negative ng/mL (Negative) 05/01/24 21:21 Urine Cocaine Screen Negative ng/mL (Negative) 05/01/24 21:21 U Marijuana (THC) Screen Negative ng/mL (Negative) 05/01/24 21:21 Ethyl Alcohol < 10 mg/dL (0-10) 05/01/24 20:07 Adenovirus (PCR) Not detected (NOT DETECT) 05/01/24 22:13 C. pneumoniae DNA (PCR) Not detected (NOT DETECT) 05/01/24 22:13 Coronavirus 229E (PCR) Not detected (NOT DETECT) 05/01/24 22:13 Human Metapneumovir PCR Not detected (NOT DETECT) 05/01/24 22:13 Influenza A (H1) PCR Not detected (NOT DETECT) 05/01/24 22:13 Influ A (H1/09) PCR Not detected (NOT DETECT) 05/01/24 22:13 Influenza A (H3) PCR Not detected (NOT DETECT) 05/01/24 22:13 Influenza Type A (PCR) Not detected (NOT DETECT) 05/01/24 22:13 Influenza Type B (PCR) Not detected (NOT DETECT) 05/01/24 22:13 M. pneumoniae (PCR) Not detected (NOT DETECT) 05/01/24 22:13 Parainfluenza 1 (PCR) Not detected (NOT DETECT) 05/01/24 22:13 Parainfluenza 2 (PCR) Not detected (NOT DETECT) 05/01/24 22:13 Parainfluenza 3 (PCR) Not detected (NOT DETECT) 05/01/24 22:13 Parainfluenza 4 (PCR) Not detected (NOT DETECT) 05/01/24 22:13 RSV Type A (PCR) Not detected (NOT DETECT) 05/01/24 22:13 RSV Type B (PCR) Not detected (NOT DETECT) 05/01/24 22:13 Entero/Rhino (PCR) Not detected (NOT DETECT) 05/01/24 22:13 SARS-CoV-2 (PCR) Not detected (NOT DETECT) 05/01/24 22:13 All radiology interpretation(s) finalized by discharge Discharge Plan Discharge Patient Disposition: Admitted As Inpatient Admit Provider: Shanthi Montgomery Clinical Impression: Altered mental status, Acute hypernatremia, Acute hypokalemia, Acidosis, lactic Condition: Stable Coding Level of Care Code ED Brass Reclaimer for Eric Jama
[2024-05-01 21:09] LABS: Alanine Aminotransferase 11 U/L (0-33); Albumin Level 3.6 g/dL (3.5-5.2); Alkaline Phosphatase 115 U/L (35-105); Anion Gap 25.5 (5-19); Aspartate Amino Transferase 25 U/L (0-32); Blood Urea Nitrogen 23 mg/dL (8-23); C Reactive Protein 10.9 mg/L (0.0-4.9); Calcium 8.9 mg/dL (8.5-10.5); Carbon Dioxide 26 mmol/L (22-29); Chloride 102 mmol/L (98-107); Glomerular Filtration Rate 63.9 mL/min (90-130); Glucose 98 mg/dL (65-115); NT Pro B Type Natriuretic Pept 432 pg/mL (0-125); Osmolality Calculated 316 mOsm/kg (285-295); Sodium 151 mmol/L (136-145); Total Bilirubin 0.4 mg/dL (0.15-1.2); Total Protein 6.6 g/dL (6.6-8.7)
[2024-05-01 21:15] LABS: Alcohol Level < 10 mg/dL (0-10); Creatine Phosphokinase 356 U/L (26-192); Potassium 2.5 mmol/L (3.5-5.1)
[2024-05-01 21:18] LABS: Reflex Lactate Order REFLEX LACTIC ORDERD
[2024-05-01 21:34] LABS: Bilirubin Urine 2+ (Negative); Blood Urine 1+ (Negative); Glucose Urine UA Trace (Normal); Ketones Urine 2+ (Negative); Leukocyte Esterase Urine Negative (Negative); Nitrate Urine Negative (Negative); Protein Urine 3+ (Negative); Specific Gravity, Urine 1.027 (1.005-1.030); Urine Appearance Clear (CLEAR); pH Urine 5.5 (5-7)
[2024-05-01 21:38] LABS: Add Urine Microscopic? YES; Bacteria Urine None Seen /hpf; Hyaline Casts Urine 17.77 /lpf; Squamous Epithelial Cell Urine 0-5 /hpf (0-5); Universal Test for UA Present (0); WBC Urine 0-5 /hpf (0-5)
[2024-05-01 21:42] LABS: Amphetamines Screen Urine Negative (Negative); Barbiturates Screen Urine Negative (Negative); Benzodiazepines Screen Urine Negative (Negative); Cocaine Screen Urine Negative (Negative); Opiate Screen Urine Negative (Negative); PCP Screen Urine Negative (Negative); THC Screen Urine Negative (Negative)
[2024-05-01] MEDS: sodium chloride 0.9% 1,496.85 ML 1496.85 ML IV (21:43)
[2024-05-01] MEDS: potassium chloride oral liq 20 mEq/15 mL UDC 40 MEQ PO (21:43)
[2024-05-01 21:44] VITALS: BP 115/79; PULSE 80; RESP 14; O2SAT 97
[2024-05-01 21:53] LABS: Add Urine Culture? No; Mucus Urine TRACE /hpf; Urine Color Orange (Yellow)
[2024-05-01] MEDS: lidocaine 1% 5 ML in potassium chloride premix 100 ML 52.5 ML IV (22:03)
[2024-05-01 22:44] LABS: Lactic Acid level (Lactate) 1.1 mmol/L (0.5-2.2)
[2024-05-01 22:56] VITALS: BP 160/98; PULSE 86; RESP 19; O2SAT 95
[2024-05-01] MEDS: levofloxacin-dextrose 5 % 750 MG/150 ML PREMIX 100 MG IV (23:02)
[2024-05-01 23:21] VITALS: BMI 20.1
--- NOTE | 2024-05-01 23:52 | PC.NURSE ---
Addendum entered by Marisela Bearden RN 05/02/24 00:31: Online Hotline report made by this nurse at [id number]. Original Note: Patient received by this nurse from emergency department. Patient is visibly soiled, with strong odor, hair is balled up and matted on top of patients head. During my assessment, patient had a medium sized stool, dried to the inside of her shirt. Patient is not oriented at this time, but could tell me that she was a diabetic. Patient did express she did not feel like she had a steady place to live. Nails have visible, thick layers of dirt underneath. Skin looks well, considering. This nurse did note some red dots scattered across the buttocks bilaterally. Patient was cleaned up by this nurse and DIONI Hussein, and placed in a gown. Charge nurse notified of admission assessment.
[2024-05-02] VITALS (7 sets, daily range): BP systolic 145–172; BP diastolic 77–88; PULSE 72–85; RESP 15–19; TEMP 36.4–36.8; O2SAT 95–96
--- NOTE | 2024-05-02 00:38 | PC.NURSE ---
Unable to complete most of admission assessment. Son at bedside does not know answers to most of the questions.
[2024-05-02 00:43] LABS: Adenovirus Not Detected (NOT DETECT); Chlamydia Pneumoniae Not Detected (NOT DETECT); Coronavirus 229E,HKU1,NL63,OC4 Not Detected (NOT DETECT); Human Metapneumovirus Not Detected (NOT DETECT); Human Rhinovirus/Enterovirus Not Detected (NOT DETECT); Influenza A Not Detected (NOT DETECT); Influenza A H1 Not Detected (NOT DETECT); Influenza A H1-2009 Not Detected (NOT DETECT); Influenza A H3 Not Detected (NOT DETECT); Influenza B Not Detected (NOT DETECT); Mycoplasma Pneumoniae Not Detected (NOT DETECT); Parainfluenza Virus Type 1 Not Detected (NOT DETECT); Parainfluenza Virus Type 2 Not Detected (NOT DETECT); Parainfluenza Virus Type 3 Not Detected (NOT DETECT); Parainfluenza Virus Type 4 Not Detected (NOT DETECT); Respiratory Syncytial Virus A Not Detected (NOT DETECT); Respiratory Syncytial Virus B Not Detected (NOT DETECT); SARS-COV-2 Not Detected (NOT DETECT)
--- NOTE | 2024-05-02 01:15 | P.HP_ITS ---
Providers/Chief Complaint 2 Admitting Physician: Shanthi Montgomery MD Primary Care Provider: Leonard Perez MD Chief Complaint: weakness and ams History of Present Illness Skyla Lozano is a 59 year old female with h/o DM on metformin only, h/o MRSA bacteremia in 2020 thought to be related to pneumonia vs UTI (treated with 2 weeks iv vancomycin). KT and lumbar spine imaging was negative at that time. Patient limited history is available at this time. Patient has been brought into the emergency room by family due to complaints of confusion. Her son went in to check in on her today and found her to be lying outside on the porch. She is unable to provide much history but on asking specifically states that she has been experiencing fever for the past 3 to 4 days. She says no to questions regarding pain, dysuria, cough, abdominal pain, diarrhea, vomiting or nausea. She is correctly able to tell me her name, age and date of , however keeps repeating answers to these questions multiple times. She is disoriented as to her whereabouts. Unable to ascertain her baseline mentation right now. In reviewing notes from 2021 when patient was admitted for MRSA bacteremia, it appears she was confused even on that admission. Uncertain if she ever recovered her baseline since that time. CT of the head performed today is without any acute stroke. Review of Systems 2 General: Reports: ROS unobtainable due to medical condition and ROS unobtainable due to mental status Medications/Allergies Home Medications Medication Instructions Recorded Confirmed Last Taken Type metformin 500 mg tablet 500 mg PO DAILY 05/01/24 05/01/24 Unknown History Allergies Allergy/AdvReac Type Severity Reaction Status Date / Time No Known Allergies Allergy Verified 05/01/24 20:40 PFSH Acute 2 PFSH: Medical History Common bile duct calculi Acute cholecystitis MRSA bacteremia Septic pulmonary embolism Gram positive sepsis Chest pain Dehydration Insulin dependent type 2 diabetes mellitus Pneumonia Altered mental status DKA (diabetic ketoacidosis) Diabetes Surgical History No pertinent past surgical history Family History Mother Cancer Father CAD (coronary artery disease) Social History Smoking and tobacco/nicotine status: current every day tobacco/nicotine user cigarettes Packs smoked per day: 1 Alcohol intake: current Alcohol intake frequency: few times a month Substance/Drug Use: never Vitals/I&O/Wt Last Vital Signs Temp 97.8 F 05/01/24 20:30 Pulse 86 05/01/24 22:56 Resp 19 H 05/01/24 22:56 BP 160/98 05/01/24 22:56 Pulse Ox 95 05/01/24 22:56 O2 Del Method Room Air 05/01/24 23:21 05/01/24 05/01/24 05/02/24 14:59 22:59 06:59 Intake Total 1751.85 / 1751.85 Balance 1751.85 / 1751.85 Weight last 48 hrs Weight 49.895 kg Weight 49.895 kg Physical Exam 2 Narrative: General: No acute distress, AO x2 HEENT: PERRLA, pupils bilaterally equal and reactive, pallors not present Chest: Normal vesicular breath sounds, no added sounds, equal good air entry bilaterally CVS: S1-S2 regular, no murmurs, no tachycardia, no gallops, no rubs Abdomen: Soft, nontender, no organomegaly, bowel sounds present Neuro: No focal deficits, no facial deformity, AO x2, power 5/5 in all limbs Data 05/01/24 20:07 05/01/24 20:07 Micro: Microbiology 05/01/24 22:16 Blood Culture - Preliminary Blood SPECIMEN COLLECTED 05/01/24 22:18 Blood Culture - Preliminary Blood SPECIMEN COLLECTED A&P Assessment and plan (1) Altered mental status: Patient brought in today with altered mental status, being found on her porch. Detailed history is not available at this time unfortunately. Patient unable to specify her symptoms except to say that she has been experiencing fever over the last 4 to 5 days. Denies any other localizing symptoms. Labs notable for hypernatremia 151, hypokalemia, normal kidney and liver function. Chronic mild elevation of alkaline phosphatase. Ammonia within normal limits Check TSH Abdominal exam is benign, no tenderness. Chest is clear to auscultation. Chest x-ray without any infiltrates Ua ngetiave for nitare or leukocyte esterase. No gross focal motor deficits on exam. Patient appearing to be encephalopathic. Another possibility may be that of underlying dementia. Family is not currently available to provide more history. Will attempt to reach out in the morning to get a sense of her baseline mental status. In reviewing notes from 2020, it appears patient is noncompliant with diabetes treatment, she was meant to be on insulin but could not afford the medication. At that time she was noted to be confused and disoriented. She had DKA at that time. She was found to have MRSA bacteremia with septic emboli and UTI all of which were treated as above with 2 weeks of IV vancomycin. There was possibility of acute cholecystitis for which she was treated with Zosyn and vancomycin. Potentially may have subacute MRSA bacteremia. Blood cultures taken in the emergency room No current fever, no meningeal signs. Defer LP for now given low suspicion for meningitis at this time check RPR, hep screen. Unable to consent for hiv testing, therefore deferred, previously negative Start empiric treatment with IV ceftriaxone and IV vancomycin while pending results of the blood culture (2) Acute hypernatremia: na at 151, she has received IVF bolus in the ER, repeat NA with am labs, further need for iv fluids will be decided based on repeat Na and K. (3) Acute hypokalemia: supplemented in the ED (4) Rhabdomyolysis: mild Ck at 356, likely from laying on the porch Plan dvt ppx: lovenox 40 Attestations 2 Medical Necessity Statement*: > 2 midnight admission anticipated for evaluation of AMS, await blood cx Coding Level of Care Code Acute Code for Chg Fwd Moderate MDM includes number and complexity of problems actively addressed during encounter, amount and/or complexity of data reviewed/ordered and described risk of complication, morbidity or mortality of management as documented Diagnoses Altered mental status R41.82 Acute hypernatremia E87.0 Acute hypokalemia E87.6 Rhabdomyolysis M62.82
--- NOTE | 2024-05-02 01:49 | PC.NURSE ---
This nurse was informed by another nurse that patient's IV pump was alarming and patient was upset. Said nurse stated that patient's son at bedside told his mother shut the fuck up. Love you, bye and left the room. supervisor wash house was notified.
[2024-05-02 02:05] LABS: Estmated Average Glucose 160; Hemoglobin A1C 7.2 % (4.0-6.0)
[2024-05-02 02:12] LABS: Thyroid Stimulating Hormone 1.49 uIU/mL (0.27-4.20)
[2024-05-02] MEDS: cefTRIAXone 1,000 mg SDV 1000 MG IVP (02:22)
[2024-05-02] MEDS: enoxaparin 40 mg/0.4 mL Syringe SUBCUT (07:16)
[2024-05-02] MEDS: hyDRALAzine 20 mg/mL INJ 1 mL 5 MG IVP (07:17)
[2024-05-02] MEDS: VANCOMYCIN ADD-Vantage 1,000 MG in 0.9% NaCl ADD-Vantage 250 ML 250 MG IV (07:17)
[2024-05-02 07:28] LABS: Alanine Aminotransferase 10 U/L (0-33); Albumin Level 2.9 g/dL (3.5-5.2); Alkaline Phosphatase 86 U/L (35-105); Anion Gap 18.3 (5-19); Aspartate Amino Transferase 25 U/L (0-32); Blood Urea Nitrogen 18 mg/dL (8-23); Calcium 7.9 mg/dL (8.5-10.5); Carbon Dioxide 23 mmol/L (22-29); Chloride 111 mmol/L (98-107); Creatinine Clr Calc Pharmacy 65.0366; Globulin 2.2 g/dL (1.3-4.6); Glomerular Filtration Rate 85.4 mL/min (90-130); Glucose 57 mg/dL (65-115); Osmolality Calculated 308 mOsm/kg (285-295); Potassium 3.3 mmol/L (3.5-5.1); Sodium 149 mmol/L (136-145); Total Bilirubin 0.3 mg/dL (0.15-1.2); Total Protein 5.1 g/dL (6.6-8.7)
[2024-05-02 08:16] LABS: Glucose Point of Care 59 mg/dL (70-110)
--- NOTE | 2024-05-02 08:17 | W.PM.EVENTAC ---
Event Note Event Note: Physical reviewed. Patient visited. Admitted early this morning, with acute encephalopathy, hypernatremia, hypokalemia. Past history of MRSA bacteremia, and concern of pneumonia on this presentation. Continue Rocephin, vancomycin, close follow-up of electrolytes, monitoring CK, continued fluids as patient has mild rhabdo, sodium still elevated.
[2024-05-02] MEDS: pantoprazole DR 40 mg Tablet PO (08:26)
[2024-05-02] MEDS: sodium chlor 0.45% +KCl 20 mEq 20 MEQ/1,000 ML BAG 75 MEQ IV (08:28)
--- NOTE | 2024-05-02 09:26 | PHA.VACGOAL ---
Vancomycin Goal - Goal Vancomycin Goal:: 15-20 mg/L Vancomycin Indication:: Other (POSSIBLE PNUEMONIA, HX OF MRSA BACTEREMIA) - Therapy Current therapy:: Other Antibiotic (ROCEPHIN) Day of therpy:: Day []of [] . Actual body weight (kg): 100 lb - Data Labs: WBC 11.65 10^3/uL (3.29-11.43) H 05/01/24 20:07 RBC 5.15 10^6/uL (3.85-5.65) 05/01/24 20:07 Hgb 15.40 g/dL (11.27-16.99) 05/01/24 20:07 Hct 45.2 % (36-47) 05/01/24 20:07 MCV 87.8 fl (85-98) 05/01/24 20:07 MCH 29.9 pg (27-33) 05/01/24 20:07 MCHC 34.1 g/dL (30-55) 05/01/24 20:07 RDW 12.0 % (12.1-15.1) L 05/01/24 20:07 Sodium 149 mmol/L (136-145) H 05/02/24 07:05 Potassium 3.3 mmol/L (3.5-5.1) L 05/02/24 07:05 Chloride 111 mmol/L (98-107) H 05/02/24 07:05 Carbon Dioxide 23 mmol/L (22-29) 05/02/24 07:05 Anion Gap 18.3 (5-19) 05/02/24 07:05 BUN 18 mg/dL (8-23) 05/02/24 07:05 Creatinine 0.7 mg/dL (0.5-0.9) 05/02/24 07:05 GFR Calculation 85.4 mL/min (90-130) L 05/02/24 07:05 Treatment plan:: new consult Regimen:: LOAD WITH 1000 MG AND GIVE 500 MG Q12H; MONITOR DAILY
--- NOTE | 2024-05-02 10:14 | PC.CHAP ---
Pastoral Care Encounter/Spiritual Assessment Type of Contact [] Declined juvenile counselor visit [] Patient/Family/Request visit [] Outpatient visit [] Follow-up visit [] Physician referral [] Code/Alert [x] Routine visit [] Staff referral [] Actively dying [x] Patient sleeping [] Family support [] [] Out of room [] Palliative care [] [] Receiving care in room [] Pre-surgical visit [] Trauma [] Long length of stay [] ICU visit [] Other: Relational/Emotional Strength [] Patient feels connected with others/family/visitors/staff [] Distress [] Loneliness/isolation [] Abandonment Spirituality of Patient [] Person of Adrienne [] Attends Oriental Orthodox of their Adrienne [] Believes in Prayer [] Reads Bible or Advent materials [] There are Spiritual issues to be addressed [employer] Supervisor Interventions [] Prayer [] Active listening [] Non-anxious presence [] Spiritual/emotional support [] Crisis/trauma care [] Spiritual counseling [] Bereavement support [] Provided bereavement packet [] Provided Bible/devotional materials [] Provided toy/stuffed animal, coloring book to patient or family member [] Provided Communion [] Anointing/[place] [] Salvation [] Completed spiritual assessment [] Other: Impact on Illness or Injury [] Angry [] Fearful [] Anxious [] Often cries [] Exhaustion [] Unable to work [] Unable to attend yarsanism [] Unable to walk/stand [] Unable to read [] Unable to drive [] Unable to eat/drink [] Unable to sleep [] Unable to be with family [] Patient intubated [] Other: Summary Time spent with patient
[2024-05-02 12:16] LABS: Glucose Point of Care 90 mg/dL (70-110)
[2024-05-02 16:27] LABS: Glucose Point of Care 99 mg/dL (70-110)
[2024-05-02] MEDS: vancomycin 500 MG in sodium chloride 0.9% (plus) 100 ML 200 MG IV (18:33)
[2024-05-02 20:45] LABS: Glucose Point of Care 123 mg/dL (70-110)
[2024-05-03] VITALS (10 sets, daily range): BP systolic 135–188; BP diastolic 66–117; PULSE 65–83; RESP 15–18; TEMP 36.4–37.1; O2SAT 96
[2024-05-03] MEDS: hyDRALAzine 20 mg/mL INJ 1 mL 5 MG IVP (00:54)
[2024-05-03] MEDS: cefTRIAXone 1,000 mg SDV 1000 MG IVP (00:55)
[2024-05-03] MEDS: sodium chlor 0.45% +KCl 20 mEq 20 MEQ/1,000 ML BAG 75 MEQ IV (00:55)
[2024-05-03 06:23] LABS: Glucose Point of Care 77 mg/dL (70-110)
[2024-05-03 06:30] LABS: Basophils # 0.1 10^3/uL (0.0-0.1); Basophils % 0.6 %; Eosinophils # 0.1 10^3/uL (0.0-0.8); Eosinophils % 1.2 %; Hematocrit 37.8 % (36-47); Lymphocytes # 2.5 10^3/uL (0.8-4.8); Lymphocytes % 31.8 %; Mean Corpuscular HGB Conc 34.7 g/dL (30-55); Mean Corpuscular Hemoglobin 30.9 pg (27-33); Mean Corpuscular Volume 89.2 fl (85-98); Mean Platelet Volume 10.8 fL (7.4-10.4); Monocytes # 0.4 10^3/uL (0.2-0.9); Monocytes % 5.7 %; Neutrophils # 4.67 10^3/uL (1.8-7.7); Neutrophils % 60.3 %; Nucleated Red Blood Cells % 0 %; Platelet Count 289 10^3/cmm (157-399); Red Blood Count 4.24 10^6/uL (3.85-5.65); Red Cell Distribution Width 12.4 % (12.1-15.1); White Blood Count 7.74 10^3/uL (3.29-11.43)
[2024-05-03] MEDS: enoxaparin 40 mg/0.4 mL Syringe SUBCUT (06:43)
[2024-05-03] MEDS: vancomycin 500 MG in sodium chloride 0.9% (plus) 100 ML 200 MG IV ×2 (06:43→18:33)
[2024-05-03 06:55] LABS: Alanine Aminotransferase 8 U/L (0-33); Albumin Level 2.7 g/dL (3.5-5.2); Alkaline Phosphatase 81 U/L (35-105); Aspartate Amino Transferase 24 U/L (0-32); Blood Urea Nitrogen 10 mg/dL (8-23); Calcium 8.3 mg/dL (8.5-10.5); Carbon Dioxide 29 mmol/L (22-29); Chloride 106 mmol/L (98-107); Creatinine Clr Calc Pharmacy 78.3039; Globulin 2.4 g/dL (1.3-4.6); Glucose 60 mg/dL (65-115); Osmolality Calculated 293 mOsm/kg (285-295); Sodium 143 mmol/L (136-145); Total Bilirubin 0.3 mg/dL (0.15-1.2); Total Protein 5.1 g/dL (6.6-8.7)
[2024-05-03 06:58] LABS: Magnesium 1.6 mg/dL (1.7-2.3)
[2024-05-03 07:10] LABS: Creatine Phosphokinase 418 U/L (26-192)
[2024-05-03 07:11] LABS: Hepatitis A Antibody IgM Non-Reactive (Nonreactive); Hepatitis B Core AB, Total Non-Reactive (Nonreactive); Hepatitis B Surface AB < 3.5 (11.5-1000); Hepatitis B Surface Antigen Non-Reactive (Nonreactive); Hepatitis C Virus Antibody Non-Reactive (Nonreactive)
[2024-05-03 08:06] LABS: Rapid Plasma Reagin Syphilis Nonreactive (Nonreactive)
--- NOTE | 2024-05-03 08:49 | PM.PN ---
Subjective Subjective: Skyla reports she is okay. She seems more alert. She is amenable to skilled care. Medications: Reviewed: Yes Vitals/I&O/Wt Last Vital Signs Temp 97.7 F 05/03/24 07:56 Pulse 81 05/03/24 07:56 Resp 18 05/03/24 07:56 BP 147/75 05/03/24 07:56 Pulse Ox 96 05/03/24 07:56 O2 Del Method Room Air 05/03/24 07:56 05/02/24 05/03/24 05/03/24 22:59 06:59 14:59 Intake Total 1460 / 1710 Balance 1460 / 1710 Weight last 48 hrs Weight 49.215 kg Weight 45.359 kg Weight 49.895 kg Weight 49.895 kg Physical Exam Narrative: General Exam no distress Neck is supple Cardiovascular regular rate and rhythm Lungs clear but with diminished breath sounds bilaterally Abdomen is soft Extremities no cyanosis clubbing or edema Data 05/03/24 05:39 05/03/24 05:39 Other Labs: Cultures negative to date Micro: Microbiology 05/01/24 22:16 Blood Culture - Preliminary Blood NEGATIVE TO DATE 05/01/24 22:18 Blood Culture - Preliminary Blood NEGATIVE TO DATE A&P Assessment and plan (1) Altered mental status: Patient brought in today with altered mental status, being found on her porch. Detailed history is not available at this time unfortunately. Patient unable to specify her symptoms except to say that she has been experiencing fever over the last 4 to 5 days. In reviewing notes from 2020, it appears patient is noncompliant with diabetes treatment, she was meant to be on insulin but could not afford the medication. At that time she was noted to be confused and disoriented. She had DKA at that time. She was found to have MRSA bacteremia with septic emboli and UTI all of which were treated as above with 2 weeks of IV vancomycin. There was possibility of acute cholecystitis for which she was treated with Zosyn and vancomycin. Potentially may have subacute MRSA bacteremia. Blood cultures taken in the emergency room No current fever, no meningeal signs. Defer LP for now given low suspicion for meningitis at this time check RPR, hep screen. Unable to consent for hiv testing, therefore deferred, previously negative Presentation consistent with acute encephalopathy Cultures negative to date Currently on vancomycin and Rocephin (2) Acute hypernatremia: Sodium slowly improving. Can discontinue IV fluids after this bag. (3) Acute hypokalemia: Supplement again. Repeat lab tomorrow (4) Rhabdomyolysis: Slight increase. Continue fluids through this bag Plan Pneumonia left lower lobe. Continue Rocephin and vancomycin. Past history of MRSA. Hypomagnesemia, supplement dvt ppx: lovenox 40 Planning on correction facility placement. Attestations Medical Necessity Statement*: Needs continued hospitalization for IV antibiotics related to pneumonia Diagnoses Altered mental status R41.82 Acute hypernatremia E87.0 Acute hypokalemia E87.6 Rhabdomyolysis M62.82 Time Spent (min) 24
[2024-05-03] MEDS: potassium chloride oral liq 20 mEq/15 mL UDC 40 MEQ PO (09:34)
[2024-05-03] MEDS: pantoprazole DR 40 mg Tablet PO (09:34)
[2024-05-03] MEDS: magnesium sulfate premix 2 GM/50 ML PIGGYBACK IV (09:34)
--- NOTE | 2024-05-03 10:16 | PC.CHAP ---
Pastoral Care Encounter/Spiritual Assessment Type of Contact [] Declined plate inspector visit [] Patient/Family/Request visit [] Outpatient visit [] Follow-up visit [] Physician referral [] Code/Alert [] Routine visit [] Staff referral [] Actively dying [] Patient sleeping [] Family support [] [] Out of room [] Palliative care [] [x] Receiving care in room [] Pre-surgical visit [] Trauma [] Long length of stay [] ICU visit [] Other: Relational/Emotional Strength [] Patient feels connected with others/family/visitors/staff [] Distress [] Loneliness/isolation [] Abandonment Spirituality of Patient [] Person of Adrienne [] Attends Moravian of their Adrienne [] Believes in Prayer [] Reads Bible or Sabianism materials [] There are Spiritual issues to be addressed Assistant Superintendent For Curriculum Interventions [] Prayer [] Active listening [] Non-anxious presence [] Spiritual/emotional support [] Crisis/trauma care [] Spiritual counseling [] Bereavement support [] Provided bereavement packet [] Provided Bible/devotional materials [] Provided toy/stuffed animal, coloring book to patient or family member [] Provided Communion [] Anointing/[place] [] Salvation [] Completed spiritual assessment [] Other: Impact on Illness or Injury [] Angry [] Fearful [] Anxious [] Often cries [] Exhaustion [] Unable to work [] Unable to attend restoration [] Unable to walk/stand [] Unable to read [] Unable to drive [] Unable to eat/drink [] Unable to sleep [] Unable to be with family [] Patient intubated [] Other: Summary Time spent with patient
[2024-05-03 10:55] LABS: Glucose Point of Care 85 mg/dL (70-110)
[2024-05-03 16:56] LABS: Glucose Point of Care 116 mg/dL (70-110)
[2024-05-03 20:47] LABS: Glucose Point of Care 115 mg/dL (70-110)
[2024-05-04] VITALS: BP 178/80; PULSE 65; RESP 18; TEMP 36.6; O2SAT 93
[2024-05-04] MEDS: cefTRIAXone 1,000 mg SDV 1000 MG IVP (02:38)
[2024-05-04 04:00] VITALS: BP 159/81; PULSE 62; RESP 14; TEMP 37.1; O2SAT 96
[2024-05-04] MEDS: enoxaparin 40 mg/0.4 mL Syringe SUBCUT (05:44)
[2024-05-04 06:00] VITALS: PULSE 66
[2024-05-04 06:15] LABS: Basophils # 0.1 10^3/uL (0.0-0.1); Basophils % 1.1 %; Eosinophils # 0.1 10^3/uL (0.0-0.8); Eosinophils % 1.5 %; Hematocrit 38.7 % (36-47); Lymphocytes % 30.1 %; Mean Corpuscular HGB Conc 33.9 g/dL (30-55); Mean Corpuscular Hemoglobin 30.4 pg (27-33); Mean Corpuscular Volume 89.8 fl (85-98); Mean Platelet Volume 11.1 fL (7.4-10.4); Monocytes # 0.5 10^3/uL (0.2-0.9); Monocytes % 7.5 %; Neutrophils # 3.89 10^3/uL (1.8-7.7); Neutrophils % 59.5 %; Nucleated Red Blood Cells % 0 %; Platelet Count 193 10^3/cmm (157-399); Red Blood Count 4.31 10^6/uL (3.85-5.65); Red Cell Distribution Width 12.1 % (12.1-15.1); White Blood Count 6.54 10^3/uL (3.29-11.43)
[2024-05-04 06:29] LABS: Vancomycin Trough 10.2 ug/mL (10-15)
[2024-05-04 06:30] LABS: Glucose Point of Care 79 mg/dL (70-110)
[2024-05-04 06:45] LABS: Anion Gap 13.4 (5-19); Blood Urea Nitrogen 8 mg/dL (8-23); Calcium 7.9 mg/dL (8.5-10.5); Carbon Dioxide 26 mmol/L (22-29); Chloride 104 mmol/L (98-107); Creatinine Clr Calc Pharmacy 94.1014; Glomerular Filtration Rate 125.9 mL/min (90-130); Glucose 76 mg/dL (65-115); Osmolality Calculated 287 mOsm/kg (285-295); Potassium 3.4 mmol/L (3.5-5.1); Sodium 140 mmol/L (136-145)
[2024-05-04 07:15] LABS: Slide Review Slide Review Perform
[2024-05-04] MEDS: VANCOMYCIN ADD-Vantage 750 MG in 0.9% NaCl ADD-Vantage 250 ML 250 MG IV (07:15)
[2024-05-04 08:00] VITALS: BP 164/75; PULSE 67; RESP 16; TEMP 36.5; O2SAT 96
--- NOTE | 2024-05-04 09:07 | PC.CHAP ---
Pastoral Care Encounter/Spiritual Assessment Type of Contact [] Declined embedded software development engineer visit [] Patient/Family/Request visit [] Outpatient visit [] Follow-up visit [] Physician referral [] Code/Alert [x] Routine visit [] Staff referral [] Actively dying [] Patient sleeping [] Family support [] [] Out of room [] Palliative care [] [] Receiving care in room [] Pre-surgical visit [] Trauma [] Long length of stay [] ICU visit [] Other: Relational/Emotional Strength [x] Patient feels connected with others/family/visitors/staff [] Distress [] Loneliness/isolation [] Abandonment Spirituality of Patient [x] Person of Adrienne [] Attends Anglican of their Adrienne [x] Believes in Prayer [] Reads Bible or Baptism materials [] There are Spiritual issues to be addressed Automatic Head Sawyer Interventions [x] Prayer [x] Active listening [x] Non-anxious presence [x] Spiritual/emotional support [] Crisis/trauma care [] Spiritual counseling [] Bereavement support [] Provided bereavement packet [] Provided Bible/devotional materials [] Provided toy/stuffed animal, coloring book to patient or family member [] Provided Communion [] Anointing/[place] [] Salvation [x] Completed spiritual assessment [] Other: Impact on Illness or Injury [] Angry [] Fearful [] Anxious [] Often cries [] Exhaustion [] Unable to work [] Unable to attend jew [] Unable to walk/stand [] Unable to read [] Unable to drive [] Unable to eat/drink [] Unable to sleep [] Unable to be with family [] Patient intubated [] Other: Summary Time spent with patient 5 min
[2024-05-04] MEDS: pantoprazole DR 40 mg Tablet PO (09:14)
--- NOTE | 2024-05-04 10:27 | PM.DCS ---
Discharge Providers Date of Admission: 05/01/24 22:49 Date of Discharge: May 04, 2024 Attending Provider at Admission: Shanthi Montgomery MD Attending Provider at Discharge: Camilo Toro MD Primary Care Provider: Leonard Perez MD Diagnoses at Discharge Discharge Diagnosis (1) Altered mental status: Status: Acute (2) Acute hypernatremia: Status: Acute (3) Acute hypokalemia: Status: Acute (4) Rhabdomyolysis: Status: Acute Reason for Visit Reason for Visit: weakness and ams Hospital Course Hospital Course Patient is a 59-year-old white female who presented to the hospital with acute encephalopathy, left lower lobe pneumonia, hyponatremia and hypokalemia. She was found down at home and also had mild rhabdo. She received IV fluids, IV antibiotics consisting of ceftriaxone and vancomycin, and had significant improvement during her hospital stay. Mental status improved significantly, but still some deficit consistent with underlying dementia. It was thought she would be best served by continuing close monitoring in the nursing facility. She will be discharged on cefdinir, doxycycline to finish up treatment for her pneumonia. Cultures were negative upon discharge. Lisinopril was added for blood pressure. CT head negative for any acute changes. Previous TSH normal. B12 level was done but pending on discharge. Physical Exam Narrative: General Exam no distress Neck is supple Cardiovascular regular rate and rhythm Lungs clear Abdomen soft Extremities no cyanosis clubbing edema Discharge Data Studies Completed and Pending Completed Studies During Hospitalization Category Date Time Status CT head wo con* [id number] Stat Cat Scan 05/01/24 20:36 Completed XR chest 1V portable [id number] Stat Exams 05/01/24 20:36 Completed Pending at discharge Category Date Time Status Blood Culture Stat Lab 05/01/24 22:16 Results Radiology Impressions Chest X-Ray 05/01/24 20:36 IMPRESSION: Left lower lobe atelectasis versus minimal infiltrate. Head CT 05/01/24 20:36 IMPRESSION: Negative for intracranial hemorrhage or mass effect. Laboratory Results WBC 6.54 10^3/uL (3.29-11.43) 05/04/24 06:03 RBC 4.31 10^6/uL (3.85-5.65) 05/04/24 06:03 Hgb 13.10 g/dL (11.27-16.99) 05/04/24 06:03 Hct 38.7 % (36-47) 05/04/24 06:03 MCV 89.8 fl (85-98) 05/04/24 06:03 MCH 30.4 pg (27-33) 05/04/24 06:03 MCHC 33.9 g/dL (30-55) 05/04/24 06:03 RDW 12.1 % (12.1-15.1) 05/04/24 06:03 Plt Count 193 10^3/cmm (157-399) D 05/04/24 06:03 MPV 11.1 fL (7.4-10.4) H 05/04/24 06:03 Neut % (Auto) 59.5 % 05/04/24 06:03 Lymph % (Auto) 30.1 % 05/04/24 06:03 [place] % (Auto) 7.5 % 05/04/24 06:03 Eos % (Auto) 1.5 % 05/04/24 06:03 Baso % (Auto) 1.1 % 05/04/24 06:03 Neut # (Auto) 3.89 10^3/uL (1.8-7.7) 05/04/24 06:03 Lymph # (Auto) 2.0 10^3/uL (0.8-4.8) 05/04/24 06:03 [place] # (Auto) 0.5 10^3/uL (0.2-0.9) 05/04/24 06:03 Eos # (Auto) 0.1 10^3/uL (0.0-0.8) 05/04/24 06:03 Baso # (Auto) 0.1 10^3/uL (0.0-0.1) 05/04/24 06:03 Nucleated RBC % (auto) 0 % 05/04/24 06:03 Nucleated RBCs # 0.0 /100WBC 05/04/24 06:03 PT 12.80 SECONDS (12.1-14.9) 05/01/24 20:07 INR 0.93 (0.8-1.2) 05/01/24 20:07 APTT 30.6 SECONDS (23.9-36.7) 05/01/24 20:07 Specimen Type Arterial 05/01/24 20:44 Sample Site Brachial, right 05/01/24 20:44 ABG pH 7.37 (7.35-7.45) 05/01/24 20:44 ABG pCO2 42.0 mmHg (35-45) 05/01/24 20:44 ABG pO2 79.8 mmHg (80.0-100.0) L 05/01/24 20:44 ABG PO2/FiO2 Ratio 380 05/01/24 20:44 ABG HCO3 24.2 mmol/L (22-26) 05/01/24 20:44 ABG Base Excess -1.2 mmol/L (-2.0-2.0) 05/01/24 20:44 Awais Test N/a 05/01/24 20:44 Hematocrit 45.4 % (37-47) 05/01/24 20:44 Hgb O2 Saturation 94.1 % (95-100) L 05/01/24 20:44 Carboxyhemoglobin 1.9 %THgb (0.4-20.1) 05/01/24 20:44 Methemoglobin 0.3 % (0.4-1.5) L 05/01/24 20:44 Total Hemoglobin 14.8 g/dL (12-16) 05/01/24 20:44 O2 Delivery Device None 05/01/24 20:44 FiO2 21.0 % 05/01/24 20:44 National Account Manager ID Baljinder 05/01/24 20:44 Sodium 140 mmol/L (136-145) 05/04/24 06:03 Potassium 3.4 mmol/L (3.5-5.1) L 05/04/24 06:03 Chloride 104 mmol/L (98-107) 05/04/24 06:03 Carbon Dioxide 26 mmol/L (22-29) 05/04/24 06:03 Anion Gap 13.4 (5-19) 05/04/24 06:03 BUN 8 mg/dL (8-23) 05/04/24 06:03 Creatinine 0.5 mg/dL (0.5-0.9) 05/04/24 06:03 GFR Calculation 125.9 mL/min (90-130) 05/04/24 06:03 Glucose 76 mg/dL (65-115) 05/04/24 06:03 POC Glucose 79 mg/dL (70-110) 05/04/24 06:18 Estimat Average Glucose 160 05/01/24 20:17 Hemoglobin A1c 7.2 % (4.0-6.0) H 05/01/24 20:17 Calculated Osmolality 287 mOsm/kg (285-295) 05/04/24 06:03 Lactic Acid 2.8 mmol/L (0.5-2.2) H 05/01/24 20:07 Lactic Acid (Sepsis) 1.1 mmol/L (0.5-2.2) 05/01/24 22:18 Calcium 7.9 mg/dL (8.5-10.5) L 05/04/24 06:03 Magnesium 1.6 mg/dL (1.7-2.3) L 05/03/24 05:39 Total Bilirubin 0.3 mg/dL (0.15-1.2) 05/03/24 05:39 AST 24 U/L (0-32) 05/03/24 05:39 ALT 8 U/L (0-33) 05/03/24 05:39 Alkaline Phosphatase 81 U/L (35-105) 05/03/24 05:39 Ammonia 21 umol/L (11-51) 05/01/24 20:07 Creatine Kinase 418 U/L (26-192) H* 05/03/24 05:39 C-Reactive Protein 10.9 mg/L (0.0-4.9) H 05/01/24 20:07 NT-Pro-B Natriuret Pep 432 pg/mL (0-125) H 05/01/24 20:07 Total Protein 5.1 g/dL (6.6-8.7) L 05/03/24 05:39 Albumin 2.7 g/dL (3.5-5.2) L 05/03/24 05:39 Globulin 2.4 g/dL (1.3-4.6) 05/03/24 05:39 TSH 1.49 uIU/mL (0.27-4.20) 05/01/24 20:17 Urine Color [place] (Yellow) A 05/01/24 21:21 Urine Appearance Clear (CLEAR) 05/01/24 21:21 Urine pH 5.5 (5-7) 05/01/24 21:21 Ur Specific [place] 1.027 (1.005-1.030) 05/01/24 21:21 Urine Protein 3+ (Negative) A 05/01/24 21:21 Urine Glucose (UA) Trace (Normal) H 05/01/24 21:21 Urine Ketones 2+ (Negative) H 05/01/24 21:21 Urine Blood 1+ (Negative) A 05/01/24 21:21 Urine Nitrate Negative (Negative) 05/01/24 21:21 Urine Bilirubin 2+ (Negative) H 05/01/24 21:21 Urine Urobilinogen 1.0 mg/dL (Negative) 05/01/24 21:21 Ur Leukocyte Esterase Negative (Negative) 05/01/24 21:21 Urine RBC 6-10 /hpf (0-2) 05/01/24 21:21 Urine WBC 0-5 /hpf (0-5) 05/01/24 21:21 Ur Squamous Epith Cells 0-5 /hpf (0-5) 05/01/24 21:21 Amorphous Sediment Not Reportable 05/01/24 21:21 Urine Bacteria None seen /hpf (NONE) 05/01/24 21:21 Hyaline Casts 17.77 /lpf 05/01/24 21:21 Urine Mucus Trace /hpf 05/01/24 21:21 Vancomycin Trough 10.2 ug/mL (10-15) 05/04/24 06:03 Urine Opiates Screen Negative ng/mL (Negative) 05/01/24 21:21 Ur Barbiturates Screen Negative ng/mL (Negative) 05/01/24 21:21 Ur Phencyclidine Scrn Negative ng/mL (Negative) 05/01/24 21:21 Ur Amphetamines Screen Negative ng/mL (Negative) 05/01/24 21:21 U Benzodiazepines Scrn Negative ng/mL (Negative) 05/01/24 21:21 Urine Cocaine Screen Negative ng/mL (Negative) 05/01/24 21:21 U Marijuana (THC) Screen Negative ng/mL (Negative) 05/01/24 21:21 Ethyl Alcohol < 10 mg/dL (0-10) 05/01/24 20:07 RPR Nonreactive (Nonreactive) 05/03/24 05:39 RPR Titer/FTA Cancelled 05/03/24 05:39 RPR w/Rflx to Titer Cancelled 05/03/24 05:39 Adenovirus (PCR) Not detected (NOT DETECT) 05/01/24 22:13 C. pneumoniae DNA (PCR) Not detected (NOT DETECT) 05/01/24 22:13 Coronavirus 229E (PCR) Not detected (NOT DETECT) 05/01/24 22:13 Hepatitis A IgM Ab Non-reactive (Nonreactive) 05/03/24 05:39 Hep Bs Antigen Non-reactive (Nonreactive) 05/03/24 05:39 Hep Bs Antibody < 3.5 (11.5-1000) L 05/03/24 05:39 Hep B Core Total Ab Non-reactive (Nonreactive) 05/03/24 05:39 Hepatitis C Antibody Non-reactive (Nonreactive) 05/03/24 05:39 Human Metapneumovir PCR Not detected (NOT DETECT) 05/01/24 22:13 Influenza A (H1) PCR Not detected (NOT DETECT) 05/01/24 22:13 Influ A (H1/09) PCR Not detected (NOT DETECT) 05/01/24 22:13 Influenza A (H3) PCR Not detected (NOT DETECT) 05/01/24 22:13 Influenza Type A (PCR) Not detected (NOT DETECT) 05/01/24 22:13 Influenza Type B (PCR) Not detected (NOT DETECT) 05/01/24 22:13 M. pneumoniae (PCR) Not detected (NOT DETECT) 05/01/24 22:13 Parainfluenza 1 (PCR) Not detected (NOT DETECT) 05/01/24 22:13 Parainfluenza 2 (PCR) Not detected (NOT DETECT) 05/01/24 22:13 Parainfluenza 3 (PCR) Not detected (NOT DETECT) 05/01/24 22:13 Parainfluenza 4 (PCR) Not detected (NOT DETECT) 05/01/24 22:13 RSV Type A (PCR) Not detected (NOT DETECT) 05/01/24 22:13 RSV Type B (PCR) Not detected (NOT DETECT) 05/01/24 22:13 Entero/Rhino (PCR) Not detected (NOT DETECT) 05/01/24 22:13 SARS-CoV-2 (PCR) Not detected (NOT DETECT) 05/01/24 22:13 Vitals Last Vital Signs Temp 97.7 F 05/04/24 08:00 Pulse 67 05/04/24 08:00 Resp 16 12/04/24 08:00 BP 164/75 05/04/24 08:00 Pulse Ox 96 05/04/24 08:00 O2 Del Method Room Air 05/04/24 08:00 Discharge Plan Discharge Patient Disposition: Xfer SNF Condition: Stable Prescriptions: New cefdinir 300 mg capsule 300 mg PO BID 7 Days Qty: 14 0RF pantoprazole 40 mg Tablet,Delayed Release (Dr/Ec) 40 mg PO DAILY Qty: 30 0RF doxycycline hyclate 100 mg capsule 100 mg PO BID 7 Days Qty: 14 0RF lisinopril 10 mg tablet 10 mg PO DAILY Qty: 30 0RF Discontinued metformin 500 mg tablet 500 mg PO DAILY Discharge Orders: Discharge Order (Routine); Ordered 05/04/24 Ordered By: Camilo Toro Referrals: Leonard Perez MD [Primary Care Provider] - 4-7 days Discharge Diet: As Directed Discharge Activity: Resume usual activity Patient Instructions: Altered Mental Status (ED) Activity Restrictions/Additional Instructions: Minced and moist diet Take all medicine as prescribed Follow-up with primary care provider at intermediate facility CBC and BMP in 1 week Discharge Attestations Time Spent in Discharge Care*: greater than 30 min Status at Discharge: Cognitive status at discharge: cognitively intact, Behavioral status at discharge: cooperative, Quality Metrics Clinical Quality Measures [ No reported AMI, CVA or VTE this stay] Coding Level of Care Code 16778 Total time (in minutes) for Discharge: 46 Diagnoses Altered mental status R41.82 Acute hypernatremia E87.0 Acute hypokalemia E87.6 Rhabdomyolysis M62.82
[2024-05-04] MEDS: potassium chloride oral liq 20 mEq/15 mL UDC 40 MEQ PO (11:09)
[2024-05-04 11:14] LABS: Glucose Point of Care 121 mg/dL (70-110)
[2024-05-04 11:33] VITALS: BP 150/74; PULSE 67; RESP 16; TEMP 36.3; O2SAT 98
[2024-05-04 11:58] LABS: SARS Covid-2 Antigen Negative (Negative)
[2024-05-04 12:29] LABS: Vitamin B12 359 pg/mL (232-1245)
[2024-05-04 14:40] VITALS: BP 150/74; PULSE 67; RESP 16; TEMP 36.3; O2SAT 98
== END 2024-05-04 14:43 | disposition skilled nursing facility (03) | DRG 640 ==
LOC: ER 22:43 → MEDSURG 22:50
PROVIDERS: Admitting Provider Student in an Organized Health Care Education/Training Program; Emergency Provider Emergency Medicine; PCP Family Medicine; Visit Provider Internal Medicine
DX: E87.0 Hyperosmolality and hypernatremia (principal); J18.9 Pneumonia, unspecified organism; M62.82 Rhabdomyolysis; G93.40 Encephalopathy, unspecified; E87.6 Hypokalemia; F03.90 Unspecified dementia, unspecified severity, without behavioral disturbance, psychotic disturbance, mood disturbance, and anxiety; E11.9 Type 2 diabetes mellitus without complications; F17.210 Nicotine dependence, cigarettes, uncomplicated; Z79.84 Long term (current) use of oral hypoglycemic drugs; Z86.14 Personal history of Methicillin resistant Staphylococcus aureus infection
CPT/HCPCS: 36415; 36416; 36600; 70450; 71045; 80048; 80053; 80202; 80306; 80307; 81001; 82140; 82550; 82607; 82805; 82962; 83036; 83605; 83735; 83880; 84443; 85025; 85610; 85730; 86140; 86592; 86705; 86706; 86709; 86803; 87040; 87340; 87426; 87486; 87581; 87633; 92523; 92610; 96365; 96367; 96372; 97110; 97162; 97167; 97530; 97535; 99285; J0360; J0696; J1650; J1956; J3370; J3475; J3480; J7030; J7050

== ENCOUNTER 2024-05-04 17:03 | Emergency (ER) | payer MEDICARE, MEDICAID, SELFPAY ==
[2024-05-04 17:06] VITALS: BP 118/95; PULSE 84; RESP 24; TEMP 36.6; O2SAT 96
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
--- NOTE | 2024-05-04 18:05 | PC.NURSE ---
report given to Lindsey at [facility]. per [facility] staff, they are unsure how pt ambulates or if bedbound, states pt was new admit. pt unable to answer questions regarding ambulation.
[2024-05-04 18:17] VITALS: BP 157/104; PULSE 82; O2SAT 95
--- NOTE | 2024-05-04 18:18 | PC.NURSE ---
per Edison, pt's son, pt is bed bound and needs EMS ride back
[2024-05-04] MEDS: magnesium oxide 400 mg tablet PO (18:23)
[2024-05-04] MEDS: potassium bicarb 25 mEq Tablet PO (18:23)
[2024-05-04 19:00] VITALS: BP 152/87; PULSE 71; O2SAT 96
[2024-05-04 19:29] VITALS: BP 179/86; PULSE 73; O2SAT 96
[2024-05-04 19:42] VITALS: BP 164/76; PULSE 73; O2SAT 97
[2024-05-04 20:02] VITALS: BP 154/89; PULSE 77; RESP 16; O2SAT 94
--- NOTE | 2024-05-04 20:16 | PC.NURSE ---
2017: Report called to Lyudmila ETIENNE at [facility].
== END 2024-05-04 20:17 ==
PROVIDERS: Emergency Provider Emergency Medicine; PCP Family Medicine
DX: G25.2 Other specified forms of tremor (principal); F80.0 Phonological disorder; Z00.00 Encounter for general adult medical examination without abnormal findings; F17.210 Nicotine dependence, cigarettes, uncomplicated; E11.10 Type 2 diabetes mellitus with ketoacidosis without coma
CPT/HCPCS: 99283

== ENCOUNTER 2024-10-31 09:55 | Emergency (ER) | payer MEDICARE, MEDICAID, SELFPAY ==
[2024-10-31 09:56] VITALS: PULSE 84; RESP 18; TEMP 36.7; O2SAT 95
--- NOTE | 2024-10-31 09:58 | XR_ITS ---
WS: [id number] XR chest 1V portable [id number] REASON FOR EXAM: dyspnea/cough FINDINGS: The chest is unchanged compared to 05/01/2024. Moderate tortuosity and ectasia of the thoracic aorta. Normal heart size. Calcified granulomatous disease in both hemithoraces. No acute pulmonary parenchymal or pleural abnormality. Mild thoracic scoliosis and degenerative spondylosis of the thoracic spine. XR/XR chest 1V portable [id number] IMPRESSION: Stable chest without acute abnormality.
--- NOTE | 2024-10-31 09:59 | ECG_ITS ---
[employer] Test Date: 2024-10-31 Pat Name: Skyla Lozano Department: Room: Gender: Female Haunted History Tour Guide: : 1965 Requested By: Harvinder Mccarthy Order Number: [id number] Parth MD: Ankit Patterson M.D. Measurements Intervals [place] Rate: 77 P: 64 AR: 153 QRS: 77 QRSD: 94 T: 111 QT: 378 QTc: 430 Interpretive Statements SINUS RHYTHM NONSPECIFIC T-WAVE ABNORMALITY Compared to ECG 03/11/2024 19:05:36 Sinus arrhythmia no longer present T-wave abnormality still present Electronically Signed On 11-01-2024 11:37:23 CDT by Ankit Patterson M.D. [email or web address]
[2024-10-31 10:16] LABS: Basophils % 0.4 %; Eosinophils % 0.3 %; Hematocrit 40.4 % (36-47); Lymphocytes # 1.7 10^3/uL (0.8-4.8); Lymphocytes % 18.2 %; Mean Corpuscular HGB Conc 34.4 g/dL (30-55); Mean Corpuscular Hemoglobin 30.5 pg (27-33); Mean Corpuscular Volume 88.8 fl (85-98); Monocytes # 0.5 10^3/uL (0.2-0.9); Monocytes % 4.8 %; Neutrophils # 7.15 10^3/uL (1.8-7.7); Nucleated Red Blood Cells % 0 %; Platelet Count 340 10^3/cmm (157-399); Red Blood Count 4.55 10^6/uL (3.85-5.65); Red Cell Distribution Width 12.1 % (12.1-15.1); White Blood Count 9.41 10^3/uL (3.29-11.43)
--- NOTE | 2024-10-31 10:21 | PC.PHAR ---
Pt is from [facility]. Med list does not show Lisinopril 10mg daily. Last fill was 05/09/24 7ds.
[2024-10-31 10:42] LABS: Alanine Aminotransferase 10 U/L (0-33); Albumin Level 3.8 g/dL (3.5-5.2); Alkaline Phosphatase 117 U/L (35-105); Anion Gap 14.2 (5-19); Aspartate Amino Transferase 14 U/L (0-32); Blood Urea Nitrogen 28 mg/dL (8-23); Carbon Dioxide 27 mmol/L (22-29); Chloride 103 mmol/L (98-107); Glomerular Filtration Rate 63.9 mL/min (90-130); Glucose 242 mg/dL (65-115); Osmolality Calculated 303 mOsm/kg (285-295); Potassium 4.2 mmol/L (3.5-5.1); Sodium 140 mmol/L (136-145); Total Bilirubin 0.3 mg/dL (0.15-1.2); Total Protein 6.8 g/dL (6.6-8.7)
--- NOTE | 2024-10-31 11:02 | CT_ITS ---
WS: [id number] CT HEAD TECHNIQUE: Noncontrast CT of the head obtained from the skullbase to the vertex. CLINICAL INFORMATION: Acute CVA left-sided weakness flaccid left arm COMPARISON: CT 2023 DLP: 1122.[address] scans at [facility] use at least one of these dose optimization techniques: automated exposure control; mA and/or kV adjustment per patient size (includes targeted exams where dose is matched to clinical indication); or iterative reconstruction. FINDINGS: No evidence of intracranial hemorrhage or mass effect. Ventricular system and basal cisterns are patent. Moderate small vessel changes with moderate parenchymal volume loss. No extra-axial fluid collections. No evidence of mass or mass effect. Chronic infarcts in the RIGHT basal ganglia, bilateral caudate, RIGHT thalamus, and RIGHT cerebellum. Some of the basal ganglia lacunar infarcts appear progressed compared to previous but have a chronic appearance. Chronic lacunar infarcts LEFT basal ganglia. Paranasal sinuses and mastoid air cells are well aerated. .Normal visualized soft tissues. CT/CT head wo con* [id number] IMPRESSION: 1. No evidence of intracranial hemorrhage or mass effect. 2. Moderate small vessel changes with moderate parenchymal volume loss. 3. Vascular calcification. 4. Tiny chronic lacunar infarcts bilateral caudate and RIGHT thalamus. Chronic lacunar infarcts bilateral basal ganglia 5. Chronic lacunar infarct RIGHT cerebellum. 6. No acute intracranial findings.
--- NOTE | 2024-10-31 11:42 | ED_ITS ---
HPI - Weakness 2 General: Chief complaint: Weakness Stated complaint: Weakness Time Seen by Provider: 10/31/24 09:57 History of Present Illness: 59-year-old female with a history of sev ere dementia reports that she had left arm weakness 3 and leaning to her right side this began 2 days ago. Evidently the weekend staff did not notice anything in particular when the weekday staff returned today on Thursday morning they felt she was significantly altered from when had seen her previously and she was directed to the emergency room. Patient has early onset Alzheimer's dementia. Review of Systems 2 General: Reports: ROS unobtainable due to mental status PFSH ED 2 PFSH: Medical History Common bile duct calculi Acute cholecystitis MRSA bacteremia Septic pulmonary embolism Gram positive sepsis Chest pain Dehydration Insulin dependent type 2 diabetes mellitus Pneumonia Altered mental status DKA (diabetic ketoacidosis) Diabetes Surgical History No pertinent past surgical history Family History Mother Cancer Father CAD (coronary artery disease) Social History Smoking and tobacco/nicotine status: current every day tobacco/nicotine user cigarettes Packs smoked per day: 1 Alcohol intake: current Alcohol intake frequency: few times a month Substance/Drug Use: never Physical Exam 2 HENMT: COMMON NORMALS: normocephalic, atraumatic and hearing grossly normal bilaterally HEAD & SCALP: normocephalic and atraumatic Resp: COMMON NORMALS: normal respiratory effort, No retractions, No use of accessory muscles and clear to auscultation bilaterally AUSCULTATION: clear to auscultation bilaterally Cardio: COMMON NORMALS: regular rate, regular rhythm and No murmurs present (Cardio) RATE: regular rate RHYTHM: regular rhythm GI: COMMON NORMALS: Soft to palpation and No hepatosplenomegaly present A USCULTATION: Yes normoactive bowel sounds PALPATION: Yes Soft to palpation, No Tenderness to palpation present (GI), No Guarding due to palpation present (GI) and Yes No hepatosplenomegaly present Extremity: COMMON NORMALS: normal to inspection, capillary refill normal, no clubbing, cyanosis or edema, no calf tenderness and no pedal edema Skin: COMMON NORMALS: no rashes or lesions noted GENERAL SKIN EXAM: no rashes or lesions noted Course 2 Vital Signs: Vital signs: Vital Signs Temperature 98.1 F 10/31/24 09:56 Pulse Rate 88 10/31/24 15:18 Respiratory Rate 18 10/31/24 14:05 Blood Pressure 154/85 10/31/24 15:18 Pulse Oximetry 97 10/31/24 15:18 Oxygen Delivery Me thod Room Air 10/31/24 14:05 MDM - Weakness Medical Decision Making Patient does have left-sided weakness worse in the arm and leg. She is 48 hours out from last known well. CT did not show anything acute. I discussed with her primary care doctor ultimately after discussion decided to start dual antiplatelet therapy and a statin and refer her back to the care home because of her dementia she is not able to participate in any therapies. We both agreed there is no real benefit to admission at this point. Continue regular home medications add aspirin Plavix and atorvastatin. Incidental finding of a cystitis for which she was given a dose of Rocephin here and was started on cefdinir p.o. Lab Data 10/31/24 09:42 10/31/24 09:42 Radiology Impressions Chest X-Ray 10/31/24 09:58 IMPRESSION: Stable chest without acute abnormality. Head CT 10/31/24 11:02 IMPRESSION: 1. No evidence of intracranial hemorrhage or mass effect. 2. Moderate small vessel changes with moderate parenchymal volume loss. 3. Vascular calcification. 4. Tiny chronic lacunar infarcts bilateral caudate and RIGHT thalamus. Chronic lacunar infarcts bilateral basal ganglia 5. Chronic lacunar infarct RIGHT cerebellum. 6. No acute intracranial findings. Laboratory Results WBC 9.41 10^3/uL (3.29-11.43) 10/31/24 09:42 RBC 4.55 10^6/uL (3.85-5.65) 10/31/24 09:42 Hgb 13.90 g/dL (11.27-16.99) 10/31/24 09:42 Hct 40.4 % (36-47) 10/31/24 09:42 MCV 88.8 fl (85-98) 10/31/24 09:42 MCH 30.5 pg (27-33) 10/31/24 09:42 MCHC 34.4 g/dL (30-55) 10/31/24 09:42 RDW 12.1 % (12.1-15.1) 10/31/24 09:42 Plt Count 340 10^3/cmm (157-399) 10/31/24 09:42 MPV 11.0 fL (7.4-10.4) H 10/31/24 09:42 Neut % (Auto) 76.0 % 10/31/24 09:42 Lymph % (Auto) 18.2 % 10/31/24 09:42 [place] % (Auto) 4.8 % 10/31/24 09:42 Eos % (Auto) 0.3 % 10/31/24 09:42 Baso % (Auto) 0.4 % 10/31/24 09:42 Neut # (Auto) 7.15 10^3/uL (1.8-7.7) 10/31/24 09:42 Lymph # (Auto) 1.7 10^3/uL (0.8-4.8) 10/31/24 09:42 [place] # (Auto) 0.5 10^3/uL (0.2-0.9) 10/31/24 09:42 Eos # (Auto) 0.0 10^3/uL (0.0-0.8) 10/31/24 09:42 Baso # (Auto) 0.0 10^3/uL (0.0-0.1) 10/31/24 09:42 Nucleated RBC % (auto) 0 % 10/31/24 09:42 Nucleated RBCs # 0.0 /100WBC 10/31/24 09:42 Sodium 140 mmol/L (136-145) 10/31/24 09:42 Potassium 4.2 mmol/L (3.5-5.1) 10/31/24 09:42 Chloride 103 mmol/L (98-107) 10/31/24 09:42 Carbon Dioxide 27 mmol/L (22-29) 10/31/24 09:42 Anion Gap 14.2 (5-19) 10/31/24 09:42 BUN 28 mg/dL (8-23) H 10/31/24 09:42 Creatinine 0.9 mg/dL (0.5-0.9) 10/31/24 09:42 GFR Calculation 63.9 mL/min (90-130) L 10/31/24 09:42 Glucose 242 mg/dL (65-115) H 10/31/24 09:42 Calculated Osmolality 303 mOsm/kg (285-295) H 10/31/24 09:42 Calcium 9.0 mg/dL (8.5-10.5) 10/31/24 09:42 Total Bilirubin 0.3 mg/dL (0.15-1.2) 10/31/24 09:42 AST 14 U/L (0-32) 10/31/24 09:42 ALT 10 U/L (0-33) 10/31/24 09:42 Alkaline Phosphatase 117 U/L (35-105) H 10/31/24 09:42 Total Protein 6.8 g/dL (6.6-8.7) 10/31/24 09:42 Albumin 3.8 g/dL (3.5-5.2) 10/31/24 09:42 Globulin 3.0 g/dL (1.3-4.6) 10/31/24 09:42 Urine Color Yellow (Yellow) 10/31/24 11:55 Urine Appearance Cloudy (CLEAR) A 10/31/24 11:55 Urine pH 5.5 (5-7) 10/31/24 11:55 Ur Specific [place] 1.028 (1.005-1.030) 10/31/24 11:55 Urine Protein 3+ (Negative) A 10/31/24 11:55 Urine Glucose (UA) 3+ (Normal) H 10/31/24 11:55 Urine Ketones Trace (Negative) 10/31/24 11:55 Urine Blood 1+ (Negative) A 10/31/24 11:55 Urine Nitrate Negative (Negative) 10/31/24 11:55 Urine Bilirubin Negative (Negative) 10/31/24 11:55 Urine Urobilinogen 1.0 mg/dL (Negative) 10/31/24 11:55 Ur Leukocyte Esterase Negative (Negative) 10/31/24 11:55 Urine RBC 6-10 /hpf (0-2) 10/31/24 11:55 Urine WBC 51-100 /hpf (0-5) H 10/31/24 11:55 Ur Squamous Epith Cells 21-50 /hpf (0-5) H 10/31/24 11:55 Amorphous Sediment Not Reportable 10/31/24 11:55 Urine Bacteria 4+ /hpf (NONE) H 10/31/24 11:55 Hyaline Casts 9.07 /lpf 10/31/24 11:55 Fine Granular Casts 0-4 /lpf H 10/31/24 11:55 All radiology interpretation(s) finalized by discharge Discharge Plan Discharge Patient Disposition: Home Clinical Impression: CVA (cerebral vascular accident), Dementia, Cystitis Condition: Stable Prescriptions: New aspirin 81 mg tablet,delayed release (DR/EC) 81 mg PO DAILY Qty: 30 0RF clopidogrel [Plavix] 75 mg tablet 75 mg PO DAILY Qty: 30 0RF atorvastatin [Lipitor] 40 mg tablet 40 mg PO DAILY Qty: 30 0RF cefdinir 300 mg capsule 300 mg PO BID 5 Days Qty: 10 0RF No Action metformin 500 mg tablet 500 mg PO DAILY famotidine 20 mg tablet 20 mg PO BEDTIME magnesium hydroxide [Milk of Magnesia] 400 mg/5 mL Suspension 30 ml PO DAILY PRN (Reason: Constipation) bisacodyl [Dulcolax (bisacodyl)] 10 mg Suppository 10 mg OR DAILY PRN (Reason: Constipation) Fleet Enema 19-7 gram/118 mL Enema 118 ml OR DAILY PRN (Reason: Constipation) bisacodyl [Laxative (bisacodyl)] 5 mg tablet,delayed release (DR/EC) 10 mg PO DAILY PRN (Reason: Constipation) Rx Instructions: if no results from Milk of Magnesia acetaminophen 325 mg Tablet 650 mg PO Q6H PRN (Reason: pain/increased katie) Discharge Orders: Discharge ED (Routine); Ordered 10/31/24 Ordered By: Harvinder Bright Referrals: Leonard Perez MD [Primary Care Provider, Family Practice] Discharge Diet: Usual diet Discharge Activity: Increase activity as tolerated Patient Instructions: Opioid Safety, Pain Management Activity Restrictions/Additional Instructions: Thank you for choosing [facility] for your healthcare needs today. It is very important that you follow up as instructed or that you return to the Emergency Department should you have concerns or if your condition changes or worsens in any way. You are seen in the emergency room with weakness in the left side. Have a subacute stroke. Since last known well was over 24 hours ago there is no intervention at this point that can be done. Recommend starting on Plavix aspirin and Lipitor 40 mg daily. Discussed with her primary care doctor as well. You were also noted to have a bladder infection. You are given initial dose IV antibiotics here start oral antibiotics tomorrow 1 pill twice a day for 5 days Print Language: Frisian Coding Level of Care Code ED [employer] for Chg Fwd Related Data Home Medications ?Medication ?Instructions ?Recorded ?Confirmed acetaminophen 325 mg tablet 650 mg PO Q6H PRN pain/inc reased 10/31/24 10/31/24 katie bisacodyl 10 mg rectal suppository 10 mg OR DAILY PRN Constipation 10/31/24 10/31/24 (Dulcolax (bisacodyl)) bisacodyl 5 mg tablet,delayed 10 mg PO DAILY PRN Const ipation 10/31/24 10/31/24 release (Laxative (bisacodyl)) famotidine 20 mg tablet 20 mg PO BEDTIME 10/31/24 magnesium hydroxide 400 mg/5 mL 30 ml PO DAILY PRN Con stipation 10/31/24 10/31/24 oral suspension (Milk of Magnesia) metformin 500 mg tablet 500 mg PO DAILY 10/31/2407/26 sodium phosphates 19 gram-7 118 ml OR DAILY PRN Consti pation 10/31/24 10/31/24 gram/118 mL enema (Fleet Enema) Previous Rx's ?Medication ?Instructions ?Recorded aspirin 81 mg tablet,delayed 81 mg PO DAILY #30 tabs 0 10/31/24 release atorvastatin 40 mg tablet (Lipitor) 40 mg PO DAILY #30 tabs 10/31/24 cefdinir 300 mg capsule 300 mg PO BID 5 days #10 cap s 10/31/24 clopidogrel 75 mg tablet (Plavix) 75 mg PO DAILY #30 t abs 10/31/24 Allergies Allergy/AdvReac Type Severity Reaction Status Date / Time No Known Allergies Allergy Verified 05/01/24 20:40
[2024-10-31 12:14] LABS: Bilirubin Urine Negative (Negative); Blood Urine 1+ (Negative); Glucose Urine UA 3+ (Normal); Ketones Urine Trace (Negative); Leukocyte Esterase Urine Negative (Negative); Nitrate Urine Negative (Negative); Protein Urine 3+ (Negative); Specific Gravity, Urine 1.028 (1.005-1.030); Urine Appearance Cloudy (CLEAR); Urine Color Yellow (Yellow); pH Urine 5.5 (5-7)
[2024-10-31 12:19] LABS: Add Urine Microscopic? YES; Bacteria Urine 4+ /hpf; Hyaline Casts Urine 9.07 /lpf; Squamous Epithelial Cell Urine 21-50 /hpf (0-5); WBC Urine 51-100 /hpf (0-5)
[2024-10-31 13:20] LABS: UA Slide Review UA Slide Review Perf
[2024-10-31 13:22] LABS: Add Urine Culture? Yes; Fine Granular Casts Urine 0-4 /lpf
[2024-10-31] MEDS: cefTRIAXone 1,000 mg SDV 1000 MG IM (13:56)
[2024-10-31 14:05] VITALS: BP 165/89; PULSE 85; RESP 18; O2SAT 95
[2024-10-31 15:18] VITALS: BP 154/85; PULSE 88; O2SAT 97
== END 2024-10-31 15:19 | disposition home or self-care (01) ==
PROVIDERS: Emergency Provider Family Medicine; PCP Family Medicine
DX: I63.81 Other cerebral infarction due to occlusion or stenosis of small artery (principal); G83.24 Monoplegia of upper limb affecting left nondominant side; F03.90 Unspecified dementia, unspecified severity, without behavioral disturbance, psychotic disturbance, mood disturbance, and anxiety; N30.90 Cystitis, unspecified without hematuria; Z79.84 Long term (current) use of oral hypoglycemic drugs; F17.210 Nicotine dependence, cigarettes, uncomplicated; E11.9 Type 2 diabetes mellitus without complications
CPT/HCPCS: 70450; 71045; 80053; 81001; 85025; 87086; 93005; 99285; J0696